=== PATIENT | female | born 1970 | race Caucasian/White ===

== ENCOUNTER 2017-10-04 08:31 | Day surgery (SDC) | payer OTHER ==
[~2017-10-04] VITALS: Ht 167.6 cm; Wt 94.3 kg
--- OUTSIDE RECORDS SUMMARY | ~2017-10-04 | XMS | Clinical Summary ---
Demographics + + + | Address | [address] | | | [place] [address] | + + + | Home Phone | | + + + | Preferred Language | Unknown | + + + | Marital Status | Unknown | + + + | Religion Affiliation | Unknown | + + + | Race | Unknown | + + + | Ethnic Group | Unknown | + + + Author + + + | Author | [facility] | + + + | Organization | [facility] | + + + | Address | Unknown | + + + | Phone | Unavailable | + + + Support +--------+ +---------+ + | Name | Relationship | Address | Phone | +--------+ +---------+ + | No,One | ECON | Unknown | | +--------+ +---------+ + Care Team Providers + +------+ + | Care Medical Claims Processor Name | Role | Phone | + [...] +------+-------+ + | MEDICAID | EASTER | xxxxxxxx | | | [address] | | | N | | | | [place] | | | [place] | | | | [address] | | | PRINT PRODUCTION ASSOCIATE | | | | | + +--------+ [...] | 1971 | [phone] | [place] [address] | | | [place] | | | [phone] | | + +--------+ +--------+ + +"
--- OUTSIDE RECORDS SUMMARY | ~2017-10-04 | XMS | Clinical Summary ---
Demographics + + + | Address | [address] | | | [place] [address] | + + + | Home Phone | | + + + | Preferred Language | Unknown | + + + | Marital Status | Unknown | + + + | Mu-Ism Affiliation | Unknown | + + + | Race | Unknown | + + + | Ethnic Group | Unknown | + + + Author + + + | Author | [facility] | + + + | Organization | [facility] | + + + | Address | Unknown | + + + | Phone | Unavailable | + + + Support +--------+ +---------+ + | Name | Relationship | Address | Phone | +--------+ +---------+ + | No,One | ECON | Unknown | | +--------+ +---------+ + Care Team Providers + +------+ + | Care Chain Maker Loom Control Name | Role | Phone | + [...] | | [place] | | | | [phone] | | | CREAM GATHERER | | | | | + +--------+ [...] | 1971 | [phone] | [place] [address] | | | [place] | | | [phone] | | + +--------+ +--------+ + +"
[~2017-10-04 08:31] MED LIST: LEVOFLOXACIN750 MG PO; ONDANSETRON HCL8 MG PO; PREDNISONE20 MG PO; PROMETHAZINE HC25 M1 PO; PROVENTIL HFA6.7 GM INH; VENTOLIN HFA18 GM INH; ZOFRAN ODT4 MG PO
[2017-10-04] MEDS ORDERED: LAMOTRIGINE200 MG PO (08:41)
[2017-10-04] MEDS ORDERED: CELEXA20 MG PO (08:41)
[2017-10-04] MEDS ORDERED: KLONOPIN1 MG PO (08:42)
--- NOTE | 2017-10-04 20:20 | NUR ---
10/04/172019 Siobhan Barboza 2012 PT ARRIVED TO PACU ON 6L VIA MASK. PT RESPONDS TO STIMULI THEN RIGHT BACK TO SLEEP. SNORING NOTED, PT MAINTAINING OWN AIRWAY. RESP EVEN AND UNLABORED.
--- NOTE | 2017-10-04 21:45 | NUR ---
PT ARRIVED FROM PACU VIA STRETCHER WITH EKTA BALTAZAR. PT WAS ABLE TO TRANSFER HERSELF FROM STRETCH TO BED. PT TOLERATED WELL. PT STATES NAUSEA IS BETTER. PT REPORTS PAIN. WILL GIVE PRN ORAL PAIN MEDICATION ONCE SHE IS ABLE TO TOLERATE CLEAR LIQUIDS. PT IS REQUESTING WATER NOW. WILL ADVANCE DIET AT THIS TIME AND SEE HOW PT TOLERATES CLEAR LIQUIDS.
--- NOTE | 2017-10-04 22:00 | NUR ---
PT UP TO CAMMODE. PT URINATE 400ML BLOOD TINGED URINE. PT TOELRATED WELL. PT BACK TO BED. JELLO AND WATER AT BEDSIDE. VITALS ARE STABLE. WILL CONTINUE TO MONTIOR.
--- NOTE | 2017-10-04 22:15 | NUR ---
GAVE PT CRACKERS WILL MONITOR TO SEE IF PT TOLERATES. WILL GIVE PRN PAIN MEDICATION IF SHE TOELRATES SOLIDS.
--- NOTE | 2017-10-04 22:30 | NUR ---
CALLED MD TO UPDATE THAT PHARMACIES IN [facility] ARE NOW CLOSED AND PT WILL HAVE NO ACCESS TO FILL PAIN MEDICATION PRESCRIPTION. PER MD ORDER A ONE TIME PRECRIPTION HOME PACK OF PERCOCET TO BE SENT WITH PT TO COVER PAIN DURING THE NIGHT UNTIL SHE CAN BRING PRESCRIPTION TO PHARMACY IN THE AM. UPDATED MD THAT SHE IS VOIDING RED TINGED URINE AND IS AWAKE AND WORKING ON CRACKERS AT THIS TIME. PER MD WHEN SHE MEETS CRITERIA SHE CAN DISCHARGE HOME.
--- NOTE | 2017-10-04 22:35 | NUR ---
PT FINISHED CRACKERS AND DANNYOW AND DENIES N/V. WILL PREPARE PT FOR DISCAHRGE.
--- NOTE | 2017-10-04 22:45 | NUR ---
IN TO GIVE PT PRN PAIN MEDICATION AND A TAKE HOME PACK OF PERCOCET. PT FRIEND IS AT THE BEDSIDE, THEY WILL FILL PRESCRIPTIONS IN THE AM.
--- NOTE | 2017-10-04 23:00 | NUR ---
EDUCATED REGUARDING DISCHARGE PAPERWORK. REVIEWD S/S TO CALL THE OFFICE OR RETURN TO THE HOSPITAL. EDUCATED REGUARDING EXPECTED S/S. PT DENIES FURTHER QUESTIONS AT THIS TIME. ALL INFORMATION PLACED IN FOLDER AND GIVEN TO PT FRIEND TOM.
--- NOTE | 2017-10-04 23:15 | NUR ---
REVIEWED DISCHARGE INFORMATION WITH PATIENT AND HER FRIEND TOM WHO WILL BE DRIVING HER HOME. PT AND FRIEND UNDAERSTAND INFORMATION. EDUCATED REGUARDING PRESCRIPTIONS AND TO FILL PRESCRIPTIONS IN THE MORNING. PT IS SENT TO A HOME PACK OF PERCOCET WITH INSTRUCTIONS TO ONLY TAKE 1 TAB EVERY 6 HOURS NEEDED AND TO NOT TAKE THE NEXT ONE UNTIL 0500 D/T TAKING ONE DOSE PRIOR TO DISCHARGING HERE. PT IS ALERT AND ORIENTED, FOLLOWS COMMANDS, VITAL SIGNS ARE STABLE, PT HAS VOIDED, TOLERATED CLEAR LIQUIDS AND CRACKERS WITH NO N/V, PT IS STEADY ON HER FEET. DC'D IV ACCESS. ALL BELONINGS SENT WITH PT. PT WHEELED DOWN IN WHEELCHAIR WITH THIS RN AND ASSIST TO PASSENGER SIDE VEHICLE. TOM HER FRIEND IS TRANSPORTING HER HOME. THEY DENY FURTHER QUESTIONS AT THIS TIME.
--- NOTE | 2017-10-05 08:20 | OR ---
[facility] [address] [place], [place] [address] Signed DATE OF OPERATION: 10/04/2017 SURGEON: Gabriel Mcdaniels MD PREOPERATIVE DIAGNOSIS: Right ureterolithiasis. POSTOPERATIVE DIAGNOSIS: Right ureterolithiasis. PROCEDURES: 1. Diagnostic cystoscopy with right retrograde pyelogram. 2. Right flexible nephroureteroscopy with laser lithotripsy and basket extraction of stones. 3. Insertion of an indwelling right ureteral stent. ANESTHESIA: General. ESTIMATED BLOOD LOSS: Minimal. COMPLICATIONS: None. SPECIMENS: Right ureteral and renal calculi sent to the lab for stone analysis. DRAINS: A 6 x 26 cm Contour double-J ureteral stent inserted into the right ureter. INDICATIONS FOR PROCEDURE: Ms. Drake is a very pleasant 47-year-old female with a previous history of nephrolithiasis, who presented to the Emergency Department early this morning with sudden onset of right-sided flank pain, nausea, and chills. Upon evaluation, she underwent a CT scan, which revealed an approximately 8 mm proximal right ureteral calculus with associated hydronephrosis. The Emergency Department was having a hard time getting her pain under control with both IV Toradol, and IV neck narcotics, therefore Urology was contacted. She was sent to the floor where she was given pain control and made n.p.o. She now presents later today to undergo definitive management Electronically Signed By: GABRIEL MCDANIELS MD 10/05/17 0820 PATIENT NAME: EDY GILLIAM HAZEL OPERATIVE REPORT DATE OF : 68 REPORT #: [id number] PHYSICIAN: GABRIEL MCDANIELS MD PCP: SUJEY BACA DO REPORT IS CONFIDENTIAL AND NOT TO BE RELEASED WITHOUT AUTHORIZATION [facility] [address] [place], [place] [address] Signed of her stone in the form of right ureteroscopy with laser lithotripsy basket extraction of stones and right ureteral stent insertion. FINDINGS: 1. On cystoscopy, there was no evidence of any suspicious masses, lesions, or stones. Bilateral ureteral orifices are in their normal anatomic location. There was no noted efflux coming from the right ureter. 2. Right retrograde pyelogram was performed, which did reveal a filling defect in the proximal right ureter, consistent with her obstructing proximal ureteral stone. 3. Flexible ureteroscopy was performed and the 8 mm stone was visualized, and was fragmented using a holmium laser without difficulty. The fragments were then extracted using a Zero tip basket and placed in a specimen cup. 4. After extracting the ureteral stone, I moved into the lower pole of the right kidney where I found two additional stones each measuring approximately 3 mm. I was able to extract both of those stones in toto, and also sent them with the ureteral calculi to be analyzed. 5. A 6 x 26 cm contour double-J ureteral stent was inserted into the right ureter under direct visualization without difficulty. DESCRIPTION OF PROCEDURE: After informed consent was obtained, the patient was taken back to the operating room. She was transferred from the [facility] to the operating room table, where general anesthesia was induced. She was placed in the dorsal lithotomy position and her genitalia prepped and draped in a standard sterile fashion. Using a 30-degree lens on a 22-Cymro introducer, rigid cystoscope was inserted through the urethra into her bladder under direct visualization. Panendoscopic views of the bladder were then obtained including the lateral rodriguez, floor, dome, and trigone areas. Please see above findings. Attention was turned to the right ureteral orifice. A cone-tipped catheter was advanced toward the right UO and a right-sided retrograde pyelogram was performed. Please see the findings. I then inserted a 0.035 Sensor wire into the right collecting system, and confirmed placement of the wire on fluoroscopy. Over the wire, I passed a 13/15 ureteral access sheath into the right ureter under fluoroscopic guidance. I repeated a retrograde pyelogram to confirm placement. I then advanced the flexible ureteroscope into the proximal right ureter where I found the stone, and fragmented the stone using the holmium laser. The stone fragmented relatively easily, and I was able to extract all 100% stone fragments using a Zero tip basket. Once I was satisfied that all the stone fragments in the ureter were removed, I advanced the flexible ureteroscope into the right kidney. I performed a full nephroscopy and did not appreciate any stones until I went into the lower pole of the right kidney. I was able to locate two 3 mm stones, and was able to extract both of those in toto without the need for further fragmentation. Once I was satisfied that I extracted as many stones as possible I Electronically Signed By: GABRIEL MCDANIELS MD 10/05/17 0820 PATIENT NAME: EDY GILLIAM OPERATIVE REPORT DATE OF : 68 REPORT #: [id number] PHYSICIAN: GABRIEL MCDANIELS MD PCP: SUJEY BACA DO REPORT IS CONFIDENTIAL AND NOT TO BE RELEASED WITHOUT AUTHORIZATION [address] [address] Signed removed the flexible ureteroscope and passed a Sensor wire through the ureteral access sheath into the right renal pelvis, and confirmed placement on fluoroscopy. The sheath was removed fully intact. Over the wire, I passed a 6 x 26 cm Contour double-J ureteral stent into the right ureter under direct visualization. The stent passed easily, and I was able to confirm placement of the stent on fluoroscopy. Once the stent was in adequate position the patient's bladder was then drained and the cystoscope was removed. The procedure was then terminated. The patient tolerated the procedure well without any complication. She will now be transferred to the postanesthesia care unit in stable condition. DISPOSITION: I discussed the results of today's procedure with her friend, Jerrod, and answered all of his questions. Hopefully, she will go home later this evening in stable condition in the company of her friend. I have asked her to contact the clinic tomorrow morning in order to schedule an appointment to see me in 5-7 days to undergo cystoscopy with right ureteral stent extraction in our clinic. I made it clear to the patient that the stent needs to come out, and that she cannot maintain the stent on an indefinite basis. She will be sent home with Percocet 5/325 dispense #30 as needed for pain along with Bactrim Double Strength one tab p.o. b.i.d. for a total of seven days. MD ULISES Low/TSERING /[id number] Copies: ~ Electronically Signed By: GABRIEL MCDANIELS MD 10/05/17 0820 PATIENT NAME: EDY GILLIAM OPERATIVE REPORT DATE OF : 68 REPORT #: [id number] PHYSICIAN: GABRIEL MCDANIELS MD PCP: SUJEY BACA DO REPORT IS CONFIDENTIAL AND NOT TO BE RELEASED WITHOUT AUTHORIZATION
== END 2017-10-04 23:15 | disposition home or self-care (01) ==
LOC: ED 08:31 → DSVR 14:00 → DS 14:00 → CCU 21:30 → DS 23:15
PROVIDERS: Urology
PROC: BT1DYZZ Fluoroscopy of Right Kidney, Ureter and Bladder using Other Contrast (ICD-10-PCS; 2017-10-04)
PROC: 0TC08ZZ Extirpation of Matter from Right Kidney, Via Natural or Artificial Opening Endoscopic (ICD-10-PCS; principal; 2017-10-04 18:30)
PROC: 0TC68ZZ Extirpation of Matter from Right Ureter, Via Natural or Artificial Opening Endoscopic (ICD-10-PCS; 2017-10-04 18:30)
PROC: 0T768DZ Dilation of Right Ureter with Intraluminal Device, Via Natural or Artificial Opening Endoscopic (ICD-10-PCS; 2017-10-04 18:30)
DX: N13.2 Hydronephrosis with renal and ureteral calculous obstruction (principal); E86.0 Dehydration; F32.9 Major depressive disorder, single episode, unspecified; F41.9 Anxiety disorder, unspecified; F43.10 Post-traumatic stress disorder, unspecified; F17.210 Nicotine dependence, cigarettes, uncomplicated
CPT/HCPCS: 00910; 74176; 74450; 80053; 81001; 82150; 82365; 83690; 84703; 85025; 96361; 96374; 96375; 96376; 99285; C2617; J0330; J0696; J1170; J2250; J2405; J2550; J2704; J2765; J3010; J7030; J7120; Q9967

== ENCOUNTER 2017-11-21 06:36 | Emergency (ER) | payer OTHER ==
[~2017-11-21] VITALS: Ht 167.6 cm; Wt 94.3 kg
[~2017-11-21 06:36] MED LIST changes: +CELEXA20 MG PO; +KLONOPIN1 MG PO; +LAMOTRIGINE200 MG PO
[2017-11-21] MEDS ORDERED: NORCO 10-325 T1 EACH PO (08:46)
[2017-11-21] MEDS ORDERED: ONDANSETRON ODT8 MG PO (08:46)
== END 2017-11-21 09:09 | disposition home or self-care (01) ==
LOC: ED 06:36
PROC: 0T9B70Z Drainage of Bladder with Drainage Device, Via Natural or Artificial Opening (ICD-10-PCS; principal; 2017-11-21)
DX: N20.0 Calculus of kidney (principal); I10 Essential (primary) hypertension; F17.200 Nicotine dependence, unspecified, uncomplicated; F41.9 Anxiety disorder, unspecified; Z79.899 Other long term (current) drug therapy
CPT/HCPCS: 51701; 74176; 80053; 81001; 84703; 85025; 96361; 96374; 96375; 99284; J1885; J2405; J7030

== ENCOUNTER 2017-11-24 13:54 | Day surgery (SDC) | payer OTHER ==
[~2017-11-24] VITALS: Ht 167.6 cm; Wt 94.3 kg
[~2017-11-24 13:54] MED LIST changes: +NORCO 10-325 T1 EACH PO; +ONDANSETRON ODT8 MG PO
[2017-11-24] MEDS ORDERED: OXYCODONE HCL E10 MG PO (14:16)
[2017-11-24] MEDS ORDERED: DESVENLAFAXINE25 MG PO (14:18)
[2017-11-24] MEDS ORDERED: AMOX TR-K CLV1 EAC1 PO (14:19)
--- NOTE | 2017-11-24 14:36 | NUR ---
PT REPORTS SHE DRANK 4OZ [place] JUICE AT 0800 THIS AM AND HAS DRANK 24OZ WATER ALL DAY FINISHING JUST BEFORE ARRIVAL. THIS REPORTED TO JHONATHAN.
--- NOTE | 2017-11-24 15:28 | NUR ---
pt rests quietly with eyes closed resp even sat 97% on 2l o2 per nc. iv patent.
--- NOTE | 2017-11-24 16:14 | NUR ---
up to br voids 300mls dark yellow urine strained no stone retrieved.
--- NOTE | 2017-11-24 18:45 | NUR ---
PATIENT ARRIVED TO THE FLOOR VIA A STRETCHER AND WAS ABLE TO MOVE HERSELF OVER TO THE BED FROM THE STRETCHER, PATIENT WAKES EASILY TO HER NAME BUT IS SLEEPY. SHE IS ON OXYGEN AT 2L PER NC. VITALS TAKEN AND PATIENT GIVEN WATER AT THIS TIME. RAILS UP AND PATIENT ORIENTED TO THE ROOM.
--- NOTE | 2017-11-24 18:56 | NUR ---
PATIENT UP TO THE COMMODE TO VOID, URINE WAS REDDISH IN COLOR AND PATIENT HAD 125MLS OUT.
--- NOTE | 2017-11-24 20:37 | NUR ---
RECEIVED BEDSIDE REPORT FROM DAY SHIFT NURSE. PT APPEARS TO BE ASLEEP IN BED. AWAKES TO VOICE. PT APPEARS VERY DROWSY AT THIS TIME. VSS. CALL LIGHT WITHIN REACH. SCDS IN PLACE. RESPIRATIONS EQUAL AND NONLABORED.
--- NOTE | 2017-11-24 21:00 | NUR ---
ASSESSMENT COMPLETED. LUNGS CLEAR. HEART SOUNDS NORMAL. RESPIRATIONS EQUAL AND NONLABORED. PT REPORTS PAIN 7/10. PAIN MEDICATION HELP DUE TO PT LOC. APPEARS VERY DROWSY AT THIS TIME. WAKING FOR ONLY BREIF MOMENTS THEN FALLING BACK ASLEEP. ABDOMEN IS TENDER. BOWEL TONES ACTIVE. URINE OUTPUT IS QS WITH A LIGHT RED COLOR. PT IS SL. DRINKING OKAY WHEN AWAKE. NO N/V. PT STILL A LITTLE UNSTEADY ON HER FEET. CALL LIGHT WITHIN REACH. REPORTS NO OTHER NEEDS AT THIS TIME
--- NOTE | 2017-11-24 22:04 | NUR ---
HELPED PT TO THE BATHROOM AND BACK TO BED. VITALS AND I&OS DONE AND CHARTED.BEDSIDE TABLE AND CALL LIGHT WITHIN REACH. PT COMPLAINS OF LEFT SIDE PAIN. I INFORMED HER RN ZION.
--- NOTE | 2017-11-24 22:10 | NUR ---
PT REPORTED PAIN 7/10. APPEARS MORE ALERT AT THI TIME. PAIN MEDICATION GIVEN. ENCOURAGED EATING. PT WAS ABLE TO EAT 2 APPLE SAUCES AND A JELLY. NO N/V. UP TO BATHROOM AND STEADY ON HER FEET. CALL LIGHT WITHIN REACH
--- NOTE | 2017-11-25 00:23 | NUR ---
DC PT. VSS. CRITERIA MEET. ATE, URINATED, AMBULATED AND PAIN UNDER CONTROL.
--- NOTE | 2017-11-28 08:14 | OR ---
[facility] [address] [place], [place] [address] Signed DATE OF OPERATION: 11/24/2017 SURGEON: Gabriel Mcdaniels MD PREOPERATIVE DIAGNOSIS: Large left ureteral calculus. POSTOPERATIVE DIAGNOSIS: 8 x 11 mm left ureteropelvic junction calculus with associated obstructive uropathy. NAMES OF PROCEDURES: 1. Diagnostic cystoscopy with left retrograde pyelogram. 2. Left flexible nephroureteroscopy with laser lithotripsy and basket extraction of stone fragments. 3. Insertion of left ureteral stent. ANESTHESIA: General. ESTIMATED BLOOD LOSS: Minimal. COMPLICATIONS: None. SPECIMENS: Fragments of left ureteral calculus sent to the lab for stone analysis. DRAINS: A 6 x 26 cm contour double-J ureteral stent inserted in the left ureter. INDICATIONS FOR PROCEDURE: Ms. Gilliam is a very pleasant 47-year-old female with a previous history of nephrolithiasis. She is well known to me as she has undergone recent right ureteroscopy with stone extraction for an obstructing right ureteral calculus. She recently presented to the emergency department with severe left-sided flank pain. She was found to have an approximately 8 x 11 left-sided ureteropelvic junction calculus with associated hydronephrosis. She was sent home with pain control of the time. She presented to my clinic yesterday in severe discomfort. She was also experiencing intermittent bouts of nausea and vomiting as well. At that time, she was placed on the Electronically Signed By: GABRIEL MCDANIELS MD 11/28/17 0814 PATIENT NAME: EDY GILLIAM OPERATIVE REPORT DATE OF : 68 REPORT #: [id number] PHYSICIAN: GABRIEL MCDANIELS MD PCP: SUJEY BACA DO REPORT IS CONFIDENTIAL AND NOT TO BE RELEASED WITHOUT AUTHORIZATION [facility] [address] [place], [place] [address] Signed schedule to undergo definitive stone extraction on the following day. She was given Percocet 10/325, dispense #30 as needed for pain along with Augmentin 875 p.o. b.i.d. for the next seven days prior to her procedure. She presents today to undergo definitive extraction of her obstructing left ureteral calculus. OPERATIVE FINDINGS: 1. On cystoscopy, there was no evidence of any suspicious masses, lesions, or stones. Bilateral ureteral orifices are normal in anatomic location. 2. Left retrograde pyelogram revealed no evidence of filling defect within the distal or mid portion of the left ureter. In the proximal portion, there was evidence of filling defect consistent with a large left ureteral calculus. 3. I attempted a semi-rigid ureteroscopy and I did locate the large stone in the proximal ureter. However with the irrigation fluid on pressure flow, the stone was pushed back into the left renal pelvis. 4. Flexible nephroureteroscopy was then performed and the stone was fragmented using a 270 micron fiber and holmium laser. The stone fragments were collected in their entirety and sent to the lab for stone analysis. 5. A 6 x 26 cm contour double-J ureteral stent was inserted into the left ureter under direct visualization. DESCRIPTION OF PROCEDURE: After informed consent was obtained, the patient was taken back to the operating room. She was transferred from the [facility] to the operating room table where general anesthesia was induced. She was placed in the dorsal lithotomy position and her genitalia were prepped and draped in standard sterile fashion. Her urethra was dilated from 14-Malagasy to 24-Malagasy without difficulty. A rigid cystoscope was then advanced through the urethra and into her bladder under direct visualization. Panendoscopic views of the bladder were then obtained. Please see the findings. Attention was turned to the left ureteral orifice. A cone-tipped catheter was advanced to the level of the left ureteral orifice and a left retrograde pyelogram was performed. Please see the findings. I then inserted a 0.035 Sensor wire into the left ureter and up into the left collecting system and confirmed placement on fluoroscopy. I inserted an MR-6 semi-rigid ureteroscope alongside the wire into the left ureter and performed a diagnostic left ureteroscopy. I did find the obstructing stone in the proximal portion of the left ureter. The stone got pushed into the left renal pelvis, so I decided to remove the semi-rigid scope and proceed with flexible ureteroscopy. Over the indwelling Sensor wire, passed a 13/15 ureteral access sheath into the collecting system under fluoroscopic guidance. Repeat pyelogram was performed to confirm placement of the sheath. I then passed a flexible ureteroscope into the kidney via the ureter and flexible nephroscopy was performed. The stone was located within the midpole of the left renal pelvis and fragmented using a holmium laser with a 270 micron fiber. The stone fragmented completely. The stone fragments were then extracted using a Zero tip basket without difficulty. 100% of the Electronically Signed By: GABRIEL MCDANIELS MD 11/28/17 0814 PATIENT NAME: EDY GILLIAM OPERATIVE REPORT DATE OF : 68 REPORT #: [id number] PHYSICIAN: GABRIEL MCDANIELS MD PCP: SUJEY BACA DO REPORT IS CONFIDENTIAL AND NOT TO BE RELEASED WITHOUT AUTHORIZATION [address] [address] Signed stone burden was successfully extracted. Once I was satisfied that all the stones had been extracted, I reinserted the Sensor wire through the ureteral access sheath and removed the ureteral access sheath intact. Over the wire, I passed a 6 x 26 cm contour double-J ureteral stent into the left ureter under direct visualization. Upon pulling the wire, an adequate coil was seen within the left renal pelvis along with an adequate distal coil within the bladder. The patient's bladder was then drained and the cystoscope was removed. The procedure was then terminated. The patient tolerated the procedure well without any complication. She will now be transferred to the postanesthesia care unit in stable condition. DISPOSITION: Ms. Gilliam will be discharged to home later today in stable condition. I notified her friend, Zahra Damian, who I left a voicemail and notifying her friend that the surgery went well and that the stone had been completely extracted. The patient already has pain control and antibiotics that she was given yesterday that she will continue for the next seven days. She has been scheduled to return to clinic in approximately 10 days to undergo cystoscopy with left ureteral stent extraction. MD ULISES Low/TSERING /[id number] Copies: ~ Electronically Signed By: GABRIEL MCDANIELS MD 11/28/17 0814 PATIENT NAME: EDY GILLIAM OPERATIVE REPORT DATE OF : 68 REPORT #: [id number] PHYSICIAN: GABRIEL MCDANIELS MD PCP: SUJEY BACA DO REPORT IS CONFIDENTIAL AND NOT TO BE RELEASED WITHOUT AUTHORIZATION
== END 2017-11-25 00:15 | disposition home or self-care (01) ==
LOC: DS 13:54 → MS 18:38 → DS 11-25 00:15
PROVIDERS: Urology
PROC: 0TC78ZZ Extirpation of Matter from Left Ureter, Via Natural or Artificial Opening Endoscopic (ICD-10-PCS; 2017-11-24)
PROC: 0T778DZ Dilation of Left Ureter with Intraluminal Device, Via Natural or Artificial Opening Endoscopic (ICD-10-PCS; principal; 2017-11-24 16:00)
PROC: BT1FYZZ Fluoroscopy of Left Kidney, Ureter and Bladder using Other Contrast (ICD-10-PCS; 2017-11-24 16:00)
DX: N13.2 Hydronephrosis with renal and ureteral calculous obstruction (principal); G43.909 Migraine, unspecified, not intractable, without status migrainosus; F17.210 Nicotine dependence, cigarettes, uncomplicated; J45.909 Unspecified asthma, uncomplicated; F41.9 Anxiety disorder, unspecified; I10 Essential (primary) hypertension; F43.10 Post-traumatic stress disorder, unspecified; E66.9 Obesity, unspecified; Z79.899 Other long term (current) drug therapy; Z87.442 Personal history of urinary calculi; Z79.2 Long term (current) use of antibiotics; Z68.33 Body mass index [BMI] 33.0-33.9, adult
CPT/HCPCS: 00918; 74450; 82365; C2617; J0330; J0696; J1100; J2405; J2550; J2704; J3010; J7120; Q9967

== ENCOUNTER 2018-11-21 12:59 | Emergency (ER) | payer OTHER ==
[~2018-11-21] VITALS: Ht 167.6 cm; Wt 94.0 kg
--- OUTSIDE RECORDS SUMMARY | ~2018-11-21 | XMS | Encounter Summary ---
Demographics + + + | Address | [address] | | | [place] [address] | + + + | Home Phone | | + + + | Preferred Language | Unknown | + + + | Marital Status | Unknown | + + + | Spiritism Affiliation | 1013 | + + + | Race | Unknown | + + + | Ethnic Group | Unknown | + + + Author + + + | Author | [facility] | | | and [place] | + + + | Organization | [facility] | | | and [place] | + + + | Address | Unknown | + + + | Phone | Unavailable | + + + Support + + +---------+ + | Name | Relationship | Address | Phone | + + +---------+ + | none,provided | ECON | Unknown | | + + +---------+ + Care Team Providers + +------+ + | Care Television Service Engineer Name | Role | Phone | + [...] + + + + | 11/11/ | Anesthesia | [facility] | Hood Horowitz | | | 2018 | Event | MED CTR OR INTRA OP | MD [place] [address] | | | | | [address] [place] | | | | | [place] | [phone] | | | | | [address] | [phone] | | | | | [phone] | | | +--------+ + + + + Anesthesia Record + + + + + | Procedure Name | Responsible | Anesthesia Start | Anesthesia Stop Time | | | Anesthesiologist | Time | | + + + + + | CYSTOSCOPY PLACEMENT | Hood Horowitz, | 11/11/182214 | 11/11/18 2310 | | RIGHT URETERAL | MD | | | | STENT (Right Ureter) | | | | + + + + + +----+---+ + + | Da | T | Event | Comment | | te | i | | | | | m | | | | | e | | | +----+---+ + + | 06 | 2 | An Checkout | Pre-use anesthesia machine/equipment checkout. | | /0 | 2 | | | | 1/ | 0 | | | | 20 | 0 | | | | 19 | | | | +----+---+ + + | | 2 | | | | | 2 | | | | | 1 | | | | | 5 | | | +----+---+ + + | | 2 | An Start | Room ready, anesthesia equipment checked, essential drugs & | | | 2 | | equipment available. Patient Identity checked, anesthesia plan | | | 1 | | explained and consent obtained. Patient transported to OR, | | | 5 | | Monitors applied. Reassessment prior to anesthesia | | | | | induction/procedure. | +----+---+ + + | | 2 | An Start | | | | 2 | Data | | | | 1 | | | | | 6 | | | +----+---+ + + | | 2 | an basilio now | | | | 2 | | | | | 1 | | | | | 8 | | | +----+---+ + + | | 2 | AN | Per surgeon request | | | 2 | Antibiotic | | | | 1 | declined | | | | 9 | | | +----+---+ + + | | 2 | Preoxygenat | Oxygen administered, patient sedated, ventilating spontaneously. | | | 2 | ed | | | | 2 | | | | | 3 | | | +----+---+ + + | | 2 | An | | | | 2 | Induction | | | | 2 | | | | | 5 | | | +----+---+ + + | | 2 | An | Smooth IV induction, easy mask airway. LMA placed and well | | | 2 | Intubation | seated. Breathing Circuit attached to LMA. BSEB/ETCO2 | | | 2 | | (auscultation and capnography) and placement confirmed. | | | 6 | | | +----+---+ + + | | 2 | AN Bite | | | | 2 | Block | | | | 2 | | | | | 7 | | | +----+---+ + + | | 2 | [place] | | | | 2 | 43-degrees | | | | 3 | | | | | 0 | | | +----+---+ + + | | 2 | Pre-Procedu | | | | 2 | ral Timeout | | | | 3 | Completed | | | | 4 | | | +----+---+ + + | | 2 | First | | | | 2 | Inc/Proc St | | | | 3 | | | | | 5 | | | +----+---+ + + | | 2 | an basilio now | | | | 3 | | | | | 0 | | | | | 5 | | | +----+---+ + + | | 2 | an stop | | | | 3 | data | | | | 0 | | | | | 5 | | | +----+---+ + + | | 2 | An Stop | Patient handed off to recovery nurse. | | | 1 | | | | | 0 | | | +----+---+ + + +------+ | Meds | +------+ + + + | Name | Total | + + + | fentaNYL | 100 mcg | + + + | propofol | 170 mg | + + + | dexamethasone | 4 mg | + + + | ondansetron | 4 mg | + + + | LR (Infusion) | 1,000 mL | + + + [...] Removal | +--------+ + + + | Airway | Placement Date: 11/11/18; | 11/11/182225 by | 11/11/182308 by Jose Armando | | | Placement Time: 2225 (created via | Hood Horowitz, | Eulogio Brady RN | | | procedure documentation); Mask | MD | | | | Ventilation: EZ; Attempts: 1; | | | | | Airway Type: laryngeal mask; | | | | | Size: 3; Trauma: none; Placement | | | | | Check: exhaled CO2 detection | | | | | device, bilateral chest rise, | | | | | breath sounds equal bilaterally; | | | | | Removal: per protocol, removed by | | | | | EKTA; Removal Date: 11/11/18; | | | | | Removal Time: 2308; Additional | | | | | Comments: Smooth IV induction. | | | | | LMA placed and well seated. | | | | | Secured in place. Breathing | | | | | Circuit attached to LMA. | | | | | BSEB/ETCO2 (auscultation and | | | | | capnography) and placement | | | | | confirmed. | | | +--------+ + + + [...] + +---------+ + | Alcohol Use | Drinks/We | oz/Week | Comments | | | ek | | | + + +---------+ + | Not [...] as of this encounter Plan of Treatment Not on filedocumented as of this encounter Results Airway (11/11/2018 22:31 PDT) + + + | Narrative | Performed At | + + + | Hood Horowitz MD 11/11/2018 22:31 Anesthesia Airway | | | Placement 11/11/2018 22:26 Preprocedure check: patient identified, | | | oxygen, airway assessed, patient reassessment prior to induction, | | | airway equipment checked and suction Rapid Sequence Induction: no | | | Mask ventilation: easy Attempts: 1 Airway type: laryngeal mask | | | Size: 3 Cuffed: cuffed Route, reference point: center of mouth Tube | | | secured with: adhesive tape Trauma: none Tube placement | | | verification: carbon dioxide detection, equal bilateral breath | | | sounds and bilateral chest rise Performing provider: Hood Juárez | | | MD Carlos Manuel Comments: Smooth IV induction. LMA placed and well | | | seated. Secured in place. Breathing Circuit attached to LMA. | | | BSEB/ETCO2 (auscultation and capnography) and placement confirmed. | | | Please see intraoperative grid for any additional medication | | | documentation. | | + + + + + | Procedure Note | + + | Hood Horowitz MD - 11/11/2018 2231 PDT Anesthesia Airway Placement11/11/2018 | | 22:26Preprocedure check: patient identified, oxygen, airway assessed, patient | | reassessment prior to induction, airway equipment checked and suctionRapid Sequence | | Induction: noMask ventilation: easyAttempts: 1Airway type: laryngeal maskSize: 3Cuffed: | | cuffedRoute, reference point: center of mouthTube secured with: adhesive tapeTrauma: | | noneTube placement verification: carbon dioxide detection, equal bilateral breath sounds | | and bilateral chest risePerforming provider: SUSANA Roperomments: Smooth IV | | induction.LMA placed and well seated. Secured in place.Breathing Circuit attached to | | LMA. BSEB/ETCO2 (auscultation and capnography) and placement confirmed.Please see | | intraoperative grid for any additional medication documentation. | |Route, reference point: center of mouth | |Tube secured with: adhesive tape | |Trauma: none | |Tube placement verification: carbon dioxide detection, equal bilateral breath sounds and bi lateral chest rise | |Performing provider: Hood Horowitz MD | | | |Comments: Smooth IV induction. | |LMA placed and well seated. Secured in place. | |Breathing Circuit attached to LMA. | |BSEB/ETCO2 (auscultation and capnography) and placement confirmed. | | | | | |Please see intraoperative grid for any additional medication documentation. | + + documented in this encounter Visit Diagnoses Not on filedocumented in this encounter Administered Medications + +--------+ +------+------+------+ | Medication Order | MAR | Action | Dose | Rate | Site | | | Action | Date | | | | + +--------+ +------+------+------+ | dexamethasone (PF) 10 mg/mL | Given | 11/12/19 | 4 mg | | | | injection Intravenous, PRN, | | 19 22:19 | | | | | Starting 11/11/18 at 2219, | | PDT | | | | | Anesthesia Intra-op | | | | | | + +--------+ +------+------+------+ +---+---+ | | | +---+---+ + +-------+ +--------+---+---+ | fentaNYL (PF) injection | Given | 11/12/19 | 50 mcg | | | | Intravenous, PRN, Starting Sat | | 19 22:25 | | | | | 11/11/18 at 2221, Anesthesia | | PDT | | | | | Intra-op | | | | | | + +-------+ +--------+---+---+ +-------+ +--------+---+---+ | Given | 11/12/19 | 50 mcg | | | | | 19 22:21 | | | | | | PDT | | | | +-------+ +--------+---+---+ +---+---+ | | | +---+---+ + +---------+ +---+---+---+ | lactated ringers (LR) infusion | New Bag | 11/12/19 | | | | | Intravenous, CONTINUOUS PRN, | | 19 22:19 | | | | | Starting 11/11/18 at 2219, | | PDT | | | | | Anesthesia Intra-op | | | | | | + +---------+ +---+---+---+ +---+---+ | | | +---+---+ + +-------+ +------+---+---+ | ondansetron (ZOFRAN) injection | Given | 11/12/19 | 4 mg | | | | PRN, Starting 11/11/18 at | | 19 22:19 | | | | | 2219, Anesthesia Intra-op | | PDT | | | | + +-------+ +------+---+---+ +---+---+ | | | +---+---+ + +-------+ +--------+---+---+ | propofol (DIPRIVAN) injection | Given | 11/12/19 | 170 mg | | | | Intravenous, PRN, Starting Sat | | 19 22:25 | | | | | 11/11/18 at 2225, Anesthesia | | PDT | | | | | Intra-op | | | | | | + +-------+ +--------+---+---+ +---+---+ | | | +---+---+ documented in this encounter"
--- OUTSIDE RECORDS SUMMARY | ~2018-11-21 | XMS | Encounter Summary ---
Demographics + + + | Address | [address] | | | [place] [address] | + + + | Home Phone | | + + + | Preferred Language | Unknown | + + + | Marital Status | Unknown | + + + | Muslim Affiliation | 1013 | + + + | Race | Unknown | + + + | Ethnic Group | Unknown | + + + Author + + + | Author | [facility] | | | and [place] | + + + | Organization | [facility] | | | and [place] [...] Team Providers + +------+ + | Care Retail Warehouse Associate Name | Role | Phone | + [...] + + | 11/11/ | Hospital | [facility] | Anastacio Mendoza MD | | | 2019 - | Encounter | MED CTR SURGICAL | [address] | | | | | [address] | [place] | | | 11/12/ | | [facility] [place] [address] | [address] | | | 2018 | | [phone] | [phone] | | | | | | | [...] Filed Vital Signs + + + + | Vital Sign | Reading | Time Taken | + + + + | Blood Pressure | 101/66 | 11/12/2018805 PDT | + + + + | Pulse | 53 | 11/12/2018805 PDT | + + + + | Temperature | 36 C (96.8 F) | 11/12/2018805 PDT | + + + + | Respiratory Rate | 18 | 11/12/2018805 PDT | + + + + | Oxygen Saturation | 95% | 11/12/2018805 PDT | + + + + | Inhaled Oxygen | - | - | | Concentration | | | + + + + | Weight | 94.3 kg (207 lb 14.3 | 11/12/20183 PDT | | | oz) | | + + + + | Height | 167.6 cm (5' 6") | 11/12/20183 PDT | + + + + | Body Mass Index | 33.55 | 11/12/20183 PDT | + + + + documented in this [...] Discharge Summaries Anastacio Mendoza MD - 11/12/2018 0838 PDT DISCHARGE SUMMARY Pt. Name/Age/: Mireya Ramos 48 y.o. 1970 [id number] Date of Admission: 11/11/2018 Date of Discharge: [...] Complications: Patient was received in transfer from [facility] emergency room about 9:30 PM. She underwent the above indicated procedure. She remained afebrile. Her abdominal pain at presentation resolved. The morning after surgery she rece ived another IV dose of ceftriaxone and began oral levofloxacin. She was prescribed 6 more days of levofloxacin empirically awaiting results of final urine culture from [facility]. She is instructed that she has [...] results on DC: Urine culture from [facility] on 11/11/18 Follow-Up Plans: Follow-up with: Dr. Mendoza or Dr. Chino Diet: Calcium oxalate prevention diet Activity: No restrictions, shower only Electronically signed by: Anastacio Mendoza, 11/12/2018 8:50 [facility] documented in this encoun ter Discharge Instructions Instructions Anastacio Mendoza MD - 11/12/2018Printed list of medications from this hospital is not correct. Resume your normal medications. You have a new prescription for levofloxac in antibiotic for the next 6 days. You will receive a dose of levofloxacin at the hospital today so will begin your prescription tomorrow, Tuesday. Contact [facility] emergency r oom Tuesday and possibly Tuesday [...] | | | | | UTI - Upper | Upper | | | | | [...] mg by mouth | | 0 | /16/ | | | (MINIPRESS) 2 MG | [...] Not on filedocumented as of this encounter Procedures + +--------+ + + + | Procedure Name | Priori | Date/Time | Associated Diagnosis | Comments | | | ty | | | | + +--------+ + + + | EXTRA LAVENDER TOP | Routin | 11/12/2018 | | Results for this | | TUBE | e | 6:41 PDT | | procedure are in the | | | | | | results section. | + +--------+ + + + | BASIC METABOLIC | Routin | 11/12/2018 | | Results for this | | PANEL | e | 6:02 PDT | | procedure are in the | | | | | | results section. | + +--------+ + + + | FL PYELOGRAM | Routin | 11/11/2018 | | Results for this | | RETROGRADE | e | 22:54 PDT | | procedure are in the | | | | | | results section. | + +--------+ + + + | CYSTOSCOPY PLACEMENT | | 11/11/2018 | right ureteral | | | URETERAL STENT | | 22:00 PDT | stone | | + +--------+ + + + | IMAGING REPORT - | | 11/11/2018 | | Results for this | | EXTERNAL SCAN | | 0:00 PDT | | procedure are in the | | | | | | results section. | + +--------+ + + + documented in this encounter Results Extra Lavender Top Tube (11/12/2018 6:41 PDT) + +-------+ + + + | [...] ST. | [address] | [place] | [phone] | | [facility] | | [address] | | | - LABORATORY | | | | + + + + + Basic Metabolic Panel (11/12/2018 6:02 PDT) + + + + + + [...] 27 | 20 - 31 mmol/L | [facility] | | | | | [...] (H) | 60 - 106 mg/dL | [facility] | | | | [...] not | 56 (L)Comment: | >=60 | [facility] | | | | GLOMERULAR FILTRATION | mL/min/1.73m2 | [facility] | | | TRISTANIAN | RATE,ESTIMATED mL/min | | MEDICAL | | | | /1.89j0Fpab than 60 | | CENTER - | | | | Chronic kidney | | LABORATORY | | | | disease,if found over a | | | | | | 3-month period.Less than | | | | | | 15 Kidney | | | | | | failureFor | | | | | | Americans,multiply the | | | | | | calculated GFR by 1.21. | | | | | | | | | | + + + + + + | Ca | 10.0 | 8.7 - 10.4 | [facility] | | | | | mg/dL | [facility] | | | | | | MEDICAL | | | | | | CENTER - | | | | | | LABORATORY | | + + + + + + | BUN/Creatin | 9.5 | | [facility] | | | ine Ratio | | | [facility] | | [...] + + | [facility] | [address] | [place] | [phone] | | [facility] | | [address] | | | - LABORATORY | | | | + + + + + FL Pyelogram Retrograde (11/11/2018 22:54 PDT) + + | Specimen | + [...] + IMAGING REPORT - EXTERNAL SCAN (11/11/2018 0:00 PDT) + + + | Narrative | [...] HOURS PRN, Pain, Fever, Starting | | PDT | | | | | 11/11/18 at 2352, Post-op/Phase | | | | | | | II | | | | | | + +--------+ +--------+------+------+ +---+---+ | | | +---+---+ + +-------+ +--------+---+---+ | fentaNYL (PF) injection 25-50 | Given | 11/12/19 | 25 mcg | | | | mcg 25-50 mcg, Intravenous, | | 19 23:28 | | | | | EVERY 5 MIN PRN, Pain, Initial | | PDT | | | | | postop [...] | | | | | | longer, jwvzsp-kox-zmhrv use of | | | | | [...] mcg | | | | | 19 23:23 | | | | | | PDT | | | | +-------+ +--------+---+---+ +---+---+ | | | +---+---+ + +-------+ +--------+---+---+ | HYDROmorphone (DILAUDID) | Given | 11/12/19 | 0.4 mg | | | | injection 0.2-0.6 mg 0.2-0.6 mg, | | 19 23:35 | | | | | Intravenous, EVERY 5 MIN PRN, | | PDT | | | | | Pain, [...] | | | | | | | ilrxui-gxi-pzqbi use of at least | | | [...] | | CONTINUOUS, Starting 11/12/18 | | PDT | | | | | at [...] | 100 | | | | 19 0:52 | | mL/hr | | | | PDT | | | | +---------+ +---+-------+---+ +---+---+ | | | +---+---+ + +-------+ +--------+---+---+ | lamoTRIgine (laMICtal) tablet | Given | 11/13/19 | 200 mg | | | | 200 mg 200 mg, Oral, DAILY, | | 19 9:05 | | | | | First dose on 11/12/18 at 0900, | | PDT | | | | | Post-op/Phase II | | | | | | + +-------+ +--------+---+---+ +---+---+ | | | +---+---+ + +-------+ +--------+---+---+ | levoFLOXacin (LEVAQUIN) tablet | Given | 11/13/19 | 500 mg | | | | 500 mg 500 mg, Oral, DAILY, | | 19 9:06 | | | | | First dose on 11/12/18 at 0900, | | PDT | | | | | Give 2 hours before or 2 hours | | | | | | | after antacids, iron, or zinc., | | | | | | | Indications: UTI - Upper | | | | | | + +-------+ +--------+---+---+ +---+---+ | | | +---+---+ + +-------+ +------+---+---+ | prazosin (MINIPRESS) capsule 2 | Given | 11/13/19 | 2 mg | | | | mg 2 mg, Oral, EVERY MORNING, | | 19 9:04 | | | | | First dose on 11/12/18 at 0900, | | PDT | | | | | Post-op/Phase II | | | | | | + +-------+ +------+---+---+ +---+---+ | | | +---+---+ + +-------+ +--------+---+---+ | senna (SENOKOT) tablet 8.6 mg | Given | 06/02/20 | 8.6 mg | | | | 8.6 mg, Oral, 2 TIMES DAILY, | | 19 9:06 | | | | | First dose on 11/12/18 at 0015, | | PDT | | | | | If docusate ineffective or not | | | | | | | ordered, Post-op/Phase II | | | | | | + +-------+ +--------+---+---+ +---+---+ | | | +---+---+ documented in this encounter
--- OUTSIDE RECORDS SUMMARY | ~2018-11-21 | XMS | Encounter Summary ---
Demographics + + + | Address | [address] | | | [place] [address] | + + + | Home Phone | | + + + | Preferred Language | Unknown | + + + | Marital Status | Unknown | + + + | Yazidi Affiliation | 1013 | + + + | Race | Unknown | + + + | Ethnic Group | Unknown | + + + Author + + + | Author | [facility] | | | and [place] | + + + | Organization | [facility] | | | and [...] Team Providers + +------+ + | Care Data Warehouse Architect Name | Role | Phone | + [...] + + | 11/11/ | Surgery | [facility] | Anastacio Mendoza MD | CYSTOSCOPY PLACEMENT | | 2019 | | MED CTR OR INTRA OP | [address] | RIGHT URETERAL | | | | [address] | [place], [place] | STENT | | | | [place], [place] | [address] | | | | | [address] | [phone] | | | | | [phone] | | | +--------+---------+ + + + [...] Pt. Name/Age/: Mireya Ramos 48 y.o. 1970 [id number] Date of Admission: 11/11/2018 Date of Discharge: [...] Complications: Patient was received in transfer from [facility] emergency room about 9:30 PM. She underwent the above indicated procedure. She remained afebrile. Her abdominal pain at presentation resolved. The morning after surgery she rece ived another IV dose of ceftriaxone and began oral levofloxacin. She was prescribed 6 more days of levofloxacin empirically awaiting results of final urine culture from [facility]. She is instructed that she [...] study results on DC: Urine culture from [facility] on 11/11/18 Follow-Up Plans: Follow-up with: Dr. Mendoza or Dr. Chino Diet: Calcium oxalate prevention diet Activity: No restrictions, shower only Electronically signed by: Anastacio Mendoza, 11/12/2018 8:50 [facility] documented in this encoun ter Discharge Instructions Instructions Anastacio Mendoza MD - 11/12/2018Printed list of medications from this hospital is not correct. Resume your normal medications. You have a new prescription for levofloxac in antibiotic for the next 6 days. You will receive a dose of levofloxacin at the hospital today so will begin your prescription tomorrow, Tuesday. Contact [facility] emergency r oom Tuesday and [...] mg by mouth | | 0 | // | | | (KLONOPIN) 1 mg | [...] mg by mouth | | 0 | 05/16/20 | | | (MINIPRESS) 2 MG | [...] [address] | [place] | [phone] | | [facility] | | [address] | | | - LABORATORY | | [...] not | 56 (L)Comment: | >=60 | [place] | | | | GLOMERULAR FILTRATION | mL/min/1.73m2 | [facility] | | | MALAYSIAN | RATE,ESTIMATED mL/min | | MEDICAL | | | | /1.83i1Pcyv than 60 | | CENTER - | [...] | + + + + + | [facility] | [address] | [place] | [phone] | | [facility] | | [address] | | | - LABORATORY | | [...]
--- OUTSIDE RECORDS SUMMARY | ~2018-11-21 | XMS | Clinical Summary ---
Demographics + + + | Address | [address] | | | [place] [address] | + + + | Home Phone | | + + + | Preferred Language | Unknown | + + + | Marital Status | Unknown | + + + | Yazidism Affiliation | Unknown | + + + | Race | Unknown | + + + | Ethnic Group | Unknown | + + + Author + + + | Author | [facility] [facility] | + + + | Organization | [facility] [employer] [facility] | + + + | Address | Unknown | + + + | Phone | Unavailable | + + + Support +--------+ +---------+ + | Name | Relationship | Address | Phone | +--------+ +---------+ + | No,One | ECON | Unknown | | +--------+ +---------+ + Care Team Providers + +------+ + | Care Log Inspector Name | Role | Phone | + +------+ + | Roxanne Gillis MD | PP | | + +------+ + [...] | + + + Plan of Treatment Not on file Results Not on filefrom Last 3 Months Insurance + +--------+ +------+-------+ + | Payer | Benefi | Subscriber | Type | Phone | Address | | | t Plan | ID | | | | | | / | | | | | | | Group | | | | | + +--------+ +------+-------+ + | MEDICAID | [employer] | [id number] | | | [address] | | | [place] | | | | [place] | | | [place] | | | | [phone] | | | DIVISION SERGEANT | | | | | + +--------+ [...] | Self | [birth year] | Home: | [address] | | | al/Fam | | 1971 | [phone] | [place] [address] | | | juarez | | [phone] | | + +--------+ +--------+ + +"
--- OUTSIDE RECORDS SUMMARY | ~2018-11-21 | XMS | Encounter Summary ---
Demographics + + + | Address | [address] | | | [place] [address] | + + + | Home Phone | | + + + | Preferred Language | Unknown | + + + | Marital Status | Unknown | + + + | Religion Affiliation | 1013 | + + + | Race | Unknown | + + + | Ethnic Group | Unknown | + + + Author + + + | Author | [facility] | | | and [place] | + + + | Organization | [facility] | | | and [place] [...] Team Providers + +------+ + | Care Land Measurer Name | Role | Phone | + [...] + | 11/11/ | Anesthesia | [facility] | Hood Horowitz | | | 2018 | Event | MED CTR OR INTRA OP | MD Fran[place] [address] | | | | | [address] | [address] [place] | | | | | [place] | [address] | | | | | [address] | [phone] | | | | | [phone] | | | +--------+ + + + [...] +----+---+ + + | | 2 | [place] | | | | 2 | 43-degrees [...]
--- OUTSIDE RECORDS SUMMARY | ~2018-11-21 | XMS | Encounter Summary ---
Demographics + + + | Address | [address] | | | [place] [address] | + + + | Home Phone | | + + + | Preferred Language | Unknown | + + + | Marital Status | Unknown | + + + | Pentecostalism Affiliation | 1013 | + + + | Race | Unknown | + + + | Ethnic Group | Unknown | + + + Author + + + | Author | [facility] | | | and [place] | + + + | Organization | [facility] | | | and [place] [...] Team Providers + +------+ + | Care Director Customer Name | Role | Phone | + +------+ + | Roderick Frias DO | PCP | | + +------+ + Encounter Details +--------+ + + + + | Date | Type | Department | Care Team | Description | +--------+ + + + + | 11/11/ | Imaging | [facility] | Provider, | Oscar | | 2019 | Exam | MED CTR EXTERNAL | [address] | | | | | IMAGING | [address] | | | | | [phone] | [place] [address] | | +--------+ + + + + [...] this | | CONTRAST | e | 0:00 PDT | | procedure are in the | | | | | | results section. | + +--------+ + + + documented in this encounter Results CT Abdomen Pelvis wo Contrast (11/11/2018 0:00 PDT) + + | Specimen | + [...]
--- OUTSIDE RECORDS SUMMARY | ~2018-11-21 | XMS | Clinical Summary ---
Demographics + + + | Address | [address] | | | [place] [address] | + + + | Home Phone | | + + + | Preferred Language | Unknown | + + + | Marital Status | Unknown | + + + | Religion Affiliation | 1013 | + + + | Race | Unknown | + + + | Ethnic Group | Unknown | + + + Author + + + | Author | [facility] | | | and [place] | + + + | Organization | [facility] | | | and [place] | [...] Team Providers + +------+ + | Care Channel Director Name | Role | Phone | + +------+ + | Umesh Mcmahon NP | PP | | + +------+ + Allergies + [...] tablet | daily (with | | | 20 | | e | | | breakfast). [...] 19 | | | | UTI - Upper | Upper | | | | | | + + + +---------+------+------+-------+ | RA LAXATIVE & | take 1 tablet by | | 0 | 06/1 | 06/0 | Disco | | STOOL SOFTENER | mouth every 12 hours | | | 3/20 | 2/20 | ntinu | | 8.6-50 MG per tablet | if needed for | | | 18 | 19 | ed | | | constipation | | | | | | + + + +---------+------+------+-------+ | promethazine | take 1 tablet by | | 0 | 10/1 | 06/0 | Disco | | (PHENERGAN) 25 mg | mouth three times a | | | 9/20 | 2/20 | ntinu | | tablet | day if needed for | | | 18 | 19 | ed | | | nausea and vomiting | | | | | | + + + +---------+------+------+-------+ | phenazopyridine | | | 0 | 10/2 | 06/0 | Disco | | (PYRIDIUM) 200 mg | | | | 2/20 | 2/20 | ntinu | | tablet | | | | 18 | 19 | ed | + + + +---------+------+------+-------+ | buPROPion | | | 0 | 08/0 | 06/0 | Disco | | (WELLBUTRIN XL) 150 | | | | 7/20 | 2/20 | ntinu | | mg 24 hr tablet | | | | 18 | 19 | ed | + + + +---------+------+------+-------+ Active Problems + + + | Problem | Noted Date | + + + | Ureteral calculus, right [...] | 01/09/2014 | + + + | H/O Kidney stones | | + + + + + | Overview: Calcium oxalate renal [...] + + | 11/11/ | Anesthesia | | Hood Horowitz | | | 2018 | Event | | MD Franck | | +--------+ + + + + | 11/11/ | Surgery | | Anastacio Mendoza MD | CYSTOSCOPY PLACEMENT | | 2018 | | | | RIGHT URETERAL | | | | | | STENT | +--------+ + + + + | 11/11/ | Hospital | | Anastacio Mendoza MD | | | 2018 - | Encounter | | | | | | | | | | | 11/12/ | | | | | | 2018 | | | | | +--------+ + + + + +---+ + | | Discharge | | | Summary - | | | Reji | | | Anastacio Hanks MD | | | - | | | 11/12/2018 | | | 8:38 PDT | | | Formatting | | | of this | | | note might | | | be | | | different | | | from the | | | original.DI | | | SCHARGE | | | SUMMARYPt. | | | Name/Age/DO | | | B: Mireya | | | Ramos | | | 48 y.o. | | | 1970 | | | Medical | | | Record | | | Number: | | | [id number] | | | Date of | | | Admission: | | | 11/11/2018 | | | Date | | | of | | | Discharge: | | | | | | 11/12/2018Adm | | | itting | | | Physician: | | | Anastacio G | | | Sislow, MD | | | | | | PCP: Umesh | | | R. | | | HunsakerDis | | | charging | | | Physician: | | | Anastacio G. | | | SislowConsu | | | ltants: | | | Primary | | | Discharge | | | Dx: | | | Obstructing | | | right | | | ureteropelv | | | ic junction | | | calculus | | | with | | | systemic | | | inflammator | | | y response | | | syndromeSus | | | pected | | | UTIBilatera | | | l | | | nephrolithi | | | asisPatient | | | Active | | | Problem | | | List | | | Diagnosis | | | | | | Ureteral | | | calculus, | | | right | | | H/O | | | Kidney | | | stones | | | PTSD | | | (post-traum | | | atic stress | | | disorder) | | | | | | Bipolar 1 | | | disorder | | | | | | Chronic | | | back pain | | | | | | UTI | | | (urinary | | | tract | | | infection) | | | with pyuria | | | | | | | | | Diverticulo | | | sis of | | | colon | | | Adnexal | | | mass | | | Smoker - | | | Daily | | | | | | Hydronephro | | | sis of | | | right | | | kidney | | | Anxiety | | | | | | | | | Hypertensio | | | n | | | Substance | | | abuse | | | SIRS | | | (systemic | | | inflammator | | | y response | | | syndrome) | | | | | | Secondary | | | Discharge | | | Dx: | | | Procedures: | | | | | | Cystoscopy | | | with | | | manipulatio | | | n of right | | | ureteropelv | | | ic junction | | | calculus. | | | Placement | | | of right | | | double-J | | | ureteral | | | stentHospit | | | al Course, | | | including | | | Complicatio | | | ns: Patient | | | was | | | received in | | | transfer | | | from [facility] | | | [place] | | | emergency | | | room about | | | 9:30 PM. | | | She | | | underwent | | | the above | | | indicated | | | procedure. | | | She | | | remained | | | afebrile. | | | Her | | | abdominal | | | pain at | | | presentatio | | | n resolved. | | | The | | | morning | | | after | | | surgery she | | | received | | | another IV | | | dose of | | | ceftriaxone | | | and began | | | oral | | | levofloxaci | | | n. She was | | | prescribed | | | 6 more | | | days of | | | levofloxaci | | | n | | | empirically | | | awaiting | | | results of | | | final urine | | | culture | | | from [facility] | | [facility].Sh | | | e is | | | instructed | | | that she | | | has a | | | temporary | | | right | | | ureteral | | | stent which | | | could | | | accumulate | | | stone | | | crystals | | | and that | | | her next | | | phase of | | | stone | | | treatment | | | should be | | | arranged in | | | the next 1 | | | to 3 weeks | | | either | | | with Dr. | | | Matti or | | | Dr. | | | Sislow.She | | | has fairly | | | good | | | awareness | | | of a | | | calcium | | | oxalate | | | prevention | | | diet. | | | Mineral | | | analysis | | | has not yet | | | been | | | confirmed. | | | More | | | intense | | | investigati | | | on of her | | | biochemistr | | | y is | | | indicated | | | and should | | | include | | | mineral | | | analysis of | | | stone, | | | measurement | | | of serum | | | vitamin D, | | | 24-hour | | | urine stone | | | collection | | | chemistry | | | to include | | | : Total | | | volume, pH, | | | sodium, | | | calcium, | | | oxalate, | | | uric acid, | | | phosphorus, | | | | | | citrate.Med | | | ications | | | Reconciled | | | upon | | | Discharge | | | are: | | | Discharge | | | Medications | | | New | | | Medications | | | Details | | | | | | levoFLOXaci | | | n 500 mg | | | tablet Take | | | 1 tablet | | | by mouth | | | Daily. | | | Indications | | | : UTI - | | | Upperaka: | | | LEVAQUIN | | | Unchanged | | | Medications | | | Details | | | clonazePAM | | | 1 mg | | | tablet Take | | | 1 mg by | | | mouth | | | nightly.aka | | | : klonoPIN | | | | | | desvenlafax | | | ine 25 mg | | | ER tablet | | | take 1 | | | tablet by | | | mouth twice | | | a dayaka: | | | PRISTIQ | | | docusate-se | | | nna 50-8.6 | | | mg per | | | tablet Take | | | 1 tablet | | | by mouth | | | Twice | | | daily as | | | needed for | | | Constipatio | | | n.aka: | | | SENOKOT-S | | | lamoTRIgine | | | 100 mg | | | tablet Take | | | 200 mg by | | | mouth | | | Daily.aka: | | | laMICtal | | | LATUDA 80 | | | mg | | | tabletGener | | | ic drug: | | | lurasidone | | | Take 80 mg | | | by mouth | | | daily (with | | | | | | breakfast). | | | | | | oxyCODONE-a | | | cetaminophe | | | n 5-325 mg | | | per tablet | | | Take 1 | | | tablet by | | | mouth every | | | 6 hours as | | | needed for | | | Pain.aka: | | | PERCOCET | | | prazosin 2 | | | MG capsule | | | Take 6 mg | | | by mouth | | | nightly.aka | | | : | | | MINIPRESS | | | prazosin 2 | | | MG capsule | | | Take 2 mg | | | by mouth | | | every | | | morning.aka | | | : | | | MINIPRESS | | | promethazin | | | e 25 mg | | | tablet Take | | | 25 mg by | | | mouth every | | | 6 hours as | | | needed for | | | Nausea or | | | Vomiting.ak | | | a: | | | PHENERGAN | | | There is no | | | | | | immunizatio | | | n history | | | on file for | | | this | | | patient. | | | Vital | | | Signs:Temp: | | | 36 C | | | (96.8 F) | | | BP: 101/66 | | | Pulse: 53 | | | Resp: 18 | | | SpO2: 95 % | | | Min/Max | | | Temp past | | | 24 | | | hours:Temp | | | Av.8 | | | C (98.3 | | | F) Min: | | | 36 C | | | (96.8 F) | | | Max: 37.3 | | | C (99.1 | | | F)Intake/ | | | Output | | | Summary | | | (Last 24 | | | hours) at | | | 11/12/2018 | | | 0850Last | | | data filed | | | at 11/12/2018 | | | 0830Gross | | | per 24 hour | | | Intake | | | 1782 ml | | | Output 1475 | | | ml Net 307 | | | ml Last | | | Wt. Before | | | discharge: | | | Weight: | | | 94.3 kg | | | (207 lb | | | 14.3 oz) | | | Pending | | | study | | | results on | | | DC: [facility] | | [facility] | | | on | | | 11/11/18Fol | | | low-Up | | | Plans: | | | Follow-up | | | with: | | | Reji or | | | Dr. Chino | | | Diet: | | | Calcium | | | oxalate | | | prevention | | | diet | | | Activity: | | | No | | | restriction | | | s, shower | | | onlyElectro | | | nically | | | signed by: | | | Anastacio Hook | | | Reji, | | | 11/12/2018 | | | 8:50 [facility] | | [facility] | | | [facility] | | | lly signed | | | by Anastacio Hanks | | | MD Reji | | | at | | | 11/12/2018 | | | 8:50 PDT | +---+ + +--------+ +---+ +---------+ | 11/11/ | Imaging | | Provider, | Arrived | | 2018 | Exam | | MD Kirti | | +--------+ +---+ +---------+ from Last 3 Months Social History + [...] 11/12/20183 PDT | + + + + Plan of Treatment + [...] | | | | Pneumococcal 19-64 | 9 | | | | (PPSV23 only) Medium | | | | | Risk (1 of 1 - | | | | | PPSV23) | | | | + + + + + | Cervical Cancer | | | | | Screening (Pap) | 0 | | | + + + + + | Vaccine: Influenza | | | | | (Season Ended) | 9 | | | + + [...] | Right: | PE[place]A | | | [id number] | | - [id number]: Qty: 1 | | | [employer] | | | / | | on 11/11/2018 by Reji, | | Ureter | - [place] | | | /[id number] | | Anastacio Hanks MD | | | | | | 73 | + +-------+--------+ +--------+--------+--------+ Procedures + +--------+ + + + | Procedure Name | Priori | Date/Time | Associated Diagnosis | Comments | | | ty | | | | + +--------+ + + + | EXTRA LAVAJAY TOP | Routin | 11/12/2018 | | [...] | ANE AIRWAY NOTE | Routin | 11/11/2018 | | Results for this | | | e | 22:31 PDT | | procedure are in the [...] + + from Last 3 Months Results Extra Lavender Top Tube (11/12/2018 6:41 PDT) + +-------+ + + + | Component | Value | Ref Range | Performed | Pathologist | | | | | At | Signature | + +-------+ + + + | Extra | Done | | [facility] | | | Lavender | | | [...] [address] | [place] | [phone] | | [facility] | | [address] | | | - LABORATORY | | [...] 10 | 9 - 23 mg/dL | [facility] | | | | | | [facility] | | | | | | MEDICAL | | | | | | CENTER - | | | | | | LABORATORY | | + + + + + + | Creatinine | 1.05 (H) | 0.55 - 1.02 | [facility] | | | | | mg/dL | [facility] | | | | | | MEDICAL | | | | | | CENTER - | | | | | | LABORATORY | | + + + + + + | eGFR if not | 56 (L)Comment: | >=60 | [facility] | | | | GLOMERULAR FILTRATION | mL/min/1.73m2 | [facility] | | | K[facility] | RATE,ESTIMATED mL/min | | MEDICAL | | | | /1.73v2Xjvv than 60 | | CENTER - | [...] + | [address] | [address] | [place], [place] | [phone] | | [facility] | | [address] | | | - LABORATORY | | [...] | | | + +---------+ + + Airway (11/11/2018 22:31 PDT) + + + [...] | | and bilateral chest risePerforming provider: Hood Horowitz MDComments: Smooth IV | | induction.LMA placed and [...] any additional medication documentation. | + + IMAGING REPORT - EXTERNAL SCAN (11/11/2018 0:00 PDT) + + + | Narrative | Performed At | + + + | Ordered by an | | | unspecified provider. | | + + + CT Abdomen Pelvis wo Contrast (11/11/2018 0:00 [...] | | | + +---------+ + + from Last 3 Months Insurance [...] +---------+--------+ | [facility] | JARVIS | [id number] | 07/22/19 | [phone] | | Medica | | MEDICAID HMO | ETTE | | 15-Pre | 4 | | id | | | VALLEY | | sent | | | | | | MDCD | | | | | | | | HMO OR | | | | | | + +--------+ +--------+ +---------+--------+ | [employer] | MODA | [id number] | | [phone] | | Medica | | MEDICAID HMO [...] Person | Self | [birth year] | [address] | | | al/Fam | | 1971 | [phone] | [place] [address] | | | [place] | | | 8 (Home) | | + +--------+ +--------+ + + Advance Directives Patient has advance care planning documents, and code status on file. For more information, please contact:[facility] [place] [phone] + + + + + | Code Status | Date | Date | Comments | | | Activated | Inactivated | | + + + + + | Full Code | 11/11/2018 | 11/12/2018 | | | | 23:52 | 12:54 | | + + + + +
--- OUTSIDE RECORDS SUMMARY | ~2018-11-21 | XMS | Clinical Summary ---
Demographics + + + | Address | [address] | | | [place] [address] | + + + | Home Phone | | + + + | Preferred Language | Unknown | + + + | Marital Status | Unknown | + + + | Advent Affiliation | Unknown | + + + | Race | Unknown | + + + | Ethnic Group | Unknown | + + + Author + + + | Author | [facility] | + + + | Organization | [facility] | + + + | Address | Unknown | + + + | Phone | Unavailable | + + + Support +--------+ +---------+ + | Name | Relationship | Address | Phone | +--------+ +---------+ + | No,One | ECON | Unknown | | +--------+ +---------+ + Care Team Providers + +------+ + | Care Trust Mail Clerk Name | Role | Phone | [...] +------+-------+ + | MEDICAID | [place] | [id number] | | | [address] | | | [place] | | | | [place] | | | [place] | | | | [phone] | | | [employer] | | | | | + +--------+ [...] | 1971 | [phone] | [place] [address] | | | [place] | | | [phone] | | + +--------+ +--------+ + +"
--- OUTSIDE RECORDS SUMMARY | ~2018-11-21 | XMS | Encounter Summary ---
Demographics + + + | Address | [address] | | | [place] [address] | + + + | Home Phone [...] Author | [facility] | | | and [place] | + + + | Organization | [facility] | | | and [...] Team Providers + +------+ + | Care Life Science Technician Name | Role | Phone | [...] + + | 11/11/ | Hospital | [facility] | Anastacio Mendoza MD | | | 2019 - | Encounter | MED CTR SURGICAL | [address] | | | | | [address] | [place] | | | 11/12/ | | [place] [address] | [address] | | | 2018 | | [phone] | [phone] | | | | | | | [...] Pt. Name/Age/: Mireya Ramos 48 y.o. 1970 22019 Date of Admission: 11/11/2018 Date of Discharge: [...] Complications: Patient was received in transfer from [facility] emergency room about 9:30 PM. She underwent the above indicated procedure. She remained afebrile. Her abdominal pain at presentation resolved. The morning after surgery she rece ived another IV dose of ceftriaxone and began oral levofloxacin. She was prescribed 6 more days of levofloxacin empirically awaiting results of final urine culture from [facility]. She is instructed that she [...] study results on DC: Urine culture from [facility] on 11/11/18 Follow-Up Plans: Follow-up with: Dr. Mendoza or Dr. Chino Diet: Calcium oxalate prevention diet Activity: No restrictions, shower only Electronically signed by: Anastacio Mendoza, 11/12/2018 8:50 [facility] documented in this encoun ter Discharge Instructions Instructions Anastacio Mendoza MD - 11/12/2018Printed list of medications from this hospital is not correct. Resume your normal medications. You have a new prescription for levofloxac in antibiotic for the next 6 days. You will receive a dose of levofloxacin at the hospital today so will begin your prescription tomorrow, Tuesday. Contact [facility] emergency r oom Tuesday and possibly [...] ST. | [address] | [place] | [phone] | | [facility] | | [address] | | | - LABORATORY | | [...] not | 56 (L)Comment: | >=60 | [facility] | | | | GLOMERULAR FILTRATION | mL/min/1.73m2 | [facility] | | | CHADIAN | RATE,ESTIMATED mL/min | | MEDICAL | | | | /1.50g4Vwlt than 60 | | CENTER - | [...] | | | | | mg/dL | [facility] | | | | | | MEDICAL [...] [address] | [place] | [phone] | | [facility] | | [address] | | | - LABORATORY | | [...] | | | | | | longer, cizpbm-gdc-wtcfa use of | | | | | [...] | | | | | | | rbbsuy-brx-hxzey use of at least | | | [...]
--- OUTSIDE RECORDS SUMMARY | ~2018-11-21 | XMS | Clinical Summary ---
Demographics + + + | Address | [address] | | | [place] [address] | + + + | Home Phone | | + + + | Preferred Language | Unknown | + + + | Marital Status | Unknown | + + + | Restoration Affiliation | 1013 | + + + | Race | Unknown | + + + | Ethnic Group | Unknown | + + + Author + + + | Author | [facility] | | | and [place] | + + + | Organization | [facility] | [...] Team Providers + +------+ + | Care Solutions Development Analyst Name | Role | Phone | [...] | | | Number: | | | [phone] | | | Date of | | [...] | | transfer | | | from [facility] | | | [place] | | | emergency | | | [...] | | culture | | | from [facility] | | [facility] | | [...] | [facility] | | on | | | [...] | | | [facility] | | | [place] | | | MEDICAL | | | [...] | Right: | PE[facility]A | | | [id number] | | - [id number]: Qty: 1 | | | [employer] [employer] | | | / | | on 11/11/2018 by Reji, | | Ureter | - [place] | | | /[id number] | | Anastacio Hanks MD | | [...] [address] | [place] | [phone] | | [facility] | | [address] | | | - LABORATORY | | [...] 1.05 (H) | 0.55 - 1.02 | [facility] | | | | | mg/dL | [facility] | | | | | | MEDICAL | | | | | | CENTER - | | | | | | LABORATORY | | + + + + + + | eGFR if not | 56 (L)Comment: | >=60 | [facility] | | | | GLOMERULAR FILTRATION | mL/min/1.73m2 | [facility] | | | [place] | RATE,ESTIMATED mL/min | | MEDICAL | | | | /1.11t1Fffe than 60 | | CENTER - | [...] + | [address] | [address] | [place], [place] | [phone] | | [facility] | | [address] | | | - LABORATORY | | [...] +---------+--------+ | [facility] | JARVIS | [id number] | 07/22/19 | [phone] | | Medica | | MEDICAID HMO | ETTE | | 15-Pre | 4 | | id | | | VALLEY | | sent | | | | | | MDCD | | | | | | | | HMO OR | | | | | | + +--------+ +--------+ +---------+--------+ | [employer] | MODA | [id number] | | [phone] | | Medica | | MEDICAID HMO [...] | 1971 | [phone] | [place] [address] | | | [place] | | | 8 (Home) | | + +--------+ +--------+ + + Advance Directives Patient has advance care planning documents, and code status on file. For more information, please contact:[facility] [place] [phone] + + + + + | Code Status | Date | Date | Comments | | | Activated | Inactivated | | + + + + + | Full Code | 11/11/2018 | 11/12/2018 | | | | 23:52 | 12:54 | | + + + + +
--- OUTSIDE RECORDS SUMMARY | ~2018-11-21 | XMS | Encounter Summary ---
Demographics + + + | Address | [address] | | | [place] [address] | + + + | Home Phone | | + + + | Preferred Language | Unknown | + + + | Marital Status | Unknown | + + + | Adventism Affiliation | 1013 | + + + | Race | Unknown | + + + | Ethnic Group | Unknown | + + + Author + + + | Author | [facility] | | | and [place] | + + + | Organization | [facility] | | | and [...] Team Providers + +------+ + | Care Forest Firefighter Name | Role | Phone | + [...] [address] | | | | | [phone] | [place] [address] | | +--------+ + + + + [...]
--- OUTSIDE RECORDS SUMMARY | ~2018-11-21 | XMS | Encounter Summary ---
Demographics + + + | Address | [address] | | | [place] [address] | + + + | Home Phone [...] | Author | [facility] | | | and [place] | + + + | Organization | [facility] [...] Team Providers + +------+ + | Care Stone Sandblaster Name | Role | Phone | + [...] + + | 11/11/ | Surgery | [facility] | Anastacio Mendoza MD | CYSTOSCOPY PLACEMENT | | 2019 | | MED CTR OR INTRA OP | [address] | RIGHT URETERAL | | | | [address] | [place], [place] | STENT | | | | [place], [place] | [address] | | | | | [address] | [phone] | | | | | [phone] | | | +--------+---------+ + + + [...] Pt. Name/Age/: Mireya Ramos 48 y.o. 1970 [id number] Date of Admission: 11/11/2018 Date of Discharge: [...] Complications: Patient was received in transfer from [facility] emergency room about 9:30 PM. She underwent the above indicated procedure. She remained afebrile. Her abdominal pain at presentation resolved. The morning after surgery she rece ived another IV dose of ceftriaxone and began oral levofloxacin. She was prescribed 6 more days of levofloxacin empirically awaiting results of final urine culture from [facility]. She is instructed that she has a [...] results on DC: Urine culture from [facility] on 11/11/18 Follow-Up Plans: Follow-up with: Dr. Mendoza or Dr. Chino Diet: Calcium oxalate prevention diet Activity: No restrictions, shower only Electronically signed by: Anastacio Mendoza, 11/12/2018 8:50 [facility] documented in this encoun ter Discharge Instructions Instructions Anastacio Mendoza MD - 11/12/2018Printed list of medications from this hospital is not correct. Resume your normal medications. You have a new prescription for levofloxac in antibiotic for the next 6 days. You will receive a dose of levofloxacin at the hospital today so will begin your prescription tomorrow, Tuesday. Contact [facility] emergency r oom Tuesday and possibly Tuesday [...] [address] | [place] | [phone] | | [facility] | | [address] | | | - LABORATORY | | [...] not | 56 (L)Comment: | >=60 | [place] | | | | GLOMERULAR FILTRATION | mL/min/1.73m2 | [facility] | | | [place] | RATE,ESTIMATED mL/min | | MEDICAL | | | | /1.62r7Updn than 60 | | CENTER - | [...] [address] | [place] | [phone] | | [facility] | | [address] | | | - LABORATORY | | [...]
[~2018-11-21 12:59] MED LIST changes: +AMOX TR-K CLV1 EAC1 PO; +AUGMENTIN 875-1 EACH PO; +CIPRO500 MG PO; +DESVENLAFAXINE25 MG PO; +OXYCODONE HCL E10 MG PO; +PERCOCET 5-3251 EACH PO; +PYRIDIUM200 MG PO
--- OUTSIDE RECORDS SUMMARY | 2018-11-21 13:02 | XMS ---
PreManage Notification: EDY GILLIAM Security Mounter Automatic Events No recent Security Events currently on file CRITERIA MET - [facility] - Has Care Guidelines - PDMP - [facility] - 2 Visits in 30 Days CARE PROVIDERS There are no care providers on record at this time. Guidelines Source: [facility] [place] Guidelines Date: 11/13/2018 Care Coordination: Receiving mental health services with [facility].\T\nbsp; Please contact [facility] for mental health concerns.\T\nbsp; [facility]: [phone]\T\ nbsp; Selena: [phone]. E.D. VISIT COUNT (12 MO.) 4 [facility]. TOTAL 4 NOTE: Visits indicate total known visits. ED/UCC VISIT TRACKING (12 MO.) 11/21/2018 13:00 [facility] [place] TYPE: Emergency COMPLAINT: - POST OP PROBLEM 11/11/2018 15:22 [facility] [place] TYPE: Emergency COMPLAINT: - RIGHT FLANK PAIN DIAGNOSES: - Personal history of urinary calculi - Essential (primary) hypertension - Bipolar disorder, unspecified - Nicotine dependence, unspecified, uncomplicated - Unspecified abdominal pain - Other nonmedicinal substance allergy status - Hydronephrosis with renal and ureteral calculous obstruction - Urinary tract infection, site not specified 03/30/2018 07:26 [facility] [place] TYPE: Emergency COMPLAINT: - FLANK PAIN DIAGNOSES: - Unspecified abdominal pain - 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 - Essential (primary) hypertension - Hydronephrosis with renal and ureteral calculous obstruction - Nicotine dependence, unspecified, uncomplicated 11/21/2017 06:36 [facility] [place] TYPE: Emergency COMPLAINT: - L FLANK PAIN DIAGNOSES: - Anxiety disorder, unspecified - Essential (primary) hypertension - Calculus of kidney - Nicotine dependence, unspecified, uncomplicated - Other senior living (current) drug therapy - Unspecified abdominal pain INPATIENT VISIT TRACKING (12 MO.) 11/11/2018 21:22 [facility] TYPE: Surgical Services DIAGNOSES: - right ureteral stone - right kidney stone [email or web address]
[2018-11-21] MEDS ORDERED: NORCO 5-325 TA1 EACH PO (16:07)
[2018-11-21] MEDS ORDERED: CIPRO500 MG PO (16:07)
[2018-11-21] MEDS ORDERED: IBUPROFEN600 MG PO (16:07)
[2018-11-21] MEDS ORDERED: ZOFRAN4 MG SL (16:07)
== END 2018-11-21 16:50 | disposition home or self-care (01) ==
LOC: ED 12:59
DX: R31.9 Hematuria, unspecified (principal); I10 Essential (primary) hypertension; F41.9 Anxiety disorder, unspecified; F17.200 Nicotine dependence, unspecified, uncomplicated; F31.9 Bipolar disorder, unspecified; Z87.442 Personal history of urinary calculi; Z91.048 Other nonmedicinal substance allergy status
CPT/HCPCS: 74176; 80053; 81001; 83690; 84703; 85025; 87088; 96361; 96365; 96375; 99284-25; J0696; J1885; J2270; J2405; J7030

== ENCOUNTER 2019-04-30 11:36 | Emergency (ER) | payer OTHER ==
[~2019-04-30] VITALS: Ht 167.6 cm; Wt 94.0 kg
--- OUTSIDE RECORDS SUMMARY | ~2019-04-30 | XMS | Encounter Summary ---
Demographics + + + | Address | [address] | | | [place] [address] | + + + | Home Phone | | + + + | Preferred Language | Unknown | + + + | Marital Status | Unknown | + + + | Cheondoism Affiliation | 1013 | + + + | Race | Unknown | + + + | Ethnic Group | Unknown | + + + Author + + + | Author | and [facility] [place] | | | and [place] | + + + | Organization | and [facility] | | | and [...] Team Providers + +------+ + | Care Inspector Shells Name | Role | Phone | + +------+ + | Umesh Mcmahon NP | PCP | | + +------+ + Encounter Details +--------+ + + + + | Date | Type | Department | Care Team | Description | +--------+ + + + + | 10/22/ | Orders Only | [facility] | Brad Singh MD | Chronic kidney | | 2019 | | NEPHROLOGY [place] | [address] [place] | disease, stage III | | | | [address] [place] | [address] [place], [place] | (moderate) (HCC) | | | | [address] [place], [place] | [address] | (Primary Dx) | | | | [address] | | | | | | [phone] | | | +--------+ + + + [...] on file | | + + + + + + + | Job Start Date | Occupation | Industry | + + + + | Not on file | Not on file | Not on file | + + + + + + + + | Travel History | Travel Start | Travel End | + + + + + + | No recent travel history available. | + + documented as of this encounter [...] Description | +--------+---------+ + + + | 06/18/ | Office | Nephrology | Brad Singh MD | | | 2020 | Visit | | [address] [facility] | | | | | | [address] [place], [place] | | | | | | [address] | | | | | | | | +--------+---------+ + + + + +------+--------+ + + | Name | Type | Priori | Associated Diagnoses | Order Schedule | | | | ty | | | + +------+--------+ + + | Basic Metabolic | Lab | Routin | Chronic kidney | Expected: | | Panel | | e | disease, stage III | 06/11/2019, Expires: | | | | | (moderate) (HCC) | 04/03/2020 | + +------+--------+ + + | Protein/Creatinine | Lab | Routin | Chronic kidney | Expected: | | Ratio, Urine | | e | disease, stage III | 06/11/2019, Expires: | | | | | (moderate) (HCC) | 04/03/2020 | + +------+--------+ + + | Uric Acid | Lab | Routin | Chronic kidney | Expected: | | | | e | disease, stage III | 06/11/2019, Expires: | | | | | (moderate) ([facility]) | 04/03/2020 | + +------+--------+ + + | Urinalysis With | Lab | Routin | Chronic kidney | Expected: | | Microscopic | | e | disease, stage III | 06/11/2019, Expires: | | | | | (moderate) ([facility]) | 04/03/2020 | + +------+--------+ + + | CBC with | Lab | Routin | Chronic kidney | Expected: | | Differential | | e | disease, stage III | 06/11/2019, Expires: | | | | | (moderate) ([facility]) | 04/03/2020 | + +------+--------+ + + documented as of this encounter Visit Diagnoses + + | Diagnosis | + + | Chronic kidney disease, stage III (moderate) (HCC) - Primary Chronic kidney disease, | | Stage III (moderate) | + + documented in this encounter"
--- OUTSIDE RECORDS SUMMARY | ~2019-04-30 | XMS | Encounter Summary ---
Demographics + + + | Address | [address] | | | [place] [address] | + + + | Home Phone | | + + + | Preferred Language | Unknown | + + + | Marital Status | Unknown | + + + | Mandaen Affiliation | 1013 | + + + | Race | Unknown | + + + | Ethnic Group | Unknown | + + + Author + + + | Author | [facility] and [facility] [place] | | | and [place] | + + + | Organization | [facility] [place] | | | and [place] | [...] Team Providers + +------+ + | Care Compliance Advisor Name | Role | Phone | + [...] + + | 11/11/ | Hospital | [facility] | Anastacio Mendoza MD | | | 2019 - | Encounter | MED CTR SURGICAL | [address] [facility] [address] | | | | | [address] | [place] | | | 11/12/ | | [place] [address] | [address] | | | 2019 | | [phone] | [phone] | | | | | | | [...] Complications: Patient was received in transfer from [facility] emergency room about 9:30 PM. She underwent the above indicated procedure. She remained afebrile. Her abdominal pain at presentation resolved. The morning after surgery she rece ived another IV dose of ceftriaxone and began oral levofloxacin. She was prescribed 6 more days of levofloxacin empirically awaiting results of final urine culture from [facility]. She is instructed that she has a [...] study results on DC: Urine culture from [facility] on 11/11/18 Follow-Up Plans: Follow-up with: Dr. Mendoza or Dr. Chino Diet: Calcium oxalate prevention diet Activity: No restrictions, shower only Electronically signed by: Anastacio Mendoza, 11/12/2018 8:50 [facility] documented in this enc ounter Discharge Instructions Instructions Anastacio Mendoza MD - 11/12/2018Printed list of medications from this hospital is not correct. Resume your normal medications. You have a new prescription for levofloxac in antibiotic for the next 6 days. You will receive a dose of levofloxacin at the hospital today so will begin your prescription tomorrow, Tuesday. Contact [facility] emergency r oom Tuesday and possibly Tuesday until results of your urine culture are final and verify you are on the correct antibiotic through an emergency room nurse. Follow kidney stone prevention diet. You have a temporary stent to your right kidney. Nex t phase of telescopic stone surgery should be performed in the next 1 to 3 weeks either by c ontacting Dr. Chino or Dr. Mendoza documented in this [...] lungs every 4 | | | | | | inhaler | hours as needed. | | | | | + + + +---------+ + + | citalopram | Take 10 mg by mouth | | 0 | 05/10/20 | | | (CELEXA) 10 mg | once daily. | | | 17 | | | tablet | | | | | | + + + +---------+ + + | citalopram | Take 20 mg by mouth | | 0 | 05/25/20 | | | (CELEXA) 20 mg | once daily. | | | 17 | | | tablet | | | [...] (two) times | | | 17 | | | tablet | a day as needed. | | | | | + + + +---------+ + + | desvenlafaxine | take 1 tablet by | | 0 | 03/22/20 | | | (PRISTIQ) 25 mg ER | mouth twice a day | | | 18 | | | tablet | | | | | | + + + +---------+ + + | docusate-senna | Take 1 tablet by | | 0 | | | | (SENOKOT-S) 50-8.6 | mouth Twice daily | | | | | | mg per tablet | as needed for | | | | | | | Constipation. | | | | | + + + +---------+ + + | | Take 1 tablet by | 15 | 0 | 03/01/20 | | | HYDROcodone-acetamin | mouth every 6 hours | tablet | | 15 | | | ophen (NORCO) 5-325 | as [...] times a | | | 17 | | | tablet | day. | | | | | + + + +---------+ + + | LATUDA 80 MG | Take 80 mg by mouth | | 0 | 04/05/20 | | | tablet | daily (with | | | 18 | | | | breakfast). | | | | | + + + +---------+ + + | levoFLOXacin | Take 1 tablet by | 6 | 0 | 11/13/19 | | | (LEVAQUIN) 500 mg | mouth Daily. | tablet | | 19 | | | tabletIndications: | Indications: UTI - | | | | | | UTI - UPPER | Upper | | | | | + + + +---------+ + + | oxybutynin | Place 1 patch onto | | 0 | | | | (OXYTROL) 3.9 mg/24 | the skin. EVERY 4 | | | | | | hr | DAYS | | | | | + + + +---------+ + + | | Take 1 tablet by | | 0 | | | | oxyCODONE-acetaminop | mouth every 6 hours | | | | | | hen (PERCOCET) 5-325 | as needed for Pain. | | | | | | mg per tablet | | | | | | + + + +---------+ + + | prazosin | Take 1 mg by mouth | | 0 | 05/25/20 | | | (MINIPRESS) 1 mg | nightly. | | | 17 | | | capsule | | | [...] every morning. | | | 19 | | | capsule | | | | | | + + + +---------+ + + | promethazine | Take 25 mg by mouth | | 0 | | | | (PHENERGAN) 25 mg | every 6 hours as | | | | | | tablet | needed for Nausea or | | | | | | | Vomiting. | | | | | + + + +---------+ + + | PROPRANOLOL HCL PO | Take by mouth | | 0 | | | | | Daily. | | | | | + + + +---------+ + + | SUMAtriptan | Take 1 tablet (50 mg | | 0 | 06/02/20 | | | (IMITREX) 50 mg | total) by mouth | | | 17 | | | tablet | once as needed [...] | daily (after | | | | | | | breakfast). | | | | | + + + +---------+ + + documented as of this encounter Plan of Treatment +--------+---------+ + + + | Date | Type | Specialty | Care Team | Description | +--------+---------+ + + + | 06/18/ | Office | Nephrology | Brad Singh MD | | | 2020 | Visit | | [address] [facility] [address] | | | | | | [address] [place] | | | | | | [address] | | | | | | | | +--------+---------+ + + + documented as of this encounter Procedures + +--------+ + + + | Procedure Name | Priori | Date/Time | Associated Diagnosis | Comments | | | ty | | | | + +--------+ + + + | EXTRA LAVENDER TOP | Routin | 11/12/2018 | | Results [...] | | | Lavender | | | [facility] | | | Top Tube | [...] ST. | [address] | [place] | [phone] | | [facility] | | [address] | | | - LABORATORY | | [...] [facility] | | | | | [facility] | | | | | | C[facility] - | | | | | | LABORATORY | | + + + + + + | Glucose | 137 (H) | 60 - 106 mg/dL | [facility] | | | | [facility] | | | | | | [facility] | | | | | | CENTER - | | | | | | LABORATORY | | + + + + + + | BUN | 10 | 9 - 23 mg/dL | [facility] | | | | | | [facility] | | | | | | [...] not | 56 (L)Comment: | >=60 | [facility] | | | | GLOMERULAR FILTRATION | mL/min/1.73m2 | [facility] | | | SOMALI | RATE,ESTIMATED | | MEDICAL | | | | mL/min/1.64b9Vjog than | | CENTER - | | [...] | 10.0 | 8.7 - 10.4 | [facility] | | | | | mg/dL | [facility] | | | | | | MEDICAL | | | | | | CENTER - | | | | | | LABORATORY | | + + + + + + | BUN/Creatin | 9.5 | | [facility] | | | ine Ratio | | | [facility] | | [...] | + + + + + | [address] | [address] | [place], [place] | [phone] | | [facility] | | [address] | | | - LABORATORY | | | | + + + + + FL Pyeljamar Retrograde (11/11/2018 10:54 PM PDT) + + [...] | | | | | | longer, rwkyou-dfa-lwfpb use of | | | | | [...] | | | | | | | spuzdn-xpk-xwope use of at least | | | [...]
--- OUTSIDE RECORDS SUMMARY | ~2019-04-30 | XMS | Clinical Summary ---
Demographics + + + | Address | [address] | | | [place] [address] | + + + | Home Phone | | + + + | Preferred Language | Unknown | + + + | Marital Status | Unknown | + + + | Shinto Affiliation | Unknown | + + + | Race | Unknown | + + + | Ethnic Group | Unknown | + + + Author + + + | Author | [employer] [facility] (Historical as of | | | 01-27-19) | + + + | Organization | [facility] (Historical as of | | | 01-27-19) | + + + | Address | Unknown | + + + | Phone | Unavailable | + + + Support +--------+ +---------+ + | Name | Relationship | Address | Phone | +--------+ +---------+ + | No,One | ECON | Unknown | | +--------+ +---------+ + Care Team Providers + +------+ + | Care Wildland Fire Fighter Name | Role | Phone | + +------+ + | Umesh McmahonP | PP | | + +------+ + Allergies Not on File Current Medications Not on file Active Problems Not on file Social History + +-------+ +--------+------+ | Tobacco Use | Types | Packs/Day | Years | Date | | | | | Used | | + +-------+ +--------+------+ | Never Assessed | | | | | + +-------+ +--------+------+ + + + | Sex Assigned at | Date Recorded | | | | + + + | Not on file | | + + + Plan of Treatment + + + + + | Health Maintenance | Due Date | Last Done | Comments | + + + + + | Vaccine: | | | | | Dtap/Tdap/Td (1 - | 9 | | | | Tdap) | | | | + + + + + | Cervical Cancer | | | | | Screening (Pap) | 0 | | | + + + + + | Vaccine: Influenza | | | | | (#1) | 9 | | | + + + + + Results Not on filefrom Last 3 Months Insurance + +--------+ +------+-------+ + | Payer | Benefi | Subscriber | Type | Phone | Address | | | t Plan | ID | | | | | | / | | | | | | | Group | | | | | + +--------+ +------+-------+ + | MEDICAID | [place] | [id number] | | | [address] | | | N | | | | [place] | | | [place] | | | | [address] | | | SKID WORKER | | | | | + +--------+ +------+-------+ + + +--------+ +--------+ + + | Guarantor Name | Accoun | Relation to | Date | Phone | Billing Address | | | t Type | Patient | of | | | | | | | | | | + +--------+ +--------+ + + | EDY GILLIAM | Person | Self [birth year] Home: | [address] | | | al/Kemal | | 1971 | [phone] [address] | | | [place] | | | [phone] | [place] [address] | + +--------+ +--------+ + +"
--- OUTSIDE RECORDS SUMMARY | ~2019-04-30 | XMS | Encounter Summary ---
Demographics + + + | Address | [address] | | | [place] [address] | + + + | Home Phone | | + + + | Preferred Language | Unknown | + + + | Marital Status | Unknown | + + + | Hindu Affiliation | 1013 | + + + | Race | Unknown | + + + | Ethnic Group | Unknown | + + + Author + + + | Author | [facility] [place] | | | and [place] | + + + | Organization | [facility] [place] | | | and [place] [...] Team Providers + +------+ + | Care Alterations Supervisor Name | Role | Phone | + +------+ + | Umesh Mcmahon NP | PCP | | + +------+ + Encounter Details +--------+ + + + + | Date | Type | Department | Care Team | Description | +--------+ + + + + | 11/21/ | Imaging | [facility] | Provider, | | | 2019 | Exam | MED CTR EXTERNAL | [address] | | | | | IMAGING | [place] | | | | | [phone] | [place] [address] | | +--------+ + + + + [...] 2020 | Visit | | [address] [facility] | | | | | | [address] [place] | | | | | | [address] | | | | | | | | +--------+---------+ + + + documented as of this encounter Procedures + +--------+ + + + | Procedure Name | Priori | Date/Time | Associated Diagnosis | Comments | | | ty | | | | + +--------+ + + + | CT ABDOMEN PELVIS WO | Routin | 11/11/2018 | | Results for this | | CONTRAST | e | 12:00 AM | | procedure are in the | | | | PDT | | results section. | + +--------+ + + + documented in this encounter Results CT Abdomen Pelvis wo Contrast (11/11/2018 12:00 AM PDT) + + | Specimen [...]
--- OUTSIDE RECORDS SUMMARY | ~2019-04-30 | XMS | Encounter Summary ---
Demographics + + + | Address | [address] | | | [place] [address] | + + + | Home Phone | | + + + | Preferred Language | Unknown | + + + | Marital Status | Unknown | + + + | Advent Affiliation | 1013 | + + + | Race | Unknown | + + + | Ethnic Group | Unknown | + + + Author + + + | Author | [facility] and [facility] [place] | | | and [place] | + + + | Organization | [facility] and [facility] [place] | | | and [...] Team Providers + +------+ + | Care Predictive Maintenance Technician Name | Role | Phone | + [...] + + | 11/11/ | Hospital | [facility] | Anastacio Mendoza MD | | | 2019 - | Encounter | MED CTR SURGICAL | [address] [facility] | | | | | [address] | [place] | | | 11/12/ | | [place] [address] | [address] | | | 2019 | | [phone] | [phone] | | | | | | | [...] Complications: Patient was received in transfer from [facility] emergency room about 9:30 PM. She underwent the above indicated procedure. She remained afebrile. Her abdominal pain at presentation resolved. The morning after surgery she rece ived another IV dose of ceftriaxone and began oral levofloxacin. She was prescribed 6 more days of levofloxacin empirically awaiting results of final urine culture from [facility]. She is instructed that she has a [...] study results on DC: Urine culture from [facility] on 11/11/18 Follow-Up Plans: Follow-up with: Dr. Mendoza or Dr. Chino Diet: Calcium oxalate prevention diet Activity: No restrictions, shower only Electronically signed by: Anastacio Mendoza, 11/12/2018 8:50 [facility] documented in this enc ounter Discharge Instructions Instructions Anastacio Mendoza MD - 11/12/2018Printed list of medications from this hospital is not correct. Resume your normal medications. You have a new prescription for levofloxac in antibiotic for the next 6 days. You will receive a dose of levofloxacin at the hospital today so will begin your prescription tomorrow, Tuesday. Contact [facility] emergency r oom Tuesday and possibly Tuesday [...] 2020 | Visit | | [address] [facility] [address] | | | | | | [address] [place] | | | | | | [address] | | | | | | | [...] [address] | [place] | [phone] | | [facility] | | [address] | | | - LABORATORY | | [...] | | GLOMERULAR FILTRATION | mL/min/1.73m2 | [facility] | | | IVORIAN | RATE,ESTIMATED | | MEDICAL | | | | mL/min/1.41y8Qplh than | | CENTER - | | [...] ST. | [address] | [place], [place] | [phone] | | [facility] | | [address] | | | - LABORATORY | | [...] | | | | | | longer, cbdkuu-gnr-ybdzg use of | | | | | [...] | | | | | | | zrqcar-mam-woizx use of at least | | | [...]
--- OUTSIDE RECORDS SUMMARY | ~2019-04-30 | XMS | Encounter Summary ---
Demographics + + + | Address | [address] | | | [place] [address] | + + + | Home Phone | | + + + | Preferred Language | Unknown | + + + | Marital Status | Unknown | + + + | Nondenominational Affiliation | 1013 | + + + | Race | Unknown | + + + | Ethnic Group | Unknown | + + + Author + + + | Author | [facility] [place] | | | and [place] | + + + | Organization | [facility] [place] | | | and [...] Team Providers + +------+ + | Care Photo Booth Operator Name | Role | Phone | + +------+ + | Roxanne Gillis MD | PCP | | + +------+ + Encounter Details +--------+ + + + + | Date | Type | Department | Care Team | Description | +--------+ + + + + | 11/29/ | Hospital | [facility] | Roxanne Gillis, | Other screening | | 2014 | Encounter | [facility] | MD [address] | mammogram | | | | [address] | [place] | | | | | [place] | [address] | | | | | [address] | | | | | | [phone] | | | +--------+ + + + [...] 2019 | Visit | | [address] [facility] | | | | | | [address] [place] | | | | | | [address] | | | | | | | | +--------+---------+ + + + documented as of this encounter Procedures + +--------+ + + + | Procedure Name | Priori | Date/Time | Associated Diagnosis | Comments | | | ty | | | | + +--------+ + + + | GURMEET TOMOSYN | Routin | 11/29/2013 | Other screening | Results for this | | SCREENING BILATERAL | e | 12:51 PM | mammogram | procedure are in the | | | | PDT | | results section. | + +--------+ + + + documented in this encounter Results GURMEET Tomosynthesis Screening Bilateral (11/29/2013 12:51 PM PDT) + + | Specimen | + + | | + + + + + | Narrative | Performed At | + + + | BILATERAL DIGITAL SCREENING MAMMOGRAM WITH COMPUTER-AIDED DETECTION | [facility] | | AND TOMOSYNTHESIS 11/29/2013 12:51 PM CLINICAL HISTORY: BASELINE | LAB | | SCREEN . Asymptomatic, premenopausal. No reported family history | | | of breast cancer. COMPARISON: None. Baseline exam. FINDINGS: | | | Breast composition is comprised of scattered fibroglandular | | | densities. There is a circumscribed somewhat reniform shaped small | | | mass in the medial, inferior, anterior left breast, approximately 6.5 | | | cm from the nipple. No associated architectural distortion or | | | microcalcification is evident. No suspicious mass, architectural | | | distortion or malignant type microcalcification is visible elsewhere | | | in either breast. A solitary round, benign-appearing calcification | | | is present in the anterior, superior, lateral right breast. | | | IMPRESSION - 1. BIRADS 0, FURTHER EVALUATION REQUIRED. 2. | | | RECOMMENDATION: FOLLOW-UP LEFT BREAST ULTRASOUND FOR FURTHER | | | CHARACTERIZATION OF A SMALL MASS IN THE MEDIAL, INFERIOR BREAST. | | | Dictated and Signed by: Jayden Burch MD Electronically signed: | | | 11/30/2013 6:33 AM | | + + + + + | Procedure Note | + + | [place], Rad Results In - 11/30/2013 6:36 AM PDT BILATERAL DIGITAL SCREENING MAMMOGRAM | | WITH COMPUTER-AIDED DETECTION ANDTOMOSYNTHESIS 11/29/2013 12:51 PMCLINICAL HISTORY: | | BASELINE SCREEN . Asymptomatic, premenopausal. No reportedfamily history of breast | | cancer.COMPARISON: None. Baseline exam.FINDINGS: Breast composition is comprised of | | scattered fibroglandulardensities. There is a circumscribed somewhat reniform shaped | | small mass in themedial, inferior, anterior left breast, approximately 6.5 cm from the | | nipple. No associated architectural distortion or microcalcification is evident. | | Nosuspicious mass, architectural distortion or malignant type microcalcificationis | | visible elsewhere in either breast. A solitary round, benign-appearingcalcification is | | present in the anterior, superior, lateral right breast.IMPRESSION -1. BIRADS 0, | | FURTHER EVALUATION REQUIRED.2. RECOMMENDATION: FOLLOW-UP LEFT BREAST ULTRASOUND FOR | | FURTHER CHARACTERIZATION OFA SMALL MASS IN THE MEDIAL, INFERIOR BREAST.Dictated and | | Signed by: Jayden Burch MD Electronically signed: 11/30/2013 6:33 AM | |is visible elsewhere in either breast. A solitary round, benign-appearing | |calcification is present in the anterior, superior, lateral right breast. | | | |IMPRESSION - | |1. BIRADS 0, FURTHER EVALUATION REQUIRED. | |2. | |RECOMMENDATION: FOLLOW-UP LEFT BREAST ULTRASOUND FOR FURTHER CHARACTERIZATION OF | |A SMALL MASS IN THE MEDIAL, INFERIOR BREAST. | | | |Dictated and Signed by: Jayden Burch MD | | Electronically signed: 11/30/2013 6:33 AM | + + + +---------+ + + | Performing | Address | City/State/Zipcode | Phone Number | | Organization | | | | + +---------+ + + | [facility] | | | [phone] | + +---------+ + + | [facility] | | | [phone] | + +---------+ + + documented in this encounter Visit Diagnoses + + | Diagnosis | + + | Other screening mammogram | + + documented in this encounter"
--- OUTSIDE RECORDS SUMMARY | ~2019-04-30 | XMS | Encounter Summary ---
Demographics + + + | Address | [address] | | | [place] [address] | + + + | Home Phone | | + + + | Preferred Language | Unknown | + + + | Marital Status | Unknown | + + + | Protestant Affiliation | 1013 | + + + | Race | Unknown | + + + | Ethnic Group | Unknown | + + + Author + + + | Author | [facility] [place] | | | and [place] | + + + | Organization | [facility] [place] | | | and [place] [...] Team Providers + +------+ + | Care Business Education Professor Name | Role | Phone | + [...] | | | | CENTER [address] | [place], [place] | | | | | [place], [place] | [address] | | | | | [address] | | | | | | [phone] | | | +--------+ + + + [...] through Care Everywhere.FLANK PAIN, [facility] ERTAIN CAUSE (ITALIAN)documented in this encounter Medications at Time of [...] 2020 | Visit | | [address] [facility] | | | | | | [address] [place] | | | | | | [address] | | | | | | | [...] report | | | was sent by [employer] on 03/01/2015 at 11:11 PM with no | | | significant discrepancy. Dictated and Signed by: Pierre Cintron MD | | | Electronically signed: 03/02/2015 11:34 AM | | + + + + + | Procedure Note | + + | [place], Rad Results In - 03/02/2015 11:37 AM [...] | | preliminary report was sent by [employer] on 03/01/2015 at 11:11 PM withno | | significant discrepancy.Dictated and Signed by: Peirre Cintron MD Electronically signed: | | 03/02/2015 [...] | |A preliminary report was sent by [employer] on 03/01/2015 at 11:11 PM with | [...] 1.010, 1.015, | | | | [place], | | 1.020, 1.025 | | | [...] + + + + + + | Color | Yellow | Light Yellow, | [facility] | | | | | Yellow | [facility] | [...] 1.030 | [facility] | | | [place] | | | [facility] | | [...] | | Urine | | | [facility] | | | | | | MEDICAL [...] + | [address] | [address] | [place] | [phone] | | [facility] | | [address] | | | - LABORATORY | | [...]
--- OUTSIDE RECORDS SUMMARY | ~2019-04-30 | XMS | Encounter Summary ---
Demographics + + + | Address | [address] | | | [place] [address] | + + + | Home Phone | | + + + | Preferred Language | Unknown | + + + | Marital Status | Unknown | + + + | Mormonism Affiliation | 1013 | + + + | Race | Unknown | + + + | Ethnic Group | Unknown | + + + Author + + + | Author | [facility] [place] | | | and [place] | + + + | Organization | [facility] [place] | | | and [place] [...] Team Providers + +------+ + | Care Animal Care Specialist Name | Role | Phone | + +------+ + | Roxanne Gillis MD | PCP | | + +------+ + Encounter Details +--------+ + + + + | Date | Type | Department | Care Team | Description | +--------+ + + + + | 06/07/ | Documentati | [facility] | [place], | | | 2013 | on | [address] | [address] [facility] | | | | | [place] | [place], [place] | | | | | [address] | [address] | | | | | [phone] | | | +--------+ + + + [...] + + documented as of this encounter Progress Cynthia Tate - 06/07/2014 10:31 AM PSTCANCELLED APPOINTMENT FOR 06/11/14 DUE TO PATIENT MOVED OUT OF THE AREA. SHE MOVED TO [place]. SHE WILL ESTABLISH CARE WITH A UROLOGIST THERE documented in this encoun ter Plan of Treatment +--------+---------+ + + + | Date | Type | Specialty | Care Team | Description | +--------+---------+ + + + | 06/18/ | Office | Nephrology | Brad Singh MD | | | 2020 | Visit | | [address] [facility] | | | | | | [address] [place] | | | | | | [address] | | | | | | | | +--------+---------+ + + + documented as of this encounter Visit Diagnoses Not on filedocumented in this encounter"
--- OUTSIDE RECORDS SUMMARY | ~2019-04-30 | XMS | Encounter Summary ---
Demographics + + + | Address | [address] | | | [place] [address] | + + + | Home Phone | | + + + | Preferred Language | Unknown | + + + | Marital Status | Unknown | + + + | Buddhist Affiliation | 1013 | + + + | Race | Unknown | + + + | Ethnic Group | Unknown | + + + Author + + + | Author | [facility] | | | and [place] | + + + | Organization | [facility] | | | and [...] Team Providers + +------+ + | Care Cattle Killer Name | Role | Phone | + +------+ + | Roxanne Gillis MD | PCP | | + +------+ + Reason for Visit + + + | Reason | Comments | + + + | Flank Pain | | + + + Encounter Details +--------+ + + + + | Date | Type | Department | Care Team | Description | +--------+ + + + + | 01/09/ | Emergency | [facility] | Efraín, | Kidney stone on | | 2013 | | [facility] | Wang Ontiveros MD [address] | right side (Primary | | | | CENTER [address] | [address] [place] | Dx) | | | | [place], [place] | [place] [address] | | | | | [address] | [phone] | | | | | [phone] | | | +--------+ + + + [...] + + + | Blood Pressure | 127/76 | 01/09/2014 6:59 PM | | | | | PDT | | + + + + + | Pulse | 59 | 01/09/2014 6:59 PM | | | | | PDT | | + + + + + | Temperature | 36.4 C (97.5 F) | 01/09/2014 2:42 PM | | | | | PDT | | + + + + + | Respiratory Rate | 18 | 01/09/2014 2:42 PM | | | | | PDT | | + + + + + | Oxygen Saturation | 95% | 01/09/2014 6:59 PM | | | | | PDT | | + + + + + | Inhaled Oxygen | - | - | | | Concentration | | | | + + + + + | Weight | 113.4 kg (250 lb) | 01/09/2014 2:42 PM | | | | | PDT | | + + + + + | Height | 167.6 cm (5' 6") | 01/09/2014 2:42 PM | | | | | PDT | | + + + + + | Body Mass Index | 40.35 | 01/09/2014 2:42 PM | | | | | PDT | | + + + + + documented in this encounter Discharge Instructions Instructions Wang Kenny MD - 01/09/2014Gerard plenty of fluids. [place] for pain, Zofran for nausea. AttachmentsThe following attachments cannot be sent through Care Everywhere.KIDNEY STONE W/ COLIC ([place])PREVENTING KIDNEY STONES ([place])documented in this encounter Medications at Time of Discharge + + + +---------+ + + | Medication | Sig | Dispensed | Refills | Start | End Date | | | | | | Date | | + + + +---------+ + + | | Take 1-2 tablets by | 15 | 0 | 01/10/20 | | | HYDROcodone-acetamin | mouth EVERY 4 TO 6 | tablet | | 14 | 5 | | ophen (NORCO) 5-325 | HOURS NEEDED for | | | | | | mg per tablet | Pain. | | | | | + + + +---------+ + + | ondansetron | Take 1 tablet by | 15 | 0 | 01/10/20 | | | (ZOFRAN ODT) 4 mg | mouth every 6 hours | tablet | | 14 | 4 | | disintegrating | as needed for Nausea | | | | | | tablet | for up to 7 days. | | | | | + + + +---------+ + + documented as of this encounter Plan of Treatment +--------+---------+ + + + | Date | Type | Specialty | Care Team | Description | +--------+---------+ + + + | 06/18/ | Office | Nephrology | Brad Singh MD | | | 2020 | Visit | | [address] [facility] | | | | | | [address] [place], [place] | | | | | | [address] | | | | | | | | +--------+---------+ + + + documented as of this encounter Procedures + +--------+ + + + | Procedure Name | Priori | Date/Time | Associated Diagnosis | Comments | | | ty | | | | + +--------+ + + + | CT RENAL STONE WO | STAT | 01/09/2014 | | Results for this | | CONTRAST | | 3:52 PM | | procedure are in the | | | | PDT | | results section. | + +--------+ + + + | URINALYSIS WITH | STAT | 01/09/2014 | | Results for this | | MICROSCOPIC WITH | | 3:24 PM | | procedure are in the | | CULTURE IF INDICATED | | PDT | | results section. | + +--------+ + + + | CULTURE, URINE | Routin | 01/09/2014 | | Results for this | | | e | 3:24 PM | | procedure are in the | | | | PDT | | results section. | + +--------+ + + + | CBC WITH | STAT | 01/09/2014 | | Results for this | | DIFFERENTIAL | | 3:11 PM | | procedure are in the | | | | PDT | | results section. | + +--------+ + + + | BASIC METABOLIC | STAT | 01/09/2014 | | Results for this | | PANEL | | 3:11 PM | | procedure are in the | | | | PDT | | results section. | + +--------+ + + + documented in this encounter Results CT Renal Stone Wo Contrast (01/09/2014 3:52 PM PDT) + + | Specimen | + + | | + + + + + | Narrative | Performed At | + + + | UNENHANCED CT ABDOMEN AND PELVIS 01/09/2014 3:52 PM CLINICAL | M[facility]ANI[facility] | | HISTORY: Right flank pain COMPARISON: None TECHNIQUE: Axial | LAB | | unenhanced images are performed through the abdomen and pelvis. | | | Coronal and sagittal reformations are also performed. FINDINGS: | | | Right kidney is slightly larger than left, and appears mildly | | | edematous. Mild hydronephrosis on the right with prominence of the | | | right ureter and periureteric edema. This can be followed to the | | | pelvis where a 5 mm stone is seen approximately 1 cm from the | | | ureterovesical junction. No other right-sided stones. Left kidney | | | shows normal contour and appearance. 2 mm nonobstructing stone in the | | | lower pole of the left kidney. Urinary bladder is near empty. No | | | abnormalities in the lung bases. No effusion. Portions of liver and | | | spleen included are within normal limits. Gallbladder pancreas and | | | adrenal glands are normal. Aorta and inferior vena cava are normal. | | | Small bowel is nondilated. Ileocecal junction is normal. Normal | | | appendix. Numerous diverticula on the distal descending colon and | | | sigmoid with no adjacent inflammatory changes. Uterus is midline | | | and normal in size. Right ovary is unremarkable. Left ovary is | | | enlarged at 4.7 x 3.2 cm. It is of low density suggesting cyst. | | | Numerous phlebolithic-type calcifications are seen in the pelvis, | | | external to the course of the ureters. No pelvic free fluid. | | | Degenerative changes at L5-S1 with no acute bony abnormality. | | | IMPRESSION - 1. 5 mm stone in the distal right ureter, 1 cm from the | | | ureterovesical junction. Mild obstructive changes of the right renal | | | collecting system. 2 mm nonobstructing stone in the lower pole of | | | the left kidney. 2. Enlargement of the left ovary, appearing to be | | | secondary to cyst. If clinically warranted this could be further | | | evaluated with pelvic ultrasound. 3. Distal colonic | | | diverticulosis. Dictated and Signed by: Alon Painting MD | | | Electronically signed: 01/09/2014 4:44 PM | | + + + + + | Procedure Note | + + | [place], Rad Results In - 01/09/2014 4:47 PM [address] ABDOMEN AND PELVIS | | 01/09/2014 3:52 PM CLINICAL HISTORY: Right flank pain COMPARISON: None TECHNIQUE: Axial | | unenhanced images are performed through the abdomen and pelvis. Coronal and sagittal | | reformations are also performed. FINDINGS: Right kidney is slightly larger than left, | | and appears mildlyedematous. Mild hydronephrosis on the right with prominence of the | | right ureterand periureteric edema. This can be followed to the pelvis where a 5 mm | | stone isseen approximately 1 cm from the ureterovesical junction. No other | | right-sidedstones. Left kidney shows normal contour and appearance. 2 mm | | nonobstructingstone in the lower pole of the left kidney. Urinary bladder is near | | empty.No abnormalities in the lung bases. No effusion. Portions of liver and | | spleenincluded are within normal limits. Gallbladder pancreas and adrenal glands | | arenormal. Aorta and inferior vena cava are normal. Small bowel is nondilated.Ileocecal | | junction is normal. Normal appendix. Numerous diverticula on thedistal descending colon | | and sigmoid with no adjacent inflammatory changes.Uterus is midline and normal in size. | | Right ovary is unremarkable. Left ovary isenlarged at 4.7 x 3.2 cm. It is of low density | | suggesting cyst. Numerousphlebolithic-type calcifications are seen in the pelvis, | | external to the courseof the ureters. No pelvic free fluid. Degenerative changes at | | L5-S1 with noacute bony abnormality. IMPRESSION - 1. 5 mm stone in the distal right | | ureter, 1 cm from the ureterovesical junction.Mild obstructive changes of the right | | renal collecting system. 2 mmnonobstructing stone in the lower pole of the left | | kidney.2. Enlargement of the left ovary, appearing to be secondary to cyst. Ifclinically | | warranted this could be further evaluated with pelvic ultrasound.3. Distal colonic | | diverticulosis. Dictated and Signed by: Alon Painting MD Electronically signed: | | 01/09/2014 4:44 PM | |phlebolithic-type calcifications are seen in the pelvis, external to the course | |of the ureters. No pelvic free fluid. Degenerative changes at L5-S1 with no | |acute bony abnormality. | | | |IMPRESSION - | |1. 5 mm stone in the distal right ureter, 1 cm from the ureterovesical junction. | |Mild obstructive changes of the right renal collecting system. 2 mm | |nonobstructing stone in the lower pole of the left kidney. | | | |2. Enlargement of the left ovary, appearing to be secondary to cyst. If | |clinically warranted this could be further evaluated with pelvic ultrasound. | | | |3. Distal colonic diverticulosis. | | | |Dictated and Signed by: Alon Painting MD | | Electronically signed: 01/09/2014 4:44 PM | + + + +---------+ + + | Performing | Address | City/State/Zipcode | Phone Number | | Organization | | | | + +---------+ + + | [facility] | | | [phone] | + +---------+ + + | [facility] | | | [phone] | + +---------+ + + Culture, Urine (01/09/2014 3:24 PM PDT) + + + + + + | Component | Value | Ref Range | Performed | Pathologist | | | | | At | Signature | + + + + + + | Culture | >100,000 CFU/ml Mixed | | [facility] | | | | franco (multiple | | [facility] | | | | morphologies | | MEDICAL | | | | present)Comment: Mixed | | CENTER - | | | | franco, consistant with | | LABORATORY | | | | contamination. | | | | + + + + + + + + | Specimen | + + | Urine | + + + + + + + | Performing | Address | City/State/Zipcode | Phone Number | | Organization | | | | + + + + + | [facility] | [address] | [place] | [phone] | | [facility] | | [address] | | | - LABORATORY | | | | + + + + + | [facility] | [address] | [place] | | | [facility] | | [address] | | | - LABORATORY | | | | + + + + + Urinalysis with Microscopic with Culture if Indicated (01/09/2014 3:24 PM PDT) + + + + + [...] + + + + | Clarity | Hazy (A) | Clear | [facility] | | | | | | [facility] | | | | | | MEDICAL | | | | | | CENTER - | | | | | | LABORATORY | | + + + + + + | pH, Urine | 6.0 | 5.0 - 8.0 | [facility] | | | | | | [facility] | | | | | | MEDICAL | | | | | | CENTER - | | | | | | LABORATORY | | + + + + + + | Specific | >=1.030 | 1.001 - 1.030 | [facility] | | | [place] | | | [facility] | | | | | | MEDICAL | | | | | | CENTER - | | | | | | LABORATORY | | + + + + + + | Protein, | Negative | Negative, | [facility] | | | Urine | | Trace, 30 mg/dL | [facility] | | | | | | MEDICAL | | | | | | CENTER - | | | | | | LABORATORY | | + + + + + + | Blood, | Large (A) | Negative | [facility] | | | Urine | | | [facility] | | | | | | MEDICAL | | | | | | CENTER - | | | | | | LABORATORY | | + + + + + + | Glucose, | Negative | Negative | [facility] | | | Urine | | | [facility] | | | | | | MEDICAL | | | | | | CENTER - | | | | | | LABORATORY | | + + + + + + | Ketones, | 15 mg/dL (A) | Negative | [facility] | | | Urine | | | [facility] | | | | | | [...] + + + + | Urobilinoge | 0.2 E.U./dL | 0.2 E.U./dL | [facility] | | | n, Urine | | | [facility] | | | | | | MEDICAL | | | | | | CENTER - | | | | | | LABORATORY | | + + + + + + | WBC UA | 2-5 (A) | 0 - 2 /HPF | [facility] | | | | | | [facility] | | | | | | MEDICAL | | | | | | CENTER - | | | | | | LABORATORY | | + + + + + + | RBC UA | 50-100 (A) | 0 - 2 /HPF | [facility] | | | | | | [facility] | | | | | | MEDICAL | | | | | | CENTER - | | | | | | LABORATORY | | + + + + + + | SQUAMOUS | 0-2 | 0 - 2 /LPF | [facility] | | | EPITHELIAL | | | [facility] | | | UA | | | MEDICAL | | | | | | CENTER - | | | | | | LABORATORY | | + + + + + + | BACTERIA UA | Trace (A) | Negative /HPF | [facility] | [...] + | [facility] | [address] | [place], [place] | [phone] | | [facility] | | [address] | | | - LABORATORY | | | | + + + + + | [facility] | [address] | [place], [place] | | | [facility] | | [address] | | | - LABORATORY | | | | + + + + + Basic Metabolic Panel (01/09/2014 3:11 PM PDT) + + + + + + | Component | Value | Ref Range | Performed | Pathologist | | | | | At | Signature | + + + + + + | Na | 137 | 136 - 149 | [facility] | | | | | mmol/L | [facility] | | | | | | MEDICAL | | | | | | CENTER - | | | | | | LABORATORY | | + + + + + + | K | 3.8 | 3.5 - 5.1 | [facility] | | | | | mmol/L | [facility] | | | | | | MEDICAL | | | | | | CENTER - | | | | | | LABORATORY | | + + + + + + | Cl | 111 (H) | 98 - 109 mmol/L | [facility] | | | | | | [facility] | | | | | | MEDICAL | | | | | | CENTER - | | | | | | LABORATORY | | + + + + + + | CO2 | 19 (L) | 24 - 31 mmol/L | [facility] | | | | | | [facility] | | | | | | MEDICAL | | | | | | CENTER - | | | | | | LABORATORY | | + + + + + + | Anion Gap | 7 | 3 - 16 mmol/L | [facility] | | | | | | [facility] | | | | | | MEDICAL | | | | | | CENTER - | | | | | | LABORATORY | | + + + + + + | Glucose | 88 | 70 - 109 mg/dL | [facility] | | | | | | [facility] | | | | | | MEDICAL | | | | | | CENTER - | | | | | | LABORATORY | | + + + + + + | BUN | 16 | 7 - 18 mg/dL | [facility] | | | | | [facility] | | | | | | [facility] | | | | | | CENTER - | | | | | | LABORATORY | | + + + + + + | Creatinine | 1.11 | 0.60 - 1.30 | [facility] | | | | | mg/dL | [facility] | | | | | | MEDICAL | | | | | | CENTER - | | | | | | LABORATORY | | + + + + + + | eGFR if not | 53 (L)Comment: | >=60 | [facility] | | | | GLOMERULAR FILTRATION | mL/min/1.73m2 | [facility] | | | [place] | RATE,ESTIMATED | | MEDICAL | | | | mL/min/1.45q6Sgmr than | | CENTER - | | [...] + + + + | Calcium | 10.9 (H) | 8.3 - 10.5 | [facility] | | | | | mg/dL | [facility] | | | | | | MEDICAL | | | | | | CENTER - | | | | | | LABORATORY | | + + + + + + | BUN/Creatin | 14.4 | | [facility] | | | ine [...] + | [facility] | [address] | [place], [place] | [phone] | | [facility] | | [address] | | | - LABORATORY | | | | + + + + + | [facility] | [address] | [place], [place] | | | [facility] | | [address] | | | - LABORATORY | | | | + + + + + CBC with Differential (01/09/2014 3:11 PM PDT) + + + + + + | Component | Value | Ref Range | Performed | Pathologist | | | | | At | Signature | + + + + + + | WBC | 13.4 (H) | 4.0 - 11.0 K/uL | [facility] | | | | | | [facility] | | | | | | MEDICAL | | | | | | CENTER - | | | | | | LABORATORY | | + + + + + + | RBC | 5.30 (H) | 3.70 - 5.20 | [facility] | | | | | M/uL | [facility] | | | | | | MEDICAL | | | | | | CENTER - | | | | | | LABORATORY | | + + + + + + | Hemoglobin | 16.7 (H) | 11.5 - 16.0 | [facility] | | | | | g/dL | [facility] | | | | | | MEDICAL | | | | | | CENTER - | | | | | | LABORATORY | | + + + + + + | Hematocrit | 48.3 (H) | 34.0 - 47.0 % | [facility] | | | | | | [facility] | | | | | | MEDICAL | | | | | | CENTER - | | | | | | LABORATORY | | + + + + + + | MCV | 91.2 | 83.0 - 101.0 fL | [facility] | | | | | | [facility] | | | | | | MEDICAL | | | | | | CENTER - | | | | | | LABORATORY | | + + + + + + | MCH | 31.5 | 28.0 - 35.0 pg | [facility] | | | | | | [facility] | | | | | | MEDICAL | | | | | | CENTER - | | | | | | LABORATORY | | + + + + + + | MCHC | 34.6 | 32.0 - 36.0 | [facility] | | | | | g/dL | [facility] | | | | | | MEDICAL | | | | | | CENTER - | | | | | | LABORATORY | | + + + + + + | RDW-CV | 13.4 | <15.0 % | [facility] | | | | | | [facility] | | | | | | MEDICAL | | | | | | CENTER - | | | | | | LABORATORY | | + + + + + + | Platelet | 311 | 140 - 440 K/uL | [facility] | | | Count | | | [facility] | | | | | | MEDICAL | | | | | | CENTER - | | | | | | LABORATORY | | + + + + + + | MPV | 7.3 | fL | [facility] | | | | | | [facility] | | | | | | MEDICAL | | | | | | CENTER - | | | | | | LABORATORY | | + + + + + + | % | 61.9 | 45.0 - 82.0 % | [facility] | | | Neutrophils | | | [facility] | | | | | | MEDICAL | | | | | | CENTER - | | | | | | LABORATORY | | + + + + + + | % | 26.1 | 20.0 - 45.0 % | [facility] | | | Lymphocytes | | | [facility] | | | | | | MEDICAL | | | | | | CENTER - | | | | | | LABORATORY | | + + + + + + | % Monocytes | 8.9 | 4.0 - 12.0 % | [facility] | | | | | | [facility] | | | | | | MEDICAL | | | | | | CENTER - | | | | | | LABORATORY | | + + + + + + | % | 2.2 | 0.0 - 5.0 % | [facility] | | | Eosinophils | | | [facility] | | | | | | MEDICAL | | | | | | CENTER - | | | | | | LABORATORY | | + + + + + + | % Basophils | 0.9 | 0.0 - 1.0 % | [facility] | | | | | | [facility] | | | | | | MEDICAL | | | | | | CENTER - | | | | | | LABORATORY | | + + + + + + | Absolute | 8.30 | 1.80 - 8.50 | [facility] | | | Neutrophils | | K/uL | [facility] | | | | | | MEDICAL | | | | | | CENTER - | | | | | | LABORATORY | | + + + + + + | Absolute | 3.50 (H) | 0.60 - 3.20 | [facility] | | | Lymphocytes | | K/uL | [facility] | | | | | | MEDICAL | | | | | | CENTER - | | | | | | LABORATORY | | + + + + + + | Absolute | 1.20 (H) | 0.00 - 1.00 | [facility] | | | Monocytes | | K/uL | [facility] | | | | | | MEDICAL | | | | | | CENTER - | | | | | | LABORATORY | | + + + + + + | Absolute | 0.30 | 0.00 - 0.40 | [facility] | | | Eosinophils | | K/uL | [facility] | | | | | | MEDICAL | | | | | | CENTER - | | | | | | LABORATORY | | + + + + + + | Absolute | 0.10 | 0.00 - 0.10 | [facility] | | | Basophils | | K/uL | [facility] | | | | [...] + | [facility] | [address] | [place], [place] | [phone] | | [facility] | | [address] | | | - LABORATORY | | | | + + + + + | [facility] | [address] | [place] | | | [facility] | | [address] | | | - LABORATORY | | | | + + + + + documented in this encounter Visit Diagnoses + + | Diagnosis | + + | Kidney stone on right side - Primary Calculus of kidney | + + documented in this encounter Administered Medications + +--------+ +------+------+------+ | Medication Order | MAR | Action | Dose | Rate | Site | | | Action | Date | | | | + +--------+ +------+------+------+ | HYDROmorphone (PF) (DILAUDID) 1 | Given | 07/30/20 | 1 mg | | | | mg/mL injection 1 mg 1 mg, | | 14 3:26 | | | | | Intravenous, ONCE, Tue01/09/14 at | | PM PDT | | | | | 1515, For 1 dose | | | | | | + +--------+ +------+------+------+ +---+---+ | | | +---+---+ + +-------+ +------+---+--------+ | HYDROmorphone (PF) (DILAUDID) 1 | Given | 01/10/20 | 1 mg | | Right | | mg/mL injection 1 mg 1 mg, | | 14 4:14 | | | Arm | | Intravenous, ONCE, Tue01/09/14 at | | PM PDT | | | | | 1630, For 1 dose | | | | | | + +-------+ +------+---+--------+ +---+---+ | | | +---+---+ + +-------+ +-------+---+---+ | ketorolac (TORADOL) injection | Given | 01/10/20 | 30 mg | | | | 30 mg 30 mg, Intravenous, ONCE, | | 14 3:26 | | | | | 01/09/14 at 1515, For 1 dose | | PM PDT | | | | + +-------+ +-------+---+---+ +---+---+ | | | +---+---+ + +-------+ +------+---+--------+ | LORazepam (ATIVAN) injection 1 | Given | 01/10/20 | 1 mg | | Right | | mg 1 mg, Intravenous, ONCE, Tue | | 14 4:12 | | | Arm | | 01/09/14 at 1630, For 1 dose | | PM PDT | | | | + +-------+ +------+---+--------+ +---+---+ | | | +---+---+ + +-------+ +------+---+---+ | ondansetron (ZOFRAN) injection | Given | 01/10/20 | 4 mg | | | | 4 mg 4 mg, Intravenous, ONCE, | | 14 3:26 | | | | | 01/09/14 at 1515, For 1 dose | | PM PDT | | | | + +-------+ +------+---+---+ +---+---+ | | | +---+---+ + +-------+ +------+---+---+ | ondansetron (ZOFRAN) injection | Given | 01/10/20 | 4 mg | | | | 4 mg 4 mg, Intravenous, ONCE, | | 14 6:09 | | | | | Tue01/09/14 at 1830, For 1 dose | | PM PDT | | | | + +-------+ +------+---+---+ +---+---+ | | | +---+---+ + +-------+ +---------+---+--------+ | promethazine (PHENERGAN) (IV | Given | 01/10/20 | 12.5 mg | | Right | | ONLY) injection 12.5 mg 12.5 mg, | | 14 7:19 | | | Arm | | Intravenous, ONCE, Tue01/09/14 | | PM PDT | | | | | at 1930, For 1 dose, Vesicant. | | | | | | | When ordered IV push: Dilute to | | | | | | | 10-20mL with NS. Give over 2-3 | | | | | | | minutes into large vein. Do not | | | | | | | give in hand/wrist or foot/ankle | | | | | | | vein. Max dose 12.5mg if giving | | | | | | | peripherally., | | | | | | + +-------+ +---------+---+--------+ +---+---+ | | | +---+---+ + +---------+ +--------+-------+--------+ | sodium chloride 0.9% (NS) 1,000 | New Bag | 01/10/20 | 1,000 | 1000 | Right | | mL bolus 1,000 mL, Intravenous, | | 14 3:30 | mLs | mL/hr | Arm | | Administer over 1 Hours, ONCE, | | PM PDT | | | | | 01/09/14 at 1515, For 1 dose | | | | | | + +---------+ +--------+-------+--------+ +---+---+ | | | +---+---+ + +---------+ +--------+-------+--------+ | sodium chloride 0.9% (NS) 1,000 | New Bag | 01/10/20 | 1,000 | 1000 | Right | | mL bolus 1,000 mL, Intravenous, | | 14 5:14 | mLs | mL/hr | Arm | | Administer over 1 Hours, ONCE, | | PM PDT | | | | | 01/09/14 at 1715, For 1 dose | | | | | | + +---------+ +--------+-------+--------+ +---+---+ | | | +---+---+ documented in this encounter
--- OUTSIDE RECORDS SUMMARY | ~2019-04-30 | XMS | Clinical Summary ---
Demographics + + + | Address | [address] | | | [place] [address] | + + + | Home Phone | | + + + | Preferred Language | Unknown | + + + | Marital Status | Unknown | + + + | Evangelical Affiliation | 1013 | + + + | Race | Unknown | + + + | Ethnic Group | Unknown | + + + Author + + + | Author | [facility] | | | and [place] | + + + | Organization | [facility] | | | and [place] [...] Team Providers + +------+ + | Care Senior Tax Specialist Name | Role | Phone | + +------+ + | Umesh Mcmahon NP | PCP | | + +------+ + Allergies + + + + + + | Active Allergy | Reactions | Severity | Noted | Comments | | | | | Date | | + + + + + + | Adhesive & Tape | Rash | Low | 11/12/19 | tegaderm | | | | | 19 | | + + + + + + Medications + + + +---------+------+------+-------+ | Medication | Sig | Dispensed | Refills | Star | End | Statu | | | | | | t | Date | s | | | | | | Date | | | + + + +---------+------+------+-------+ | oxybutynin | Place 1 patch onto | | 0 | | | Activ | | (OXYTROL) 3.9 mg/24 | the skin. EVERY 4 | | | | | e | | hr | DAYS | | | | | | + + + +---------+------+------+-------+ | albuterol (PROAIR | Inhale 2 puffs into | | 0 | | | Activ | | HFA) 90 mcg/puff | the lungs every 4 | | | | | e | | inhaler | hours as needed. | | | | | | + + + +---------+------+------+-------+ | tamsulosin | Take 0.4 mg by mouth | | 0 | | | Activ | | (FLOMAX) 0.4 mg CAPS | daily (after | | | | | e | | | breakfast). | | | | | | + + + +---------+------+------+-------+ | PROPRANOLOL HCL PO | Take by mouth | | 0 | | | Activ | | | Daily. | | | | | e | + + + +---------+------+------+-------+ | | Take 1 tablet by | 15 | 0 | 09/1 | | Activ | | HYDROcodone-acetamin | mouth every 6 hours | tablet | | 9/20 | | e | | ophen (NORCO) 5-325 | as needed for Pain. | | | 15 | | | | mg per tablet | | | | | | | + + + +---------+------+------+-------+ | clonazePAM | Take 1 mg by mouth | | 0 | 05/2 | | Activ | | (KLONOPIN) 1 mg | nightly. | | | 2/20 | | e | | tablet | | | | 19 | | | + + + +---------+------+------+-------+ | lamoTRIgine | Take 200 mg by mouth | | 0 | 10/2 | | Activ | | (LAMICTAL) 100 mg | Daily. | | | 2/20 | | e | | tablet | | | | 18 | | | + + + +---------+------+------+-------+ | prazosin | Take 2 mg by mouth | | 0 | 05/1 | | Activ | | (MINIPRESS) 2 MG | every morning. | | | 6/20 | | e | | capsule | | | | 19 | | | + + + +---------+------+------+-------+ | LATUDA 80 MG | Take 80 mg by mouth | | 0 | 10/2 | | Activ | | tablet | daily (with | | | 4/20 | | e | | | breakfast). | | | 18 | | | + + + +---------+------+------+-------+ | desvenlafaxine | take 1 tablet by | | 0 | 10/1 | | Activ | | (PRISTIQ) 25 mg ER | mouth twice a day | | | 0/20 | | e | | tablet | | | | 18 | | | + + + +---------+------+------+-------+ | prazosin | Take 6 mg by mouth | | 0 | | | Activ | | (MINIPRESS) 2 MG | nightly. | | | | | e | | capsule | | | | | | | + + + +---------+------+------+-------+ | promethazine | Take 25 mg by mouth | | 0 | | | Activ | | (PHENERGAN) 25 mg | every 6 hours as | | | | | e | | tablet | needed for Nausea or | | | | | | | | Vomiting. | | | | | | + + + +---------+------+------+-------+ | docusate-senna | Take 1 tablet by | | 0 | | | Activ | | (SENOKOT-S) 50-8.6 | mouth Twice daily | | | | | e | | mg per tablet | as needed for | | | | | | | | Constipation. | | | | | | + + + +---------+------+------+-------+ | | Take 1 tablet by | | 0 | | | Activ | | oxyCODONE-acetaminop | mouth every 6 hours | | | | | e | | hen (PERCOCET) 5-325 | as needed for Pain. | | | | | | | mg per tablet | | | | | | | + + + +---------+------+------+-------+ | levoFLOXacin | Take 1 tablet by | 6 | 0 | 06/0 | | Activ | | (LEVAQUIN) 500 mg | mouth Daily. | tablet | | 2/20 | | e | | tabletIndications: | Indications: UTI - | | | 19 | | | | UTI - UPPER | Upper | | | | | | + + + +---------+------+------+-------+ | citalopram | Take 10 mg by mouth | | 0 | 11/2 | | Activ | | (CELEXA) 10 mg | once daily. | | | 8/20 | | e | | tablet | | | | 17 | | | + + + +---------+------+------+-------+ | citalopram | Take 20 mg by mouth | | 0 | 12/1 | | Activ | | (CELEXA) 20 mg | once daily. | | | 3/20 | | e | | tablet | | | | 17 | | | + + + +---------+------+------+-------+ | cyclobenzaprine | Take 1 tablet by | | 0 | 12/0 | | Activ | | (FLEXERIL) 5 MG | mouth 2 (two) times | | | 4/20 | | e | | tablet | a day as needed. | | | 17 | | | + + + +---------+------+------+-------+ | ibuprofen | Take 800 mg by mouth | | 0 | | | Activ | | (ADVIL,MOTRIN) 800 | every 6 (six) hours | | | | | e | | MG tablet | as needed for mild | | | | | | | | pain. | | | | | | + + + +---------+------+------+-------+ | SUMAtriptan | Take 1 tablet (50 mg | | 0 | 12/2 | | Activ | | (IMITREX) 50 mg | total) by mouth | | | 120 | | e | | tablet | once as needed for | | | 17 | | | | | migraine. May repeat | | | | | | | | in 2 hours if | | | | | | | | unresolved. Do not | | | | | | | | exceed 200 mg in 24 | | | | | | | | hours. | | | | | | + + + +---------+------+------+-------+ | lamoTRIgine | Take 100 mg by mouth | | 0 | 12/1 | | Activ | | (LAMICTAL) 200 MG | 2 (two) times a | | | 820 | | e | | tablet | day. | | | 17 | | | + + + +---------+------+------+-------+ | prazosin | Take 1 mg by mouth | | 0 | 12/1 | | Activ | | (MINIPRESS) 1 mg | nightly. | | | 320 | | e | | capsule | | | | 17 | | | + + + +---------+------+------+-------+ Active Problems + + + | Problem | Noted Date | + + + | Chronic kidney disease, stage III (moderate) | 04/03/2019 | + + + | Calculus of kidney | 01/18/2019 | + + + + + | Overview: ER visit 01/2014 | + + + + + | Ureteral calculus, right | 11/11/2018 | + + + + + | Overview: Noncontrast abdomen and pelvis CT demonstrates a 15 | | mm right ureteropelvic junction stone, 8 mm left lateral | | calyceal stone, 2 punctate right and 1 left punctate stones. | + + + + + | PTSD (post-traumatic stress disorder) | 11/11/2018 | + + + | Bipolar 1 disorder | 11/11/2018 | + + + | Chronic back pain | 11/11/2018 | + + + | UTI (urinary tract infection) with pyuria | 11/11/2018 | + + + | Diverticulosis of colon | 11/11/2018 | + + + | Hydronephrosis of right kidney | 11/11/2018 | + + + + + | Overview: CT 11/11/2018: 15 mm right ureteropelvic junction | | stone, GFR 48 | + + + + + | SIRS (systemic inflammatory response syndrome) | 11/11/2018 | + + + | Preventative health care | 05/30/2014 | + + + + + | Overview: CT Renal Stone 01/09/14 [facility] | + + + + + | Kidney stone on right side | 01/09/2014 | + + + | Asthma | 06/14/2013 | + + + + + | Overview: Dx name justen by system update 07/20/2016 | + + + +---+ | H/O Kidney stones | | + +---+ + + | Overview: Calcium oxalate renal stones | + + + +---+ | Adnexal mass | | + +---+ + + | Overview: 11/11/2018 CT: 4 cm left adnexal cyst | + + + +---+ | Smoker - Daily | | + +---+ | Anxiety | | + +---+ | Hypertension | | + +---+ | Substance abuse | | + +---+ Encounters +--------+ + + + + | Date | Type | Specialty | Care Team | Description | +--------+ + + + + | 04/03/ | Orders Only | Nephrology | Brad Singh MD | Chronic kidney | | 2019 | | | | disease, stage III | | | | | | (moderate) (HCC) | | | | | | (Primary Dx) | +--------+ + + + + from Last 3 Months Social History + +-------+ +--------+------+ | Tobacco [...] recent travel history available. | + + Last Filed Vital Signs + + + [...] | | + + + + + Plan of Treatment +--------+---------+ + + + | Date | Type | Specialty | Care Team | Description | +--------+---------+ + + + | 06/18/ | Office | Nephrology | Brad Singh MD | | | 2020 | Visit | | [address] [facility] | | | | | | [address] [place] | | | | | | [address] | | | | | | | | +--------+---------+ + + + + + + + + | Health Maintenance | Due Date | Last Done | Comments | + + + + + | Vaccine: | | | | | Pneumococcal -63 | 6 | | | | (1 of 1 - PPSV23) | | | | + + + + + | Vaccine: | | | | | Dtap/Tdap/Td (1 - | 9 | | | | Tdap) | | | | + + + + + | Cervical Cancer | | | | | Screening (Pap) | 0 | | | + + + + + | Breast Cancer | | 11/29/2013 | | | Screening | 5 | | | + + + + + | Vaccine: Influenza | | | | | (#1) | 9 | | | + + + + + Implants + +-------+--------+ +--------+--------+--------+ | Implanted | Type | Area | Manufacture | Device | Shelf | Model | | | | | r | | Expira | / | | | | | | Identi | tion | Serial | | | | | | fier | Date | / Lot | + +-------+--------+ +--------+--------+--------+ | Stent Uro Unvrs Sft 6fr 26cm | Stent | Right: | PEÑA | | | [id number] | | - [id number]: Qty: 1 | | | [employer] | | | / | | on 11/11/2018 by Reji, | | Ureter | - [place] | | | [id number] | | Anastacio Hanks MD at [facility] | | | | | | 73 | | [facility] | | | | | | | + +-------+--------+ +--------+--------+--------+ Results Not on filefrom Last 3 Months Insurance + +--------+ +--------+ +---------+--------+ | Payer | Benefi | Subscriber | Effect | Phone | Address | Type | | | t Plan | ID | josie | | | | | | / | | Dates | | | | | | Group | | | | | | + +--------+ +--------+ +---------+--------+ | [employer] | JARVIS | [id number] | 07/22/19 | [phone] | | Medica | | MEDICAID HMO | ETTE | | 15-Pre | 4 | | id | | | [place] | | sent | | | | | | MDCD | | | | | | | | HMO [place] | | | | | | + +--------+ +--------+ +---------+--------+ | [employer] | MODA | [id number] | | [phone] | | Medica | | MEDICAID HMO | HEALTH | | 019-Pr | 1 | | id | | | MDCD | | esent | | | | | | HMO [place] | | | | | | + +--------+ +--------+ +---------+--------+ + +--------+ +--------+ + + | Guarantor Name | Accoun | Relation to | Date | Phone | Billing Address | | | t Type | Patient | of | | | | | | | | | | + +--------+ +--------+ + + | Mireya Ramos | Person | Self [birth year] | [address] | | | al/Fam | | 1971 | [phone] | [address] | | | [place] | | | [address] (Home) | [place] [address] | + +--------+ +--------+ + + | Mireya Ramos | Person | Self | [birth year] | [address] | | | colette/Kemal | | 1971 | [phone] | [address] | | | [place] | | | [address] (Home) | [place] [address] | + +--------+ +--------+ + + Advance Directives + + + + + | Type | Date Recorded | Patient | Explanation | | | | English And Reading Instructor | | + + + + + | Power of | | | | | Bee Producer | | | | + + + + + | Power of | | | | | Bee Producer | | | | + + + + + | Advance | 11/29/2013 12:27 | | | | Directive | PM | | | + + + + + | Advance | | | | | Directive | | | | + + + + + + + + + + | Code Status | Date | Date | Comments | | | Activated | Inactivated | | + + + + + | Full Code | 11/11/2018 | 11/12/2018 | | | | 11:52 PM | 12:54 PM | | + + + + +
--- OUTSIDE RECORDS SUMMARY | ~2019-04-30 | XMS | Encounter Summary ---
Demographics + + + | Address | [address] | | | [place] [address] | + + + | Home Phone | | + + + | Preferred Language | Unknown | + + + | Marital Status | Unknown | + + + | Yarsani Affiliation | 1013 | + + + | Race | Unknown | + + + | Ethnic Group | Unknown | + + + Author + + + | Author | [facility] | | | and [place] | + + + | Organization | [facility] | | | and [...] Team Providers + +------+ + | Care Hand Candy Molder Name | Role | Phone | + [...] | | | | CENTER [address] | [address] [place] | Dx) | | | | [place], [place] | [place] [address] | | | | | [address] | [phone] | | | | | [phone] | | | +--------+ + + + [...] Kenny MD - 01/09/2014Gerard plenty of fluids. Kooskia for pain, Zofran for nausea. AttachmentsThe following attachments cannot be sent through Care Everywhere.KIDNEY STONE W/ COLIC ([place])PREVENTING KIDNEY STONES ([place])documented in this encounter Medications at Time of [...] 2020 | Visit | | [address] [facility] | | | | | | [address] [place], [place] | | | | | | [address] | | | | | | | [...] + | MISCELLANEOUS LAB | | | [phone] | + +---------+ + + | MISCELANIOUS LAB | | | [phone] | + +---------+ + + Culture, Urine [...] + | [facility] | [address] | [place] | [phone] | | [facility] | | [address] | | | - LABORATORY | | | | + + + + + | [facility] | [address] | [place] | | | [facility] | | [address] | | | - LABORATORY | | [...] - 1.030 | [facility] | | | [place] | | | [facility] | | [...] + | [facility] | [address] | [place], [place] | [phone] | | [facility] | | [address] | | | - LABORATORY | | | | + + + + + | [facility] | [address] | [place], [place] | | | [facility] | | [address] | | | - LABORATORY | | [...] | 1.11 | 0.60 - 1.30 | [facility] | | | | | mg/dL | [...] mL/min/1.73m2 | [facility] | | | MAURITANIAN | RATE,ESTIMATED | | MEDICAL | | | | mL/min/1.32x1Zzpx than | | CENTER - | | [...] + | [facility] | [address] | [place], [place] | [phone] | | [facility] | | [address] | | | - LABORATORY | | | | + + + + + | [facility] | [address] | [place], [place] | | | [facility] | | [address] | | | - LABORATORY | | [...] + | [facility] | [address] | [place], [place] | [phone] | | [facility] | | [address] | | | - LABORATORY | | | | + + + + + | [facility] | [address] | [place] | | | [facility] | | [address] | | | - LABORATORY | | [...]
--- OUTSIDE RECORDS SUMMARY | ~2019-04-30 | XMS | Encounter Summary ---
Demographics + + + | Address | [address] | | | [place] [address] | + + + | Home Phone [...] Organization | [facility] | | | and [place] | [...] Team Providers + +------+ + | Care Nurse Healthcare Manager Name | Role | Phone | + +------+ + PCP | Unavailable | + +------+ + Encounter Details +--------+ + + + + | Date | Type | Department | Care Team | Description | +--------+ + + + + | 03/11/ | [facility] | [facility] | Dain Weinberg, | | | 2012 | Encounter | MED [facility] | [address] | | | | | CENTER [address] | [place] | | | | | [place] | [address] | | | | | [address] | | | | | | [phone] | | | +--------+ + + + [...] 2020 | Visit | | [address] [facility] | | | | | | [address] [place], [place] | | | | | | [address] | | | | | | | | +--------+---------+ + + + documented as of this encounter Visit Diagnoses Not on filedocumented in this encounter"
--- OUTSIDE RECORDS SUMMARY | ~2019-04-30 | XMS | Encounter Summary ---
Demographics + + + | Address | [address] | | | [place] [address] | + + + | Home Phone [...] | Organization | [facility] | | | and [...] Providers + +------+ + | Care Director International Name | Role | Phone | + +------+ + | Umesh Mcmahon NP | PCP | | + +------+ + Encounter Details +--------+ + + + + | Date | Type | Department | Care Team | Description | +--------+ + + + + | 01/18/ | Orders Only | [facility] | Provider, | | | 2019 | | SYSTEM GENERIC OP | MD [address] | | | | | [address] | [place]. | | | | | [address] [place], [place] | [place] [address] | | | | | [address] | | | | | | [phone] | | | +--------+ + + + [...] | +--------+---------+ + + + | 06/18/ Office | Nephrology | Brad Singh MD | | | 2019 | Visit | | [address] [facility] | | | | | | [address] [place] | | | | | | [address] | | | | | | | | +--------+---------+ + + + documented as of this encounter Visit Diagnoses Not on filedocumented in this encounter"
--- OUTSIDE RECORDS SUMMARY | ~2019-04-30 | XMS | Encounter Summary ---
Demographics + + + | Address | [address] | | | [place] [address] | + + + | Home Phone | | + + + | Preferred Language | Unknown | + + + | Marital Status | Unknown | + + + | Tenriism Affiliation | 1013 | + + + | Race | Unknown | + + + | Ethnic Group | Unknown | + + + Author + + + | Author | [facility] | | | and [place] | + + + | Organization | [facility] | | | and [place] [...] Team Providers + +------+ + | Care Radio Television Announcer Name | Role | Phone | + [...] [place] | | | | | [address] | [address] | | | | | [phone] | | | +--------+ + + + [...] 2019 | Visit | | [address] [facility] | | | | | | [address] [place] | | | | | | [address] | | | | | | | | +--------+---------+ + + + documented as of this encounter Visit Diagnoses + + | Diagnosis | + + | Preventative health care - Primary Routine general medical examination at a health | | care facility | + + documented in this encounter"
--- OUTSIDE RECORDS SUMMARY | ~2019-04-30 | XMS | Encounter Summary ---
Demographics + + + | Address | [address] | | | [place] [address] | + + + | Home Phone [...] + + + | Author | [facility] | | | and [place] | + + + | Organization | [facility] | | [...] Team Providers + +------+ + | Care Store Stocker Name | Role | Phone | + [...] [place] | | | | | [phone] | [place] [address] | | +--------+ + + + + [...] Visit | | [address] [facility] | | | | | | [address] [place] | | | | | | [address] | | | | | | | [...]
--- OUTSIDE RECORDS SUMMARY | ~2019-04-30 | XMS | Clinical Summary ---
Demographics + + + | Address | [address] | | | [place] [address] | + + + | Home Phone | | + + + | Preferred Language | Unknown | + + + | Marital Status | Unknown | + + + | Confucianist Affiliation | 1013 | + + + | Race | Unknown | + + + | Ethnic Group | Unknown | + + + Author + + + | Author | [facility] [place] | | | and [place] | + + + | Organization | [facility] | | | and [place] [...] Team Providers + +------+ + | Care Knobber Name | Role | Phone | + [...] 2020 | Visit | | [address] [facility] | | | | | | [address] [place] | | | | | | [address] | | | | | | | [...] | Right: | [place] | | | [id number] | | - [id number]: Qty: [id number] | | | [employer] | | | / | | on 11/11/2018 by Reji, | | Ureter | - [place] | | | /[id number] | | Anastacio Hanks MD at [facility] | | | | | | 73 | | [facility] | | | | | | | [...] +---------+--------+ | [employer] | JARVIS | [id number] | 07/22/19 | [phone] | | Medica | | MEDICAID HMO | ETTE | | 15-Pre | 4 | | id | | | [place] | | sent | | | | | | MDCD | | | | | | | | HMO [place] | | | | | | + +--------+ +--------+ +---------+--------+ | [employer] | MODA | [id number] | | [phone] | | Medica | | MEDICAID HMO [...] | | 4 (Home) | [place] [address] | + +--------+ +--------+ + + | Mireya Ramos | Person | Self [birth year] | [address] | | | colette/Kemal | | 1971 | [phone] | [address] | | | [place] | | | [address] (Home) | [place] [address] | + +--------+ +--------+ + + Advance Directives + + + + + | Type | Date Recorded | Patient | Explanation | | | | Black Studies Professor | | + + + + + | Power of | | | | | Photographic Laboratory Technician | | | | + + + + + | Power of | | | | | Photographic Laboratory Technician | | | | + + + [...]
--- OUTSIDE RECORDS SUMMARY | ~2019-04-30 | XMS | Clinical Summary ---
Demographics + + + | Address | [address] | | | [place] [address] | + + + | Home Phone | | + + + | Preferred Language | Unknown | + + + | Marital Status | Unknown | + + + | Tenriism Affiliation | Unknown | + + + | Race | Unknown | + + + | Ethnic Group | Unknown | + + + Author + + + | Author | [facility] (Historical as of | | | 01-27-19) | + + + | Organization | [facility] (Historical as of | | | 01-27-19) | + + + | Address | Unknown | + + + | Phone | Unavailable | + + + Support +--------+ +---------+ + | Name | Relationship | Address | Phone | +--------+ +---------+ + | No,One | ECON | Unknown | | +--------+ +---------+ + Care Team Providers + +------+ + | Care Coal Chemist Name | Role | Phone | + [...] +------+-------+ + | MEDICAID | [place] | [id number] | | | [address] | | | [place] | | | | [place] | | | [place] | | | | [address] | | | [employer] | | | | | + +--------+ [...] | | | [place] | | | [address] | [place] [address] | + +--------+ +--------+ + +"
--- OUTSIDE RECORDS SUMMARY | ~2019-04-30 | XMS | Encounter Summary ---
Demographics + + + | Address | [address] | | | [place] [address] | + + + | Home Phone [...] | Organization | [facility] | | | and [...] Team Providers + +------+ + | Care Crime Scene Analyst Name | Role | Phone | + +------+ + | Roxanne Gillis MD | PCP | | + +------+ + Encounter Details +--------+ + + + + | Date | Type | Department | Care Team | Description | +--------+ + + + + | 06/05/ | Orders Only | [facility] | Scout, Joe, | Calculus of right | | 2013 | | [address] | MD [address] | ureter (Primary Dx); | | | | [place], [place] | [place], [place] | Calculus of left | | | | [address] | [address] | kidney | | | | [phone] | | | +--------+ + + + [...] 2020 | Visit | | [address] [facility] | | | | | | [address] [place], [place] | | | | | | [address] | | | | | | | | +--------+---------+ + + + + +---------+--------+ + + | Name | Type | Priori | Associated Diagnoses | Order Schedule | | | | ty | | | + +---------+--------+ + + | XR Abdomen AP | Imaging | Routin | Calculus of right | Expected: | | | | e | ureter Calculus of | 06/05/2014, Expires: | | | | | left kidney | 06/05/2015 | + +---------+--------+ + + documented as of this encounter Visit Diagnoses + + | Diagnosis | + + | Calculus of right ureter - Primary Calculus of ureter | + + | Calculus of left kidney Calculus of kidney | + + documented in this encounter"
--- OUTSIDE RECORDS SUMMARY | ~2019-04-30 | XMS | Encounter Summary ---
Demographics + + + | Address | [address] | | | [place] [address] | + + + | Home Phone [...] Organization | [facility] | | | and [...] Team Providers + +------+ + | Care Piping Engineer Name | Role | Phone | [...] | | | | CENTER [address] | [place], [place] | | | | | [place], [place] | [address] | | | | | [address] | | | | | | [phone] | | | +--------+ + + + [...] through Care Everywhere.FLANK PAIN, [facility] ERTAIN CAUSE (NEPALI)documented in this encounter Medications at Time of [...] 2020 | Visit | | [address] [facility] | | | | | | [address] [place] | | | | | | [address] | | | | | | | [...] report | | | was sent by [employer] on 03/01/2015 at 11:11 PM with no [...] | | preliminary report was sent by [employer] on 03/01/2015 at 11:11 PM withno | [...] | |A preliminary report was sent by [employer] on 03/01/2015 at 11:11 PM with | [...] | 1.010, 1.015, | | | | [place], | | 1.020, 1.025 | | | [...] - 1.030 | [facility] | | | [place] | | | [facility] | | [...] + | [facility] | [address] | [place] | [phone] | | [facility] | | [address] | | | - LABORATORY | | [...]
--- OUTSIDE RECORDS SUMMARY | ~2019-04-30 | XMS | Encounter Summary ---
Demographics + + + | Address | [address] | | | [place] [address] | + + + | Home Phone | | + + + | Preferred Language | Unknown | + + + | Marital Status | Unknown | + + + | Orthodox Affiliation | 1013 | + + + | Race | Unknown | + + + | Ethnic Group | Unknown | + + + Author + + + | Author | [facility] [place] | | | and [place] | + + + | Organization | [facility] [place] | [...] Team Providers + +------+ + | Care Epic Cupid Specialists Name | Role | Phone | + +------+ + | Roxanne Gillis MD | PCP | | + +------+ + Encounter Details +--------+ + + + + | Date | Type | Department | Care Team | Description | +--------+ + + + + | 12/06/ | Hospital | [facility] | Roxanne Gillis, | Abnormal mammogram, | | 2014 | Encounter | MED CTR ULTRASOUND | MD [address] | unspecified | | | | [address] | [address] [place] | | | | | [place] | [address] | | | | | [address] | | | | | | [phone] | Chiquita Jolley | | | | [...] | | [address] [facility] | | | | | | [address] [place], [place] | | | | | | [address] | | | | | | | [...] was | | | performed by a manager agricultural. I also personally evaluated this area | [...] and Signed by: Goyo Leigh | Lu Hernnadez MD Electronically signed: 12/06/2013 2:57 PM | [...] breast | | was performed by a manager agricultural. I also personally evaluated this area using [...] + | MISCELLANEOUS LAB | | | [phone] | + +---------+ + + | MISCELANIOUS LAB | | | [phone] | + +---------+ + + documented in this encounter Visit Diagnoses + + | Diagnosis | + + | Abnormal mammogram, unspecified | + + documented in this encounter"
--- OUTSIDE RECORDS SUMMARY | ~2019-04-30 | XMS | Encounter Summary ---
Demographics + + + | Address | [address] | | | [place] [address] | + + + | Home Phone | | + + + | Preferred Language | Unknown | + + + | Marital Status | Unknown | + + + | Nondenominational Affiliation | 1013 | + + + | Race | Unknown | + + + | Ethnic Group | Unknown | + + + Author + + + | Author | [facility] [place] | | | and [place] | + + + | Organization | [facility] [place] | [...] Team Providers + +------+ + | Care Ibm Mainframe Systems Programmer Name | Role | Phone | + [...] + + | 11/11/ | Anesthesia | [facility] | Hood Horowitz | | | 2018 | Event | MED CTR OR INTRA OP | MD Franck [address] | | | | | [address] | [address] [place] | | | | | [place] | [address] | | | | | [address] | [phone] | | | | | [phone] | | | +--------+ + + + [...] +----+---+ + + | | 2 | [place] | | | | 2 | 43-degrees [...] 2020 | Visit | | [address] [facility] | | | | | | [address] [place], [place] | | | | | | [address] | | | | | | | [...] lateral chest rise | |Performing provider: Hood Horowtiz MD | | | |Comments: Smooth IV [...]
--- OUTSIDE RECORDS SUMMARY | ~2019-04-30 | XMS | Encounter Summary ---
Demographics + + + | Address | [address] | | | [place] [address] | + + + | Home Phone [...] + + + | Author | [facility] [place] | | | and [place] | + + + | Organization | [facility] [place] | | | and [place] [...] Team Providers + +------+ + | Care Microbiology Lab Technician Name | Role | Phone | + +------+ + | Umesh Mcmahon NP | PCP | | + +------+ + Encounter Details +--------+ + + + + | Date | Type | Department | Care Team | Description | +--------+ + + + + | 01/18/ | Orders Only | [facility] | Provider, | | | 2019 | | SYSTEM GENERIC OP | MD [address] | | | | | [address] | [place]. | | | | | [address] [place], [place] | [place] [address] | | | | | [address] | | | | | | [phone] | | | +--------+ + + + [...] 2019 | Visit | | [address] [facility] | | | | | | [address] [place] | | | | | | [address] | | | | | | | | +--------+---------+ + + + documented as of this encounter Visit Diagnoses Not on filedocumented in this encounter"
--- OUTSIDE RECORDS SUMMARY | ~2019-04-30 | XMS | Encounter Summary ---
Demographics + + + | Address | [address] | | | [place] [address] | + + + | Home Phone | | + + + | Preferred Language | Unknown | + + + | Marital Status | Unknown | + + + | Yazidi Affiliation | 1013 | + + + | Race | Unknown | + + + | Ethnic Group | Unknown | + + + Author + + + | Author | [facility] [place] | | | and [place] | + + + | Organization | [facility] [place] | | | [...] Team Providers + +------+ + | Care Sign Builder Supervisor Name | Role | Phone | [...] [place] | | | | | [address] | [address] | | | | | [phone] | | | +--------+ + + + [...] 2019 | Visit | | [address] [facility] | | | | | | [address] [place] | | | | | | [address] | | | | | | | | +--------+---------+ + + + documented as of this encounter Visit Diagnoses + + | Diagnosis | + + | Preventative health care - Primary Routine general medical examination at a health | | care facility | + + documented in this encounter"
--- OUTSIDE RECORDS SUMMARY | ~2019-04-30 | XMS | Encounter Summary ---
Demographics + + + | Address | [address] | | | [place] [address] | + + + | Home Phone | | + + + | Preferred Language | Unknown | + + + | Marital Status | Unknown | + + + | Baptist Affiliation | 1013 | + + + | Race | Unknown | + + + | Ethnic Group | Unknown | + + + Author + + + | Author | [facility] [place] | | | and [place] | + + + | Organization | [facility] [place] | | | and [place] [...] Team Providers + +------+ + | Care Certified Ophthalmic Medical Technician Name | Role | Phone | + +------+ + | Roxanne Gillis MD | PCP | | + +------+ + Encounter Details +--------+ + + + + | Date | Type | Department | Care Team | Description | +--------+ + + + + | 11/29/ | Hospital | [facility] | Roxanne Gillis, | Other screening | | 2014 | Encounter | MED CTR MAMMOGRAPHY | MD [address] | mammogram | | | | [address] | [address] [place] | | | | | [place] | [address] | | | | | [address] | | | | | | [phone] | | | +--------+ + + + [...] 2019 | Visit | | [address] [facility] | | | | | | [address] [place] | | | | | | [address] | | | | | | | [...] + | MISCELLANEOUS LAB | | | [phone] | + +---------+ + + | MISCELANIOUS LAB | | | [phone] | + +---------+ + + documented in this encounter Visit Diagnoses + + | Diagnosis | + + | Other screening mammogram | + + documented in this encounter"
--- OUTSIDE RECORDS SUMMARY | ~2019-04-30 | XMS | Encounter Summary ---
Demographics + + + | Address | [address] | | | [place] [address] | + + + | Home Phone [...] | Author | [facility] [place] | | | and [place] | + + + | Organization | [facility] [place] | | | and [...] Team Providers + +------+ + | Care Ham Doctor Name | Role | Phone | [...] + + | 11/11/ | Surgery | [facility] | Anastacio Mendoza MD | CYSTOSCOPY PLACEMENT | | 2019 | | MED CTR OR INTRA OP | [address] | RIGHT URETERAL | | | | [address] | [place], [place] | STENT | | | | [place], [place] | [address] | | | | | [address] | [phone] | | | | | [phone] | | | +--------+---------+ + + + [...] Complications: Patient was received in transfer from [facility] emergency room about 9:30 PM. She underwent the above indicated procedure. She remained afebrile. Her abdominal pain at presentation resolved. The morning after surgery she rece ived another IV dose of ceftriaxone and began oral levofloxacin. She was prescribed 6 more days of levofloxacin empirically awaiting results of final urine culture from [facility]. She is instructed that she has [...] study results on DC: Urine culture from [facility] on 11/11/18 Follow-Up Plans: Follow-up with: Dr. Mendoza or Dr. Chino Diet: Calcium oxalate prevention diet Activity: No restrictions, shower only Electronically signed by: Anastacio Mendoza, 11/12/2018 8:[address] [facility] documented in this enc ounter Discharge Instructions Instructions Anastacio Mendoza MD - 11/12/2018Printed list of medications from this hospital is not correct. Resume your normal medications. You have a new prescription for levofloxac in antibiotic for the next 6 days. You will receive a dose of levofloxacin at the hospital today so will begin your prescription tomorrow, Tuesday. Contact [facility] emergency r oom Tuesday and [...] 2020 | Visit | | [address] [facility] | | | | | | [address] [place] | | | | | | [address] | | | | | | | [...] + + + + + | VÍCTOR LOPEZ. | [address] | [place] | [phone] | | [facility] | | [address] | | | - LABORATORY | | [...] | GLOMERULAR FILTRATION | mL/min/1.73m2 | [facility] | | | MAURITIAN | RATE,ESTIMATED | | MEDICAL | | | | mL/min/1.56d6Mkri than | | CENTER - | | [...] | | | | | mg/dL | [facility] | | | | | | MEDICAL | | | | | | CENTER - | | | | | | LABORATORY | | + + + + + + | BUN/Creatin | 9.5 | | [facility] | | | ine Ratio | | | STNani TARUN | | [...] [address] | [place] | [phone] | | [facility] | | [address] | | | - LABORATORY | | [...]
--- OUTSIDE RECORDS SUMMARY | ~2019-04-30 | XMS | Encounter Summary ---
Demographics + + + | Address | [address] | | | [place] [address] | + + + | Home Phone [...] | Organization | [facility] [place] | | | and [...] Team Providers + +------+ + | Care Pyrotechnic Mixer Name | Role | Phone | + +------+ + | Umesh Mcmahon NP | PCP | | + +------+ + Encounter Details +--------+ + + + + | Date | Type | Department | Care Team | Description | +--------+ + + + + | 10/22/ | Orders Only | [facility] | Brad Singh MD | Chronic kidney | | 2019 | | NEPHROLOGY [place] | [address] [place] | disease, stage III | | | | [address] [place] | [address] [place], [place] | (moderate) (HCC) | | | | [address] [place], [place] | [address] | (Primary Dx) | | | | [address] | | | | | | [phone] | | | +--------+ + + + [...] | Visit | | [address] [facility] | | | | | | 160 [place], [place] | | | | | | [address] | | | | | | | [...] Expires: | | | | | (moderate) ([facility]) | 04/03/2020 | + +------+--------+ + + | Urinalysis With | Lab | Routin | Chronic kidney | Expected: | | Microscopic | | e | disease, stage III | 06/11/2019, Expires: | | | | | (moderate) ([facility]) | 04/03/2020 | + +------+--------+ + + | CBC with | Lab | Routin | Chronic kidney | Expected: | | Differential | | e | disease, stage III | 06/11/2019, Expires: | | | | | (moderate) ([facility]) | 04/03/2020 | + +------+--------+ + + documented as of this encounter Visit Diagnoses + + | Diagnosis | + + | Chronic kidney disease, stage III (moderate) (HCC) - Primary Chronic kidney disease, | | Stage III (moderate) | + + documented in this encounter"
--- OUTSIDE RECORDS SUMMARY | ~2019-04-30 | XMS | Encounter Summary ---
Demographics + + + | Address | [address] | | | [place] [address] | + + + | Home Phone | | + + + | Preferred Language | Unknown | + + + | Marital Status | Unknown | + + + | Sabianism Affiliation | 1013 | + + + | Race | Unknown | + + + | Ethnic Group | Unknown | + + + Author + + + | Author | [facility] [place] | | | and [place] | + + + | Organization | [facility] [place] | | | and [...] Providers + +------+ + | Care Coil Tier Name | Role | Phone | + [...] | | | | | [address] | [address] [place] | | | | | [place] | [address] | | | | | [address] | [phone] | | | | | [phone] | | | +--------+ + + + [...] +----+---+ + + | | 2 | [place] | | | | 2 | 43-degrees [...] Visit | | [address] [facility] | | | | | | [address] [place], [place] | | | | | | [address] | | | | | | | [...]
--- OUTSIDE RECORDS SUMMARY | ~2019-04-30 | XMS | Encounter Summary ---
Demographics + + + | Address | [address] | | | [place] [address] | + + + | Home Phone [...] + + | Organization | [facility] [place] | | | and [...] Team Providers + +------+ + | Care Tax Specialist Name | Role | Phone [...] + + | 11/11/ | Surgery | [facility] | Anastacio Mendoza MD | CYSTOSCOPY PLACEMENT | | 2019 | | MED CTR OR INTRA OP | [address] | RIGHT URETERAL | | | | [address] | [place], [place] | STENT | | | | [place], [place] | [address] | | | | | [address] | [phone] | | | | | [phone] | | | +--------+---------+ + + + [...] Complications: Patient was received in transfer from [facility] emergency room about 9:30 PM. She underwent the above indicated procedure. She remained afebrile. Her abdominal pain at presentation resolved. The morning after surgery she rece ived another IV dose of ceftriaxone and began oral levofloxacin. She was prescribed 6 more days of levofloxacin empirically awaiting results of final urine culture from [facility]. She is instructed that she has [...] study results on DC: Urine culture from [facility] on 11/11/18 Follow-Up Plans: Follow-up with: Dr. Mendoza or Dr. Chino Diet: Calcium oxalate prevention diet Activity: No restrictions, shower only Electronically signed by: Anastacio Mendoza, 11/12/2018 8:50 [facility] documented in this enc ounter Discharge Instructions Instructions Anastacio Mendoza MD - 11/12/2018Printed list of medications from this hospital is not correct. Resume your normal medications. You have a new prescription for levofloxac in antibiotic for the next 6 days. You will receive a dose of levofloxacin at the hospital today so will begin your prescription tomorrow, Tuesday. Contact [facility] emergency r oom Tuesday and [...] 2020 | Visit | | [address] [facility] | | | | | | [address] [place] | | | | | | [address] | | | | | | | [...] [address] | [place] | [phone] | | [facility] | | [address] | | | - LABORATORY | | [...] | | GLOMERULAR FILTRATION | mL/min/1.73m2 | [facility] | | | BHUTANESE | RATE,ESTIMATED | | MEDICAL | | | | mL/min/1.43u6Xzsy than | | CENTER - | | [...] | | | | | mg/dL | [facility] | | | | | [...] [address] | [place] | [phone] | | [facility] | | [address] | | | - LABORATORY | | [...]
--- OUTSIDE RECORDS SUMMARY | ~2019-04-30 | XMS | Encounter Summary ---
Demographics + + + | Address | [address] | | | [place] [address] | + + + | Home Phone [...] + + + | Author | [facility] [place] | | | and [place] | + + + | Organization | [facility] [place] | | | and [...] Team Providers + +------+ + | Care Field Captain Name | Role | Phone | + +------+ + PCP | Unavailable | + +------+ + Encounter Details +--------+ + + + + | Date | Type | Department | Care Team | Description | +--------+ + + + + | 03/11/ | [facility] | [facility] | Dain Weinberg, | | | 2012 | Encounter | MED CTR EMERGENCY | [address] | | | | | CENTER [address] | [place] | | | | | [place] | [address] | | | | | [address] | | | | | | [phone] | | | +--------+ + + + [...] 2020 | Visit | | [address] [facility] | | | | | | [address] [place], [place] | | | | | | [address] | | | | | | | | +--------+---------+ + + + documented as of this encounter Visit Diagnoses Not on filedocumented in this encounter"
--- OUTSIDE RECORDS SUMMARY | ~2019-04-30 | XMS | Encounter Summary ---
Demographics + + + | Address | [address] | | | [place] [address] | + + + | Home Phone | | + + + | Preferred Language | Unknown | + + + | Marital Status | Unknown | + + + | Quaker Affiliation | 1013 | + + + | Race | Unknown | + + + | Ethnic Group | Unknown | + + + Author + + + | Author | [facility] [place] | | | and [place] | + + + | Organization | [facility] [place] | | | and [place] | [...] Team Providers + +------+ + | Care City Council Member Name | Role | Phone | + [...] ureter (Primary Dx); | | | | [place], [place] | [place], [place] | Calculus of left | | | | [address] | [address] | kidney | | | | [phone] | | | +--------+ + + + [...] 2020 | Visit | | [address] [facility] | | | | | | [address] [place], [place] | | | | | | [address] | | | | | | | [...]
--- OUTSIDE RECORDS SUMMARY | ~2019-04-30 | XMS | Encounter Summary ---
Demographics + + + | Address | [address] | | | [place] [address] | + + + | Home Phone | | + + + | Preferred Language | Unknown | + + + | Marital Status | Unknown | + + + | Congregational Affiliation | 1013 | + + + | Race | Unknown | + + + | Ethnic Group | Unknown | + + + Author + + + | Author | [facility] [place] | | | and [place] | + + + | Organization | [facility] [place] | | [...] Team Providers + +------+ + | Care Mapper Name | Role | Phone | + [...] on | [address] | [address] [facility] | | | | | [place] | [place], [place] | | | | | [address] | [address] | | | | | [phone] | | | +--------+ + + + [...] OUT OF THE AREA. SHE MOVED TO [place]. SHE WILL ESTABLISH CARE WITH A UROLOGIST THERE documented in this encoun ter Plan of Treatment +--------+---------+ + + + | Date | Type | Specialty | Care Team | Description | +--------+---------+ + + + | 06/18/ | Office | Nephrology | Brad Singh MD | | | 2020 | Visit | | [address] [facility] | | | | | | [address] [place] | | | | | | [address] | | | | | | | | +--------+---------+ + + + documented as of this encounter Visit Diagnoses Not on filedocumented in this encounter"
--- OUTSIDE RECORDS SUMMARY | ~2019-04-30 | XMS | Encounter Summary ---
Demographics + + + | Address | [address] | | | [place] [address] | + + + | Home Phone [...] | Organization | [facility] [place] | | | and [place] [...] Team Providers + +------+ + | Care Surgeon Chief Name | Role | Phone | + +------+ + | Roxanne Gillis MD | PCP | | + +------+ + Encounter Details +--------+ + + + + | Date | Type | Department | Care Team | Description | +--------+ + + + + | 12/06/ | Hospital | [facility] | Roxanne Gillis, | Abnormal mammogram, | | 2014 | Encounter | MED CTR ULTRASOUND | MD [address] | unspecified | | | | [address] [place] | [address] [place] | | | | | [place] | [address] | | | | | [address] | | | | | | [phone] | [place]iquita [place]ol[place] | | | | [...] 2020 | Visit | | [address] [facility] | | | | | | [address] [place], [place] | | | | | | [address] | | | | | | | [...] was | | | performed by a shaker tender. I also personally evaluated this area | [...] HISTORY: ABNORMAL LT BREAST U/S PER DR. TONWSEND . Approximately 9 mm x 5 mm [...] breast | | was performed by a shaker tender. I also personally evaluated this area using [...] + | MISCELLANEOUS LAB | | | [phone] | + +---------+ + + | MISCELANIOUS LAB | | | [phone] | + +---------+ + + documented in this encounter Visit Diagnoses + + | Diagnosis | + + | Abnormal mammogram, unspecified | + + documented in this encounter"
[~2019-04-30 11:36] MED LIST changes: +IBUPROFEN600 MG PO; +NORCO 5-325 TA1 EACH PO; +ZOFRAN4 MG SL
--- OUTSIDE RECORDS SUMMARY | 2019-04-30 11:40 | XMS ---
PreManage Notification: EDY GILLIAM Security Horseradish Maker Events No recent Security Events currently on file CRITERIA MET - [facility] - Has Care Guidelines - PDMP CARE PROVIDERS SANDY BREWSTER Nurse Practitioner: Family 11/22/2018-Current PHONE: Unknown Guidelines Source: [facility] Guidelines Date: 11/13/2018 Care Coordination: Receiving mental health services with [facility].\T\nbsp; Please contact [facility] for mental health concerns.\T\nbsp; [place]: [phone]\T\ nbsp; [place]: [phone]. Care History Medical/Surgical 11/22/2018 [facility] - Patient is currently established with [facility]. If patient is seen in the ED during business hours. Please contact CHWs at [facility]. Care Recommendation: This patient has had 5 or more Emergency Department visits in the last 12 months.\T\nbsp; Patient requires education on the scope and purpose of the ED as an acute care provider not a Primary Care Provider and should not be utilized for chronic conditions.\T\nbsp; These are guidelines and the provider should exercise clinical judgment when providing care. E.D. VISIT COUNT (12 MO.) 3 WINNIE Yarbrough TOTAL 3 NOTE: Visits indicate total known visits. ED/UCC VISIT TRACKING (12 MO.) 04/30/2019 11:38 WINNIE C[place] TYPE: Emergency COMPLAINT: - PAIN IN MID BACK, VOMITING 11/21/2018 13:00 WINNIE [place] TYPE: Emergency COMPLAINT: - POST OP PROBLEM DIAGNOSES: - Essential (primary) hypertension - Anxiety disorder, unspecified - Other nonmedicinal substance allergy status - Hematuria, unspecified - Personal history of urinary calculi - Bipolar disorder, unspecified - Nicotine dependence, unspecified, uncomplicated 11/11/2018 15:22 WINNIE Barnes TYPE: Emergency COMPLAINT: - RIGHT FLANK PAIN DIAGNOSES: - Personal history of urinary calculi - Essential (primary) hypertension - Bipolar disorder, unspecified - Nicotine dependence, unspecified, uncomplicated - Unspecified abdominal pain - Other nonmedicinal substance allergy status - Hydronephrosis with renal and ureteral calculous obstruction - Urinary tract infection, site not specified INPATIENT VISIT TRACKING (12 MO.) 11/11/2018 21:22 [facility] B[facility] [place] TYPE: Surgical Services DIAGNOSES: - right ureteral stone - right kidney stone [email or web address]
[2019-04-30] MEDS ORDERED: VRAYLAR1.5 MG PO (11:57)
[2019-04-30] MEDS ORDERED: RISPERIDONE0.5 MG PO (11:58)
[2019-04-30] MEDS ORDERED: NORCO 5-325 TA1 EACH PO (15:32)
[2019-04-30] MEDS ORDERED: CEFUROXIME250 MG PO (15:32)
[2019-04-30] MEDS ORDERED: NORCO 7.5-3251 EACH PO (15:33)
== END 2019-04-30 15:54 | disposition home or self-care (01) ==
LOC: ED 11:36
DX: N13.2 Hydronephrosis with renal and ureteral calculous obstruction (principal); I10 Essential (primary) hypertension; Z87.891 Personal history of nicotine dependence; F32.9 Major depressive disorder, single episode, unspecified; Z88.1 Allergy status to other antibiotic agents; Z91.048 Other nonmedicinal substance allergy status; Z79.899 Other long term (current) drug therapy
CPT/HCPCS: 74176; 80053; 81001; 83690; 84703; 85025; 87088; 96361; 96374; 96375; 99284-25; J1885; J2405; J7030

== ENCOUNTER 2019-06-22 10:29 | Emergency (ER) | payer OTHER ==
[~2019-06-22] VITALS: Ht 167.6 cm; Wt 95.3 kg
--- OUTSIDE RECORDS SUMMARY | ~2019-06-22 | XMS | Encounter Summary ---
Demographics + + + | Address | [address] | | | [place] [address] | + + + | Home Phone | | + + + | Preferred Language | Unknown | + + + | Marital Status | Unknown | + + + | Mandaen Affiliation | 1013 | + + + | Race | Unknown | + + + | Ethnic Group | Unknown | + + + Author + + + | Author | [facility] [place] | | | and [place] | + + + | Organization | [facility] | | | and [...] Team Providers + +------+ + | Care Journeyman Power Plant Operator Name | Role | Phone | + +------+ + | Roderick Frias DO | PCP | | + +------+ + [...] +--------+--------+ + + + + Encounter Details +--------+---------+ + + + | Date | Type | Department | Care Team | Description | +--------+---------+ + + + | 11/11/ | Surgery | [facility] | Anastacio Mendoza MD | CYSTOSCOPY PLACEMENT | | 2019 | | MED CTR OR INTRA OP | [address] | RIGHT URETERAL | | | | [address] | [place], [place] | STENT | | | | [place], [place] | [address] | | | | | [address] | [phone] | | | | | [phone] | | | +--------+---------+ + + + Social History + +-------+ [...] Complications: Patient was received in transfer from [facility] emergency room about 9:30 PM. She underwent the above indicated procedure. She remained afebrile. Her abdominal pain at presentation resolved. The morning after surgery she rece ived another IV dose of ceftriaxone and began oral levofloxacin. She was prescribed 6 more days of levofloxacin empirically awaiting results of final urine culture from [facility]. She is instructed that she has [...] study results on DC: Urine culture from [facility] on 11/11/18 Follow-Up Plans: Follow-up with: Dr. Mendoza or Dr. Chino Diet: Calcium oxalate prevention diet Activity: No restrictions, shower only Electronically signed by: Anastacio Mendoza, 11/12/2018 8:50 [facility] documented in this enc ounter Discharge Instructions Instructions Anastacio Mendoza MD - 11/12/2018Printed list of medications from this hospital is not correct. Resume your normal medications. You have a new prescription for levofloxac in antibiotic for the next 6 days. You will receive a dose of levofloxacin at the hospital today so will begin your prescription tomorrow, Tuesday. Contact [facility] emergency r oom Tuesday and possibly Tuesday [...] Description | +--------+---------+ + + + | 08/26/ | Office | Nephrology | Brad Singh MD | | | 2020 | Visit | | [address] [facility] | | | | | | [facility] | | | | | | [address] | | | | | | | [...] | | Lavender | | | [facility] | | | Top Tube | | [...] + | [facility] | [address] | [place] | [phone] | | [facility] | | [address] | | | - LABORATORY | | [...] | | | | | | [facility] | | | | [...] | | | | | | [facility] | | | | | | MEDICAL | | | | | | CENTER - | | | | | | LABORATORY | | + + + + + + | BUN | 10 | 9 - 23 mg/dL | [facility] | | | | | | [facility] | | | | | | MEDICAL | | | | | | CENTER - | | | | | | LABORATORY | | + + + + + + | Creatinine | 1.05 (H) | 0.55 - 1.02 | [facility] | | | | | mg/dL | [facility] | | | | | | MEDICAL | | | | | | CENTER - | | | | | | LABORATORY | | + + + + + + | eGFR if not | 56 (L)Comment: | >=60 | [facility] | | | | GLOMERULAR FILTRATION | mL/min/1.73m2 | [facility] | | | [facility] | RATE,ESTIMATED | | MEDICAL | | | | mL/min/1.52g2Ippk than | | CENTER - | | [...] | | | | mg/dL | [facility] | | | | [...] + | [facility] | [address] | [place] | [phone] | | [facility] | | [address] | | | - LABORATORY | | [...] Visit Diagnoses Not on filedocumented in this encounter Administered Medications + +--------+ [...]
--- OUTSIDE RECORDS SUMMARY | ~2019-06-22 | XMS | Encounter Summary ---
Demographics + + + | Address | [address] | | | [place] [address] | + + + | Home Phone | | + + + | Preferred Language | Unknown | + + + | Marital Status | Unknown | + + + | Jew Affiliation | 1013 | + + + | Race | Unknown | + + + | Ethnic Group | Unknown | + + + Author + + + | Author | [facility] [place] | | | and [place] | + + + | Organization | [facility] [place] | | | and [place] [...] Team Providers + +------+ + | Care Cut Order Hand Name | Role | Phone | + +------+ + | Roderick Frias DO | PCP | | + +------+ + Reason for Visit + + + | Reason | Comments | + + + | Abdominal Pain | | + + + Encounter Details +--------+ + + + + | Date | Type | Department | Care Team | Description | +--------+ + + + + | 03/01/ | Emergency | [facility] | Roderick Landaverde, | Right flank pain | | 2015 | | MED CTR EMERGENCY | MD [address] | (Primary Dx) | | | | CENTER [address] | [place], [place] | | | | | [place], [place] | [address] | | | | | [address] | | | | | | [phone] | | | +--------+ + + + + Social History + +-------+ +--------+------+ | Tobacco Use | Types | Packs/Day | Years | Date | | | | | Used | | + +-------+ +--------+------+ | Current Some Day | | 0.33 | | | | Smoker | | | | | + +-------+ +--------+------+ + +---+---+---+ | Smokeless Tobacco: | | | | | Never Used | | | | + +---+---+---+ + + +---------+ + | Alcohol Use | Drinks/Week | oz/Week | Comments | + + +---------+ + | No | | | | + + +---------+ [...] + + + | Blood Pressure | 119/79 | 03/01/2015 11:35 PM | | | | | PDT | | + + + + + | Pulse | 71 | 03/01/2015 11:35 PM | | | | | PDT | | + + + + + | Temperature | 36.9 C (98.4 F) | 03/01/2015 11:39 PM | | | | | PDT | | + + + + + | Respiratory Rate | 18 | 03/01/2015 10:03 PM | | | | | PDT | | + + + + + | Oxygen Saturation | 95% | 03/01/2015 11:35 PM | | | | | PDT | | + + + + + | Inhaled Oxygen | - | - | | | Concentration | | | | + + + + + | Weight | 105.7 kg (233 lb) | 03/01/2015 10:03 PM | | | | | PDT | | + + + + + | Height | 165.1 cm (5' 5") | 03/01/2015 10:03 PM | | | | | PDT | | + + + + + | Body Mass Index | 38.77 | 03/01/2015 10:03 PM | | | | | PDT | | + + + + + documented in this encounter Discharge Instructions Instructions Christine Stringer RN - 03/01/2015Return if worsening or new concerning sy mptoms. AttachmentsThe following attachments cannot be sent through Care Everywhere.FLANK PAIN, [facility] ERTAIN CAUSE (SYRIAC)documented in this encounter Medications at Time of [...] 2020 | Visit | | [address] [facility] | | | | | | [address] [place], [place] | | | | | | [address] | | | | | | | | +--------+---------+ + + + documented as of this encounter Procedures + +--------+ + + + | Procedure Name | Priori | Date/Time | Associated Diagnosis | Comments | | | ty | | | | + +--------+ + + + | CT RENAL STONE WO | STAT | 03/01/2015 | | Results for this | | CONTRAST | | 10:51 PM | | procedure are in the | | | | PDT | | results section. | + +--------+ + + + | POCT TEST, | STAT | 03/01/2015 | | Results for this | | URINE, QUAL | | 10:23 PM | | procedure are in the | | | | PDT | | results section. | + +--------+ + + + | URINALYSIS WITH | STAT | 03/01/2015 | | Results for this | | MICROSCOPIC WITH | | 10:17 PM | | procedure are in the | | CULTURE IF INDICATED | | PDT | | results section. | + +--------+ + + + documented in this encounter Results CT Renal Stone Wo Contrast (03/01/2015 10:51 PM PDT) + + | Specimen | + + | | + + + + + | Narrative | Performed At | + + + | CT RENAL STONE WO CONTRAST 03/01/2015 10:37 PM HISTORY: ABDOMINAL | [facility] | | PAIN. COMPARISON: 01/09/2014. PROTOCOL: Axial images of the | | | abdomen and pelvis were obtained. Coronal and sagittal reformations | | | were acquired. FINDINGS: Chest base is normal. Imaged liver | | | demonstrates normal parenchyma. The gallbladder is normal. Biliary | | | ducts are unremarkable. Imaged spleen is unremarkable. The | | | pancreas demonstrates normal parenchyma and a normal pancreatic duct. | | | Adrenal glands are normal. There are 2 small nonobstructing | | | stones in the inferior pole of the right kidney with the larger | | | measuring 3 mm. Visualized right ureter is normal. A tiny 2 mm | | | stone is in the inferior left kidney. Visualized left ureter is | | | normal. Stomach, small bowel, and terminal ileum are normal. The | | | appendix has a normal appearance. There is diverticulosis of the | | | descending and sigmoid colon. Aorta is nonaneurysmal. The iliac | | | arteries are normal. There is no significant abnormality in the | | | portal veins, mesenteric veins, or systemic veins. No enlarged | | | lymph nodes are visualized within the omentum or retroperitoneum. | | | There is no evidence for ascites or free air. Bladder is normal. | | | The uterus is normal. The left ovary remains prominent and measures | | | up to 3.8 cm, which is smaller compared to the prior study of | | | 01/09/2014. The right ovary is normal. Soft tissue structures are | | | unremarkable. There is slight right curvature of the lumbar spine. | | | Mild spondylosis is observed. Mild retrolisthesis is present of L3 | | | over L4. Severe disc narrowing is at L5-S1 with vacuum phenomenon. | | | IMPRESSION - No evidence for obstructive uropathy, tiny | | | nonobstructing stones of bilateral kidneys. Colonic | | | diverticulosis. Normal appendix. Prominence of left ovary that | | | has decreased in size compared to 01/09/2014. A preliminary report | | | was sent by [facility] on 03/01/2015 at 11:11 PM with no | | | significant discrepancy. Dictated and Signed by: Pierre Cintron MD | | | Electronically signed: 03/02/2015 11:34 AM | | + + + + + | Procedure Note | + + | [facility] Results In - 03/02/2015 11:[address] RENAL STONE WO CONTRAST 03/01/2015 | | 10:37 PMHISTORY: ABDOMINAL PAIN.COMPARISON: 01/09/2014.PROTOCOL: Axial images of the | | abdomen and pelvis were obtained. Coronal andsagittal reformations were | | acquired.FINDINGS:Chest base is normal.Imaged liver demonstrates normal parenchyma. The | | gallbladder is normal. Biliaryducts are unremarkable.Imaged spleen is unremarkable. The | | pancreas demonstrates normal parenchyma and anormal pancreatic duct. Adrenal glands are | | normal.There are 2 small nonobstructing stones in the inferior pole of the right | | kidneywith the larger measuring 3 mm. Visualized right ureter is normal.A tiny 2 mm | | stone is in the inferior left kidney. Visualized left ureter isnormal.Stomach, small | | bowel, and terminal ileum are normal. The appendix has a normalappearance. There is | | diverticulosis of the descending and sigmoid colon.Aorta is nonaneurysmal. The iliac | | arteries are normal. There is no significantabnormality in the portal veins, mesenteric | | veins, or systemic veins. No enlarged lymph nodes are visualized within the omentum or | | retroperitoneum.There is no evidence for ascites or free air.Bladder is normal.The | | uterus is normal. The left ovary remains prominent and measures up to 3.8cm, which is | | smaller compared to the prior study of 01/09/2014. The right ovaryis normal.Soft tissue | | structures are unremarkable. There is slight right curvature of thelumbar spine. Mild | | spondylosis is observed. Mild retrolisthesis is present of L3over L4. Severe disc | | narrowing is at L5-S1 with vacuum phenomenon.IMPRESSION -No evidence for obstructive | | uropathy, tiny nonobstructing stones of bilateralkidneys.Colonic diverticulosis.Normal | | appendix.Prominence of left ovary that has decreased in size compared to 01/09/2014.A | | preliminary report was sent by [facility] on 03/01/2015 at 11:11 PM withno | | significant discrepancy.Dictated and Signed by: Pierre Cintron MD Electronically signed: | | 03/02/2015 11:34 AM | |Stomach, small bowel, and terminal ileum are normal. The appendix has a normal | |appearance. There is diverticulosis of the descending and sigmoid colon. | | | |Aorta is nonaneurysmal. The iliac arteries are normal. There is no significant | |abnormality in the portal veins, mesenteric veins, or systemic veins. | | | |No enlarged lymph nodes are visualized within the omentum or retroperitoneum. | | | |There is no evidence for ascites or free air. | | | |Bladder is normal. | | | |The uterus is normal. The left ovary remains prominent and measures up to 3.8 | |cm, which is smaller compared to the prior study of 01/09/2014. The right ovary | |is normal. | | | |Soft tissue structures are unremarkable. There is slight right curvature of the | |lumbar spine. Mild spondylosis is observed. Mild retrolisthesis is present of L3 | |over L4. Severe disc narrowing is at L5-S1 with vacuum phenomenon. | | | |IMPRESSION - | |No evidence for obstructive uropathy, tiny nonobstructing stones of bilateral | |kidneys. | | | |Colonic diverticulosis. | | | |Normal appendix. | | | |Prominence of left ovary that has decreased in size compared to 01/09/2014. | | | |A preliminary report was sent by [facility] on 03/01/2015 at 11:11 PM with | |no significant discrepancy. | | | |Dictated and Signed by: Pierre Cintron MD | | Electronically signed: 03/02/2015 11:34 AM | + + + +---------+ + + | Performing | Address | City/State[facility] | Phone Number | | Organization | | | | + +---------+ + + | [facility] | | | | + +---------+ + + POCT Urine Screen (03/01/2015 10:23 PM PDT) + + + + + + | Component | Value | Ref Range | Performed | Pathologist | | | | | At | Signature | + + + + + + | | Negative | Negative | | | | Test, | | | | | | Urine, POC | | | | | + + + + + + | Internal QC | Acceptable | | | | + + + + + + | Specific | | 1.010, 1.015, | | | | [place], | | 1.020, 1.025 | | | | POC | | | | | + + + + + + | Lot Number | | | | | + + + + + + | Expiration | | | | | | Date | | | | | + + + + + + + + | Specimen | + + | Urine specimen | | (specimen) | + + Urinalysis with Microscopic with Culture if Indicated (03/01/2015 10:17 PM PDT) + + + + + + | Component | Value | Ref Range | Performed | Pathologist | | | | | At | Signature | + + + + + + | Color, | Yellow | Light Yellow, | [facility] | | | Urine | | Yellow | [facility] | | | | | | MEDICAL | | | | | | CENTER - | | | | | | LABORATORY | | + + + + + + | Clarity | Cloudy (A) | Clear | [facility] | | | | | | [facility] | | | | | | MEDICAL | | | | | | CENTER - | | | | | | LABORATORY | | + + + + + + | pH, Urine | 7.0 | 5.0 - 8.0 | [facility] | | | | | | [facility] | | | | | | MEDICAL | | | | | | CENTER - | | | | | | LABORATORY | | + + + + + + | Specific | 1.020 | 1.001 - 1.030 | [facility] | | | [place] | | | [facility] | | | | | | MEDICAL | | | | | | CENTER - | | | | | | LABORATORY | | + + + + + + | Protein, | Negative | Negative | [facility] | | | Urine | | | [facility] | | | | | | MEDICAL | | | | | | CENTER - | | | | | | LABORATORY | | + + + + + + | Blood, | Negative | Negative | [facility] | | | Urine | | | [facility] | | | | | | MEDICAL | | | | | | CENTER - | | | | | | LABORATORY | | + + + + + + | Glucose, | Negative | Negative | [facility] | | | Urine | | | [facility] | | | | | | MEDICAL | | | | | | CENTER - | | | | | | LABORATORY | | + + + + + + | Ketones, | Negative | Negative | [facility] | | | Urine | | | [facility] | | | | | | MEDICAL | | | | | | CENTER - | | | | | | LABORATORY | | + + + + + + | Bilirubin, | Negative | Negative | [facility] | | | Urine | | | [facility] | | | | | | MEDICAL | | | | | | CENTER - | | | | | | LABORATORY | | + + + + + + | Nitrite, | Negative | Negative | [facility] | | | Urine | | | [facility] | | | | | | MEDICAL | | | | | | CENTER - | | | | | | LABORATORY | | + + + + + + | Leukocyte | Negative | Negative | [facility] | | | Esterase, | | | [facility] | | | Urine | | | MEDICAL | | | | | | CENTER - | | | | | | LABORATORY | | + + + + + + | Urobilinoge | 1.0 E.U./dL | 0.2 E.U./dL, | [facility] | | | n, Urine | | 1.0 E.U./dL | [facility] | | | | | | MEDICAL | | | | | | CENTER - | | | | | | LABORATORY | | + + + + + + | WBC UA | 0-2 | 0 - 2 /HPF | [facility] | | | | | | [facility] | | | | | | MEDICAL | | | | | | CENTER - | | | | | | LABORATORY | | + + + + + + | RBC UA | 0-2 | 0 - 2 /HPF | [facility] | | | | | | [facility] | | | | | | MEDICAL | | | | | | CENTER - | | | | | | LABORATORY | | + + + + + + | SQUAMOUS | 2-5 (A) | 0 - 2 /LPF | [facility] | | | EPITHELIAL | | | [facility] | | | UA | | | MEDICAL | | | | | | CENTER - | | | | | | LABORATORY | | + + + + + + | BACTERIA UA | 1+ (A) | Negative /HPF | [facility] | | | | | | [facility] | | | | | | MEDICAL | | | | | | CENTER - | | | | | | LABORATORY | | + + + + + + | AMORPHOUS | Moderate (A) | None Seen /HPF | [facility] | | | CRYSTALS | | | [facility] | | | | | | MEDICAL | | | | | | CENTER - | | | | | | LABORATORY | | + + + + + + + + | Specimen | + + | Urine | + + + + + + + | Performing | Address | City/State/Zipcode | Phone Number | | Organization | | | | + + + + + | [facility] | [address] | [place] | [phone] | | [facility] | | [address] | | | - LABORATORY | | | | + + + + + documented in this encounter Visit Diagnoses + + | Diagnosis | + + | Right flank pain - Primary Abdominal pain, unspecified site | + + documented in this encounter Administered Medications + + + + +------+------+ | Medication Order | MAR | Action | Dose | Rate | Site | | | Action | Date | | | | + + + + +------+------+ | HYDROcodone-acetaminophen | Dispense | 03/01/20 | 1 tablet | | | | (NORCO) 5-325 mg per tablet (ER | to Home | 15 11:35 | | | | | Prepack) 1-2 tablet 1-2 tablet, | | PM PDT | | | | | Oral, ONCE, 03/01/15 at 2325, | | | | | | | For 1 dose, 1-2 tablet(s) every 6 | | | | | | | hours prn pain Dispense for | | | | | | | home use., | | | | | | + + + + +------+------+ +---+---+ | | | +---+---+ documented in this encounter
--- OUTSIDE RECORDS SUMMARY | ~2019-06-22 | XMS | Encounter Summary ---
Demographics + + + | Address | [address] | | | [place] [address] | + + + | Home Phone | | + + + | Preferred Language | Unknown | + + + | Marital Status | Unknown | + + + | Latter Day Affiliation | 1013 | + + + | Race | Unknown | + + + | Ethnic Group | Unknown | + + + Author + + + | Author | [facility] | | | and [place] | + + + | Organization | [facility] | | [...] Providers + +------+ + | Care Electrical Laboratory Technician Name | Role | Phone | + +------+ + | Roxanne Gillis MD | PCP | | + +------+ + Encounter Details +--------+ + + + + | Date | Type | Department | Care Team | Description | +--------+ + + + + | 11/29/ | Hospital | [facility] | Roxanne Gillis, | Other screening | | 2014 | Encounter | MED CTR MAMMOGRAPHY | MD [address] | mammogram | | | | [address] | [place] | | | | | [place] | [address] | | | | | [address] | | | | | | [phone] | | | +--------+ + + + [...] 2019 | Visit | | [address] [facility] | | | | | | [address] [place] | | | | | | [address] | | | | | | | [...] + | MISCELLANEOUS LAB | | | [phone] | + +---------+ + + | MISCELANIOUS LAB | | | [phone] | + +---------+ + + documented in this encounter Visit Diagnoses + + | Diagnosis | + + | Other screening mammogram | + + documented in this encounter"
--- OUTSIDE RECORDS SUMMARY | ~2019-06-22 | XMS | Encounter Summary ---
Demographics + + + | Address | [address] | | | [place] [address] | + + + | Home Phone | | + + + | Preferred Language | Unknown | + + + | Marital Status | Unknown | + + + | Sikh Affiliation | 1013 | + + + | Race | Unknown | + + + | Ethnic Group | Unknown | + + + Author + + + | Author | [facility] [place] | | | and [place] | + + + | Organization | [facility] | | | and [place] [...] Team Providers + +------+ + | Care Or First Assist Registered Nurse Name | Role | Phone | + +------+ + | Roxanne Gillis MD | PCP | | + +------+ + Encounter Details +--------+ + + + + | Date | Type | Department | Care Team | Description | +--------+ + + + + | 11/29/ | Hospital | [facility] | Roxanne Gillis, | Other screening | | 2014 | Encounter | MED CTR MAMMOGRAPHY | MD [address] | mammogram | | | | [address] | [address] [place] | | | | | [place] | [address] | | | | | [address] | | | | | | [phone] | | | +--------+ + + + [...] 2019 | Visit | | [address] [facility] | | | | | | [address] [place] | | | | | | [address] | | | | | | | [...] + | MISCELLANEOUS LAB | | | [phone] | + +---------+ + + | MISCELANIOUS LAB | | | [phone] | + +---------+ + + documented in this encounter Visit Diagnoses + + | Diagnosis | + + | Other screening mammogram | + + documented in this encounter"
--- OUTSIDE RECORDS SUMMARY | ~2019-06-22 | XMS | Clinical Summary ---
Demographics + + + | Address | [address] | | | [place] [address] | + + + | Home Phone | | + + + | Preferred Language | Unknown | + + + | Marital Status | Unknown | + + + | Yazidism Affiliation | Unknown | + + + | Race | Unknown | + + + | Ethnic Group | Unknown | + + + Author + + + | Author | [facility] (Historical as of | | | 01-27-19) | + + + | Organization | [facility] (Historical as of | | | 01-27-19) | + + + | Address | Unknown | + + + | Phone | Unavailable | + + + Support +--------+ +---------+ + | Name | Relationship | Address | Phone | +--------+ +---------+ + | No,One | ECON | Unknown | | +--------+ +---------+ + Care Team Providers + +------+ + | Care New Product Trainer Name | Role | Phone | + [...] +------+-------+ + | MEDICAID | [place] | [id number] | | | [address] | | | [place] | | | | [place] | | | [place] | | | | [address] | | | [place] | | | | | + +--------+ [...] | | | [address] | | | [address] | [place] [address] | + +--------+ +--------+ + +"
--- OUTSIDE RECORDS SUMMARY | ~2019-06-22 | XMS | Encounter Summary ---
Demographics + + + | Address | [address] | | | [place] [address] | + + + | Home Phone | | + + + | Preferred Language | Unknown | + + + | Marital Status | Unknown | + + + | Jain Affiliation | 1013 | + + + | Race | Unknown | + + + | Ethnic Group | Unknown | + + + Author + + + | Author | [facility] | | | and [place] | + + + | Organization | [facility] | | | and [...] Team Providers + +------+ + | Care Lead Generation Marketing Manager Name | Role | Phone | + +------+ + | Umesh Mcmahon NP | PCP | | + +------+ + Reason for Visit Evaluate & Treat (Routine) +--------+--------+ + + + + | Status | Reason | Specialty | Diagnoses / | Referred By | Referred To | | | | | Procedures | Contact | Contact | +--------+--------+ + + + + | Closed | | | Diagnoses | Lu Mcmahon Fadi | | | | | Chronic | Umesh Piña | MD [address] | | | | | kidney | [address] | [address] [place] | | | | | disease, | [facility] | [address] | | | | | stage [address] | [address], | [place], [place] | | | | | (moderate) | [address] | [address] | | | | | (HCC) | [place], | Phone: | | | | | | [place] [address] | [phone] | | | | | | Phone: | Fax: | | | | | | [phone] | [phone] | | | | | | Fax: | | | | | | | [phone] | | +--------+--------+ + + + + Encounter Details +--------+---------+ + + + | Date | Type | Department | Care Team | Description | +--------+---------+ + + + | 05/28/ | Office | [facility] | Brad Singh MD | Chronic kidney | | 2019 | Visit | NEPHROLOGY [place] | [address] [place] | disease, stage III | | | | [address] | [address] [place], [place] | (moderate) (HCC) | | | | [address] | [address] | (Primary Dx); | | | | [place], [place] | | Calculus of kidney; | | | | [address] | | Hydronephrosis of | | | | [phone] | | right kidney; | | | | | | Essential | | | | | | hypertension; | | | | | | Hypercalcemia; [...] | | | | | 34.9 in adult | +--------+---------+ + + + Social History [...] + + + | Blood Pressure | 90/60 | 05/28/2019 1:42 PM | | | | | PST | | + + + + + | Pulse | 99 | 05/28/2019 1:42 PM | | | | | PST | | + + + + + | Temperature | - | - | | + + + + + | Respiratory Rate | - | - | | + + + + + | Oxygen Saturation | - | - | | + + + + + | Inhaled Oxygen | - | - | | | Concentration | | | | + + + + + | Weight | 96.5 kg (212 lb 12.8 | 05/28/2019 1:42 PM | | | | oz) | PST | | + + + + + | Height | 167.6 cm (5' 6") | 05/28/2019 1:42 PM | | | | | PST | | + + + + + | Body Mass Index | 34.35 | 05/28/2019 1:42 PM | | | | | PST | | + + + + + [...] Instructions Patient Instructions Brad Singh MD - 05/28/2019 1:10 PM PSTDiscussions/Recommendations : I discussed today with Ms. Ramos [...] her to stay off of the Naproxen. We will retrieve the report of her abd/pelvis CT scan from 11/2018. I sent her for a Urostone Max24. She will drink ample water. She will follow the prescribed low sodium [...] will have a RFP, CBC, intact PTH, 53-iclrhec-izsvttr D, SPIE, SFLC, reflex urinalysi s, Urine total ngateim-ni-txqroneivk ratio before she comes back in 3 months. documented in this encounter Progress Notes Brad Singh MD - 05/28/2019 1:10 PM PST Patient Active Problem List Diagnosis Date Noted POA UTI (urinary tract infection) with pyuria 11/11/2018 Unknown Priority: High Hydronephrosis of right kidney 11/11/2018 Unknown Priority: High Smoker - Daily Unknown Priority: Medium Anxiety Unknown Priority: Medium Hypertension Unknown Priority: Medium Substance abuse Unknown Priority: Low Chronic kidney disease, stage III (moderate) 04/03/2019 [...] 01/09/2014 Unknown Asthma 06/14/2013 Unknown Dear Umesh: Thank you for the opportunity to see Ms. Ramos in consult today. As you are familiar wit h her case, I will not state her past history in detail. Briefly, she is a 48 y.o. female p atient with past history as delineated above. She is here to be evaluated for her CKD & its associated complications. The patient has history of hypertension since [...] hist ory, family history and problem list. I also reviewed with her the records received from you r office; these were very informative. As in History of Present Illness & in Assessment. All the twelve systems were reviewed and were otherwise negative. Active comorbid conditions include: - hypertension; essential; with renal disease; with CKD stage 1-4 - renal disease; CKD; Stage 3 - electrolyte problem - hypercalcemia - diverticular disease Past Medical History: Diagnosis Date Anxiety Asthma Bipolar 1 disorder (HCC) Chronic kidney disease, stage III (moderate) (HCC) 04/03/2019 Hypertension Kidney stones PTSD (post-traumatic stress disorder) Past Surgical History: Procedure Laterality Date CYSTOSCOPY INSERTION/REMOVAL STENT/STONE Right 11/11/2018 Procedure: CYSTOSCOPY PLACEMENT RIGHT URETERAL STENT; Surgeon: Anastacio Mendoza MD; Locati on: [facility] OR KIDNEY STONE SURGERY Multiple Lithotripsy, Ureteroscopy lithotipsy SALPINGECTOMY Bilateral TUBAL LIGATION TUBAL LIGATION Salpingectomy No family history on file. Social History Socioeconomic History Marital status: Unknown Spouse name: Not on file Number of children: Not on file Years of education: Not on file Highest education level: Not on file Occupational History Not on file Social Needs Financial resource strain: Not on file Food insecurity: Worry: Not on file Inability: Not on file Transportation needs: Medical: Not on file Non-medical: Not on file Tobacco Use Smoking status: Current Every Day Smoker Smokeless tobacco: Never Used Substance and Sexual Activity Alcohol use: Not Currently Drug use: Yes Types: Marijuana, Amphetamines Sexual activity: Not on file Lifestyle Physical activity: Days per week: Not on file Minutes per session: Not on file Stress: Not on file Relationships Social connections: Talks on phone: Not on file Gets together: Not on file Attends baptism service: Not on file Active member of club or organization: Not on file Attends meetings of clubs or organizations: Not on file Relationship status: Not on file Intimate partner violence: Fear of current or ex partner: Not on file Emotionally abused: Not on file Physically abused: Not on file Forced sexual activity: Not on file Other Topics Concern Not on file Social History Narrative Merged History Encounter Allergies Allergen Reactions Adhesive & Tape Rash tegaderm Intolerance No active intolerances/contraindications Current Outpatient Medications: clonazePAM (KLONOPIN) 1 mg tablet, Take 1 mg by mouth nightly., Disp: , Rfl: HYDROcodone-acetaminophen (NORCO) 7.5-325 mg per tablet, take 1 tablet by mouth every 4 to 6 hours if needed for pain, Disp: , Rfl: 0 lamoTRIgine (LAMICTAL) 100 mg tablet, Take 200 mg by mouth Daily., Disp: , Rfl: 0 naproxen (NAPROSYN) 250 mg tablet, Take 250 mg by mouth 2 times daily (with breakfast & dinner)., Disp: , Rfl: prazosin (MINIPRESS) 2 MG capsule, Take 6 mg by mouth nightly., Disp: , Rfl: VRAYLAR 1.5 MG capsule, , Disp: , Rfl: 0 Physical Exam: BP 90/60 | Pulse 99 | Ht 1.676 m (5' 6") | Wt 96.5 kg (212 lb 12.8 oz) | BMI 34.35 kg/m General appearance: Pleasant, not in acute distress. Neck: Supple without tracheal deviation or jugular venous distension. Head and ENT: Head is atraumatic. The oropharynx is without erythema or thrush. Eyes: Anicteric. The extraocular muscle movements are normal. Lungs: Clear to auscultation bilaterally. There are no wheezes. Heart: Regular rate and rhythm without any rub, gallop. No systolic murmur. Abdominal exam: Soft and nontender with normal bowel sounds. [...] normal. Lab Results Component Value Date HGB 14 05/25/2019 HGB 16.7 (H) 01/09/2014 HCT 48.3 (H) 01/09/2014 NA 140 05/25/2019 K 4.2 05/25/2019 CL 106 05/25/2019 CO2 28 05/25/2019 BUN 18 05/25/2019 CREA 1.35 05/25/2019 CALCIUM 10.6 (A) 05/25/2019 CALCIUM 10.0 11/12/2018 ALBUMIN 3.9 01/03/2019 EGFR 42.0 (A) 05/25/2019 LABPROT 124.7 05/25/2019 No results for input(s): BUN, CREA, EGFR, NA, K, CL, CO2, CALCIUM, PHOS, MG, ALBUMIN, HGB, HCT, IRON in the last 72 hours. No components found for: MALBRX No components found for: MICROALBUR Assessment: Ms. Ramos is a 48 y.o. female patient with stage III CKD on a background of longstanding hypertension. RENAL FUNCTION: Stable GFR vs 12/2018 BLOOD PRESSURE: Reports it controlled at home BLOOD SUGAR: Reports it normal ELECTROLYTES: Normal; Ca is at the upper limit of normal ANEMIA: none VITAMIN D: To be checked thru your office PARATHYROID HORMONE: To be checked URIC ACID: ok PROTEINURIA: minimal URINALYSIS: No [...] her to stay off of the Naproxen. We will retrieve the report of her abd/pelvis CT scan from 11/2018. I sent her for a Urostone Max24. She will drink ample water. She is [...] will have a RFP, CBC, intact PTH, 17-jcsgwxw-dzovhvc D, SPIE, SFLC, reflex urinalysi s, Urine total sehjqsm-ej-hmabmfdlml ratio before she comes back in 3 months. More than 30 minutes of this 60-minute visit was spent in education and counseling. Thank you Umesh for the opportunity to see this patient in consult today. Please do not hesi cespedes to call me at any time with questions or concerns. Truly yours, Brad Singh MD [facility] documented in this enco unter Plan of Treatment +--------+---------+ + + + | Date | Type | Specialty | Care Team | Description | +--------+---------+ + + + | 08/26/ | Office | Nephrology | Brad Singh MD | | | 2020 | Visit | | [address] [facility] | | | | | | [address] [place], [place] | | | | | | [address] | | | | | | | | +--------+---------+ + + + documented as of this encounter Visit Diagnoses + + | Diagnosis | + + | Chronic kidney disease, stage III (moderate) (HCC) - Primary Chronic kidney disease, | | Stage III (moderate) | + + | Calculus of kidney | + + | Hydronephrosis of right kidney Hydronephrosis | + + | Essential hypertension Unspecified essential hypertension | + + | Hypercalcemia | + + | Electrolyte imbalance risk Other specified conditions influencing health status | + + | Class 1 obesity due to excess calories without serious comorbidity with body mass | | index (BMI) of 34.0 to 34.9 in adult | + + documented in this encounter
--- OUTSIDE RECORDS SUMMARY | ~2019-06-22 | XMS | Encounter Summary ---
Demographics + + + | Address | [address] | | | [place] [address] | + + + | Home Phone [...] + + | Organization | [facility] | | | and [place] | [...] Team Providers + +------+ + | Care Station Repairer Name | Role | Phone | + [...] | | | | CENTER [address] | [address] [place] | Dx) | | | | [place], [place] | [place] [address] | | | | | [address] | [phone] | | | | | [phone] | | | +--------+ + + + [...] Kenny MD - 01/09/2014Gerard plenty of fluids. [place] for pain, Zofran for nausea. AttachmentsThe following attachments cannot be sent through Care Everywhere.KIDNEY STONE W/ COLIC ([place]OOK ISLAND[place])PREVENTING KIDNEY STONES ([place]LAND[place])documented in this encounter Medications at Time of [...] 2020 | Visit | | [address] [facility] | | | | | | [address] [place], [place] | | | | | | [address] | | | | | | | [...] + | MISCELLANEOUS LAB | | | [phone] | + +---------+ + + | MISCELANIOUS LAB | | | [phone] | + +---------+ + + Culture, Urine [...] + | [facility] | [address] | [place] | [phone] | | [facility] | | [address] | | | - LABORATORY | | | | + + + + + | [facility] | [address] | [place] | | | [facility] | | [address] | | | - LABORATORY | | [...] - 1.030 | [facility] | | | [place] | | | [facility] | | | | | | MEDICAL | | | | | | CENTER - | | | | | | LABORATORY | | + + + + + + | Protein, | Negative | Negative, | [facility] | | | Urine | | Trace, 30 mg/dL | [facility] | | | | [...] + | [facility] | [address] | [place], [place] | [phone] | | [facility] | | [address] | | | - LABORATORY | | | | + + + + + | [facility] | [address] | [place], [place] | | | [facility] | | [address] | | | - LABORATORY | | [...] [facility] | | | | | | [facility] | | | | | | MEDICAL | | | | | | CENTER - | | | | | | LABORATORY | | + + + + + + | Creatinine | 1.11 | 0.60 - 1.30 | [facility] | | | | | mg/dL | [...] mL/min/1.73m2 | [facility] | | | [place] | RATE,ESTIMATED | | MEDICAL | | | | mL/min/1.23q1Bekz than | | CENTER - | | [...] + | [facility] | [address] | [place], [place] | [phone] | | [facility] | | [address] | | | - LABORATORY | | | | + + + + + | [facility] | [address] | [place], [place] | | | [facility] | | [address] | | | - LABORATORY | | [...] + | [facility] | [address] | [place], [place] | [phone] | | [facility] | | [address] | | | - LABORATORY | | | | + + + + + | [facility] | [address] | [place] | | | [facility] | | [address] | | | - LABORATORY | | [...]
--- OUTSIDE RECORDS SUMMARY | ~2019-06-22 | XMS | Encounter Summary ---
Demographics + + + | Address | [address] | | | [place] [address] | + + + | Home Phone [...] Author + + + | Author | [facility] | | | and [place] | + + + | Organization | [facility] | | | and [...] Team Providers + +------+ + | Care Drugless Doctor Name | Role | Phone | + +------+ + | Roxanne Gillis MD | PCP | | + +------+ + Encounter Details +--------+ + + + + | Date | Type | Department | Care Team | Description | +--------+ + + + + | 12/06/ | Hospital | [facility] | Roxanne Gillis, | Abnormal mammogram, | | 2014 | Encounter | [facility] | MD [address] | unspecified | | | | [address] [place] | [address] [place] [address] | | | | | [place] | [address] | | | | | [address] | | | | | | [phone] | Chiquita Jolley | | | | | | Eulogio Technologist | | +--------+ + + + + [...] 2019 | Visit | | [address] [facility] | | | | | | 160 [place], [place] | | | | | | [address] | | | | | | | | +--------+---------+ + + + documented as of this encounter Procedures + +--------+ + + + | Procedure Name | Priori | Date/Time | Associated Diagnosis | Comments | | | ty | | | | + +--------+ + + + | US BREAST LEFT | Routin | 12/06/2013 | Abnormal | Results for this | | | e | 2:02 PM | mammogram, | procedure are in the | | | | PDT | unspecified | results section. | + +--------+ + + + documented in this encounter Results US Breast Left (12/06/2013 2:02 PM PDT) + + | Specimen | + + | | + + + + + | Narrative | Performed At | + + + | US BREAST LEFT 12/06/2013 1:38 PM HISTORY: ABNORMAL LT BREAST | MISCELANIOUS | | U/S PER DR. TOWNSEND . Approximately 9 mm x 5 mm x 4 mm | LAB | | well-circumscribed focal asymmetry in the 7-8:00 region of the left | | | breast, approximately 6.5 cm from the nipple COMPARISON: | | | Mammogram from 11/29/2013 TECHNIQUE: Ultrasound Technique: | | | Ultrasound of the lower inner quadrant of the left breast was | | | performed by a maintenance controller. I also personally evaluated this area | | | using ultrasound. FINDINGS: Ultrasound Findings: In the 7-8:00 | | | region of the left breast, approximately 5-6 cm from the nipple, | | | there is a 9 mm x 6 mm x 3 mm cystic space demonstrating a thin, | | | approximately 0.7 mm internal septation with some associated | | | vascularity, with an imaging appearance suggestive of a conglomerated | | | microcyst with some features of an inflammatory cyst/developing | | | cyst, that corresponds well in size and location to the mammographic | | | finding from 11/29/2013. No other suspicious features are | | | demonstrated in this region. Note that the image is annotated with | | | this cystic area in the 8:30 o'clock region, approximately 6 cm from | | | the nipple, however, when the patient puts her left arm up and has a | | | wedge place underneath her left shoulder to place the nipple more | | | centrally within the breast, the area of concern locates to the | | | 7-8:00 region, approximately 5-6 cm from the nipple. IMPRESSION - | | | BIRADS Category 3: Probably benign. Recommend six-month follow-up, to | | | include left breast diagnostic ultrasound of the left lower inner | | | breast, specifically to evaluate the cystic structure in the 7-8:00 | | | region. Today's findings were discussed with the patient. We | | | discussed the importance of self breast examination. The patient is | | | advised to return to clinic for any new, hard, enlarging, or | | | otherwise suspicious lumps. Dictated and Signed by: Goyo Leigh | Lu Hernandez MD Electronically signed: 12/06/2013 2:57 PM | | + + + + + | Procedure Note | + + | [place], Rad Results In - 12/06/2013 3:00 PM PDT US BREAST LEFT 12/06/2013 1:38 PM | | | | HISTORY: ABNORMAL LT BREAST U/S PER DR. TOWNSEND . Approximately 9 mm x 5 mm x 4 | | mm well-circumscribed focal asymmetry in the 7-8:00 region of the left breast, | | approximately 6.5 cm from the nipple | | | | COMPARISON: Mammogram from 11/29/2013 | | | | TECHNIQUE: | | Ultrasound Technique: Ultrasound of the lower inner quadrant of the left breast | | was performed by a maintenance controller. I also personally evaluated this area using | | ultrasound. | | | | FINDINGS: | | Ultrasound Findings: | | In the 7-8:00 region of the left breast, approximately 5-6 cm from the nipple, | | there is a 9 mm x 6 mm x 3 mm cystic space demonstrating a thin, approximately | | 0.7 mm internal septation with some associated vascularity, with an imaging | | appearance suggestive of a conglomerated microcyst with some features of an | | inflammatory cyst/developing cyst, that corresponds well in size and location to | | the mammographic finding from 11/29/2013. No other suspicious features are | | demonstrated in this region. Note that the image is annotated with this cystic | | area in the 8:30 o'clock region, approximately 6 cm from the nipple, however, | | when the patient puts her left arm up and has a wedge place underneath her left | | shoulder to place the nipple more centrally within the breast, the area of | | concern locates to the 7-8:00 region, approximately 5-6 cm from the nipple. | | | | IMPRESSION - | | BIRADS Category 3: Probably benign. Recommend six-month follow-up, to include | | left breast diagnostic ultrasound of the left lower inner breast, specifically | | to evaluate the cystic structure in the 7-8:00 region. | | | | Today's findings were discussed with the patient. We discussed the importance of | | self breast examination. The patient is advised to return to clinic for any new, | | hard, enlarging, or otherwise suspicious lumps. | | | | Dictated and Signed by: Goyo Hernandez MD | | Electronically signed: 12/06/2013 2:57 PM | + + + +---------+ + + | Performing | Address | City/State/Zipcode | Phone Number | | Organization | | | | + +---------+ + + | MISCELLANEOUS LAB | | | [phone] | + +---------+ + + | MISCELANIOUS LAB | | | [phone] | + +---------+ + + documented in this encounter Visit Diagnoses + + | Diagnosis | + + | Abnormal mammogram, unspecified | + + documented in this encounter"
--- OUTSIDE RECORDS SUMMARY | ~2019-06-22 | XMS | Encounter Summary ---
Demographics + + + | Address | [address] | | | [place] [address] | + + + | Home Phone | | + + + | Preferred Language | Unknown | + + + | Marital Status | Unknown | + + + | Confucianism Affiliation | 1013 | + + + | Race | Unknown | + + + | Ethnic Group | Unknown | + + + Author + + + | Author | [facility] | | | and [place] | + + + | Organization | [facility] | | | and [place] [...] Team Providers + +------+ + | Care Assurance Auditor Name | Role | Phone | + +------+ + | Roxanne Gillis MD | PCP | | + +------+ + Encounter Details +--------+ + + + + | Date | Type | Department | Care Team | Description | +--------+ + + + + | 05/30/ | Abstract | [facility] | [place], | Preventative health | | 2013 | | [address] | MD [address] | care (Primary Dx) | | | | [place] | [place] | | | | | [address] | [address] | | | | | [phone] | | | +--------+ + + + [...] 2019 | Visit | | [address] [facility] | | | | | | [address] [place] | | | | | | [address] | | | | | | | | +--------+---------+ + + + documented as of this encounter Visit Diagnoses + + | Diagnosis | + + | Preventative health care - Primary Routine general medical examination at a health | | care facility | + + documented in this encounter"
--- OUTSIDE RECORDS SUMMARY | ~2019-06-22 | XMS | Encounter Summary ---
Demographics + + + | Address | [address] | | | [place] [address] | + + + | Home Phone | | + + + | Preferred Language | Unknown | + + + | Marital Status | Unknown | + + + | Taoism Affiliation | 1013 | + + + | Race | Unknown | + + + | Ethnic Group | Unknown | + + + Author + + + | Author | [facility] | | | and [place] | + + + | Organization | [facility] | | | and [...] Team Providers + +------+ + | Care Race Car Mechanic Name | Role | Phone | + [...] | | | | CENTER [address] | [address] [place] | Dx) | | | | [place], [place] | [place] [address] | | | | | [address] | [phone] | | | | | [phone] | | | +--------+ + + + [...] Kenny MD - 01/09/2014Gerard plenty of fluids. [place] for pain, Zofran for nausea. AttachmentsThe following attachments cannot be sent through Care Everywhere.KIDNEY STONE W/ COLIC (AUSTR[place]IAN)PREVENTING KIDNEY STONES ([place]STRALIAN)documented in this encounter Medications at Time of [...] 2020 | Visit | | [address] [facility] | | | | | | [address] [place], [place] | | | | | | [address] | | | | | | | [...] + | MISCELLANEOUS LAB | | | [phone] | + +---------+ + + | MISCELANIOUS LAB | | | [phone] | + +---------+ + + Culture, Urine [...] + | [facility] | [address] | [place] | [phone] | | [facility] | | [address] | | | - LABORATORY | | | | + + + + + | [facility] | [address] | [place] | | | [facility] | | [address] | | | - LABORATORY | | [...] - 1.030 | [facility] | | | [place] | | | [facility] | | [...] + | [facility] | [address] | [place], [place] | [phone] | | [facility] | | [address] | | | - LABORATORY | | | | + + + + + | [facility] | [address] | [place], [place] | | | [facility] | | [address] | | | - LABORATORY | | [...] mL/min/1.73m2 | [facility] | | | [facility] | RATE,ESTIMATED | | MEDICAL | | | | mL/min/1.84i1Nbnv than | | CENTER - | | [...] + | [facility] | [address] | [place], [place] | [phone] | | [facility] | | [address] | | | - LABORATORY | | | | + + + + + | [facility] | [address] | [place], [place] | | | [facility] | | [address] | | | - LABORATORY | | [...] + | [facility] | [address] | [place], [place] | [phone] | | [facility] | | [address] | | | - LABORATORY | | | | + + + + + | [facility] | [address] | [place] | | | [facility] | | [address] | | | - LABORATORY | | [...]
--- OUTSIDE RECORDS SUMMARY | ~2019-06-22 | XMS | Encounter Summary ---
Demographics + + + | Address | [address] | | | [place] [address] | + + + | Home Phone | | + + + | Preferred Language | Unknown | + + + | Marital Status | Unknown | + + + | Church Affiliation | 1013 | + + + | Race | Unknown | + + + | Ethnic Group | Unknown | + + + Author + + + | Author | [facility] | | | and [place] | + + + | Organization | [facility] | | | and [...] Team Providers + +------+ + | Care Residential Construction Instructor Name | Role | Phone | + [...] + + | 11/11/ | Anesthesia | [facility] | Hood Horowitz | | | 2018 | Event | [facility] | MD Franck [address] | | | | | [address] | [address] [place] | | | | | [place] | [address] | | | | | [address] | [phone] | | | | | [phone] | | | +--------+ + + + + Anesthesia Record + + + + + | Procedure Name | Responsible | Anesthesia Start | Anesthesia Stop Time | | | Anesthesiologist | Time | | + + + + + | CYSTOSCOPY PLACEMENT | Hood Horowitz, | [birth year] | 11/11/18 2310 | | RIGHT URETERAL [...] +----+---+ + + | | 2 | Semora | | | | 2 | 43-degrees [...] 2020 | [facility] | | [address] [facility] | | | | | [address] [place], [place] | | | | | | [address] | | | | | | | [...] for this | | | e | 10:31 PM | | procedure are in the | | | | PDT | | results section. | + +--------+ + + + documented in this encounter Results Airway (11/11/2018 10:31 PM PDT) + + + | Narrative [...] + | Hood Horowitz MD - 11/11/2018 10:31 PM PDT Anesthesia Airway Placement11/11/2018 | | 22:26Preprocedure [...] | and bilateral chest risePerforming provider: Hood Horoiwtz MDComments: Smooth IV | | induction.LMA placed [...] | injection Intravenous, PRN, | | 19 10:19 | | | | | Starting 11/11/18 at 2219, | | PM PDT | | | | | Anesthesia Intra-op | | | | | | + +--------+ +------+------+------+ +---+---+ | | | +---+---+ + +-------+ +--------+---+---+ | fentaNYL (PF) injection | Given | 11/12/19 | 50 mcg | | | | Intravenous, PRN, Starting Sat | | 19 10:25 | | | | | 11/11/18 at 2221, Anesthesia | | PM PDT | | | | | Intra-op | | | | | | + +-------+ +--------+---+---+ +-------+ +--------+---+---+ | Given | 11/12/19 | 50 mcg | | | | | 19 10:21 | | | | | | PM PDT | | | | +-------+ +--------+---+---+ +---+---+ | | | +---+---+ + +---------+ +---+---+---+ | lactated ringers (LR) infusion | New Bag | 11/12/19 | | | | | Intravenous, CONTINUOUS PRN, | | 19 10:19 | | | | | Starting 11/11/18 at 2219, | | PM PDT | | | | | Anesthesia Intra-op | | | | | | + +---------+ +---+---+---+ +---+---+ | | | +---+---+ + +-------+ +------+---+---+ | ondansetron (ZOFRAN) injection | Given | 11/12/19 | 4 mg | | | | PRN, Starting 11/11/18 at | | 19 10:19 | | | | | 2219, Anesthesia Intra-op | | PM PDT | | | | + +-------+ +------+---+---+ +---+---+ | | | +---+---+ + +-------+ +--------+---+---+ | propofol (DIPRIVAN) injection | Given | 11/12/19 | 170 mg | | | | Intravenous, PRN, Starting Sat | | 19 10:25 | | | | | 11/11/18 at 2225, Anesthesia | | PM PDT | | | | | Intra-op | | | | | | + +-------+ +--------+---+---+ +---+---+ | | | +---+---+ documented in this encounter"
--- OUTSIDE RECORDS SUMMARY | ~2019-06-22 | XMS | Clinical Summary ---
Demographics + + + | Address | [address] | | | [place] [address] | + + + | Home Phone | | + + + | Preferred Language | Unknown | + + + | Marital Status | Unknown | + + + | Scientologist Affiliation | Unknown | + + + | Race | Unknown | + + + | Ethnic Group | Unknown | + + + Author + + + | Author | [facility] (Historical as of | | | 01-27-19) | + + + | Organization | [facility] (Historical as of | | | 01-27-19) | + + + | Address | Unknown | + + + | Phone | Unavailable | + + + Support +--------+ +---------+ + | Name | Relationship | Address | Phone | +--------+ +---------+ + | No,One | ECON | Unknown | | +--------+ +---------+ + Care Team Providers + +------+ + | Care Banana Ripening Room Supervisor Name | Role | Phone | [...] +------+-------+ + | MEDICAID | EASTER | [id number] | | | [address] | | | [place] | | | | [place] | | | [place] | | | | [address] | | | [employer] | | | | | + +--------+ [...] | | | [place] | | | [address] | [place] [address] | + +--------+ +--------+ + +"
--- OUTSIDE RECORDS SUMMARY | ~2019-06-22 | XMS | Clinical Summary ---
Demographics + + + | Address | [address] | | | [place] [address] | + + + | Home Phone | | + + + | Preferred Language | Unknown | + + + | Marital Status | Unknown | + + + | Roman Catholic Affiliation | 1013 | + + + | Race | Unknown | + + + | Ethnic Group | Unknown | + + + Author + + + | Author | [facility] | | | and [place] | + + + | Organization | [facility] | | | and [place] [...] Team Providers + +------+ + | Care Pelt Grader Name | Role | Phone | + [...] | + + + +---------+------+------+-------+ | | take 1 tablet by | | 0 | 11/1 | | Activ | | HYDROcodone-acetamin | mouth every 4 to 6 | | | 8/20 | | e | | ophen (NORCO) | hours if needed for | | | 19 | | | | 7.5-325 mg per | pain | | | | | | | tablet | | | | | | | + + + +---------+------+------+-------+ | VRAYLAR 1.5 MG | | | 0 | 11/0 | | Activ | | capsule | | | | 4/20 | | e | | | | | | 19 | | | + + + +---------+------+------+-------+ | naproxen | Take 250 mg by mouth | | 0 | | | Activ | | (NAPROSYN) 250 mg | 2 times daily (with | | | | | e | | tablet | breakfast & | | | | | | | | dinner). | | | | | | + + + +---------+------+------+-------+ | oxybutynin | Place 1 patch onto | | 0 | | 12/ | Disco | | (OXYTROL) 3.9 mg/24 | the skin. EVERY 4 | | | | 6/20 | ntinu | | hr | DAYS | | | | 19 | ed | | | | | | | | (Lydia | | | | | | | | ent | | | | | | | | Not | | | | | | | | Takin | | | | | | | | g) | + + + +---------+------+------+-------+ | albuterol (PROAIR | Inhale 2 puffs into | | 0 | | 12/1 | Disco | | HFA) 90 mcg/puff | the lungs every 4 | | | | 6/20 | ntinu | | inhaler | hours as needed. | | | | 19 | ed | | | | | | | | (Lydia | | | | | | | | ent | | | | | | | | Not | | | | | | | | Takin | | | | | | | | g) | + + + +---------+------+------+-------+ | tamsulosin | Take 0.4 mg by mouth | | 0 | | 12/1 | Disco | | (FLOMAX) 0.4 mg CAPS | daily (after | | | | 11/30 | ntinu | | | breakfast). | | | | 19 | ed | | | | | | | | (Lydia | | | | | | | | ent | | | | | | | | Not | | | | | | | | Takin | | | | | | | | g) | + + + +---------+------+------+-------+ | PROPRANOLOL HCL PO | Take by mouth | | 0 | | 12/ | Disco | | | Daily. | | | | 11/30 | ntinu | | | | | | | 19 | ed | | | | | | | | (Lydia | | | | | | | | ent | | | | | | | | Not | | | | | | | | Takin | | | | | | | | g) | + + + +---------+------+------+-------+ | | Take 1 tablet by | 15 | 0 | 09/ | 12/ | Disco | | HYDROcodone-acetamin | mouth every 6 hours | tablet | | 03/02 | 20 | ntinu | | ophen (NORCO) 5-325 | as needed for Pain. | | | 15 | 19 | ed | | mg per tablet | | | | | | (Ther | | | | | | | | apy | | | | | | | | compl | | | | | | | | eted) | + + + +---------+------+------+-------+ | prazosin | Take 2 mg by mouth | | 0 | 10/11 | 05/13 | Disco | | (MINIPRESS) 2 MG | every morning. | | | 11/30 | 11/30 | ntinu | | capsule | | | | 19 | 19 | ed | | | | | | | | (Lydia | | | | | | | | ent | | | | | | | | Not | | | | | | | | Takin | | | | | | | | g) | + + + +---------+------+------+-------+ | LATUDA 80 MG | Take 80 mg by mouth | | 0 | 03/14 | 05/13 | Disco | | tablet | daily (with | | | 09/30 | 11/30 | ntinu | | | breakfast). | | | 18 | 19 | ed | | | | | | | | (Lydia | | | | | | | | ent | | | | | | | | Not | | | | | | | | Takin | | | | | | | | g) | + + + +---------+------+------+-------+ | desvenlafaxine | take 1 tablet by | | 0 | 10/1 | 12/1 | Disco | | (PRISTIQ) 25 mg ER | mouth twice a day | | | 0/20 | 6/20 | ntinu | | tablet | | | | 18 | 19 | ed | | | | | | | | (Lydia | | | | | | | | ent | | | | | | | | Not | | | | | | | | Takin | | | | | | | | g) | + + + +---------+------+------+-------+ | promethazine | Take 25 mg by mouth | | 0 | | 12/1 | Disco | | (PHENERGAN) 25 mg | every 6 hours as | | | | 6/20 | ntinu | | tablet | needed for Nausea or | | | | 19 | ed | | | Vomiting. | | | | | (Lydia | | | | | | | | ent | | | | | | | | Not | | | | | | | | Takin | | | | | | | | g) | + + + +---------+------+------+-------+ | docusate-senna | Take 1 tablet by | | 0 | | 12/1 | Disco | | (SENOKOT-S) 50-8.6 | mouth Twice daily | | | | 6/20 | ntinu | | mg per tablet | as needed for | | | | 19 | ed | | | Constipation. | | | | | (Lydia | | | | | | | | ent | | | | | | | | Not | | | | | | | | Takin | | | | | | | | g) | + + + +---------+------+------+-------+ | | Take 1 tablet by | | 0 | | 05/13 | Disco | | oxyCODONE-acetaminop | mouth every 6 hours | | | | 11/30 | ntinu | | hen (PERCOCET) 5-325 | as needed for Pain. | | | | 19 | ed | | mg per tablet | | | | | | (Lydia | | | | | | | | ent | | | | | | | | Not | | | | | | | | Takin | | | | | | | | g) | + + + +---------+------+------+-------+ | levoFLOXacin | Take 1 tablet by | 6 | 0 | 06/0 | 05/13 | Disco | | (LEVAQUIN) 500 mg | mouth Daily. | tablet | | /20 | /20 | ntinu | | tabletIndications: | Indications: UTI - | | | 19 | 19 | ed | | UTI - UPPER | Upper | | | | | (Lydia | | | | | | | | ent | | | | | | | | Not | | | | | | | | Takin | | | | | | | | g) | + + + +---------+------+------+-------+ | citalopram | Take 10 mg by mouth | | 0 | 04/14 | 05/13 | Disco | | (CELEXA) 10 mg | once daily. | | | 01/30 | 11/30 | ntinu | | tablet | | | | 17 | 19 | ed | | | | | | | | (Lydia | | | | | | | | ent | | | | | | | | Not | | | | | | | | Takin | | | | | | | | g) | + + + +---------+------+------+-------+ | citalopram | Take 20 mg by mouth | | 0 | 05/13 | 05/13 | Disco | | (CELEXA) 20 mg | once daily. | | | 08/30 | 11/30 | ntinu | | tablet | | | | 17 | 19 | ed | | | | | | | | (Lydia | | | | | | | | ent | | | | | | | | Not | | | | | | | | Takin | | | | | | | | g) | + + + +---------+------+------+-------+ | cyclobenzaprine | Take 1 tablet by | | 0 | 12/0 | 12/ | Disco | | (FLEXERIL) 5 MG | mouth 2 (two) times | | | 09/30 | 6/20 | ntinu | | tablet | a day as needed. | | | 17 | 19 | ed | | | | | | | | (Lydia | | | | | | | | ent | | | | | | | | Not | | | | | | | | Takin | | | | | | | | g) | + + + +---------+------+------+-------+ | ibuprofen | Take 800 mg by mouth | | 0 | | 05/13 | Disco | | (ADVIL,MOTRIN) 800 | every 6 (six) hours | | | | 11/30 | ntinu | | MG tablet | as needed for mild | | | | 19 | ed | | | pain. | | | | | (Lydia | | | | | | | | ent | | | | | | | | Not | | | | | | | | Takin | | | | | | | | g) | + + + +---------+------+------+-------+ | SUMAtriptan | Take 1 tablet (50 mg | | 0 | 12/2 | 05/13 | Disco | | (IMITREX) 50 mg | total) by mouth | | | 20 | 6/20 | ntinu | | tablet | once as needed for | | | 17 | 19 | ed | | | migraine. May repeat | | | | | (Lydia | | | in 2 hours if | | | | | ent | | | unresolved. Do not | | | | | Not | | | exceed 200 mg in 24 | | | | | Takin | | | hours. | | | | | g) | + + + +---------+------+------+-------+ | lamoTRIgine | Take 100 mg by mouth | | 0 | 05/13 | 05/13 | Disco | | (LAMICTAL) 200 MG | 2 (two) times a | | | 01/30 | 11/30 | ntinu | | tablet | day. | | | 17 | 19 | ed | | | | | | | | (Lydia | | | | | | | | ent | | | | | | | | Not | | | | | | | | Takin | | | | | | | | g) | + + + +---------+------+------+-------+ | prazosin | Take 1 mg by mouth | | 0 | 1 | 05/13 | Disco | | (MINIPRESS) 1 mg | nightly. | | | 08/30 | 11/30 | ntinu | | capsule | | | | 17 | 19 | ed | | | | | | | | (Lydia | | | | | | | | ent | | | | | | | | Not | | | | | | | | Takin | | | | | | | | g) | + + + +---------+------+------+-------+ Active Problems + + + | Problem | Noted Date | + + + | Hypercalcemia | 05/28/2019 | + + + | Electrolyte imbalance risk | 05/28/2019 | + + + | Class 1 obesity due to excess calories without serious | 05/28/2019 | | comorbidity with body mass index (BMI) of 34.0 to 34.9 in adult | | + + + [...] + | 05/29/ | Orders Only | Nephrology | Brad Singh MD | Essential | | 2019 | | | | hypertension | | | | | | (Primary Dx); Kidney | | | | | | stone on right | | | | | | side; Chronic kidney | | | | | | disease, stage III | | | | | | (moderate) (HCC) | +--------+ + + + + | 05/28/ | Office | Nephrology | Brad Singh MD | Chronic kidney | | 2019 | Visit | | | disease, stage III | [...] | | | 34.9 in adult | +--------+ + + + + | 05/28/ | Documentati | Nephrology | uL Ordaz (05/25/19) | | 2019 | on | | Rolando Alegre | | | | | | Painter Chassis | | +--------+ + + + + [...] 2020 | Visit | | [address] [facility] | | | | | | [address] [place] | | | | | | [address] | | | | | | | [...] | | | Dtap/Tdap/Td (1 - | 1 | | | | Tdap) | | | | + + + + + | Urine Drug Screening | | | | | | 6 | | | + + + + [...] 6fr 26cm | Stent | Right: | COOK | | | [id number] | | - [id number]: Qty: 1 | | | [employer] | | | / | | on 11/11/2018 by Reji, | | Cordell | - [place] | | | /[id number] | | Anastacio Hanks MD at [facility] | | | | | | 73 | | [facility] | | | | | | | + +-------+--------+ +--------+--------+--------+ Procedures + +--------+ + + + | Procedure Name | Priori | Date/Time | Associated Diagnosis | Comments | | | ty | | | | + +--------+ + + + | URINALYSIS | Routin | 05/25/2019 | | Results for this | | | e | | | procedure are in the | | | | | | results section. | + +--------+ + + + | CBC NO DIFFERENTIAL | Routin | 05/25/2019 | | Results for this | | | e | | | procedure are in the | | | | | | results section. | + +--------+ + + + | RENAL FUNCTION PANEL | Routin | 05/25/2019 | | Results for this | | | e | | | procedure are in the | | | | | | results section. | + +--------+ + + + | PROTEIN/CREATININE | Routin | 05/25/2019 | | Results for this | | RATIO, URINE | e | | | procedure are in the | | | | | | results section. | + +--------+ + + + | URIC ACID | Routin | 05/25/2019 | | Results for this | | | e | | | procedure are in the | | | | | | results section. | + +--------+ + + + from Last 3 Months Results CBC with Manual Differential (05/25/2019) + +-------+ + + + | Component | Value | Ref Range | Performed | Pathologist | | | | | At | Signature | + +-------+ + + + | WBC | 7.5 | 4.5 - 11.0 | | | + +-------+ + + + | RBC | 4.55 | 3.80 - 5.10 | | | | | | M/uL | | | + +-------+ + + + | Hemoglobin | 14 | 12 - 16 | | | + +-------+ + + + | Hematocrit, | 41.6 | 35.0 - 45.0 % | | | | POC | | | | | + +-------+ + + + | MCV | 91.3 | 81.0 - 99.0 fL | | | + +-------+ + + + | MCH | 31.0 | 27.0 - 33.0 pg | | | + +-------+ + + + | MCHC | 34.0 | 30.0 - 36.0 | | | | | | g/dL | | | + +-------+ + + + | Platelet | 280 | 140 - 440 | | | | Count | | | | | | Plasma | | | | | + +-------+ + + + | RDW | 14.5 | 10.5 - 15.0 | | | + +-------+ + + + | Neutrophils | 44.8 | 39 - 80 | | | | , Absolute | | | | | + +-------+ + + + | Absolute | 40.7 | 24 - 44 | | | | Lymphocytes | | | | | + +-------+ + + + | Absolute | 9.6 | 0 - 12 | | | | Monocytes | | | | | + +-------+ + + + | Eosinophils | 3.8 | 0 - 6 | | | | , Absolute | | | | | + +-------+ + + + | Basophils, | 1.1 | 0 - 2 | | | | Absolute | | | | | + +-------+ + + + + + | Specimen | + + | Blood | + + Protein/Creatinine Ratio, Urine (05/25/2019) + +-------+ + + + | Component | Value | Ref Range | Performed | Pathologist | | | | | At | Signature | + +-------+ + + + | Protein/Cre | 124.7 | 0 - 150 | | | | at Ratio | | | | | + +-------+ + + + + + | Specimen | + + | Urine | + + Urinalysis (05/25/2019) + + + + + + | Component | Value | Ref Range | Performed | Pathologist | | | | | At | Signature | + + + + + + | Color | yellow | | | | + + + + + + | Clarity | Clear | | | | + + + + + + | Specific | 1.015 | 1.001 - 1.030 | | | | [place] | | | | | + + + + + + | pH, Urine | 5.0 | 5.0 - 8.0 | | | + + + + + + | Protein, | Negative | Negative | | | | Urine | | | | | + + + + + + | Glucose, | Negative | Negative | | | | Urine | | | | | + + + + + + | Ketones, | Negative | Negative | | | | Urine | | | | | + + + + + + | Bilirubin, | Negative | Negative | | | | Urine | | | | | + + + + + + | Blood, | Small (A) | Negative | | | | Urine | | | | | + + + + + + | Nitrite, | Negative | Negative | | | | Urine | | | | | + + + + + + | Urobilinoge | Normal | < 0.2 mg/dL, | | | | n, Urine | | 1.0 mg/dL, 4.0 | | | | | | mg/dL, Normal, | | | | | | 1.0 E.U./dL, | | | | | | 0.2 E.U./dL, | | | | | | 0.2 mg/dL, | | | | | | Negative, 1 | | | | | | mg/dL, <2.0 | | | | | | mg/dL | | | + + + + + + | Leukocyte | Negative | Negative | | | | Esterase, | | | | | | Urine | | | | | + + + + + + | CASTS | Negative | | | | + + + + + + | WBC UA | 5 | /HPF | | | + + + + + + | RBC UA | 5 | /HPF | | | + + + + + + | Epithelial | 1+ | | | | | Cells | | | | | + + + + + + | CRYSTAL UA | Negative | | | | + + + + + + | Bacteria, | 0 | | | | | UA | | | | | + + + + + + + + | Specimen | + + | Urine | + + Uric Acid (05/25/2019) + +-------+ + + + | Component | Value | Ref Range | Performed | Pathologist | | | | | At | Signature | + +-------+ + + + | Uric Acid | 4.9 | 2.3 - 6.6 | | | + +-------+ + + + + + | Specimen | + + | Blood | + + Renal Function Panel (05/25/2019) + + + + + + | Component | Value | Ref Range | Performed | Pathologist | | | | | At | Signature | + + + + + + | Na | 140 | 132 - 143 | | | | | | mmol/L | | | + + + + + + | K | 4.2 | 3.6 - 5.1 | | | | | | mmol/L | | | + + + + + + | Cl | 106 | 95 - 112 mmol/L | | | + + + + + + | CO2 | 28 | 19 - 31 mmol/L | | | + + + + + + | Anion Gap | 10 | 7 - 21 mmol/L | | | + + + + + + | Glucose | 92 | 70 - 100 mg/dL | | | + + + + + + | Calcium | 10.6 (A) | 8.5 - 10.3 | | | + + + + + + | BUN | 18 | 6 - 23 mg/dL | | | + + + + + + | Creatinine | 1.35 | 0.60 - 1.35 | | | | | | mg/dL | | | + + + + + + | Estimated | 42.0 (A) | 60.0 - 140.0 | | | | GFR | | mL/min/1.73m2 | | | + + + + + + | BUN/Creatin | 13.3 | 6.0 - 28.6 | | | | ine Ratio | | | | | + + + + + + + + | Specimen | + + | Blood | + + from Last 3 Months Insurance [...] | [employer] | MODA | [id number] | | [phone] | | Medica | | MEDICAID HMO | HEALTH | | 019-Pr | 1 | | id | | | MDCD | | esent | | | | | | [place] | | | | | | + +--------+ +--------+ +---------+--------+ | [employer] | MOD[employer] | [id number] | 05/28/ | [phone] | | Medica | | MEDICAID HMO [...] al/Fam | | 1971 | [phone] | [address] | | | [place] | | | [address] (Home) | [place] [address] | + +--------+ +--------+ + + | Mireya Ramos | Person | Self | [birth year] | [address] | | | al/Fam | | 1971 | [phone] | [address] | | | [place] | | | [address] (Home) | [place] [address] | + +--------+ +--------+ + + | Mireya Ramos | Person | Self | [birth year] | [address] | | | al/Fam | | 1971 | [phone] | [address] | | | [place] | | | [address] (Home) | [place] [address] | + +--------+ +--------+ + + Advance Directives + + + + + | Type | Date Recorded | Patient | Explanation | | | | Tin Stacker | | + + + + + | Power of | | | | | National Account Representative | | | | + + + + + | Power of | | | | | National Account Representative | | | | + + + [...]
--- OUTSIDE RECORDS SUMMARY | ~2019-06-22 | XMS | Encounter Summary ---
Demographics + + + | Address | [address] | | | [place] [address] | + + + | Home Phone | | + + + | Preferred Language | Unknown | + + + | Marital Status | Unknown | + + + | Hoahaoism Affiliation | 1013 | + + + | Race | Unknown | + + + | Ethnic Group | Unknown | + + + Author + + + | Author | [facility] | | | and [place] | + + + | Organization | [facility] | | | and [place] [...] Team Providers + +------+ + | Care Coil Binder Name | Role | Phone | + [...] + + | 11/11/ | Surgery | [facility] | Anastacio Mendoza MD | CYSTOSCOPY PLACEMENT | | 2019 | | MED CTR OR INTRA OP | [address] | RIGHT URETERAL | | | | [address] | [place], [place] | STENT | | | | [place], [place] | [address] | | | | | [address] | [phone] | | | | | [phone] | | | +--------+---------+ + + + [...] Complications: Patient was received in transfer from [facility] emergency room about 9:30 PM. She underwent the above indicated procedure. She remained afebrile. Her abdominal pain at presentation resolved. The morning after surgery she rece ived another IV dose of ceftriaxone and began oral levofloxacin. She was prescribed 6 more days of levofloxacin empirically awaiting results of final urine culture from [facility]. She is instructed that she has [...] study results on DC: Urine culture from [facility] on 11/11/18 Follow-Up Plans: Follow-up with: Dr. Mendoza or Dr. Chino Diet: Calcium oxalate prevention diet Activity: No restrictions, shower only Electronically signed by: Anastacio Mendoza, 11/12/2018 8:50 [facility] documented in this enc ounter Discharge Instructions Instructions Anastacio Mendoza MD - 11/12/2018Printed list of medications from this hospital is not correct. Resume your normal medications. You have a new prescription for levofloxac in antibiotic for the next 6 days. You will receive a dose of levofloxacin at the hospital today so will begin your prescription tomorrow, Tuesday. Contact [facility] emergency r oom Tuesday and possibly Tuesday [...] 2020 | Visit | | [address] [facility] | | | | | | [address] [facility] | | | | | | [address] | | | | | | | [...] [address] | [place] | [phone] | | [facility] | | [address] | | | - LABORATORY | | [...] 10 | 9 - 23 mg/dL | [facility] | | | | | | [facility] | | | | | | MEDICAL | | | | | | CENTER - | | | | | | LABORATORY | | + + + + + + | Creatinine | 1.05 (H) | 0.55 - 1.02 | [facility] | | | | | mg/dL | [facility] | | | | | | MEDICAL | | | | | | CENTER - | | | | | | LABORATORY | | + + + + + + | eGFR if not | 56 (L)Comment: | >=60 | [facility] | | | | GLOMERULAR FILTRATION | mL/min/1.73m2 | [facility] | | | [place]UTCH | RATE,ESTIMATED | | MEDICAL | | | | mL/min/1.58q4Gpug than | | CENTER - | | [...] + | [address] | [address] | [place] | [phone] | | [facility] | | [id number] | | | - LABORATORY | | [...]
--- OUTSIDE RECORDS SUMMARY | ~2019-06-22 | XMS | Encounter Summary ---
Demographics + + + | Address | [address] | | | [place] [address] | + + + | Home Phone | | + + + | Preferred Language | Unknown | + + + | Marital Status | Unknown | + + + | Yazidism Affiliation | 1013 | + + + | Race | Unknown | + + + | Ethnic Group | Unknown | + + + Author + + + | Author | [facility] | | | and [place] | + + + | Organization | [facility] | | | and [place] [...] Team Providers + +------+ + | Care Sales Representative Supervisor Name | Role | Phone | [...] on | [address] | [address] [facility] | | | | | [place] | [place], [place] | | | | | [phone] | [address] | | | | | [phone] | | | +--------+ + + + [...] OUT OF THE AREA. SHE MOVED TO [place]. SHE WILL ESTABLISH CARE WITH A UROLOGIST THERE documented in this encoun ter Plan of Treatment +--------+---------+ + + + | Date | Type | Specialty | Care Team | Description | +--------+---------+ + + + | 08/26/ | Office | Nephrology | Brad Singh MD | | | 2020 | Visit | | [address] [facility] | | | | | | [address] [place] | | | | | | [address] | | | | | | | | +--------+---------+ + + + documented as of this encounter Visit Diagnoses Not on filedocumented in this encounter"
--- OUTSIDE RECORDS SUMMARY | ~2019-06-22 | XMS | Encounter Summary ---
Demographics + + + | Address | [address] | | | [place] [address] | + + + | Home Phone | | + + + | Preferred Language | Unknown | + + + | Marital Status | Unknown | + + + | Sikhism Affiliation | 1013 | + + + | Race | Unknown | + + + | Ethnic Group | Unknown | + + + Author + + + | Author | [facility] [place] | | | and [place] | + + + | Organization | [facility] [place] | | | and [place] [...] Team Providers + +------+ + | Care Checking Clerk Name | Role | Phone | + +------+ + | Umesh Mcmahon NP | PCP | | + +------+ + Encounter Details +--------+ + + + + | Date | Type | Department | Care Team | Description | +--------+ + + + + | 10/22/ | Orders Only | [facility] | Brad Singh MD | Chronic kidney | | 2019 | | NEPHROLOGY [place] | [address] [place] | disease, stage III | | | | [address] [place] | [address] [place], [place] | (moderate) (HCC) | | | | [address] [place], [place] | [address] | (Primary Dx) | | | | [address] | | | | | | [phone] | | | +--------+ + + + [...] 2020 | Visit | | [address] [facility] | | | | | | [address] [place], [place] | | | | | | [address] | | | | | | | [...] Expires: | | | | | (moderate) ([facility]) | 04/03/2020 | + +------+--------+ + + | Urinalysis With | Lab | Routin | Chronic kidney | Expected: | | Microscopic | | e | disease, stage III | 06/11/2019, Expires: | | | | | (moderate) ([facility]) | 04/03/2020 | + +------+--------+ + + | CBC with | Lab | Routin | Chronic kidney | Expected: | | Differential | | e | disease, stage III | 06/11/2019, Expires: | | | | | (moderate) ([facility]) | 04/03/2020 | + +------+--------+ + + documented as of this encounter Visit Diagnoses + + | Diagnosis | + + | Chronic kidney disease, stage III (moderate) (HCC) - Primary Chronic kidney disease, | | Stage III (moderate) | + + documented in this encounter"
--- OUTSIDE RECORDS SUMMARY | ~2019-06-22 | XMS | Encounter Summary ---
Demographics + + + | Address | [address] | | | [place] [address] | + + + | Home Phone | | + + + | Preferred Language | Unknown | + + + | Marital Status | Unknown | + + + | Anabaptist Affiliation | 1013 | + + + | Race | Unknown | + + + | Ethnic Group | Unknown | + + + Author + + + | Author | [facility] [place] | | | and [place] | + + + | Organization | [facility] [place] | | | and [place] | [...] Team Providers + +------+ + | Care Auto Service Dispatcher Name | Role | Phone | + [...] + | 03/01/ | Emergency | [facility] | Roderick Landaverde, | Right flank pain | | 2015 | | MED CTR EMERGENCY | MD [address] | (Primary Dx) | | | | CENTER [address] | [place], [place] | | | | | [place], [place] | [address] | | | | | [address] | | | | | | [phone] | | | +--------+ + + + [...] 2020 | Visit | | [address] [facility] | | | | | | 160 [place], [place] | | | | | | [address] | | | | | | | [...] report | | | was sent by [employer] on 03/01/2015 at 11:11 PM with no [...] | | preliminary report was sent by [employer] on 03/01/2015 at 11:11 PM withno | [...] | |A preliminary report was sent by [employer] on 03/01/2015 at 11:11 PM with | |no significant discrepancy. | | | |Dictated and Signed by: Pierre Cintrno MD | | Electronically signed: 03/02/2015 11:34 AM | + + + +---------+ + + | Performing | Address | City/State/[facility] | Phone Number | | Organization | [...] | 1.010, 1.015, | | | | [place], | | 1.020, 1.025 | | | [...] - 1.030 | [facility] | | | [place] | | | [facility] | | [...] ST. | [address] | [place] | [phone] | | [facility] | | [address] | | | - LABORATORY | | [...]
--- OUTSIDE RECORDS SUMMARY | ~2019-06-22 | XMS | Encounter Summary ---
Demographics + + + | Address | [address] | | | [place] [address] | + + + | Home Phone [...] + + + | Author | [facility] [place] | | | and [place] | + + + | Organization | [facility] [place] | | | and [...] Team Providers + +------+ + | Care Inspection Clerk Name | Role | Phone | [...] [place] | | | | | [address] | [address] | | | | | [phone] | | | +--------+ + + + [...] 2019 | Visit | | [address] [facility] | | | | | | [address] [place] | | | | | | [address] | | | | | | | | +--------+---------+ + + + documented as of this encounter Visit Diagnoses + + | Diagnosis | + + | Preventative health care - Primary Routine general medical examination at a health | | care facility | + + documented in this encounter"
--- OUTSIDE RECORDS SUMMARY | ~2019-06-22 | XMS | Encounter Summary ---
Demographics + + + | Address | [address] | | | [place] [address] | + + + | Home Phone | | + + + | Preferred Language | Unknown | + + + | Marital Status | Unknown | + + + | Rastafarian Affiliation | 1013 | + + + | Race | Unknown | + + + | Ethnic Group | Unknown | + + + Author + + + | Author | [facility] [place] | | | and [place] | + + + | Organization | [facility] [place] | | | and [place] [...] Team Providers + +------+ + | Care X Ray Control Equipment Repairer Name | Role | Phone | [...] [place] | | | | | [phone] | [place] [address] | | +--------+ + + + + [...] 2020 | Visit | | [address] [facility] | | | | | | [address] [place] | | | | | | [address] | | | | | | | [...]
--- OUTSIDE RECORDS SUMMARY | ~2019-06-22 | XMS | Encounter Summary ---
Demographics + + + | Address | [address] | | | [place] [address] | + + + | Home Phone | | + + + | Preferred Language | Unknown | + + + | Marital Status | Unknown | + + + | Mandaeism Affiliation | 1013 | + + + | Race | Unknown | + + + | Ethnic Group | Unknown | + + + Author + + + | Author | [facility] and [facility] [place] | | | and [place] | + + + | Organization | [facility] [place] | | | and [...] Team Providers + +------+ + | Care Extension Edger Name | Role | Phone | + [...] Chi [place] | | | | | [phone] | [place] [address] | | +--------+ + + + + [...] Visit | | [address] [facility] | | | | | | [address] [place] | | | | | | [address] | | | | | | | [...]
--- OUTSIDE RECORDS SUMMARY | ~2019-06-22 | XMS | Encounter Summary ---
Demographics + + + | Address | [address] | | | [place] [address] | + + + | Home Phone | | + + + | Preferred Language | Unknown | + + + | Marital Status | Unknown | + + + | Christian Affiliation | 1013 | + + + | Race | Unknown | + + + | Ethnic Group | Unknown | + + + Author + + + | Author | [facility] and [facility] [place] | | | and [place] | + + + | Organization | [facility] [place] | | | and [place] [...] Team Providers + +------+ + | Care Captain Of Guards Name | Role | Phone | + [...] + + | 11/11/ | Hospital | [facility] | Anastacio Mendoza MD | | | 2019 - | Encounter | MED CTR SURGICAL | [address] [facility] | | | | | [address] | [place] | | | 11/12/ | | [place] [address] | [address] | | | 2019 | | [phone] | [phone] | | | | | | | [...] Complications: Patient was received in transfer from [facility] emergency room about 9:30 PM. She underwent the above indicated procedure. She remained afebrile. Her abdominal pain at presentation resolved. The morning after surgery she rece ived another IV dose of ceftriaxone and began oral levofloxacin. She was prescribed 6 more days of levofloxacin empirically awaiting results of final urine culture from [facility]. She is instructed that she has a [...] on DC: Urine culture from [facility] on 11/11/18 Follow-Up Plans: Follow-up with: Dr. Mendoza or Dr. Chino Diet: Calcium oxalate prevention diet Activity: No restrictions, shower only Electronically signed by: Anastacio Mendoza, 11/12/2018 8:50 [facility] documented in this enc ounter Discharge Instructions Instructions Anastacio Mendoza MD - 11/12/2018Printed list of medications from this hospital is not correct. Resume your normal medications. You have a new prescription for levofloxac in antibiotic for the next 6 days. You will receive a dose of levofloxacin at the hospital today so will begin your prescription tomorrow, Tuesday. Contact [facility] emergency r oom Tuesday and possibly [...] 2020 | Visit | | [address] [facility] | | | | | | [address] [place] | | | | | | [address] | | | | | | | [...] | | Lavender | | | [facility] | | | Top Tube | [...] [address] | [place] | [phone] | | [facility] | | [address] | | | - LABORATORY | | [...] 10 | 9 - 23 mg/dL | [facility] | | | | | | [facility] | | | | | | MEDICAL | | | | | | CENTER - | | | | | | LABORATORY | | + + + + + + | Creatinine | 1.05 (H) | 0.55 - 1.02 | [facility] | | | | | mg/dL | [facility] | | | | | | MEDICAL | | | | | | CENTER - | | | | | | LABORATORY | | + + + + + + | eGFR if not | 56 (L)Comment: | >=60 | [facility] | | | | GLOMERULAR FILTRATION | mL/min/1.73m2 | [facility] | | | MONEGASQUE | RATE,ESTIMATED | | MEDICAL | | | | mL/min/1.14w7Xvhb than | | CENTER - | | [...] + | [facility] | [address] | [place] | [phone] | | [facility] | | [address] | | | - LABORATORY | | [...] Anxiety state, unspecified | + + | Essential hypertension Unspecified [...] | | | | | | longer, mmgwzk-kco-tlnpg use of | | | | | [...] | | | | | | | pafzph-tdl-dxaxn use of at least | | | [...]
--- OUTSIDE RECORDS SUMMARY | ~2019-06-22 | XMS | Encounter Summary ---
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 | Brad Singh MD | Chronic kidney | | 2019 | Visit | NEPHROLOGY [place] | [address] [place] | disease, stage III | | | | [address] | [address] [place], [place] | (moderate) (HCC) | | | | [address] [place] [address] | [address] | (Primary Dx); | | | | [place], [place] | | Calculus of kidney; | | | | [address] | | Hydronephrosis of | | | | [phone] | | right kidney; | | | [...] will have a RFP, CBC, intact PTH, 19-yozoydw-hvdosix D, SPIE, SFLC, reflex urinalysi s, Urine total hwgaeux-rd-qyoqxobvxk ratio before she comes back in 3 [...] file Gets together: Not on file Attends worship service: Not on file Active member of [...] will have a RFP, CBC, intact PTH, 83-amlfktv-rxakeyn D, SPIE, SFLC, reflex urinalysi s, Urine total scwklzz-ce-wjfodiixpg ratio before she comes back in 3 months. More than 30 minutes of this 60-minute visit was spent in education and counseling. Thank you Umesh for the opportunity to see this patient in consult today. Please do not hesi cespedes to call me at any time with questions or concerns. Truly yours, Brad Singh MD [facility] documented in this enco unter Plan of Treatment +--------+---------+ + + + | Date | Type | Specialty | Care Team | Description | +--------+---------+ + + + | 08/26/ | Office | Nephrology | Brad Singh MD | | | 2020 | Visit | | [address] [facility] | | | | | | 160 [place], [place] | | | | | | [address] | | | | | | | [...]
--- OUTSIDE RECORDS SUMMARY | ~2019-06-22 | XMS | Clinical Summary ---
Demographics + + + | Address | [address] | | | [place] [address] | + + + | Home Phone | | + + + | Preferred Language | Unknown | + + + | Marital Status | Unknown | + + + | Cheondoism Affiliation | 1013 | + + + | Race | Unknown | + + + | Ethnic Group | Unknown | + + + Author + + + | Author | [facility] [place] | | | and [place] | + + + | Organization | [facility] [place] | | | and [...] Team Providers + +------+ + | Care Engine Dispatcher Name | Role | Phone | [...] | 05/28/ | Documentati | Nephrology | Lu Ordaz (05/25/19) | | 2019 | on | | Rolando Alegre | | | | | | Case Finisher | | +--------+ + + + + [...] 2020 | Visit | | [address] [facility] | | | | | | 160 [place] | | | | | | [address] | | | | | | | [...] | Right: | COOK | | | [id number] | | - [id number]: Qty: 1 | | | [employer] | | | / | | on 11/11/2018 by Reji, | | Cordell | - [place] | | | /[id number] | | Anastacio Hanks MD at [facility] | | | | | | 73 | | [facility] | | | | | | | [...] 1.001 - 1.030 | | | | [place] | | | | | + + [...] | [employer] | MODA | [id number] | | [phone] | | Medica | | MEDICAID HMO | HEALTH | | 019-Pr | 1 | | id | | | MDCD | | esent | | | | | | [place] | | | | | | + +--------+ +--------+ +---------+--------+ | [employer] | MOD[employer] | [id number] | 05/28/ | [phone] | | Medica | | MEDICAID HMO [...] | | 4 (Home) | [place] [address] | + +--------+ +--------+ + + | Mireya Ramos | Person | Self | [birth year] | [address] | | | al/Fam | | 1971 | [phone] | [address] | | | [place] | | | 4 (Home) | [place] [address] | + +--------+ +--------+ + + | Mireya Ramos | Person | Self | [birth year] | [address] | | | al/Fam | | 1971 | [phone] | [address] | | | [place] | | | 4 (Home) | [place] [address] | + +--------+ +--------+ + + Advance Directives + + + + + | Type | Date Recorded | Patient | Explanation | | | | Inseam Trimmer | | + + + + + | Power of | | | | | Automobile Engine Assembler | | | | + + + + + | Power of | | | | | Automobile Engine Assembler | | | | + + + [...]
--- OUTSIDE RECORDS SUMMARY | ~2019-06-22 | XMS | Encounter Summary ---
Demographics + + + | Address | [address] | | | [place] [address] | + + + | Home Phone | | + + + | Preferred Language | Unknown | + + + | Marital Status | Unknown | + + + | Taoist Affiliation | 1013 | + + + | Race | Unknown | + + + | Ethnic Group | Unknown | + + + Author + + + | Author | [facility] [place] | | | and [place] | + + + | Organization | [facility] [place] | | [...] Team Providers + +------+ + | Care Checkroom Attendant Name | Role | Phone | + +------+ + PCP | Unavailable | + +------+ + Encounter Details +--------+ + + + + | Date | Type | Department | Care Team | Description | +--------+ + + + + | 03/11/ [facility] | Dain Weinberg, | | | 2012 | Encounter | MED CTR EMERGENCY | [address] | | | | | CENTER [address] | [place] | | | | | [place] | [address] | | | | | [address] | | | | | | [phone] | | | +--------+ + + + [...] 2020 | Visit | | [address] [facility] | | | | | | [address] [place], [place] | | | | | | [address] | | | | | | | | +--------+---------+ + + + documented as of this encounter Visit Diagnoses Not on filedocumented in this encounter"
--- OUTSIDE RECORDS SUMMARY | ~2019-06-22 | XMS | Encounter Summary ---
Demographics + + + | Address | [address] | | | [place] [address] | + + + | Home Phone | | + + + | Preferred Language | Unknown | + + + | Marital Status | Unknown | + + + | Zoroastrianism Affiliation | 1013 | + + + | Race | Unknown | + + + | Ethnic Group | Unknown | + + + Author + + + | Author | [facility] [place] | | | and [place] | + + + | Organization | [facility] [place] | | | and [place] [...] Team Providers + +------+ + | Care Nurses Supervisor Name | Role | Phone | [...] + + | 11/11/ | Hospital | [facility] | Anastacio Mendoza MD | | | 2019 - | Encounter | MED CTR SURGICAL | [address] [facility] | | | | | [address] | [place] | | | 11/12/ | | [place] [address] | [address] | | | 2019 | | [phone] | [phone] | | | | | | | [...] Complications: Patient was received in transfer from [facility] emergency room about 9:30 PM. She underwent the above indicated procedure. She remained afebrile. Her abdominal pain at presentation resolved. The morning after surgery she rece ived another IV dose of ceftriaxone and began oral levofloxacin. She was prescribed 6 more days of levofloxacin empirically awaiting results of final urine culture from [facility] She is instructed that she has a [...] study results on DC: Urine culture from [facility] on 11/11/18 Follow-Up Plans: Follow-up with: Dr. Mendoza or Dr. Chino Diet: Calcium oxalate prevention diet Activity: No restrictions, shower only Electronically signed by: Anastacio Mendoza, 11/12/2018 8:[address] [facility] documented in this enc ounter Discharge Instructions Instructions Anastacio Mendoza MD - 11/12/2018Printed list of medications from this hospital is not correct. Resume your normal medications. You have a new prescription for levofloxac in antibiotic for the next 6 days. You will receive a dose of levofloxacin at the hospital today so will begin your prescription tomorrow, Tuesday. Contact [facility] emergency r oom Tuesday and possibly Tuesday [...] 2020 | Visit | | [address] [facility] | | | | | | [address] [place] | | | | | | [address] | | | | | | | [...] | | Lavender | | | ST[facility]ani [facility]URN | | | Top Tube | | [...] | + + + + + | [facility] | [address] | [place] | [phone] | | [facility] | | [address] | | | - LABORATORY | | [...] 10 | 9 - 23 mg/dL | [facility] | | | | | | [facility] | | | | | | MEDICAL | | | | | | CENTER - | | | | | | LABORATORY | | + + + + + + | Creatinine | 1.05 (H) | 0.55 - 1.02 | [place] | | | | | mg/dL | [facility] | | | | | | MEDICAL | | | | | | CENTER - | | | | | | LABORATORY | | + + + + + + | eGFR if not | 56 (L)Comment: | >=60 | [place] | | | | GLOMERULAR FILTRATION | mL/min/1.73m2 | [facility] | | | TURKS AND [place]ICOS ISLANDER | RATE,ESTIMATED | | MEDICAL | | | | mL/min/1.47g5Xsvu than | | CENTER - | | [...] + | [facility] [facility] | [address] | [place] | [phone] | | [facility] | | [address] | | | - LABORATORY | | [...] | | | | | | longer, gjuwia-olr-vpeti use of | | | | | [...] | | | | | | | dxqvxk-bfv-tnweu use of at least | | | [...]
--- OUTSIDE RECORDS SUMMARY | ~2019-06-22 | XMS | Encounter Summary ---
Demographics + + + | Address | [address] | | | [place] [address] | + + + | Home Phone [...] | Organization | [facility] [place] | | | and [place] [...] Team Providers + +------+ + | Care Engineering Operations Leader Name | Role | Phone | + [...] ureter (Primary Dx); | | | | [place], [place] | [place], [place] | Calculus of left | | | | [address] | [address] | kidney | | | | [phone] | | | +--------+ + + + [...] 2020 | Visit | | [address] [facility] [place] | | | | | | [address] [place], [place] | | | | | | [address] | | | | | | | [...]
--- OUTSIDE RECORDS SUMMARY | ~2019-06-22 | XMS | Encounter Summary ---
Demographics + + + | Address | [address] | | | [place] [address] | + + + | Home Phone [...] + + + | Author | [facility] [place] | | | and [place] | + + + | Organization | [facility] [place] | [...] Team Providers + +------+ + | Care Educational Speech Language Clinician Name | Role | Phone | + [...] on | [address] | [address] [facility] | | | | | [place] | [place], [place] | | | | | [address] | [address] | | | | | [phone] | | | +--------+ + + + [...] OUT OF THE AREA. SHE MOVED TO [place]. SHE WILL ESTABLISH CARE WITH A UROLOGIST THERE documented in this encoun ter Plan of Treatment +--------+---------+ + + + | Date | Type | Specialty | Care Team | Description | +--------+---------+ + + + | 08/26/ | Office | Nephrology | Brad Singh MD | | | 2020 | Visit | | [address] [facility] | | | | | | [address] [place] | | | | | | [address] | | | | | | | | +--------+---------+ + + + documented as of this encounter Visit Diagnoses Not on filedocumented in this encounter"
--- OUTSIDE RECORDS SUMMARY | ~2019-06-22 | XMS | Encounter Summary ---
Demographics + + + | Address | [address] | | | [place] [address] | + + + | Home Phone [...] | Author | [facility] [place] | | | and [place] | + + + | Organization | [facility] [place] | [...] Team Providers + +------+ + | Care Hose Cementer Name | Role | Phone | + +------+ + | Roxanne Gillis MD | PCP | | + +------+ + Encounter Details +--------+ + + + + | Date | Type | Department | Care Team | Description | +--------+ + + + + | 12/06/ | Hospital | [facility] | Roxanne Gillis, | Abnormal mammogram, | | 2014 | Encounter | MED CTR ULTRASOUND | MD [address] | unspecified | | | | [address] | [address] [place] | | | | | [place] | [address] | | | | | [address] | | | | | | [phone] | Chiquita Jolley | | | | [...] 2019 | Visit | | [address] [facility] | | | | | | [address] [place], [place] | | | | | | [address] | | | | | | | [...] was | | | performed by a director shopper marketing. I also personally evaluated this area | [...] breast | | was performed by a director shopper marketing. I also personally evaluated this area using [...] + | MISCELLANEOUS LAB | | | [phone] | + +---------+ + + | MISCELANIOUS LAB | | | [phone] | + +---------+ + + documented in this encounter Visit Diagnoses + + | Diagnosis | + + | Abnormal mammogram, unspecified | + + documented in this encounter"
--- OUTSIDE RECORDS SUMMARY | ~2019-06-22 | XMS | Encounter Summary ---
Demographics + + + | Address | [address] | | | [place] [address] | + + + | Home Phone [...] | [facility] [place] | | | and [...] Team Providers + +------+ + | Care Stretcher Operator Name | Role | Phone | + +------+ + | Umesh Mcmahon NP | PCP | | + +------+ + Encounter Details +--------+ + + + + | Date | Type | Department | Care Team | Description | +--------+ + + + + | 01/18/ | Orders Only | [facility] | Provider, | | | 2019 | | SYSTEM GENERIC OP | [address] | | | | | [address]VERSION [address] | [place]. | | | | | [address] [place], [place] | [place] [address] | | | | | [address] | | | | | | [phone] | | | +--------+ + + + [...] 2019 | Visit | | [address] [facility] | | | | | | [address] [place] | | | | | | [address] | | | | | | | | +--------+---------+ + + + documented as of this encounter Visit Diagnoses Not on filedocumented in this encounter"
--- OUTSIDE RECORDS SUMMARY | ~2019-06-22 | XMS | Encounter Summary ---
Demographics + + + | Address | [address] | | | [place] [address] | + + + | Home Phone [...] + + + | Author | [facility] [place] | | | and [place] | + + + | Organization | [facility] [place] | | | and [place] [...] Providers + +------+ + | Care Medical And Health Services Manager Name | Role | Phone | + +------+ + PCP | Unavailable | + +------+ + Encounter Details +--------+ + + + + | Date | Type | Department | Care Team | Description | +--------+ + + + + | 03/11/ | [facility] | [facility] | Dain Weinberg, | | | 2012 | Encounter | MED CTR EMERGENCY | [address] | | | | | CENTER [address] | [place] | | | | | [place] | [address] | | | | | [address] | | | | | | [phone] | | | +--------+ + + + [...] [place] | | | | | | [address] | | | | | | | | +--------+---------+ + + + documented as of this encounter Visit Diagnoses Not on filedocumented in this encounter"
--- OUTSIDE RECORDS SUMMARY | ~2019-06-22 | XMS | Encounter Summary ---
Demographics + + + | Address | [address] | | | [place] [address] | + + + | Home Phone [...] | Author | [facility] [place] | | | and [place] | + + + | Organization | [facility] [place] | | | and [place] | [...] Team Providers + +------+ + | Care Metalworking Specialist Name | Role | Phone | + +------+ + | Umesh Mcmahon NP | PCP | | + +------+ + Encounter Details +--------+ + + + + | Date | Type | Department | Care Team | Description | +--------+ + + + + | 05/29/ | Orders Only | [facility] | Brad Singh MD | Essential | | 2019 | | NEPHROLOGY [place] | [address] [place] | hypertension | | | | [address] [place] | [address] [place], [place] | (Primary Dx); Kidney | | | | [address] [place], [place] | [address] | stone on right | | | | [address] | | side; Chronic kidney | | | | [phone] | | disease, stage III | | [...] 2020 | Visit | | [address] [facility] | | | | | | [address] [place] | | | | | | [address] | | | | | | | [...] | | | | | | (moderate) ([facility]) | | + +------+--------+ + + | [...] | | | | | | (moderate) ([facility]) | | + +------+--------+ + + | [...] | | | | | | (moderate) ([facility]) | | + +------+--------+ + + | Immunofixation, | Lab | Routin | Essential | Expected: | | Serum | | e | hypertension Kidney | 08/28/2019, Expires: | | | | | stone on right side | 05/29/2020 | | | | | Chronic kidney | | | | | | disease, stage III | | | | | | (moderate) ([facility]) | | + +------+--------+ + + | Urinalysis With | Lab | Routin | Essential | Expected: | | Microscopic | | e | hypertension Kidney | 08/28/2019, Expires: | | | | | stone on right side | 05/29/2020 | | | | | Chronic kidney | | | | | | disease, stage III | | | | | | (moderate) ([facility]) | | + +------+--------+ + + | Protein/Creatinine | Lab | Routin | Essential | Expected: | | Ratio, Urine | | e | hypertension Kidney | 08/28/2019, Expires: | | | | | stone on right side | 05/29/2020 | | | | | Chronic kidney | | | | | | disease, stage III | | | | | | (moderate) ([facility]) | | + +------+--------+ + + documented [...]
--- OUTSIDE RECORDS SUMMARY | ~2019-06-22 | XMS | Encounter Summary ---
Demographics + + + | Address | [address] | | | [place] [address] | + + + | Home Phone [...] | Organization | [facility] [place] | | | and [...] Team Providers + +------+ + | Care Drain Tiler Name | Role | Phone | + +------+ + | Umesh Mcmahon NP | PCP | | + +------+ + Encounter Details +--------+ + + + + | Date | Type | Department | Care Team | Description | +--------+ + + + + | 01/18/ | Orders Only | [facility] | Provider, | | | 2019 | | SYSTEM GENERIC OP | [address] | | | | | [address] | [place]. | | | | | [address] [place], [place] | [place] [address] | | | | | [address] | | | | | | [phone] | | | +--------+ + + + [...] | Visit | | [address] [facility] | | | | | | [address] [place] | | | | | | [address] | | | | | | | | +--------+---------+ + + + documented as of this encounter Visit Diagnoses Not on filedocumented in this encounter"
--- OUTSIDE RECORDS SUMMARY | ~2019-06-22 | XMS | Encounter Summary ---
Demographics + + + | Address | [address] | | | [place] [address] | + + + | Home Phone [...] + + | Organization | [facility] [place] | | [...] Team Providers + +------+ + | Care Button Tufting Machine Operator Name | Role | Phone [...] + + | 05/28/ | Documentati | [facility] | Ordaz, | Results (05/25/19) | | 2019 | on | NEPHROLOGY [place] | [facility] | | | | | [address] [place] | [employer] Teacher | | | | | [address] [place], [place] | | | | | | [address] | | | | | | [phone] | | | +--------+ + + + [...] 2020 | Visit | | [address] [facility] [place] | | | | | | [address] [place] | | | | | | [address] | | | | | | | [...] 1.001 - 1.030 | | | | [place] | | | | | + + [...]
--- OUTSIDE RECORDS SUMMARY | ~2019-06-22 | XMS | Encounter Summary ---
Demographics + + + | Address | [address] | | | [place] [address] | + + + | Home Phone [...] | Author | [facility] [place] | | | and [place] | + + + | Organization | [facility] [place] | | | and [...] Team Providers + +------+ + | Care User Interface Engineer Name | Role | Phone | [...] + + | 05/28/ | Documentati | [facility] | Ordaz, | Results (05/25/19) | | 2019 | on | NEPHROLOGY [place] | [facility] | | | | | [address] [place] | Medical Assistant Dermatology | | | | | [address] [place], [place] | | | | | | [address] | | | | | | [phone] | | | +--------+ + + + [...] 2020 | Visit | | [address] [facility] [place] | | | | | | [address] [place] | | | | | | [address] | | | | | | | [...] 1.001 - 1.030 | | | | [place] | | | | | + + [...]
--- OUTSIDE RECORDS SUMMARY | ~2019-06-22 | XMS | Encounter Summary ---
Demographics + + + | Address | [address] | | | [place] [address] | + + + | Home Phone | | + + + | Preferred Language | Unknown | + + + | Marital Status | Unknown | + + + | Evangelical Affiliation | 1013 | + + + | Race | Unknown | + + + | Ethnic Group | Unknown | + + + Author + + + | Author | [facility] [place] | | | and [place] | + + + | Organization | [facility] [place] | | | and [place] [...] Team Providers + +------+ + | Care Concrete Mixing Plant Superintendent Name | Role | Phone | + +------+ + | Umesh Mcmahon NP | PCP | | + +------+ + Encounter Details +--------+ + + + + | Date | Type | Department | Care Team | Description | +--------+ + + + + | 10/22/ | Orders Only | [facility] | Brad Singh MD | Chronic kidney | | 2019 | | NEPHROLOGY [place] | [address] [place] | disease, stage III | | | | [address] [place] | [address] [place], [place] | (moderate) (HCC) | | | | [address] [place], [place] | [address] | (Primary Dx) | | | | [address] | | | | | | [phone] | | | +--------+ + + + [...] | | | | | | [address] [place], [place] | | | | | | [address] | | | | | | | [...] Expires: | | | | | (moderate) ([facility]) | 04/03/2020 | + +------+--------+ + + | Urinalysis With | Lab | Routin | Chronic kidney | Expected: | | Microscopic | | e | disease, stage III | 06/11/2019, Expires: | | | | | (moderate) ([facility]) | 04/03/2020 | + +------+--------+ + + | CBC with | Lab | Routin | Chronic kidney | Expected: | | Differential | | e | disease, stage III | 06/11/2019, Expires: | | | | | (moderate) ([facility]) | 04/03/2020 | + +------+--------+ + + documented as of this encounter Visit Diagnoses + + | Diagnosis | + + | Chronic kidney disease, stage III (moderate) (HCC) - Primary Chronic kidney disease, | | Stage III (moderate) | + + documented in this encounter"
--- OUTSIDE RECORDS SUMMARY | ~2019-06-22 | XMS | Encounter Summary ---
Demographics + + + | Address | [address] | | | [place] [address] | + + + | Home Phone | | + + + | Preferred Language | Unknown | + + + | Marital Status | Unknown | + + + | Jewish Affiliation | 1013 | + + + | Race | Unknown | + + + | Ethnic Group | Unknown | + + + Author + + + | Author | [facility] [place] | | | and [place] | + + + | Organization | [facility] [place] | [...] Team Providers + +------+ + | Care Unishear Operator Name | Role | Phone | + +------+ + | Umesh Mcmahon NP | PCP | | + +------+ + Encounter Details +--------+ + + + + | Date | Type | Department | Care Team | Description | +--------+ + + + + | 05/29/ | Orders Only | [facility] | Brad Singh MD | Essential | | 2019 | | NEPHROLOGY [place] | [address] [place] | hypertension | | | | [address] [place] | [address] [place], [place] | (Primary Dx); Kidney | | | | [address] [place], [place] | [address] | stone on right | | | | [address] | | side; Chronic kidney | | | | [phone] | | disease, stage III | | [...] [place] | | | | | | [address] | | | | | | | [...] | | | | | | (moderate) ([facility]) | | + +------+--------+ + + [...] | | | | | | (moderate) ([facility]) | | + +------+--------+ + + [...] | | | | | | (moderate) ([facility]) | | + +------+--------+ + + | Immunofixation, | Lab | Routin | Essential | Expected: | | Serum | | e | hypertension Kidney | 08/28/2019, Expires: | | | | | stone on right side | 05/29/2020 | | | | | Chronic kidney | | | | | | disease, stage III | | | | | | (moderate) ([facility]) | | + +------+--------+ + + [...] | | | | | | (moderate) ([facility]) | | + +------+--------+ + + [...] | | | | | | (moderate) ([facility]) | | + +------+--------+ + + [...]
--- OUTSIDE RECORDS SUMMARY | ~2019-06-22 | XMS | Encounter Summary ---
Demographics + + + | Address | [address] | | | [place] [address] | + + + | Home Phone | | + + + | Preferred Language | Unknown | + + + | Marital Status | Unknown | + + + | Latter-Day Affiliation | 1013 | + + + | Race | Unknown | + + + | Ethnic Group | Unknown | + + + Author + + + | Author | [facility] [place] | | | and [place] | + + + | Organization | [facility] [place] | | | and [...] Team Providers + +------+ + | Care Electronic Device Monitor Name | Role | Phone | + [...] | | | | | [address] | [address] [place] | | | | | [place] | [address] | | | | | [address] | [phone] | | | | | [phone] | | | +--------+ + + + [...] +----+---+ + + | | 2 | [place] | | | | 2 | 43-degrees [...] 2020 | Visit | | [facility] [facility] | | | | | | [address] [place], [place] | | | | | | [address] | | | | | | | [...]
--- OUTSIDE RECORDS SUMMARY | ~2019-06-22 | XMS | Encounter Summary ---
Demographics + + + | Address | [address] | | | [place] [address] | + + + | Home Phone | | + + + | Preferred Language | Unknown | + + + | Marital Status | Unknown | + + + | Christianity Affiliation | 1013 | + + + | Race | Unknown | + + + | Ethnic Group | Unknown | + + + Author + + + | Author | [facility] [place] | | | and [place] | + + + | Organization | [facility] [place] | | | and [...] Team Providers + +------+ + | Care Outcomes Specialist Name | Role | Phone | [...] ureter (Primary Dx); | | | | [place], [place] | [place], [place] | Calculus of left | | | | [address] | [address] | kidney | | | | [phone] | | | +--------+ + + + [...] | | | | | | [address] [place], [place] | | | | | | [address] | | | | | | | [...]
[~2019-06-22 10:29] MED LIST changes: +CEFUROXIME250 MG PO; +NORCO 7.5-3251 EACH PO; +RISPERIDONE0.5 MG PO; +VRAYLAR1.5 MG PO
--- OUTSIDE RECORDS SUMMARY | 2019-06-22 10:32 | XMS ---
PreManage Notification: EDY GILLIAM Security Party Chief Events No recent Security Events currently on file CRITERIA MET - [facility] - Has Care Guidelines - PDMP CARE PROVIDERS SANDY BREWSTER Nurse Practitioner: Family 11/22/2018-Current PHONE: Unknown Guidelines Source: [facility] Guidelines Date: 11/13/2018 Care Coordination: Receiving mental health services with [facility].\T\nbsp; Please contact [facility] for mental health concerns.\T\nbsp; [place]: [phone]\T\ nbsp; [place]: [phone]. Care History Medical/Surgical 11/22/2018 [facility] - Patient is currently established with [facility]. If patient is seen in the ED during business hours. Please contact CHWs at [facility]. Care Recommendation: If this patient has had 5 or more Emergency Department visits in the last 12 months.\T\nbsp; Patient will require education on the scope and purpose of the ED as an acute care provider not a Primary Care Provider and should not be utilized for chronic conditions.\T\nbsp; These are guidelines and the provider should exercise clinical judgment when providing care. E.D. VISIT COUNT (12 MO.) 4 WINNIE Yarbrough TOTAL 4 NOTE: Visits indicate total known visits. ED/UCC VISIT TRACKING (12 MO.) 06/22/2019 10:30 [facility] [place] TYPE: Emergency COMPLAINT: - CHEST PAIN 04/30/2019 11:38 [place] [place] TYPE: Emergency COMPLAINT: - PAIN IN MID BACK, VOMITING DIAGNOSES: - Allergy status to other antibiotic agents status - Other chcf (current) drug therapy - Other nonmedicinal substance allergy status - Essential (primary) hypertension - Major depressive disorder, single episode, unspecified - Hydronephrosis with renal and ureteral calculous obstruction - Personal history of nicotine dependence - Unspecified abdominal pain 11/21/2018 13:00 [facility] [place] TYPE: Emergency COMPLAINT: - POST OP PROBLEM DIAGNOSES: - Essential (primary) hypertension - Anxiety disorder, unspecified - Other nonmedicinal substance allergy status - Hematuria, unspecified - Personal history of urinary calculi - Bipolar disorder, unspecified - Nicotine dependence, unspecified, uncomplicated 11/11/2018 15:22 [facility] [place] TYPE: Emergency [...] INPATIENT VISIT TRACKING (12 MO.) 11/11/2018 21:[address] [facility] Jimmie STEINBERG TYPE: Surgical Services DIAGNOSES: - right ureteral stone - right kidney stone [email or web address]
[2019-06-22] MEDS ORDERED: MINIPRESS2 MG PO (10:38)
[2019-06-22] MEDS ORDERED: LAMOTRIGINE150 MG PO (10:38)
--- NOTE | 2019-06-22 18:15 | EKG ---
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
== END 2019-06-22 11:54 | disposition home or self-care (01) ==
LOC: ED 10:29
DX: F41.9 Anxiety disorder, unspecified (principal); I10 Essential (primary) hypertension; F31.9 Bipolar disorder, unspecified; F43.10 Post-traumatic stress disorder, unspecified; F17.200 Nicotine dependence, unspecified, uncomplicated; Z88.1 Allergy status to other antibiotic agents; Z91.048 Other nonmedicinal substance allergy status; Z79.899 Other long term (current) drug therapy
CPT/HCPCS: 71045; 93005; 93010; 99285-25

== ENCOUNTER 2019-12-26 17:59 | Emergency (ER) | payer OTHER ==
[~2019-12-26] VITALS: Ht 167.6 cm; Wt 95.3 kg
--- OUTSIDE RECORDS SUMMARY | ~2019-12-26 | XMS | Encounter Summary ---
Demographics + + + | Address | [address] | | | [place] [address] | + + + | Home Phone | | + + + | Preferred Language | Unknown | + + + | Marital Status | Unknown | + + + | Congregation Affiliation | 1013 | + + + | Race | Unknown | + + + | Ethnic Group | Unknown | + + + Author + + + | Author | [facility] [place] | | | and [place] | + + + | Organization | [facility] [place] | | | and [place] | + + + | Address | Unknown | + + + | Phone | Unavailable | + + + Support + + +---------+ + | Name | Relationship | Address | Phone | + + +---------+ + | Provided None | ECON | Unknown | | + + +---------+ + Care Team Providers + +------+ + | Care Impersonator Character Name | Role | Phone | + +------+ + | Umesh Mcmahon NP | PCP | | + +------+ + Encounter Details +--------+ + + + + | Date | Type | Department | Care Team | Description | +--------+ + + + + | 12/16/ | Imaging | [facility] | Provider, | | | 2019 | Exam | [facility] EXTER[facility] | [address] | | | | | IMAGING [address] | [place] | | | | | [address] | [place] [address] | | | | | [place] [address] | | | | | | [phone] | | | +--------+ + + + + Social History + +-------+ +--------+------+ | Tobacco Use | Types | Packs/Day | Years | Date | | | | | Used | | + +-------+ +--------+------+ | Current Every Day | | | | | | Smoker | | | | | + +-------+ +--------+------+ + +---+---+---+ | Smokeless Tobacco: | | | | | Never Used | | | | + +---+---+---+ + + +---------+ + | Alcohol Use | Drinks/Week | oz/Week | Comments | + + +---------+ + | Not Currently | | | | + + +---------+ + + + + | Sex Assigned at | Date Recorded | | | | + + + | Not on file | | + + + documented as of this encounter Functional Status + + + + | Functional Status | Response | Date of Assessment | + + + + | Are you deaf or do you have serious | No | 11/12/2018 | | difficulty hearing? | | | + + + + | Are you blind or do you have serious | No | 11/12/2018 | | difficulty seeing, even when wearing | | | | glasses? | | | + + + + | Do you have serious difficulty walking or | No | 11/12/2018 | | climbing stairs? (5 years old or older) | | | + + + + | Do you have difficulty dressing or bathing? | No | 11/12/2018 | | (5 years old or older) | | | + + + + | Because of a physical, mental, or emotional | No | 11/12/2018 | | condition, do you have difficulty doing | | | | errands alone such as visiting a doctor's | | | | office or shopping? [15 years old or | | | | older)] | | | + + + + + + + + | Cognitive Status | Response | Date of Assessment | + + + + | Because of a physical, mental, or emotional | No | 11/12/2018 | | condition, do you have serious difficulty | | | | concentrating, remembering, or making | | | | decisions? (5 years old or older) | | | + + + + documented as of this encounter Plan of Treatment +--------+---------+ + + + | Date | Type | Specialty | Care Team | Description | +--------+---------+ + + + | 06/02/ | Office | Nephrology | Brad Singh MD | | | 2019 | Visit | | [address] [facility] | | | | | | [facility] | | | | | | [address] | | | | | | | | +--------+---------+ + + + documented as of this encounter Procedures + +--------+ + + + | Procedure Name | Priori | Date/Time | Associated Diagnosis | Comments | | | ty | | | | + +--------+ + + + | XR ABDOMEN AP | Routin | 11/26/2019 | | Results for this | | | e | 12:00 AM | | procedure are in the | | | | PDT | | results section. | + +--------+ + + + documented in this encounter Results XR Abdomen AP (11/26/2019 12:00 AM PDT) + + | Specimen | + + | | + + + + + | Narrative | Performed At | + + + | External films for comparison only | [facility] | | | | | No results will be in the chart. | | + + + + +---------+ + + | Performing | Address | City/State/Zipcode | Phone Number | | Organization | | | | + +---------+ + + | [facility] | | | | + +---------+ + + documented in this encounter Visit Diagnoses Not on filedocumented in this encounter"
--- OUTSIDE RECORDS SUMMARY | ~2019-12-26 | XMS | Encounter Summary ---
Demographics + + + | Address | [address] | | | [place] [address] | + + + | Home Phone | | + + + | Preferred Language | Unknown | + + + | Marital Status | Unknown | + + + | Yazidi Affiliation | [id number] | + + + | Race | Unknown | + + + | Ethnic Group | Unknown | + + + Author + + + | Author | [facility] | | | and [place] | + + + | Organization | [facility] | | | and [place] | [...] Team Providers + +------+ + | Care Career And Technology Education Teacher Name | Role | Phone | + +------+ + | Umesh Mcmahon NP | PCP | | + +------+ + Reason for Visit Auth/Cert +--------+--------+ + + + + | Status | Reason | Specialty | Diagnoses / | Referred By | Referred To | | | | | Procedures | Contact | Contact | +--------+--------+ + + + + | | | | Diagnoses | | | | | | | right | | | | | | | kidney stone | | | | | | | right | | | | | | | ureteral | | | | | | | stone | | | | | | | Procedures | | | | | | | CYSTOSCOPY | | | | | | | PLACEMENT | | | | | | | URETERAL | | | | | | | STENT | | | +--------+--------+ + + + + Encounter Details +--------+ + + + + | Date | Type | Department | Care Team | Description | +--------+ + + + + | 11/11/ | Hospital | [facility] | Anastacio Mendoza MD | | | 2019 - | Encounter | MED CTR SURGICAL | [address] [facility] | | | | | [address] | [place] | | | 11/12/ | | [facility] [place] [address] | [address] | | | 2019 | | [phone] | [phone] | | | | | | | | +--------+ + + + [...] + + documented as of this encounter Last Filed Vital Signs + + + + + | Vital Sign | Reading | Time Taken | Comments | + + + + + | Blood Pressure | 101/66 | 11/12/2018 8:06 AM | | | | | PDT | | + + + + + | Pulse | 53 | 11/12/2018 8:06 AM | | | | | PDT | | + + + + + | Temperature | 36 C (96.8 F) | 11/12/2018 8:06 AM | | | | | PDT | | + + + + + | Respiratory Rate | 18 | 11/12/2018 8:06 AM | | | | | PDT | | + + + + + | Oxygen Saturation | 95% | 11/12/2018 8:06 AM | | | | | PDT | | + + + + + | Inhaled Oxygen | - | - | | | Concentration | | | | + + + + + | Weight | 94.3 kg (207 lb 14.3 | 11/12/2018 12:04 AM | | | | oz) | PDT | | + + + + + | Height | 167.6 cm (5' 6") | 11/12/2018 12:04 AM | | | | | PDT | | + + + + + | Body Mass Index | 33.55 | 11/12/2018 12:04 AM | | | | | PDT | | + + + + + documented in this encounter Functional Status + + + [...] + + documented as of this encounter Discharge Summaries Anastacio Mendoza MD - 11/12/2018 8:38 AM PDT DISCHARGE SUMMARY Pt. Name/Age/: Mireya Ramos 48 y.o. 1970 Date of Admission: 11/11/2018 Date of Discharge: 11/12/2018 Admitting Physician: Anastacio Mendoza MD PCP: Umesh Mcmahon Discharging Physician: Anastacio Mendoza Consultants: Primary Discharge Dx: Obstructing right ureteropelvic junction calculus with systemic inflammatory response syndr ome Suspected UTI Bilateral nephrolithiasis Patient Active Problem List Diagnosis Ureteral calculus, right H/O Kidney stones PTSD (post-traumatic stress disorder) Bipolar 1 disorder Chronic back pain UTI (urinary tract infection) with pyuria Diverticulosis of colon Adnexal mass Smoker - Daily Hydronephrosis of right kidney Anxiety Hypertension Substance abuse SIRS (systemic inflammatory response syndrome) Secondary Discharge Dx: Procedures: Cystoscopy with manipulation of right ureteropelvic junction calculus. Placement of right double-J ureteral stent Hospital Course, including Complications: Patient was received in transfer from [facility] emergency room about 9:30 PM. She underwent the above indicated procedure. She remained afebrile. Her abdominal pain at presentation resolved. The morning after surgery she rece ived another IV dose of ceftriaxone and began oral levofloxacin. She was prescribed 6 more days of levofloxacin empirically awaiting results of final urine culture from [facility]. She is instructed that she has a temporary right ureteral stent which could accumulate ston e crystals and that her next phase of stone treatment should be arranged in the next 1 to [address] Chino or Dr. Mendoza. She has fairly good awareness of a calcium oxalate prevention diet. Mineral analysis has n ot yet been confirmed. More intense investigation of her biochemistry is indicated and shou ld include mineral analysis of stone, measurement of serum vitamin D, 24-hour urine stone co llection chemistry to include : Total volume, pH, sodium, calcium, oxalate, uric acid, phosp horus, citrate. Medications Reconciled upon Discharge are: Discharge Medications New Medications Details levoFLOXacin 500 mg tablet Take 1 tablet by mouth Daily. Indications: UTI - Upper aka: LEVAQUIN Unchanged Medications Details clonazePAM 1 mg tablet Take 1 mg by mouth nightly. aka: klonoPIN desvenlafaxine 25 mg ER tablet take 1 tablet by mouth twice a day aka: PRISTIQ docusate-senna 50-8.6 mg per tablet Take 1 tablet by mouth Twice daily as needed for Constipation. aka: SENOKOT-S lamoTRIgine 100 mg tablet Take 200 mg by mouth Daily. aka: laMICtal LATUDA 80 mg tablet Generic drug: lurasidone Take 80 mg by mouth daily (with breakfast). oxyCODONE-acetaminophen 5-325 mg per tablet Take 1 tablet by mouth every 6 hours as needed for Pain. aka: PERCOCET prazosin 2 MG capsule Take 6 mg by mouth nightly. aka: MINIPRESS prazosin 2 MG capsule Take 2 mg by mouth every morning. aka: MINIPRESS promethazine 25 mg tablet Take 25 mg by mouth every 6 hours as needed for Nausea or Vomiting. aka: PHENERGAN There is no immunization history on file for this patient. Vital Signs: Temp: 36 C (96.8 F) BP: 101/66 Pulse: 53 Resp: 18 SpO2: 95 % Min/Max Temp past 24 hours:Temp Av.8 C (98.3 F) Min: 36 C (96.8 F) Max: 37. 3 C (99.1 F) Intake/Output Summary (Last 24 hours) at 11/12/2018 0850 Last data filed at 11/12/2018 0830 Gross per 24 hour Intake 1782 ml Output 1475 ml Net 307 ml Last Wt. Before discharge: Weight: 94.3 kg (207 lb 14.3 oz) Pending study results on DC: Urine culture from [facility] on 11/11/18 Follow-Up Plans: Follow-up with: Dr. Mendoza or Dr. Chino Diet: Calcium oxalate prevention diet Activity: No restrictions, shower only Electronically signed by: Anastacio Mendoza, 11/12/2018 8:50 [facility] documented in this enc ounter Discharge Instructions Instructions Anastacio Mendoza MD - 11/12/2018Printed list of medications from this [facility] is not correct. Resume your normal medications. You have a new prescription for levofloxac in antibiotic for the next 6 days. You will receive a dose of levofloxacin at the hospital today so will begin your prescription tomorrow, Tuesday. Contact [facility] emergency r oom Tuesday and possibly Tuesday until results of your urine culture are final and verify you are on the correct antibiotic through an emergency room nurse. Follow kidney stone prevention diet. You have a temporary stent to your right kidney. Nex t phase of telescopic stone surgery should be performed in the next 1 to 3 weeks either by c ontsandy Chino or Dr. Mendoza documented in this encounter Medications at Time of Discharge + + + +---------+ + + | Medication | Sig | Dispensed | Refills | Start | End Date | | | | | | Date | | + + + +---------+ + + | clonazePAM | Take 1 mg by mouth | | 0 | 11/02/19 | | | (KLONOPIN) 1 mg | nightly. | | | 19 | | | tablet | | | | | | + + + +---------+ + + | lamoTRIgine | Take 200 mg by mouth | | 0 | 04/03/20 | | | (LAMICTAL) 100 mg | Daily. | | | 18 | | | tablet | | | | | | + + + +---------+ + + | prazosin | Take 6 mg by mouth | | 0 | | | | (MINIPRESS) 2 MG | nightly. | | | | | | capsule | | | | | | + + + +---------+ + + | albuterol (PROAIR | Inhale 2 puffs into | | 0 | | | | HFA) 90 mcg/puff | the lungs every 4 | | | | 9 | | inhaler | hours as needed. | | | | | + + + +---------+ + + | citalopram | Take 10 mg by mouth | | 0 | 05/10/20 | | | (CELEXA) 10 mg | once daily. | | | 17 | 9 | | tablet | | | | | | + + + +---------+ + + | citalopram | Take 20 mg by mouth | | 0 | 05/25/20 | | | (CELEXA) 20 mg | once daily. | | | 17 | 9 | | tablet | | | | | | + + + +---------+ + + | cyclobenzaprine | Take 1 tablet by | | 0 | 05/16/20 | | | (FLEXERIL) 5 MG | mouth 2 (two) times | | | 17 | 9 | | tablet | a day as needed. | | | | | + + + +---------+ + + | desvenlafaxine | take 1 tablet by | | 0 | 03/22/20 | | | (PRISTIQ) 25 mg ER | mouth twice a day | | | 18 | 9 | | tablet | | | | | | + + + +---------+ + + | docusate-senna | Take 1 tablet by | | 0 | | | | (SENOKOT-S) 50-8.6 | mouth Twice daily | | | | 9 | | mg per tablet | as needed for | | | | | | | Constipation. | | | | | + + + +---------+ + + | | Take 1 tablet by | 15 | 0 | 03/01/20 | | | HYDROcodone-acetamin | mouth every 6 hours | tablet | | 15 | 9 | | ophen (NORCO) 5-325 | as needed for Pain. | | | | | | mg per tablet | | | | | | + + + +---------+ + + | lamoTRIgine | Take 100 mg by mouth | | 0 | 05/30/20 | | | (LAMICTAL) 200 MG | 2 (two) times a | | | 17 | 9 | | tablet | day. | | | | | + + + +---------+ + + | LATUDA 80 MG | Take 80 mg by mouth | | 0 | 04/05/20 | | | tablet | daily (with | | | 18 | 9 | | | breakfast). | | | | | + + + +---------+ + + | levoFLOXacin | Take 1 tablet by | 6 | 0 | 11/13/19 | | | (LEVAQUIN) 500 mg | mouth Daily. | tablet | | 19 | 9 | | tabletIndications: | Indications: UTI - | | | | | | UTI - UPPER | Upper | | | | | + + + +---------+ + + | oxybutynin | Place 1 patch onto | | 0 | | | | (OXYTROL) 3.9 mg/24 | the skin. EVERY 4 | | | | 9 | | hr | DAYS | | | | | + + + +---------+ + + | | Take 1 tablet by | | 0 | | | | oxyCODONE-acetaminop | mouth every 6 hours | | | | 9 | | hen (PERCOCET) 5-325 | as needed for Pain. | | | | | | mg per tablet | | | | | | + + + +---------+ + + | prazosin | Take 1 mg by mouth | | 0 | 05/25/20 | | | (MINIPRESS) 1 mg | nightly. | | | 17 | 9 | | capsule | | | | | | + + + +---------+ + + | prazosin | Take 2 mg by mouth | | 0 | 10/27/19 | | | (MINIPRESS) 2 MG | every morning. | | | 19 | 9 | | capsule | | | | | | + + + +---------+ + + | promethazine | Take 25 mg by mouth | | 0 | | | | (PHENERGAN) 25 mg | every 6 hours as | | | | 9 | | tablet | needed for Nausea or | | | | | | | Vomiting. | | | | | + + + +---------+ + + | PROPRANOLOL HCL PO | Take by mouth | | 0 | | | | | Daily. | | | | 9 | + + + +---------+ + + | SUMAtriptan | Take 1 tablet (50 mg | | 0 | 06/02/20 | | | (IMITREX) 50 mg | total) by mouth | | | 17 | 9 | | tablet | once as needed for | | | | | | | migraine. May repeat | | | | | | | in 2 hours if | | | | | | | unresolved. Do not | | | | | | | exceed 200 mg in 24 | | | | | | | hours. | | | | | + + + +---------+ + + | tamsulosin | Take 0.4 mg by mouth | | 0 | | | | (FLOMAX) 0.4 mg CAPS | daily (after | | | | 9 | | | breakfast). | | | | | + + + +---------+ + + documented as of this encounter H&P Notes Anastacio Mendoza MD - 11/11/2018 9:52 PM PDT [facility] ADMIT HISTORY AND PHYSICAL Primary Care Physician: No primary care provider on file. PATIENT NAME: Mireya Ramos : 1970 TODAY'S DATE: 11/11/2018 IMPRESSION: 1. Febrile UTI with obstructing right ureteropelvic junction calculus 2. 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 She received 2 g ceftriaxone at [facility]. Urgent cystoscopy with placement of ri ght double-J stent is proposed. After her UTI is controlled, elective right ureteroscopic l ithotripsy would be scheduled. 2. Patient will receive appropriate VTE prophylaxis. CHIEF COMPLAINT: Diffuse but predominantly right-sided abdominal discomfort History OF PRESENT ILLNESS: Mireya Ramos is a 48 y.o. female, with a history of passing her first kidney stone around 1989. She has undergone 3 prior ureteroscopic procedures including right and left kidney, m ost recently June [address] Chino in [place]. She is aware of calcium oxalate kid sophie stone and is practicing an extra hydration, fairly low sodium and low oxalate diet. She now presents with a 4-day history of abdominal discomfort and today began experiencing emes is. She denies awareness of fever at home, dysuria or gross hematuria. Her voided urine villa s pyuria and this appears to be her first UTI as she presents with fever T[place] in the e mergency room. Noncontrast abdomen and pelvis CT demonstrates a 15 mm right ureteropelvic j unction stone, 8 mm left lateral calyceal stone, 2 punctate right and 1 left punctate stones . She normally voids 8 times while awake and twice at night with good caliber continuous stre am. She wears one liner per day last year because of post void dribbling. PAST MEDICAL HISTORY Posttraumatic stress disorder, bipolar disorder, chronic back pain PAST SURGICAL HISTORY Past Surgical History: Procedure Laterality Date lithotipsy SALPINGECTOMY Bilateral MEDICATIONS Prior to Admission medications Medication Sig Start Date End Date Taking? Authorizing Provider buPROPion (WELLBUTRIN XL) 150 mg 24 hr tablet 01/17/18 Historical Provider, clonazePAM (KLONOPIN) 1 mg tablet 11/01/18 Historical Provider, desvenlafaxine (PRISTIQ) 25 mg ER tablet take 1 tablet by mouth twice a day 03/22/18 Hist orical Provider, lamoTRIgine (LAMICTAL) 100 mg tablet 04/03/18 Historical Provider, LATUDA 80 MG tablet 04/05/18 Historical Provider, phenazopyridine (PYRIDIUM) 200 mg tablet 04/03/18 Historical Provider, prazosin (MINIPRESS) 2 MG capsule 10/26/18 Historical Provider, promethazine (PHENERGAN) 25 mg tablet take 1 tablet by mouth three times a day if needed fo r nausea and vomiting 03/31/18 Historical Provider, RA LAXATIVE & STOOL SOFTENER 8.6-50 MG per tablet take 1 tablet by mouth every 12 hours if needed for constipation 11/23/17 Historical Provider, ALLERGIES Allergies not on file FAMILY HISTORY SOCIAL HISTORY She smokes 1/2 pack of cigarettes daily. She has not consumed alcohol since her 20s. She drinks 1 cup of coffee daily. REVIEW OF SYSTEMS Normally once daily bowel movement. Chronic low back discomfort with normal lower extremit y sensation. No stroke, shortness of breath, angina, acid reflux, hepatitis, skin cancer, u nusual infection PHYSICAL EXAM Temp: 37.3 C (99.1 F) BP: 121/65 Pulse: 51 Resp: 18 SpO2: 94 % on Wt. Admission: Weight: 94.3 kg (207 lb 14.3 oz) Constitutional : Somewhat heavyset female in bed in mild distress from abdominal pain Eyes: Conjugate gaze HENT: Normocephalic Respiratory : Clear to auscultation without wheeze Cardiovascular : Regular rate GI: Abdomen protuberant and soft but moderate diffuse tenderness without rebound. Normal bowel tones. : Musculoskeletal : Symmetric extremity Integument : Vitiligo and chest erythema Lymphatic : No edema Neurologic : Clear speech Psychiatric : Alert and interactive Diagnostic Studies: Laboratory studies and imaging were personally reviewed by me. Chemistry: Sodium 138, potassium 3.8, chloride 108, bicarbonate 23, BUN 13, creatinine 119 , glucose 99 Hematology: Hematocrit 41, platelet count 269,000, WBC 14.3 Urine 15 RBC and greater than 50 WBC with culture pending at [place] Electronically Signed by: Anastacio Mendoza MD, 11/11/2018 21:59 [facility] documented in this enc ounter Miscellaneous Notes Plan of Care - Anastacio Amin RN - 11/12/2018 9:42 AM PDTDaneptali called a friend and arrange d for transport back home this morning. Plan reviewed for Mireya to resume her home medicatio ns and take her antibiotic. Mireya was instructed to follow up with Ad[facility]' to review h er urine culture results this week per Dr. Mendoza's instruction in [facility]. Electronically katie d by Anastacio Amin RN at 11/12/2018 9:43 AM PDTPlan of Care - Sonja Lara RN - 019 5:43 AM PDTDarcy HRR, bradycardic 40-50s post-op, asymptomatic, BP stable. C/O mild VILLA pain relieved with PRN Tylenol. Voiding adequately, dysuria and frequency noted. BTs hypoact josie, denies N/V. 1P CGA for transfers to toilet, fall prec and hourly rounding maintained. E lectronically signed by Sonja Lara RN at 11/12/2018 5:45 AM PDTPlan of Care - Jennifer Lara RN - 11/12/2018 5:38 AM PDTDarcy received to RM 321 from PACU at 2351 by bed. A/O x4, speech clear, responsive, CMS intact. Electronically signed by Sonja Lara RN at 07/2018 5:43 AM PDTOp Note - Anastacio Mendoza MD - 11/11/2018 10:54 PM PDT[facility] Pt. Name/Age/: Mireya Ramos 48 y.o. 1970 Med. Record Number: [id number] Date of Operation/Procedure: 11/11/2018 Preoperative Diagnosis: Obstructing right ureteropelvic junction calculus with UTI and syst emic inflammatory response syndrome [N20.1, N39.0, R65.10] Postoperative Diagnosis: Same Surgeon: Anastacio Mendoza MD Automotive Generator Repairer(s): None Anesthesia Provider(s): Anesthesiologist: Hood Horowitz MD Anesthesia Type: General Procedure(s): CYSTOSCOPY WITH MANIPULATION OF RIGHT PROXIMAL URETERAL CALCULUS PLACEMENT RIGHT URETERAL STENT Operative Indications: Mireya Ramos is a 48 y.o. year old female with a history of recurr ent nephrolithiasis since the . She has undergone 3 ureteroscopic stone procedures in recent years. She now presents with abdominal pain and emesis and elevated white blood cell count, urine with pyuria and CT today demonstrates a 15 mm right ureteropelvic junction erick culus with hydronephrosis. Additionally CT demonstrates an approximate 8 mm left mid calyce al stone, another punctate left stone, and 2 other punctate right-sided stones. She receive d 2 g ceftriaxone approximately 1600 hrs. today. She had a voided urine sample with epithel ial cells, then about 20 minutes after IV antibiotic a urine was catheterized for lab. Calc ium oxalate analysis has been previously confirmed. Operative Findings: Operation: The patient was identified as Mireya Ramos and the procedure was confirmed as stated above. The patient was placed in the supine position. SCD devices were applied. Foll owing the induction of adequate general anesthesia, legs were placed in lithotomy and the ge nitalia prepped and draped in the usual sterile fashion. A 23 Swiss cystoscope was introduced with the obturator. Bladder has minimal erythema. T rigone was symmetric in both ureteral orifices are generous. Bladder is without other mucos al lesion. 0.035 inch diameter guidewire is threaded into the right ureter and advanced wit h fluoroscopic guidance. The wire bypasses the proximal ureteral stone. A 5 Swiss open-en ded ureteral catheter is advanced over the guidewire accomplishing retrograde manipulation o f the calculus. Fairly clear urine was drained from the right renal pelvis. Contrast is in jected through the ureteral catheter highlighting renal pelvis anatomy. Guidewire is placed back to the superior pole of the right kidney. Ureteral catheter is removed. A 6 Swiss b y 26 cm double-J stent was divided over the safety wire. Cephalad tip coils around the ston e in the small renal pelvis. Inferior tip coils within the bladder after removal of stent s tring and wire. Estimated Blood Loss: none Transfused: no Drains: 6 Fr x 26 cm right ureteral stent Specimen (s): * No specimens in log * Complications: none Electronically Signed by: Anastacio Mendoza MD, 11/11/2018 22:54 [facility] documented in this enc ounter Plan of Treatment +--------+---------+ + + + | Date | Type | Specialty | Care Team | Description | +--------+---------+ + + + | 06/02/ | Office | Nephrology | Brda Singh MD | | | 2019 | Visit | | [address] [facility] | | | | | | [address] [place], [place] | | | | | | [address] | | | | | | | | +--------+---------+ + + + documented as of this encounter Procedures + +--------+ + + + | Procedure Name | Priori | Date/Time | Associated Diagnosis | Comments | | | ty | | | | + +--------+ + + + | DELMAR JOSÉ | Routin | 11/12/2018 | | Results for this | | TUBE | e | 6:41 AM | | procedure are in the | | | | PDT | | results section. | + +--------+ + + + | BASIC METABOLIC | Routin | 11/12/2018 | | Results for this | | PANEL | e | 6:02 AM | | procedure are in the | | | | PDT | | results section. | + +--------+ + + + | FL PYELOGRAM | Routin | 11/11/2018 | | Results for this | | RETROGRADE | e | 10:54 PM | | procedure are in the | | | | PDT | | results section. | + +--------+ + + + | CYSTOSCOPY PLACEMENT | | 11/11/2018 | right ureteral | | | URETERAL STENT | | 10:18 PM | stone | | | | | PDT | | | + +--------+ + + + | IMAGING REPORT - | | 11/11/2018 | | Results for this | | EXTERNAL SCAN | | 12:00 AM | | procedure are in the | | | | PDT | | results section. | + +--------+ + + + documented in this encounter Results Extra Lavender Top Tube (11/12/2018 6:41 AM PDT) + +-------+ + + + | Component | Value | Ref Range | Performed | Pathologist | | | | | At | Signature | + +-------+ + + + | Extra | Done | | [facility] | | | Lavender | | | [facility] | | | Top Tube | | | [facility]ICAL | | | | | | CENTER - | | | | | | LABORATORY | | + +-------+ + + + + + | Specimen | + + | Blood | + + + + + + + | Performing | Address | City/State/Zipcode | Phone Number | | Organization | | | | + + + + + | [facility] | [address] | [place] | [phone] | | [facility] | | [address] | | | - LABORATORY | | | | + + + + + Basic Metabolic Panel (11/12/2018 6:02 AM PDT) + + + + + + | Component | Value | Ref Range | Performed | Pathologist | | | | | At | Signature | + + + + + + | Na | 139 | 136 - 145 | [facility] | | | | | mmol/L | [facility] | | | | | | MEDICAL | | | | | | CENTER - | | | | | | LABORATORY | | + + + + + + | K | 4.0 | 3.4 - 5.1 | [facility] | | | | | mmol/L | [facility] | | | | | | MEDICAL | | | | | | CENTER - | | | | | | LABORATORY | | + + + + + + | Cl | 108 (H) | 98 - 107 mmol/L | [facility] | | | | | | [facility] | | | | | | MEDICAL | | | | | | CENTER - | | | | | | LABORATORY | | + + + + + + | CO2 | 27 | 20 - 31 mmol/L | [facility] | | | | | | [facility] | | | | | | MEDICAL | | | | | | CENTER - | | | | | | LABORATORY | | + + + + + + | Anion Gap | 4 | 3 - 16 mmol/L | [facility] | | | | | | [facility] | | | | | | MEDICAL | | | | | | CENTER - | | | | | | LABORATORY | | + + + + + + | Glucose | 137 (H) | 60 - 106 mg/dL | [facility] | | | | | | [facility] | | | | | | MEDICAL | | | | | | CENTER - | | | | | | LABORATORY | | + + + + + + | BUN | 10 | 9 - 23 mg/dL | [facility] | | | | | | [facility] | | | | | | MEDICAL | | | | | | CENTER - | | | | | | LABORATORY | | + + + + + + | Creatinine | 1.05 (H) | 0.55 - 1.02 | [facility] | | | | | mg/dL | [facility] | | | | | | MEDICAL | | | | | | CENTER - | | | | | | LABORATORY | | + + + + + + | eGFR if not | 56 (L)Comment: | >=60 | [facility] | | | | GLOMERULAR FILTRATION | mL/min/1.73m2 | [facility] | | | [place] CITIZ[place] | RATE,ESTIMATED | | MEDICAL | | | | mL/min/1.03f8Lcih than | | CENTER - | | | | 60 Chronic kidney | | LABORATORY | | | | disease,if found over a | | | | | | 3-month period.Less than | | | | | | 15 Kidney failureFor | | | | | | | | | | | | Americans,multiply the | | | | | | calculated GFR by 1.21. | | | | | | | | | | + + + + + + | Calcium | 10.0 | 8.7 - 10.4 | [facility] | | | | | mg/dL | [facility] | | | | | | MEDICAL | | | | | | CENTER - | | | | | | LABORATORY | | + + + + + + | BUN/Creatin | 9.5 | | [facility] | | | ine Ratio | | | [facility] | | | | | | MEDICAL | | | | | | CENTER - | | | | | | LABORATORY | | + + + + + + + + | Specimen | + + | Blood | + + + + + + + | Performing | Address | City/State/Zipcode | Phone Number | | Organization | | | | + + + + + | [facility] | [address] | [place] | [phone] | | [facility] | | [address] | | | - LABORATORY | | | | + + + + + FL Pyelogram Retrograde (11/11/2018 10:54 PM PDT) + + | Specimen | + + | | + + + + + | Narrative | Performed At | + + + | This exam has been auto-finalized and the interpretation may exist | [facility] | | elsewhere in the chart. | | + + + + +---------+ + + | Performing | Address | City/State/Zipcode | Phone Number | | Organization | | | | + +---------+ + + | [facility] | | | | + +---------+ + + IMAGING REPORT - EXTERNAL SCAN (11/11/2018 12:00 AM PDT) + + + | Narrative | Performed At | + + + | Ordered by an | | | unspecified provider. | | + + + documented in this encounter Visit Diagnoses + + | Diagnosis | + + | Ureteral calculus, right - Primary Calculus of ureter | + + | PTSD (post-traumatic stress disorder) Posttraumatic stress disorder | + + | Bipolar 1 disorder (HCC) Bipolar I disorder, most recent episode (or current) | | unspecified | + + | Chronic back pain Backache, unspecified | + + | UTI (urinary tract infection) with pyuria Urinary tract infection, site not specified | + + | Diverticulosis of colon Diverticulosis of colon (without mention of hemorrhage) | + + | Smoker - Daily Tobacco use disorder | + + | Hydronephrosis of right kidney Hydronephrosis | + + | Anxiety Anxiety state, unspecified | + + | Hypertension Unspecified essential hypertension | + + | SIRS (systemic inflammatory response syndrome) (HCC) Systemic inflammatory response | | syndrome, unspecified | + + documented in this encounter Administered Medications + +--------+ +--------+------+------+ | Medication Order | MAR | Action | Dose | Rate | Site | | | Action | Date | | | | + +--------+ +--------+------+------+ | acetaminophen (TYLENOL) tablet | Given | 11/13/19 | 650 mg | | | | 650 mg 650 mg, Oral, EVERY 4 | | 19 2:40 | | | | | HOURS PRN, Pain, Fever, Starting | | AM PDT | | | | | 11/11/18 at 2352, Post-op/Phase | | | | | | | II | | | | | | + +--------+ +--------+------+------+ +---+---+ | | | +---+---+ + +-------+ +--------+---+---+ | fentaNYL (PF) injection 25-50 | Given | 11/12/19 | 25 mcg | | | | mcg 25-50 mcg, Intravenous, | | 19 11:28 | | | | | EVERY 5 MIN PRN, Pain, Initial | | PM PDT | | | | | postop urgent pain or escalating | | | | | | | pain, Starting 11/11/18 at | | | | | | | 2320, For 4 doses, (2 doses | | | | | | | maximum for opioid naive, 4 doses | | | | | | | maximum for opioid tolerant) | | | | | | | First dose must be lowest dose. | | | | | | | Use Pasero Sedation Scale. | | | | | | | [Opioid tolerant = One week or | | | | | | | longer, magxvh-xrl-mnisw use of | | | | | | | at least the following DAILY | | | | | | | dose: 60mg oral morphine, 60mg | | | | | | | oral hydrocodone, 30mg oral | | | | | | | oxycodone, 8mg oral | | | | | | | hydromorphone, fentanyl patch | | | | | | | 25mcg/hr, or equivalent dose of | | | | | | | another opioid], Recovery/Phase I | | | | | | + +-------+ +--------+---+---+ +-------+ +--------+---+---+ | Given | 11/12/19 | 25 mcg | | | | | 19 11:23 | | | | | | PM PDT | | | | +-------+ +--------+---+---+ +---+---+ | | | +---+---+ + +-------+ +--------+---+---+ | HYDROmorphone (DILAUDID) | Given | 11/12/19 | 0.4 mg | | | | injection 0.2-0.6 mg 0.2-0.6 mg, | | 19 11:35 | | | | | Intravenous, EVERY 5 MIN PRN, | | PM PDT | | | | | Pain, Starting 11/11/18 at | | | | | | | 2320, First dose must be lowest | | | | | | | dose, can increase subsequent | | | | | | | doses by 0.2mg within dosing | | | | | | | range. If patient meets opioid | | | | | | | tolerant definition, can start | | | | | | | with 0.4mg dose. [Maximum total | | | | | | | PACU dose 4mg] Use Pasero | | | | | | | Sedation Scale. [Opioid tolerant | | | | | | | = One week or longer, | | | | | | | zxorjk-qfw-chjyk use of at least | | | | | | | the following DAILY dose: 60mg | | | | | | | oral morphine, 60mg oral | | | | | | | hydrocodone, 30mg oral oxycodone, | | | | | | | 8mg oral hydromorphone, fentanyl | | | | | | | patch 25mcg/hr, or equivalent | | | | | | | dose of another opioid], | | | | | | | Recovery/Phase I | | | | | | + +-------+ +--------+---+---+ +---+---+ | | | +---+---+ + +---------+ +---+-------+---+ | lactated ringers (LR) infusion | New Bag | 11/13/19 | | 100 | | | at 100 mL/hr, Intravenous, | | 19 6:50 | | mL/hr | | | CONTINUOUS, Starting 11/12/18 | | AM PDT | | | | | at 0015, NOT compatible with | | | | | | | Ceftriaxone. , Hold LR while | | | | | | | administratering Ceftriaxone, | | | | | | | Post-op/Phase II | | | | | | + +---------+ +---+-------+---+ +---------+ +---+-------+---+ | New Bag | 11/13/19 | | 100 | | | | 19 12:52 | | mL/hr | | | | AM PDT | | | | +---------+ +---+-------+---+ +---+---+ | | | +---+---+ + +-------+ +--------+---+---+ | lamoTRIgine (laMICtal) tablet | Given | 11/13/19 | 200 mg | | | | 200 mg 200 mg, Oral, DAILY, | | 19 9:05 | | | | | First dose on 11/12/18 at 0900, | | AM PDT | | | | | Post-op/Phase II | | | | | | + +-------+ +--------+---+---+ +---+---+ | | | +---+---+ + +-------+ +--------+---+---+ | levoFLOXacin (LEVAQUIN) tablet | Given | 11/13/19 | 500 mg | | | | 500 mg 500 mg, Oral, DAILY, | | 19 9:06 | | | | | First dose on 11/12/18 at 0900, | | AM PDT | | | | | Give 2 hours before or 2 hours | | | | | | | after antacids, iron, or zinc., | | | | | | | Indications: UTI - UPPER | | | | | | + +-------+ +--------+---+---+ +---+---+ | | | +---+---+ + +-------+ +------+---+---+ | prazosin (MINIPRESS) capsule 2 | Given | 11/13/19 | 2 mg | | | | mg 2 mg, Oral, EVERY MORNING, | | 19 9:04 | | | | | First dose on 11/12/18 at 0900, | | AM PDT | | | | | Post-op/Phase II | | | | | | + +-------+ +------+---+---+ +---+---+ | | | +---+---+ + +-------+ +--------+---+---+ | senna (SENOKOT) tablet 8.6 mg | Given | 11/13/19 | 8.6 mg | | | | 8.6 mg, Oral, 2 TIMES DAILY, | | 19 9:06 | | | | | First dose on 11/12/18 at 0015, | | AM PDT | | | | | If docusate ineffective or not | | | | | | | ordered, Post-op/Phase II | | | | | | + +-------+ +--------+---+---+ +---+---+ | | | +---+---+ documented in this encounter
--- OUTSIDE RECORDS SUMMARY | ~2019-12-26 | XMS | Encounter Summary ---
Demographics + + + | Address | [address] | | | [place] [address] | + + + | Home Phone | | + + + | Preferred Language | Unknown | + + + | Marital Status | Unknown | + + + | Restorationist Affiliation | 1013 | + + + | Race | Unknown | + + + | Ethnic Group | Unknown | + + + Author + + + | Author | [facility] | | | and [place] | + + + | Organization | [facility] | | | and [place] | [...] Team Providers + +------+ + | Care Wire Weaver Name | Role | Phone | + [...] | | | | Diagnoses | | [place], | | | | | Calculus of | | Anastacio Hanks MD | | | | | ureter | | [address] | | | | | Procedures | | [facility] | | | | | [place] | | [place] | | | | | CYSTO/URETER | | [address] | | | | | O | | Phone: | | | | | W/LITHOTRIPS | | [phone] | | | | | Y &LINDSEY | | Fax: | | | | | STENT INSRT | | [phone] | | | | | RIGHT | | | | | | | CYSTOSCOPY | | | | | | | URETEROSCOPY | | | | | | | W/ LASER | | | +--------+--------+ + + + + Encounter Details +--------+ + + + + | Date | Type | Department | Care Team | Description | +--------+ + + + + | 12/17/ | Anesthesia | [facility] | [facility] | | | 2020 | Event | [facility] | MD [address] | | | | | [address] | [address] | | | | | [place] | [place] [id number] | | | | | [phone] | | | | | | | | | +--------+ + + + + Anesthesia Record + + + + + | Procedure Name | Responsible | Anesthesia Start | Anesthesia Stop Time | | | Anesthesiologist | Time | | + + + + + | CYSTOSCOPY, RIGHT | Walker Barnett | [birth year] | 12/18/192127 | | URETEROSCOPY W/ | MD Mert | | | | LASER AND STENT | | | | | PLACEMENT (Right | | | | | Pelvis) | | | | + + + + + +----+---+ + + | Da | T | Event | Comment | | te | i | | | | | m | | | | | e | | | +----+---+ + + | 07 | 1 | | | | /0 | 9 | | | | 7/ | 3 | | | | 20 | 5 | | | | 20 | | | | +----+---+ + + | | 1 | An Checkout | Pre-use anesthesia machine/equipment checkout. | | | 9 | | | | | 3 | | | | | 5 | | | +----+---+ + + | | 1 | An Start | | | | 9 | Data | | | | 4 | | | | | 4 | | | +----+---+ + + | | 1 | An Start | Reassessment prior to anesthesia induction/procedure. | | | 9 | | | | | 4 | | | | | 4 | | | +----+---+ + + | | 1 | Preoxygenat | | | | 9 | ed | | | | 4 | | | | | 8 | | | +----+---+ + + | | 1 | An | | | | 9 | Induction | | | | 4 | | | | | 9 | | | +----+---+ + + | | 1 | An | | | | 9 | Intubation | | | | 5 | | | | | 0 | | | +----+---+ + + | | 1 | Antibiotic | | | | 9 | Given | | | | 5 | | | | | 1 | | | +----+---+ + + | | 1 | Breathing | | | | 9 | Spontaneous | | | | 5 | ly | | | | 1 | | | +----+---+ + + | | 2 | Pre-Procedu | | | | 0 | ral Timeout | | | | 0 | Completed | | | | 0 | | | +----+---+ + + | | 2 | First | | | | 0 | Inc/Proc St | | | | 0 | | | | | 1 | | | +----+---+ + + | | 2 | Moving | | | | 1 | Purposefull | | | | 2 | y | | | | 0 | | | +----+---+ + + | | 2 | Oropharynx | | | | 1 | Suctioned | | | | 2 | | | | | 1 | | | +----+---+ + + | | 2 | Extubation/ | | | | 1 | Airway LDA | | | | 2 | Removal | | | | 2 | | | +----+---+ + + | | 2 | an stop | | | | 1 | data | | | | 2 | | | | | 4 | | | +----+---+ + + | | 2 | An Stop | Patient handed off to recovery nurse. | | | 2 | | | | | 8 | | | +----+---+ + + +------+ | Meds | +------+ + + + | Name | Total | + + + | fentaNYL | 200 mcg | + + + | lidocaine 2% | 100 mg | + + + | propofol | 200 mg | + + + | ketamine | 30 mg | + + + | ondansetron | 4 mg | + + + | dexamethasone (PF) injection 10 | 6 mg | | mg/mL | | + + + | phenylephrine (BIORPHEN) | 100 mcg | | injection 0.1 mg/mL (5 mL ampule) | | + + + | magnesium sulfate | 1 g | + + + | ceFAZolin (ANCEF, KEFZOL) 100 | 2 g | | mg/mL IV Push syringe 2 g | | + + + | lactated ringers (LR) infusion | 1,000 mL | + + + + + | Name | + + | N2O Flow Rate (L/Min) | + + | O2 Flow Rate (L/Min) | + + | Insp O2 | + + | Exp SEV | + + | Air Flow Rate (L/Min) | + + + + | No blood administrations on file. | + + +--------+ + + + | Type | Details | Placement | Removal | +--------+ + + + | Periph | 12/18/19; 1923; Left; Hand; | 12/18/191923 by Jose Armando | 12/19/19643 by | | joselyn | [id number] catheter system; | Eulogio Brady RN | Celia Villatoro RN | | IV | 18 gauge; short term use; | | | | | 12/19/19; 643 | | | +--------+ + + + | Airway | Placement Date: 12/18/19; | 12/18/191949 by | 12/18/192124 by | | | Placement Time: 1949 (created via | Walker [facility]ett | Walker Barnett | | | procedure documentation); Mask | MD Mert | MD Mert | | | Ventilation: N/A; Airway Type: | | | | | laryngeal mask; Size: 4; Trauma: | | | | | none; Placement Check: exhaled | | | | | CO2 detection device, bilateral | | | | | chest rise, breath sounds equal | | | | | bilaterally; Removal Date: | | | | | 12/18/19; Removal Time: 2124 | | | +--------+ + + + documented in this encounter Social History + +-------+ +--------+------+ | Tobacco [...] + + documented as of this encounter OR Notes Anesthesia Postprocedure Evaluation - [facility] MD - 12/19/2019 11:26 PM PDTFo rmatting of this note might be different from the original. ANESTHESIA POSTANESTHESIA EVALUATION Mireya Ramos 49 y.o. female 1970 [id number] Patient delivered to PACU and vital signs immediately checked and assessed. Signout give n to FRONT OFFICE AGENT at bedside. Patient breathing spontaneously, is hemodynamically stable and aure ears comfortable. Procedure(s) CYSTOSCOPY, RIGHT URETEROSCOPY W/ LASER AND STENT PLACEMENT (Right Pelvis) Cooperates? Yes Mental Status Performs simple tasks. Respiratory Satisfactory - Airway patent (self maintained). Cardiovascular Satisfactory - Blood pressure and heart rate acceptable Temperature Satisfactory Pain Satisfactory N/V Control Satisfactory Hydration Satisfactory - No signs of dehydration Adverse Events ADVERSE EVENTS: No adverse events Vitals Value Taken Time Temp 36.6 C (97.9 F) 12/19/19 031 Pulse 56 12/19/19 0310 Resp 18 12/19/19 0310 BP 113/61 12/19/19 0310 Arterial Line BP Arterial Line BP 2 SpO2 94 % 12/19/19309 Electronically signed by Walker Painting MD 12/19/2019 11:26 PM PDT [facility] MD a t 12/19/2019 11:27 PM PDTAnesthesia Procedure Notes - Walker [facility] MD - 12/18/2019 8:04 PM PDTAssociated Order(s): AirwayAnesthesia Airway Placement 12/18/2019 7:50 PM Preprocedure check: patient identified, airway equipment checked, airway assessed, suction, oxygen and patient reassessment prior to induction Rapid Sequence Induction: no Mask ventilation: N/A Airway type: laryngeal mask Size: 4 Cuffed: cuffed Route, reference point: center of mouth Tube secured with: adhesive tape Trauma: none Tube placement verification: bilateral chest rise, equal bilateral breath sounds and carbon dioxide detection Performing provider: [facility] MD Authorizing provider: [facility] MD Please see intraoperative grid for any additional medication documentation. nesthesia Prep rocedure Evaluation - [facility] MD - 12/18/2019 7:31 PM PDT ANESTHESIA PREANESTHESIA EVALUATION Mireya Ramos 49 y.o. female 1970 [id number] Procedure(s): RIGHT CYSTOSCOPY URETEROSCOPY W/ LASER (Right Pelvis) Medical,anesthesia, drug, allergy histories reviewed, NPO status verified. Labs reviewed. (+) perioperative beta-lisa/statin given/taken. Review of Systems / Med History Anesthesia History No anesthesia complications except where noted below. (+) previous surgery or anesthesia. Cardiovascular Exercise tolerance >4 METS. Pulmonary (-) sleep apnea.(+) asthma.(+) tobacco use.(+) ex-smoker. Gastrointestinal/Hepatic Negative except where noted below. Endocrine (+) obesity: BMI (30-39) Hematology/Other .. Cancer Negative except where noted below. Neuromuscular Negative except where noted below. (+) back pain, chronic pain. Psychology (+) substance abuse, methamphetamines. Physical Exam Airway MP II, TM >3 FB, Mouth opening >2 FB. Neck: full ROM, extends >30 degrees. Jaw protrus ion normal. Facial hair present: No Dental grossly normal except where noted below. CV Rhythm regular. Rate normal. (-) murmur. Pulm Clear to auscultation bilaterally. Neuro grossly normal. Anesthesia Plan ASA: 3 (drug use, smoker, chronic kidney disease) Type: General. Induction: Intravenous. Potential problems: None anticipated. Monitors: Standard ASA monitors. Consent statement: Anesthetic plan, alternatives, risks and benefits discussed with patient. backache, , discussed risks to teeth, disability, drug reaction, heart problems, ICU placement, infectio n, muscle aches, nausea, pain, perioperative CV events, post-op intubation, respiratory even ts, sore throat, stroke, voice injury, delirium Blood transfusion concerns: Consenting person understands and agrees to proceed. PARQ. Anesthesia consent held with patient regarding risks as checked above. All of the patient' s questions were answered. Patient understands, agrees and consents to proceed. Past Medical History: No date: Anxiety No date: Asthma No date: Bipolar 1 disorder (HCC) 04/03/2019: Chronic kidney disease, stage III (moderate) (HCC) No date: Hypertension No date: Kidney stones No date: PTSD (post-traumatic stress disorder) . Electronically Signed by: Walker Painting MD ESig date/time: 12/18/2019 7:31 PM PDT documented in t his encounter Miscellaneous Notes Anesthesia Post-op Handoff - [facility] MD - 12/18/2019 9:28 PM PDT ANESTHESIA HANDOFF NOTE Mireya Ramos 49 y.o. female 1970 [id number] CYSTOSCOPY, RIGHT URETEROSCOPY W/ LASER AND STENT PLACEMENT (Right Pelvis) HANDOFF NOTE Handoff Protocol Used: post-procedure handoff checklist completed The following were completed during the transfer of care: 1. Identification of patient 2. Identification of responsible practitioner (primary service) 3. Discussion of pertinent medical history 4. Discussion of the surgical/procedure course (procedure, reason for surgery, procedure pe rformed) 5. Intraoperative anesthetic management and issues/concerns 6. Expectations/plans for the early post-procedure period 7. Opportunity for questions and acknowledgement of understanding of report from receiving team Patient Location: Phase I Condition: alert and awake Airway/O2: no supplemental O2 Multimodal analgesia: multimodal analgesia used between 6 hours prior to anesthesia start t o PACU discharge The significant anesthesia concerns and VS in Epic were reviewed with the receiving team. Walker Painting MD 12/18/2019 9:28 PM PDT [facility]ron[facility] signed by MD mohan Malki t 12/18/2019 9:28 PM PDTdocumented in this encounter Plan of Treatment +--------+---------+ + + + | Date | Type | Specialty | Care Team | Description | +--------+---------+ + + + | 06/02/ | Office | Nephrology | Brad Singh MD | | 2019 | Visit | | [address] [facility] | | | | | | [address] [facility] [place] | | | | | | [address] | | | | | | | | +--------+---------+ + + + documented as of this encounter Procedures + +--------+ + + + | Procedure Name | Priori | Date/Time | Associated Diagnosis | Comments | | | ty | | | | + +--------+ + + + | ANE AIRWAY NOTE | Routin | 12/18/2019 | | Results for this | | | e | 8:04 PM | | procedure are in the | | | | PDT | | results section. | + +--------+ + + + documented in this encounter Results Airway (12/18/2019 8:04 PM PDT) + + + | Narrative | Performed At | + + + | Walker Painting MD 12/18/2019 8:04 PM Anesthesia Airway | | | Placement 12/18/2019 7:50 PM Preprocedure check: patient | | | identified, airway equipment checked, airway assessed, suction, | | | oxygen and patient reassessment prior to induction Rapid Sequence | | | Induction: no Mask ventilation: N/A Airway type: laryngeal mask | | | Size: 4 Cuffed: cuffed Route, reference point: center of mouth Tube | | | secured with: adhesive tape Trauma: none Tube placement | | | verification: bilateral chest rise, equal bilateral breath sounds | | | and carbon dioxide detection Performing provider: Walker Barnett | | | MD Mert Authorizing provider: Walker Painting MD | | | Please see intraoperative grid for any additional medication | | | documentation. | | + + + documented in this encounter Visit Diagnoses Not on filedocumented in this encounter Administered Medications + +--------+ +------+------+------+ | Medication Order | MAR | Action | Dose | Rate | Site | | | Action | Date | | | | + +--------+ +------+------+------+ | ceFAZolin (ANCEF, KEFZOL) 100 | Given | 12/18/19 | 2 g | | | | mg/mL IV Push syringe 2 g 2 g, | | 20 7:51 | | | | | Intravenous, ONCE, Tue12/18/19 at | | PM PDT | | | | | 1915, For 1 dose, Surgical | | | | | | | antibiotic prophylaxis dose | | | | | | | adjusted per [facility] | | | | | | | protocol Give IV Push over 3-5 | | | | | | | minutes., Pre-op, Indications: | | | | | | | Surgical Prophylaxis | | | | | | + +--------+ +------+------+------+ +---+---+ | | | +---+---+ + +-------+ +------+---+---+ | dexamethasone (PF) 10 mg/mL | Given | 12/18/19 | 6 mg | | | | injection Intravenous, PRN, | | 20 7:55 | | | | | Starting Tue12/18/19 at 1955, | | PM PDT | | | | | Anesthesia Intra-op | | | | | | + +-------+ +------+---+---+ +---+---+ | | | +---+---+ + +-------+ +--------+---+---+ | fentaNYL (PF) injection | Given | 12/18/19 | 50 mcg | | | | Intravenous, PRN, Starting Tue | | 20 9:06 | | | | | 12/18/19 at 1945, Anesthesia | | PM PDT | | | | | Intra-op | | | | | | + +-------+ +--------+---+---+ +-------+ +--------+---+---+ | Given | 12/18/19 | 50 mcg | | | | | 20 8:30 | | | | | | PM PDT | | | | +-------+ +--------+---+---+ | Given | 12/18/19 | 50 mcg | | | | | 20 7:53 | | | | | | PM PDT | | | | +-------+ +--------+---+---+ +---+---+ | | | +---+---+ + +-------+ +-------+---+---+ | ketamine 50 mg/mL injection | Given | 12/18/19 | 30 mg | | | | PRN, Starting 12/18/19 at 5, | | 20 8:45 | | | | | Anesthesia Intra-op | | PM PDT | | | | + +-------+ +-------+---+---+ +---+---+ | | | +---+---+ + +---------+ +---+---+---+ | lactated ringers (LR) infusion | New Bag | 12/18/19 | | | | | at 10-100 mL/hr, Intravenous, | | 20 9:00 | | | | | CONTINUOUS, Starting Tue12/18/19 | | PM PDT | | | | | at 1930, TKO., Pre-op | | | | | | + +---------+ +---+---+---+ + + +--------+-------+---+ | Continued by Anesthesia | 12/18/19 | | | | | | 20 7:44 | | | | | | PM PDT | | | | + + +--------+-------+---+ | New Bag | 12/18/19 | 1,000 | 100 | | | | 20 7:21 | mLs | mL/hr | | | | PM PDT | | | | + + +--------+-------+---+ +---+---+ | | | +---+---+ + +-------+ +--------+---+---+ | lidocaine (PF) 2% injection | Given | 12/18/19 | 100 mg | | | | Intravenous, PRN, Starting Tue | | 20 7:49 | | | | | 12/18/19 at 1948, Anesthesia | | PM PDT | | | | | Intra-op | | | | | | + +-------+ +--------+---+---+ +---+---+ | | | +---+---+ + +-------+ +-----+---+---+ | magnesium sulfate 500 mg/mL | Given | 12/18/19 | 1 g | | | | injection Intravenous, PRN, | | 20 7:56 | | | | | Starting 12/18/19 at 6, | | PM PDT | | | | | Anesthesia Intra-op | | | | | | + +-------+ +-----+---+---+ +---+---+ | | | +---+---+ + +-------+ +------+---+---+ | ondansetron (ZOFRAN) injection | Given | 12/18/19 | 4 mg | | | | Intravenous, PRN, Starting Tue | | 20 8:05 | | | | | 12/18/19 at 2004, Anesthesia | | PM PDT | | | | | Intra-op | | | | | | + +-------+ +------+---+---+ +---+---+ | | | +---+---+ + +-------+ +---------+---+---+ | phenylephrine (BIORPHEN) 0.1 | Given | 12/18/19 | 100 mcg | | | | mg/mL injection Intravenous, | | 20 8:02 | | | | | PRN, Starting Tue12/18/19 at 2001, | | PM PDT | | | | | Anesthesia Intra-op | | | | | | + +-------+ +---------+---+---+ +---+---+ | | | +---+---+ + +-------+ +--------+---+---+ | propofol (DIPRIVAN) injection | Given | 12/18/19 | 200 mg | | | | Intravenous, Zoila SANCHEZ | | 20 7:49 | | | | | 12/18/19 at 1949, Anesthesia | | PM PDT | | | | | Intra-op | | | | | | + +-------+ +--------+---+---+ +---+---+ | | | +---+---+ documented in this encounter"
--- OUTSIDE RECORDS SUMMARY | ~2019-12-26 | XMS | Encounter Summary ---
Demographics + + + | Address | [address] | | | [place] [address] | + + + | Home Phone | | + + + | Preferred Language | Unknown | + + + | Marital Status | Unknown | + + + | Sabianism Affiliation | 1013 | + + + | Race | Unknown | + + + | Ethnic Group | Unknown | + + + Author + + + | Author | [facility] [place] | | | and [place] | + + + | Organization | [facility] [place] | | | and [place] [...] Team Providers + +------+ + | Care Electrical Logger Name | Role | Phone | + +------+ + | Umesh Mcmahon NP | PCP | | + +------+ + Encounter Details +--------+ + + + + | Date | Type | Department | Care Team | Description | +--------+ + + + + | 01/18/ | Orders Only | [facility] | Provider, | | | 2018 | | [facility] GENERIC OP | MD [address] | | | | | [address] | [place] | | | | | [address] [place], [place] | [place] [address] | | | | | [address] | | | | | | [phone] | | | +--------+ + + + [...] 2019 | [facility] | | [address] [facility] | | | | | | [address] [place] | | | | | | [address] | | | | | | | | +--------+---------+ + + + documented as of this encounter Visit Diagnoses Not on filedocumented in this encounter"
--- OUTSIDE RECORDS SUMMARY | ~2019-12-26 | XMS | Encounter Summary ---
Demographics + + + | Address | [address] | | | [place] [address] | + + + | Home Phone | | + + + | Preferred Language | Unknown | + + + | Marital Status | Unknown | + + + | Confucianism Affiliation | 1013 | + + + | Race | Unknown | + + + | Ethnic Group | Unknown | + + + Author + + + | Author | [facility] | | | and [place] | + + + | Organization | [facility] | | | and [place] [...] Team Providers + +------+ + | Care Evp Sales Name | Role | Phone | + +------+ + | Umesh Mcmahon NP | PCP | | + +------+ + Encounter Details +--------+ + + + + | Date | Type | Department | Care Team | Description | +--------+ + + + + | 11/26/ | Orders Only | [facility] | Amita Phillip | Essential | | 2020 | | NEPRHOLOGY [facility] | A, Medical | hypertension; | | | | [address] | [address] | Hydronephrosis of | | | | [address] | | right kidney; Kidney | | | | [phone] | | stone on right | | | | [phone] | | side; Chronic kidney | | | | | | disease, stage III | | | | | | (moderate) (HCC) | +--------+ + + + + Social [...] 2020 | Visit | | [address] [facility] | | | | | | [address] [place], [place] | | | | | | [address] | | | | | | | | +--------+---------+ + + + documented as of this encounter Procedures + +--------+ + + + | Procedure Name | Priori | Date/Time | Associated Diagnosis | Comments | | | ty | | | | + +--------+ + + + | PROTEIN/CREATININE | Routin | 11/26/2019 | Essential | Results for this | | RATIO, URINE | e | | hypertension | procedure are in the | | | | | Hydronephrosis of | results section. | | | | | right kidney Kidney | | | | | | stone on right side | | | | | | Chronic kidney | | | | | | disease, stage III | | | | | | (moderate) (HCC) | | + +--------+ + + + | URINALYSIS WITH | Routin | 11/26/2019 | Essential | Results for this | | MICROSCOPIC | e | | hypertension | procedure are in the | | | | | Hydronephrosis of | results section. | | | | | right kidney Kidney | | | | | | stone on right side | | | | | | Chronic kidney | | | | | | disease, stage III | | | | | | (moderate) (HCC) | | + +--------+ + + + | CBC WITH | Routin | 11/26/2019 | Essential | Results for this | | DIFFERENTIAL | e | | hypertension | procedure are in the | | | | | Hydronephrosis of | results section. | | | | | right kidney Kidney | | | | | | stone on right side | | | | | | Chronic kidney | | | | | | disease, stage III | | | | | | (moderate) (HCC) | | + +--------+ + + + | PARATHYROID HORMONE, | Routin | 11/26/2019 | Essential | Results for this | | INTACT | e | | hypertension | procedure are in the | | | | | Hydronephrosis of | results section. | | | | | right kidney Kidney | | | | | | stone on right side | | | | | | Chronic kidney | | | | | | disease, stage III | | | | | | (moderate) (HCC) | | + +--------+ + + + | RENAL FUNCTION PANEL | Routin | 11/26/2019 | Essential | Results for this | | | e | | hypertension | procedure are in the | | | | | Hydronephrosis of | results section. | | | | | right kidney Kidney | | | | | | stone on right side | | | | | | Chronic kidney | | | | | | disease, stage III | | | | | | (moderate) (HCC) | | + +--------+ + + + documented in this encounter Results Renal Function Panel (11/26/2019) + + + + + + | Component | Value | Ref Range | Performed | Pathologist | | | | | At | Signature | + + + + + + | Na | 138 | 132 - 143 | REFERENCE | | | | | mmol/L | LAB | | | | | | [facility] | | | | | | [facility] | | + + + + + + | K | 4.1 | 3.6 - 5.1 | REFERENCE | | | | | mmol/L | LAB | | | | | | [facility] | | | | | | LABORAT[facility] | | + + + + + + | Cl | 105 | 95 - 112 mmol/L | REFERENCE | | | | | | LAB | | | | | | [facility] | | | | | | [facility] | | + + + + + + | CO2 | 23 | 19 - 31 mmol/L | REFERENCE | | | | | | LAB | | | | | | [facility] | | | | | | [facility] | | + + + + + + | Anion Gap | 14 | 7 - 21 mmol/L | REFERENCE | | | | | | LAB | | | | | | [facility] | | | | | | [facility] | | + + + + + + | Glucose | 102 (A) | 70 - 100 mg/dL | REFERENCE | | | | | | LAB | | | | | | [facility] | | | | | | [facility] | | + + + + + + | BUN | 23 | 6 - 23 mg/dL | REFERENCE | | | | | | LAB | | | | | | [facility] | | | | | | [facility] | | + + + + + + | Creatinine | 1.05 | 0.70 - 1.33 | REFERENCE | | | | | mg/dL | LAB | | | | | | [facility] | | | | | | [facility] | | + + + + + + | Calcium | 10.5 (A) | 8.5 - 10.3 | REFERENCE | | | | | mg/dL | LAB | | | | | | [facility] | | | | | | [facility] | | + + + + + + | Albumin | 3.8 | 3.5 - 5.0 g/dL | REFERENCE | | | | | | LAB | | | | | | [facility] | | | | | | [facility] | | + + + + + + | Phosphorus | 2.5 | 2.5 - 5.0 mg/dL | REFERENCE | | | | | | LAB | | | | | | [facility] | | | | | | [facility] | | + + + + + + | Estimated | 55.0 (A) | 60.0 - 100.0 | REFERENCE | | | GFR | | mL/min/1.73m2 | LAB | | | | | | [facility] | | | | | | [facility] | | + + + + + + + + | Specimen | + + | Blood | + + + + + + + | Performing | Address | City/State/Zipcode | Phone Number | | Organization | | | | + + + + + | REFERENCE LAB | [address] [place] [address] | [place] | [phone] | | [facility] | [address] | [address] | | | LABORATORY | | | | + + + + + | REFERENCE LAB | [address] [place] [address] | [place] | | | [facility] | [address] | [address] | | | LABORATORY | | | | + + + + + CBC with Differential (11/26/2019) + + + + + + | Component | Value | Ref Range | Performed | Pathologist | | | | | At | Signature | + + + + + + | WBC | 8.4 | 4.5 - 11.0 | REFERENCE | | | | | 10*3/uL | LAB | | | | | | [facility] | | | | | | [facility]OR[facility] | | + + + + + + | Red Blood | 4.89 | 3.80 - 5.10 | REFERENCE | | | Cells | | M/uL | LAB | | | | | | [facility] | | | | | | LABOR[facility] | | + + + + + + | Hemoglobin | 15.5 | 12.0 - 16.0 | REFERENCE | | | | | g/dL | LAB | | | | | | [facility] | | | | | | LABOR[facility] | | + + + + + + | Hematocrit | 45.4 (A) | 35.0 - 45.0 % | REFERENCE | | | | | | LAB | | | | | | [facility] | | | | | | LAB[facility] | | + + + + + + | MCV | 92.8 | 81.0 - 99.0 fL | REFERENCE | | | | | | LAB | | | | | | [facility] | | | | | | LAB[facility] | | + + + + + + | MCH | 32.0 | 27.0 - 33.0 pg | REFERENCE | | | | | | LAB | | | | | | [facility] | | | | | | [facility] | | + + + + + + | MCHC | 34.0 | 30.0 - 36.0 | REFERENCE | | | | | g/dL | LAB | | | | | | [facility] | | | | | | [facility] | | + + + + + + | RDW-SD | 13.2 | 10.5 - 15.0 | REFERENCE | | | | | | LAB | | | | | | [facility] | | | | | | LAB[facility] | | + + + + + + | Platelet | 274 | 140 - 440 K/uL | REFERENCE | | | Count | | | LAB | | | | | | [facility] | | | | | | [facility] | | + + + + + + | % | 58.9 | 39.0 - 80.0 % | REFERENCE | | | Neutrophils | | | LAB | | | | | | [facility] | | | | | | LABOR[facility] | | + + + + + + | % | 30.3 | 24.0 - 44.0 % | REFERENCE | | | Lymphocytes | | | LAB | | | | | | [facility] | | | | | | LABORAT[facility] | | + + + + + + | Monocyte % | 7.3 | 0 - 12 % | REFERENCE | | | | | | LAB | | | | | | [facility] | | | | | | LABOR[facility] | | + + + + + + | Eosinophils | 2.5 | 0 - 6 % | REFERENCE | | | % | | | LAB | | | | | | [facility] | | | | | | LABORAT[facility] | | + + + + + + | Basophils % | 1.0 | 0 - 2 % | REFERENCE | | | | | | LAB | | | | | | [facility] | | | | | | LABORAT[facility] | | + + + + + + + + | Specimen | + + | Blood | + + + + + + + | Performing | Address | City/State/Zipcode | Phone Number | | Organization | | | | + + + + + | REFERENCE LAB | [address] [place] [address] | [place], [place] | [phone] | | [facility] | [address] | [address] | | | LABORATORY | | | | + + + + + | REFERENCE LAB | [address] [facility] | [place] | | | [facility] | [address] | [address] | | | LABORATORY | | | | + + + + + Parathyroid Hormone, Intact (11/26/2019) + + + + + + | Component | Value | Ref Range | Performed | Pathologist | | | | | At | Signature | + + + + + + | PTH Intact | 165 (A) | 15 - 65 pg/mL | REFERENCE | | | | | | LAB | | | | | | [facility] | | | | | | [facility] | | + + + + + + | Calcium | 10.5 (A) | 8.5 - 10.3 | REFERENCE | | | | | mg/dL | LAB | | | | | | [facility] | | | | | | LABORAT[facility] | | + + + + + + + + | Specimen | + + | Blood | + + + + + + + | Performing | Address | City/State/Zipcode | Phone Number | | Organization | | | | + + + + + | REFERENCE LAB | [address] [place] [address] | [place] | [phone] | | [facility] | [address] | [address] | | | LABORATORY | | | | + + + + + | REFERENCE LAB | [address] [place] [address] | [place] | | | [facility] | [address] | [address] | | | LABORATORY | | | | + + + + + Urinalysis With Microscopic (11/26/2019) + + + + + + | Component | Value | Ref Range | Performed | Pathologist | | | | | At | Signature | + + + + + + | Color, UA | Yellow | | REFERENCE | | | | | | LAB | | | | | | [facility] | | | | | | LAB[facility]AT[facility] | | + + + + + + | Clarity, | Clear | | REFERENCE | | | Urine | | | LAB | | | | | | [facility] | | | | | | LABORAT[facility] | | + + + + + + | Specific | 1.018 | 1.005 - 1.030 | REFERENCE | | | [place], | | | LAB | | | Urine | | | [facility] | | | | | | LABORATORY | | + + + + + + | Leukocyte | Trace | Negative | REFERENCE | | | esterase, | | | LAB | | | UA | | | [facility] | | | | | | LABORATORY | | + + + + + + | Nitrite, UA | Negative | Negative | REFERENCE | | | | | | LAB | | | | | | [facility] | | | | | | LABORATORY | | + + + + + + | Urobilinoge | Normal | Normal | REFERENCE | | | n, Ur | | | LAB | | | | | | [facility] | | | | | | LABORATORY | | + + + + + + | Protein, | Comment: Negative | | REFERENCE | | | Urine | | | LAB | | | (mg/dL) | | | [facility] | | | | | | LABORATORY | | + + + + + + | pH, Urine | 5 | 5 - 9 | REFERENCE | | | | | | LAB | | | | | | [facility] | | | | | | LABORATORY | | + + + + + + | Blood, UA | Small | Negative | REFERENCE | | | | | | LAB | | | | | | [facility] | | | | | | LABORATORY | | + + + + + + | Ketones, UA | Negative | Negative | REFERENCE | | | | | | LAB | | | | | | [facility] | | | | | | LABORATORY | | + + + + + + | Bilirubin, | Negative | Negative | REFERENCE | | | UA | | | LAB | | | | | | [facility] | | | | | | LABORATORY | | + + + + + + | Glucose, Ur | Normal | Normal | REFERENCE | | | | | | LAB | | | | | | [facility] | | | | | | LABORATORY | | + + + + + + | WBC UA | 15.0 (A) | 0.0 - 4.0 /hpf | REFERENCE | | | | | | LAB | | | | | | [facility] | | | | | | LABORAT[facility] | | + + + + + + | Red Blood | 5-10 (A) | 0 - 2 /HPF | REFERENCE | | | Cells, | | | LAB | | | Urine | | | [facility] | | | | | | LABORATORY | | + + + + + + | Squamous | Comment: SQUAMOUS 1+ | | REFERENCE | | | Epithelial | | | LAB | | | Cells, | | | [facility] | | | Urine | | | LABORATORY | | + + + + + + | Bacteria, | Negative | Negative /HPF | REFERENCE | | | Urine | | | LAB | | | | | | [facility] | | | | | | LABORATORY | | + + + + + + + + | Specimen | + + | Urine | + + + + + + + | Performing | Address | City/State/Zipcode | Phone Number | | Organization | | | | + + + + + | REFERENCE LAB | [address] | [place] | [phone] | | [facility] | [address] | [address] | | | LABORATORY | | | | + + + + + | REFERENCE LAB | [address] | [place] | | | [facility] | [address] | [address] | | | LABORATORY | | | | + + + + + Protein/Creatinine Ratio, Urine (11/26/2019) + +--------+ + + + | Component | Value | Ref Range | Performed | Pathologist | | | | | At | Signature | + +--------+ + + + | Protein, | 12 | 0 - 50 mg/dL | REFERENCE | | | Urine | | | LAB | | | (mg/dL) | | | [facility] | | | | | | LABORATORY | | + +--------+ + + + | Creatinine, | 120.03 | mg/dL | REFERENCE | | | Urine | | | LAB | | | | | | [facility] | | | | | | LABORATORY | | + +--------+ + + + | PROT/CRE | 100.0 | 0 - 150 mg/g | REFERENCE | | | mg/g | | | LAB | | | | | | [facility] | | | | | | LABORATORY | | + +--------+ + + + + + | Specimen | + + | Urine | + + + + + + + | Performing | Address | City/State/Zipcode | Phone Number | | Organization | | | | + + + + + | REFERENCE LAB | [facility] [address] | [place] | [phone] | | [facility] | [address] | [address] | | | LABORATORY | | | | + + + + + | REFERENCE LAB | [address] [facility] [address] [facility] | [place] | | | [facility] | [address] | [address] | | | LABORATORY | | | | + + + + + documented in this encounter Visit Diagnoses + + | Diagnosis | + + | Essential hypertension Unspecified essential hypertension | + + | Hydronephrosis of right kidney Hydronephrosis | + + | Kidney stone on right side Calculus of kidney | + + | Chronic kidney disease, stage III (moderate) (HCC) Chronic kidney disease, Stage III | | (moderate) | + + documented in this encounter"
--- OUTSIDE RECORDS SUMMARY | ~2019-12-26 | XMS | Encounter Summary ---
Demographics + + + | Address | [address] | | | [place] [address] | + + + | Home Phone | | + + + | Preferred Language | Unknown | + + + | Marital Status | Unknown | + + + | Lutheran Affiliation | [id number] | + + + | Race | Unknown | + + + | Ethnic Group | Unknown | + + + Author + + + | Author | [facility] | | | and [place] | + + + | Organization | [facility] | | | and [place] | [...] Team Providers + +------+ + | Care Railway Equipment Operator Name | Role | Phone | + +------+ + | Umesh Mcmahon NP | PCP | | + +------+ + Encounter Details +--------+---------+ + + + | Date | Type | Department | Care Team | Description | +--------+---------+ + + + | 08/26/ | Office | [facility] | Brad Singh MD | Chronic kidney | | 2020 | Visit | NEPHROLOGY [place] | [address] [facility] | disease, stage III | | | | [address] | [address] [place], [place] | (moderate) (HCC) | | | | [address] | [id number] | (Primary Dx); | | | | [place], [place] | | Ureteral calculus, | | | | [phone] | | right; | | | | [phone] | | Hydronephrosis of | | | | | | right kidney; | | | | | | Hypercalcemia; | | | | | | Electrolyte | | | | | | imbalance risk; | | | | | | Class 1 obesity due | | | | | | to excess calories | | | | | | without serious | | | | | | comorbidity with | | | | | | body mass index | | | | | | (BMI) of 34.0 to | | | | | | 34.9 in adult; | | | | | | Essential | | | | | | hypertension | +--------+---------+ + + + Social History [...] + + + | Blood Pressure | 104/78 | 08/27/2019 11:21 AM | | | | | PDT | | + + + + + | Pulse | 109 | 08/27/2019 11:21 AM | | | | | PDT | | + + + + + | Temperature | - | - | | + + + + + | Respiratory Rate | - | - | | + + + + + | Oxygen Saturation | 93% | 08/27/2019 11:21 AM | | | | | PDT | | + + + + + | Inhaled Oxygen | - | - | | | Concentration | | | | + + + + + | Weight | 100.5 kg (221 lb 8 | 08/27/2019 11:21 AM | | | | oz) | PDT | | + + + + + | Height | 167.6 cm (5' 6") | 08/27/2019 11:21 AM | | | | | PDT | | + + + + + | Body Mass Index | 35.75 | 08/27/2019 11:21 AM | | | | | PDT [...] + + documented as of this encounter Patient Instructions Patient Instructions Brad Singh MD - 08/27/2019 10:40 AM PDTDiscussions/Recommendations : I discussed today with Ms. Ramos the meaning of her CKD and the interaction of that wi th her hypertension. I stressed the importance of keeping her BP controlled and avoiding getting dehydrated i f we are to have a chance at helping preserve her renal function. She showed good understan ding. I gave her instructions on how to chart her blood pressure in the appropriate manner at home. She is to call us if they fall outside of the optimal provided range. She will bring her sphygmomanometer for validation once a year. She will strictly abide by a low salt diet. She will avoid all kinds of NSAIDs for analgesia. Also: I asked her to stay off of the Naproxen. I sent her for a renal & bladder U/S in 3 months (no urgency to do it now). I again sent her for a Urostone Max24. I sent a request again for a 81-[id number]-[id number] D, SPIE, SFLC. She will drink ample water. She is not to skip meals. She will follow the prescribed low sodium restrictions. She will follow the prescribed low oxalate restrictions. She will report back to me her home BP readings if they fall outside of the optimal prov ided range. At that time, I will decide whether any change to his vasoactive regimen is betty anted. I advised her to exercise regularly but safely & to try to lose weight methodically; She voiced good understanding. She will F/U with your office regularly. She will have a RFP, CBC, intact PTH, reflex urinalysis, Urine total xrkygll-rx-hijqujkz ne ratio before she comes back in 3.5 months.Electronically signed by Brad Singh MD at 12:31 PM PDT documented in this encounter Progress Notes Brad Singh MD - 08/27/2019 10:40 AM PDT Patient Active Problem List Diagnosis Date Noted POA UTI (urinary tract infection) with pyuria 11/11/2018 Unknown Priority: High Hydronephrosis of right kidney 11/11/2018 Unknown Priority: High Smoker - Daily Unknown Priority: Medium Anxiety Unknown Priority: Medium Essential hypertension Unknown Priority: Medium Substance abuse Unknown Priority: Low Hypercalcemia 05/28/2019 Unknown Electrolyte imbalance risk 05/28/2019 Unknown Class 1 obesity due to excess calories without serious comorbidity with body mass index (BMI) of 34.0 to 34.9 in adult 05/28/2019 Unknown Chronic kidney disease, stage III (moderate) 04/03/2019 Unknown Calculus of kidney 01/18/2019 Unknown Ureteral calculus, right 11/11/2018 Unknown PTSD (post-traumatic stress disorder) 11/11/2018 Unknown Bipolar 1 disorder 11/11/2018 Unknown Chronic back pain 11/11/2018 Unknown Diverticulosis of colon 11/11/2018 Unknown SIRS (systemic inflammatory response syndrome) 11/11/2018 Unknown H/O Kidney stones Unknown Adnexal mass Unknown Preventative health care 05/30/2014 Unknown Kidney stone on right side 01/09/2014 Unknown Asthma 06/14/2013 Unknown Dear Umesh: I saw your patient Ms. Ramos in the office today. As you are familiar with her case, I w ill not state her past history in detail. Briefly, she is a 48 y.o. female patient with pas t history as delineated above. She is here to F/U on her CKD & its associated complications . The patient has history of hypertension since her early 30's. Her BP control has been repor tedly ok. She denies any history of prolonged exposure to NSAIDs or recent exposure to known nephrotoxins; but she took Naproxen at 1 tablet twice a week x1 month in late 2018. She den ies any recurrent pyelonephritis; she tells me that She's had no history of urinary retentio n, gross hematuria or dysuria. She has chronic incontinence symptoms. No current symptoms of UTI. She has 2 or 3 nightly nocturia. No history of passing kidney stones. She has no foa my urine either. Her baseline Creatinine is 1.35 from 05/2019. There is no family history of renal genetic diseases such as PKD. She tells me she's had nephrolithiasis since ~1999. Sh e's had multiple renal colics. She needed multiple lithotripsies & cystoscopies/ureteroscopi es, she tells me. The latest lithotripsy was in early 2018. She says that she feels 'fair ' today. She denies any blurred vision tinnitus, headache, f ever, chills, or cough. She has occasional dizziness, daily nausea for which she F/U's with your office. No vomiting, abdominal pain, diarrhea, melena, or hematochezia. No chest pain , palpitation, loss of consciousness, orthopnea, paroxysmal nocturnal dyspnea, or leg edema. No LOC or falling. The following portions of the patient's history were reviewed and updated as appropriate: a llergies, current medications, past medical history, past social history, past surgical hist ory, family history and problem list. As in History of Present Illness & in Assessment. All the pertinent systems were reviewed a nd were otherwise negative. Active comorbid conditions include: - hypertension; essential; with renal disease; with CKD stage 1-4 - renal disease; CKD; Stage 3 - electrolyte problem - hypercalcemia - diverticular disease Current Outpatient Medications: clonazePAM (KLONOPIN) 1 mg tablet, Take 1 mg by mouth nightly., Disp: , Rfl: lamoTRIgine (LAMICTAL) 100 mg tablet, Take 200 mg by mouth Daily., Disp: , Rfl: 0 metoprolol succinate (TOPROL-XL) 25 mg 24 hr tablet, , Disp: , Rfl: prazosin (MINIPRESS) 2 MG capsule, Take 6 mg by mouth nightly., Disp: , Rfl: Physical Exam: BP 104/78 | Pulse 109 | Ht 1.676 m (5' 6") | Wt 100.5 kg (221 lb 8 oz) | SpO2 93% | BM I 35.75 kg/m General appearance: Pleasant, not in acute distress. Neck: Supple without tracheal deviation or jugular venous distension. Head and ENT: Head is atraumatic. The oropharynx is without erythema or thrush. Eyes: Anicteric. The extraocular muscle movements are normal. Lungs: Clear to auscultation bilaterally. There are no wheezes. Heart: Regular rate and rhythm without any rub, gallop. No systolic murmur. Abdominal exam: Obese. Soft and nontender with normal bowel sounds. Musculoskeletal: No costovertebral angle tenderness bilaterally. Extremities: Warm to touch with no leg edema. There is no cyanosis. Skin: There are no rashes, petechiae, or ecchymosis. Neurological: Awake, alert, and oriented to time, place, and person. Normal gross motor po wer. There is no asterixis. Psychiatric: The patient s behavior is normal. Judgment and thought content are normal. Lab Results Component Value Date HGB 14.3 08/23/2019 HGB 16.7 (H) 01/09/2014 HCT 48.3 (H) 01/09/2014 NA 140 08/24/2019 K 4.0 08/24/2019 CL 104 08/24/2019 CO2 29 08/24/2019 BUN 18 08/24/2019 CREA 1.22 08/24/2019 CALCIUM 10.6 (A) 08/24/2019 CALCIUM 10.0 11/12/2018 ALBUMIN 4.1 08/24/2019 EGFR 47.0 (A) 08/24/2019 LABPROT 124.7 05/25/2019 No results for input(s): BUN, CREA, EGFR, NA, K, CL, CO2, CALCIUM, PHOS, MG, ALBUMIN, HGB, HCT, IRON in the last 72 hours. No components found for: MALBRX No components found for: MICROALBUR * abd/pelvis CT scan from 11/2018: "Obstructive 15 mm calculus is present at the right uret eropelvic junction with mild to moderate right hydronephrosis". Assessment: Ms. Ramos is a 48 y.o. female patient with stage III CKD on a background of longstanding hypertension. RENAL FUNCTION: Stable GFR vs 12/2018 BLOOD PRESSURE: Reports it controlled at home BLOOD SUGAR: Reports it normal ELECTROLYTES: Normal, except: Ca is at the upper limit of normal or just above the normal limit ANEMIA: none VITAMIN D: To be checked PARATHYROID HORMONE: Mildly-moderately up for her URIC ACID: ok PROTEINURIA: minimal URINALYSIS: No significant hematuria; No UTI. VOLUME STATUS: Euvolumic. Discussions/Recommendations: I discussed today with Ms. Ramos the meaning of her CKD and the interaction of that wi th her hypertension. I stressed the importance of keeping her BP controlled and avoiding getting dehydrated i f we are to have a chance at helping preserve her renal function. She showed good understan ding. I gave her instructions on how to chart her blood pressure in the appropriate manner at home. She is to call us if they fall outside of the optimal provided range. She will bring her sphygmomanometer for validation once a year. She will strictly abide by a low salt diet. She will avoid all kinds of NSAIDs for analgesia. Also: I asked her to stay off of the Naproxen. I asked for the report of her NM Parathyroid scan (the patient reports a parathyroid nodul e on the right). I sent her for a renal & bladder U/S in 3 months (no urgency to do it now). I again sent her for a Urostone Max24. I sent a request again for a 31-vxszrkr-dqnqvxm D, SPIE, SFLC. She will drink ample water. She is not to skip meals. She will follow the prescribed low sodium restrictions. She will follow the prescribed low oxalate restrictions. She will report back to me her home BP readings if they fall outside of the optimal prov ided range. At that time, I will decide whether any change to his vasoactive regimen is betty anted. I advised her to exercise regularly but safely & to try to lose weight methodically; She voiced good understanding. She will F/U with your office regularly. She will have a RFP, CBC, intact PTH, reflex urinalysis, Urine total zopzxlk-wj-sontvdtj ne ratio before she comes back in 3.5 months. More than 20 minutes of this 40-minute visit was spent in education and counseling. Thank you Umesh for the opportunity to see this patient in F/U today. Please do not hesitate to call me at any time with questions or concerns. Truly yours, Brad Singh MD [facility] documented in this enco unter Plan of Treatment +--------+---------+ + + + | Date | Type | Specialty | Care Team | Description | +--------+---------+ + + + | 06/02/ | Office | Nephrology | Brad Singh MD | | | 2019 | Visit | | [address] [facility] | | | | | | [address] [place] | | | | | | [id number] | | | | | | | | +--------+---------+ + + + documented as of this encounter Procedures + +--------+ + + + | Procedure Name | Priori | Date/Time | Associated Diagnosis | Comments | | | ty | | | | + +--------+ + + + | RENAL FUNCTION PANEL | Routin | 08/24/2019 | | Results for this | | | e | | | procedure are in the | | | | | | results section. | + +--------+ + + + | EXTERNAL LAB: [facility], | Routin | 08/23/2019 | | Results for this | | INTACT | e | | | procedure are in the | | | | | | results section. | + +--------+ + + + | CBC NO DIFFERENTIAL | Routin | 08/23/2019 | | Results for this | | | e | | | procedure are in the | | | | | | results section. | + +--------+ + + + documented in this encounter Results Renal Function Panel (08/24/2019) + + + + + + | Component | Value | Ref Range | Performed | Pathologist | | | | | At | Signature | + + + + + + | Na | 140 | 132 - 143 | | | | | | mmol/L | | | + + + + + + | K | 4.0 | 3.6 - 5.1 | | | | | | mmol/L | | | + + + + + + | Cl | 104 | 95 - 112 mmol/L | | | + + + + + + | CO2 | 29 | 19 - 31 mmol/L | | | + + + + + + | Anion Gap | 11 | 7 - 21 mmol/L | | | + + + + + + | Glucose | 81 | 70 - 100 mg/dL | | | + + + + + + | BUN | 18 | 6 - 23 mg/dL | | | + + + + + + | Creatinine | 1.22 | 0.60 - 1.35 | | | | | | mg/dL | | | + + + + + + | Estimated | 47.0 (A) | 60.0 - 140.0 | | | | GFR | | mL/min/1.73m2 | | | + + + + + + | BUN/Creatin | 14.8 | 6.0 - 28.6 | | | | ine Ratio | | | | | + + + + + + | Albumin | 4.1 | 3.5 - 5.0 g/dL | | | + + + + + + | Calcium | 10.6 (A) | 8.5 - 10.3 | | | + + + + + + | PHOSPHORUS | 2.0 (A) | 2.5 - 5.0 | | | + + + + + + + + | Specimen | + + | Blood | + + External Lab: PTH, Intact (08/23/2019) + + + + + + | Component | Value | Ref Range | Performed | Pathologist | | | | | At | Signature | + + + + + + | PTH Intact, | 121.6 (A) | 15 - 65 | | | | External | | | | | + + + + + + + + | Specimen | + + | | + + CBC with Manual Differential (08/23/2019) + +-------+ + + + | Component | Value | Ref Range | Performed | Pathologist | | | | | At | Signature | + +-------+ + + + | WBC | 7.0 | 4.5 - 11.0 | | | + +-------+ + + + | Red Blood | 4.56 | 3.80 - 5.10 | | | | Cells | | M/uL | | | + +-------+ + + + | Hemoglobin | 14.3 | 12 - 16 | | | + +-------+ + + + | Hematocrit, | 42.3 | 35.0 - 45.0 % | | | | POC | | | | | + +-------+ + + + | MCV | 92.8 | 81.0 - 99.0 fL | | | + +-------+ + + + | MCHC | 31.0 | 27.0 - 33.0 | | | | | | g/dL | | | + +-------+ + + + | MCHC | 34.0 | 30.0 - 36.0 | | | | | | g/dL | | | + +-------+ + + + | Platelet | 282 | 140 - 440 | | | | Count | | | | | | Plasma | | | | | + +-------+ + + + | RDW | 14 | 10.5 - 15.0 | | | + +-------+ + + + | BAL | 49 | 39 - 80 % | | | | Neutrophils | | | | | | % | | | | | + +-------+ + + + | % | 36.7 | 24 - 44 | | | | Lymphocytes | | | | | + +-------+ + + + | Monocyte % | 9.8 | 0 - 12 | | | + +-------+ + + + | BAL | 3 | 0 - 6 % | | | | Eosinophils | | | | | | % | | | | | + +-------+ + + + | % | 1 | 0 - 2 % | | | | Basophils, | | | | | | Body Fluid | | | | | + +-------+ + + + + + | Specimen | + + | Blood | + + documented in this encounter Visit Diagnoses + + | Diagnosis | + + | Chronic kidney disease, stage III (moderate) (HCC) - Primary Chronic kidney disease, | | Stage III (moderate) | + + | Ureteral calculus, right Calculus of ureter | + + | Hydronephrosis of right kidney Hydronephrosis | + + | Hypercalcemia | + + | Electrolyte imbalance risk Other specified conditions influencing health status | + + | Class 1 obesity due to excess calories without serious comorbidity with body mass | | index (BMI) of 34.0 to 34.9 in adult | + + | Essential hypertension Unspecified essential hypertension | + + documented in this encounter
--- OUTSIDE RECORDS SUMMARY | ~2019-12-26 | XMS | Encounter Summary ---
Demographics + + + | Address | [address] | | | [place] [address] | + + + | Home Phone [...] + + + | Author | and [facility] [place] | | | and [place] | + + + | Organization | and [facility] [place] | | | and [place] | [...] Team Providers + +------+ + | Care Cutting Machine Fixer Name | Role | Phone | + +------+ + | Umesh Mcmahon NP | PCP | | + +------+ + Encounter Details +--------+ + + + + | Date | Type | Department | Care Team | Description | +--------+ + + + + | 05/29/ | Orders Only | [facility] | Brad Singh MD | Essential | | 2019 | | [facility] | [address] [place] | hypertension | | | | [address] [place] | [address] [place], [place] | (Primary Dx); Kidney | | | | [address] [place], [place] | [address] | stone on right | | | | [id number] | | side; Chronic kidney | | | | [phone] | | disease, stage III | | [...] | +--------+---------+ + + + | 06/02/ Office | Nephrology | Brad Singh MD | | | 2019 | Visit | | [address] [facility] [place] | | | | | | [address] [place], [place] | | | | | | [address] | | | | | | | | +--------+---------+ + + + + +------+--------+ + + | Name | Type | Priori | Associated Diagnoses | Order Schedule | | | | ty | | | + +------+--------+ + + | Renal Function Panel | Lab | Routin | Essential | Expected: | | | | e | hypertension Kidney | 08/28/2019, Expires: | | | | | stone on right side | 05/29/2020 | | | | | Chronic kidney | | | | | | disease, stage III | | | | | | (moderate) (HCC) | | + +------+--------+ + + | CBC with | Lab | Routin | Essential | Expected: | | Differential | | e | hypertension Kidney | 08/28/2019, Expires: | | | | | stone on right side | 05/29/2020 | | | | | Chronic kidney | | | | | | disease, stage III | | | | | | (moderate) (HCC) | | + +------+--------+ + + | Parathyroid Hormone, | Lab | Routin | Essential | Expected: | | Intact | | e | hypertension Kidney | 08/28/2019, Expires: | | | | | stone on right side | 05/29/2020 | | | | | Chronic kidney | | | | | | disease, stage III | | | | | | (moderate) (HCC) | | + +------+--------+ + + | Vitamin D, | Lab | Routin | Essential | Expected: | | Deficiency Screen | | e | hypertension Kidney | 08/28/2019, Expires: | | (25-Hydroxy) | | | stone on right side | 05/29/2020 | | | | | Chronic kidney | | | | | | disease, stage III | | | | | | (moderate) (HCC) | | + +------+--------+ + + | Immunoglobulin, Free | Lab | Routin | Essential | Expected: | | Light Chain | | e | hypertension Kidney | 08/28/2019, Expires: | | | | | stone on right side | 05/29/2020 | | | | | Chronic kidney | | | | | | disease, stage III | | | | | | (moderate) ([facility]) | | + +------+--------+ + + | Immunofixation, | Lab | Routin | Essential | Expected: | | Serum | | e | hypertension Kidney | 08/28/2019, Expires: | | | | | stone on right side | 05/29/2020 | | | | | Chronic kidney | | | | | | disease, stage III | | | | | | (moderate) ([facility]) | | + +------+--------+ + + | Urinalysis With | Lab | Routin | Essential | Expected: | | Microscopic | | e | hypertension Kidney | 08/28/2019, Expires: | | | | | stone on right side | 05/29/2020 | | | | | Chronic kidney | | | | | | disease, stage III | | | | | | (moderate) ([facility]) | | + +------+--------+ + + | Protein/Creatinine | Lab | Routin | Essential | Expected: | | Ratio, Urine | | e | hypertension Kidney | 08/28/2019, Expires: | | | | | stone on right side | 05/29/2020 | | | | | Chronic kidney | | | | | | disease, stage III | | | | | | (moderate) (HCC) | | + +------+--------+ + + documented as of this encounter Visit Diagnoses + + | Diagnosis | + + | Essential hypertension - Primary Unspecified essential hypertension | + + | Kidney stone on right side Calculus of kidney | + + | Chronic kidney disease, stage III (moderate) (HCC) Chronic kidney disease, Stage III | | (moderate) | + + documented in this encounter"
--- OUTSIDE RECORDS SUMMARY | ~2019-12-26 | XMS | Clinical Summary ---
Demographics + + + | Address | [address] | | | [place] [address] | + + + | Home Phone | | + + + | Preferred Language | Unknown | + + + | Marital Status | Unknown | + + + | Yazidism Affiliation | 1013 | + + + | Race | Unknown | + + + | Ethnic Group | Unknown | + + + Author + + + | Author | [facility] | | | and [place] | + + + | Organization | [facility] | | [...] Team Providers + +------+ + | Care All Terrain Vehicle Technician Name | Role | Phone | [...] + + + + + + | Ciprofloxacin | Hives | | 12/18/19 | | | | | | 20 | | + + + + + [...] | | + + + +---------+------+------+-------+ | metoprolol | | | 0 | 02/1 | | Activ | | succinate | | | | 6/20 | | e | | (TOPROL-XL) 25 mg 24 | | | | 20 | | | | hr tablet | | | | | | | + + + +---------+------+------+-------+ Active Problems + + + | Problem | Noted Date | + + + | Hyperparathyroidism | 11/26/2019 | + + + | Hypercalcemia | 05/28/2019 | + + + | Electrolyte imbalance risk | 05/28/2019 | + + + | Class 2 obesity due to excess calories without serious | 05/28/2019 | | comorbidity with body mass index (BMI) of 35.0 to 35.9 in adult | | + + + | Chronic kidney [...] + + + | Overview: Dx name chaged by system update 07/20/2016 | + + [...] | Anxiety | | + +---+ | Essential hypertension | | + +---+ | Substance abuse | | + +---+ Encounters +--------+ + + + + | Date | Type | Specialty | Care Team | Description | +--------+ + + + + | 12/17/ | Anesthesia | | Walker Painting | | | 2020 | Event | | MD Anibal | | +--------+ + + + + | 12/17/ | Hospital | | Anastacio Mendoza MD | | | 2019 - | Encounter | | | | | | | | | | | 12/18/ | | | | | | 2019 | | | | | +--------+ + + + + | 12/17/ | Surgery | | Anastacio Mendoza MD | CYSTOSCOPY, RIGHT | | 2019 | | | | URETEROSCOPY W/ | | | | | | LASER AND STENT | | | | | | PLACEMENT | +--------+ + + + + | 12/17/ | Hospital | Radiology | Anastacio Mendoza MD | | | 2019 | Encounter | | | | +--------+ + + + + | 12/16/ | Imaging | Radiology | Provider, | | | 2019 | Exam | | MD Kirti | | +--------+ + + + + | 12/16/ | Clinical | Immediate Care | Orville Vaughn | Nephrolithiasis | | 2019 | Support | | LIONEL Brady | | +--------+ + + + + | 12/14/ | Orders Only | General Surgery | Anastacio Mendoza MD | Nephrolithiasis | | 2019 | | | | (Primary Dx) | +--------+ + + + + | 11/26/ | Orders Only | Nephrology | Brad Singh MD | Chronic kidney | | 2019 | | | | disease, stage III | | | | | | (moderate) (HCC) | | | | | | (Primary Dx) | +--------+ + + + + | 11/26/ | Orders Only | Nephrology | Amita Phillip | Essential | | 2019 | | | A, Medical | hypertension; | | | | | [address] | Hydronephrosis of | | | | | | right kidney; Kidney | | | | | | stone on right | | | | | | side; Chronic kidney | | | | | | disease, stage III | | | | | | (moderate) (HCC) | +--------+ + + + + | 11/25/ | Virtual | Nephrology | Brad Singh MD | Chronic kidney | | 2020 | Office | | | disease, stage III | | | Visit | | | (moderate) (HCC) | | | | | | (Primary Dx); | | | | | | Calculus of kidney; | | | | | | Hydronephrosis of | | | | | | right kidney; | | | | | | Essential | | | | | | hypertension; Class | | | | | | 2 obesity due to | | | | | | excess calories | | | | | | without serious | | | | | | comorbidity with | | | | | | body mass index | | | | | | (BMI) of 35.0 to | | | | | | 35.9 in adult; | | | | | | Hypercalcemia; | | | | | | Electrolyte | | | | | | imbalance risk; | | | | | | Hyperparathyroidism | | | | | | (HCC) | +--------+ + + + + from [...] on file | | + + + Last Filed Vital Signs + + + + + | Vital Sign | Reading | Time Taken | Comments | + + + + + | Blood Pressure | 113/61 | 12/19/2019 3:10 AM | | | | | PDT | | + + + + + | Pulse | 56 | 12/19/2019 3:10 AM | | | | | PDT | | + + + + + | Temperature | 36.6 C (97.9 F) | 12/19/2019 3:10 AM | | | | | PDT | | + + + + + | Respiratory Rate | 18 | 12/19/2019 3:10 AM | | | | | PDT | | + + + + + | Oxygen Saturation | 94% | 12/19/2019 3:10 AM | | | | | PDT | | + + + + + | Inhaled Oxygen | - | - | | | Concentration | | | | + + + + + | Weight | 103.1 kg (227 lb 4.7 | 12/18/2019 10:48 PM | | | | oz) | PDT | | + + + + + | Height | 167.6 cm (5' 6") | 12/18/2019 10:48 PM | | | | | PDT | | + + + + + | Body Mass Index | 36.69 | 12/18/2019 10:48 PM | | | | | PDT | | + + + + + Plan of Treatment +--------+---------+ + + + | Date | Type | Specialty | Care Team | Description | +--------+---------+ + + + | 06/02/ | Office | Nephrology | Brad Singh MD | | | 2019 | Visit | | [address] [facility] | | | | | | [address] [place] | | | | | | [address] | | | | | | | | +--------+---------+ + + + + + + + + | Health Maintenance | Due Date | Last | Comments | | | | Done | | + + + + + | Vaccine: | | | | | Pneumococcal 19-64 | 6 | | | | (1 [...] + + | Breast Cancer | | 11/30/19 | | | Screening | 5 | 14 | | + + + + + | Colorectal Cancer | | | | | Screening | 0 | | | | (Colonoscopy) | | | | + + + + + | Vaccine: Zoster (1 | | | | | of 2) | 0 | | | + + + + + | Vaccine: Influenza | | 07/18/19 | | | (#1) | 0 | 20 | | + + + + + [...] | Right: | PE[facility]A | | | [id number] | | - [id number]: Qty: 1 | | | [employer] | | | / | | on 11/11/2018 by Reji, | | Ureter | - [place] | | | /[id number] | | Anastacio Hanks MD at [facility] | | | | | | 73 | | [facility] | | | | | | | + +-------+--------+ +--------+--------+--------+ | Stent Uro Unvrs Sft 6fr 26cm | Stent | Right: | PEÑA | | | [id number] | | - [id number]: Qty: 1 | | | [employer] | | | / | | on 12/18/2019 by Reji, | | Ureter | - [place] | | | /[id number] | | Anastacio Hanks MD at [facility] | | | | | | 785 | | [facility] | | | | | | | + +-------+--------+ +--------+--------+--------+ Procedures + +--------+ + + + | Procedure Name | Priori | Date/Time | Associated Diagnosis | Comments | | | ty | | | | + +--------+ + + + | FL PYELOGRAM | Routin | 12/18/2019 | | Results for this | | RETROGRADE | e | 9:22 PM | | procedure are in the | | | | PDT | | results section. | + +--------+ + + + | URINALYSIS, REFLEX | Routin | 12/18/2019 | | Results for this | | MICROSCOPIC AND/OR | e | 8:17 PM | | procedure are in the | | CULTURE | | PDT | | results section. | + +--------+ + + + | HCG, URINE, QUAL | STAT | 12/18/2019 | | Results for this | | | | 8:17 PM | | procedure are in the [...] + +--------+ + + + | CYSTOSCOPY | | 12/18/2019 | Calculus of ureter | | | URETEROSCOPY W/ | | 7:45 PM | | | | LASER | | PDT | | | + +--------+ + + + | POCT TEST, | STAT | 12/18/2019 | | Results for this | | URINE, QUAL | | 7:26 PM | | procedure are in the | | | | PDT | | results section. | + +--------+ + + + | CORONAVIRUS | STAT | 12/18/2019 | | Results for this | | (COVID-19) NAAT | | 7:08 PM | | procedure are in the | | | | PDT | | results section. | + +--------+ + + + | CORONAVIRUS | Routin | 12/17/2019 | Nephrolithiasis | Results for this | | (COVID-19) NAAT | e | 8:02 AM | | procedure are in the | | | | PDT | | results section. | + +--------+ + + + | LABS - EXTERNAL SCAN | | 11/26/2019 | | Results for this | | | | 12:00 AM | | procedure [...] section. | + +--------+ + + + from Last 3 Months Results FL Pyelogram Retrograde (12/18/2019 9:22 PM PDT) + + | Specimen | [...] | | | + +---------+ + + Urinalysis, Reflex Microscopic and/or Culture (12/18/2019 8:17 PM PDT) + + + + + + | Component | Value | Ref Range | Performed | Pathologist | | | | | At | Signature | + + + + + + | Color, | Yellow | Light Yellow, | [facility] | | | Urine | | Yellow, Straw | [facility] | | | | | | MEDICAL | | | | | | CENTER - | | | | | | LABORATORY | | + + + + + + | Clarity, | Clear | Clear | [facility] | | | Urine | [...] + + + + | Specific | 1.012 | 1.001 - 1.030 | [facility] | | | [place], | | | [facility] | | [...] + + + + | Urobilinoge | Negative | 0.2 mg/dL, 1.0 | [facility] | | | n, Urine | | mg/dL, Negative | [facility] | | | | | | MEDICAL | | | | | | CENTER - | | | | | | LABORATORY | | + + + + + + | White Blood | 0-2 | 0 - 2 /HPF | [facility] | | | Cells, | | | [facility] | | | Urine | | | MEDICAL | | | | | | CENTER - | | | | | | LABORATORY | | + + + + + + | Red Blood | 2-5 (A) | 0 - 2 /HPF | [facility] | | | Cells, | | | [facility] | | | Urine | | | MEDICAL | | | | | | CENTER - | | | | | | LABORATORY | | + + + + + + | Squamous | 5-10 (A) | 0 - 2 /LPF | [facility] | | | Epithelial | | | [facility] | | | Cells, | | | MEDICAL | | | Urine | | | CENTER - | | | | | | LABORATORY | | + + + + + + | Bacteria, | Negative | Negative /HPF | [facility] | | | Urine | | | [facility] | | | | | | MEDICAL | | | | | | CENTER - | | | | | | LABORATORY | | + + + + + + | Urine | Urine Culture Not | | [facility] | | | Comment | Indicated | | [facility] | | | | | | MEDICAL | | | | | | CENTER - | | | | | | LABORATORY | | + + + + + + + + | Specimen | + + | Urine - Urine | | specimen obtained by | | clean catch | | procedure (specimen) | + + + + + + + | Performing | Address | City/State/Zipcode | Phone Number | | Organization | | | | + + + + + | [facility] | [address] | [place] | [phone] | | [facility] | | [address] | | | - LABORATORY | | | | + + + + + , Urine, Qual (12/18/2019 8:17 PM PDT) + + + + + + | Component | Value | Ref Range | Performed | Pathologist | | | | | At | Signature | + + + + + + | HCG | Negative | Negative | [facility] | | | Qualitative | | | [facility] | | | , Urine | | | MEDICAL | | [...] [address] | [place] | [phone] | | [facility] | | [address] | | | - LABORATORY | | | | + + + + + Airway (12/18/2019 8:04 PM PDT) + + [...] | documentation. | | + + + POCT Test, Urine, QUAL (12/18/2019 7:26 PM PDT) + + + + + + | Component | Value | Ref Range | Performed | Pathologist | | | | | At | Signature | + + + + + + | | Negative | Negative | [facility] | | | Test, | | | [facility] | | | Urine, POC | | | HEART | | | | | | MEDICAL | | | | | | CENTER | | | | | | LABORATORY | | | | | | [facility] | | + + + + + + | Internal QC | Acceptable | Acceptable | [facility] | | | | | | [facility] | | | | | | HE[facility] | | | | | | MEDICAL | | | | | | CENTER | | | | | | LABORATORY | | | | | | [facility] | | + + + + + + | Specific | | | [facility] | | | [place], | | | [facility] | | | POC | | | HEART | | | | | | MEDICAL | | | | | | CENTER | | | | | | LABORATORY | | | | | | [facility] | | + + + + + + | Lot Number | [id number] | | [facility] | | | | | | [facility] | | | | | | HE[facility] | | | | | | MEDICAL | | | | | | CENTER | | | | | | LABORATORY | | | | | | [facility] | | + + + + + + | Expiration | 11/15/20 | | [facility] | | | Date | | | [facility] | | | | | | HEART | | | | | | MEDICAL | | | | | | CENTER | | | | | | LABORATORY | | | | | | [facility] | | + + + + + + + + | Specimen | + + | Urine | + + + + + + + | Performing | Address | City/State/Zipcode | Phone Number | | Organization | | | | + + + + + | [facility] | [address] | [place] [address] | | | [facility] | | | | | LABORATORY [facility] | | | | + + + + + Coronavirus (COVID-19) NAAT (12/18/2019 7:08 PM PDT)Only the most recent of 2 results with in the time period is included. + + + + + + | Component | Value | Ref Range | Performed | Pathologist | | | | | At | Signature | + + + + + + | SARS-CoV-2, | NegativeComment: | Negative | [facility] | | | NAAT | SARS-CoV-2, RNA | | [facility] | | | (COVID-19) | (COVID-19) EUA Negative | | MEDICAL | | | | results, using the | | CENTER - | | | | [employer] Platform, | | LABORATORY | | | | should be treated as | | | | | | presumptive and, if | | | | | | inconsistent with | | | | | | clinical signs and | | | | | | symptoms or necessary | | | | | | for patient management, | | | | | | should be tested with an | | | | | | alternative molecular | | | | | | assay. Please contact | | | | | | the laboratory for | | | | | | assistance as needed. | | | | | | Negative results do not | | | | | | preclude COVID-19 | | | | | | infection and should not | | | | | | be used as the sole | | | | | | basis for patient | | | | | | management decisions. | | | | | | Negative results should | | | | | | be considered in the | | | | | | context of a patient's | | | | | | recent exposures, | | | | | | history, presence of | | | | | | clinical signs and | | | | | | symptoms consistent with | | | | | | COVID-19. This assay | | | | | | has been cleared for use | | | | | | under an FDA Emergency | | | | | | Use Authorization. This | | | | | | test is used for | | | | | | clinical purposes. It | | | | | | should not be regarded | | | | | | as investigational or | | | | | | for research. This | | | | | | laboratory is certified | | | | | | under the Clinical | | | | | | Laboratory Improvement | | | | | | Amendments (CLIA) as | | | | | | qualified to perform | | | | | | high complexity testing. | | | | | | This test has been | | | | | | validated in accordance | | | | | | with the FDA's Guidance | | | | | | Document "Policy for | | | | | | Diagnostics Testing in | | | | | | Laboratories Certified | | | | | | to Perform High | | | | | | Complexity Testing under | | | | | | CLIA prior to Emergency | | | | | | Use Authorization for | | | | | | Coronavirus Disease-2019 | | | | | | during the Public | | | | | | Health Emergency" issued | | | | | | on August 11, 2019. | | | | | | FDA independent review | | | | | | of this validation is | | | | | | pending. This test is | | | | | | only authorized for the | | | | | | duration of time the | | | | | | declaration that | | | | | | circumstances exist | | | | | | justifying the | | | | | | authorization of the | | | | | | emergency use of in | | | | | | vitro diagnostic tests | | | | | | for detection of | | | | | | SARS-CoV-2 virus and/or | | | | | | diagnosis of COVID-19 | | | | | | infection under section | | | | | | 564(b)(1) of the Act, 21 | | | | | | U.S.C. 360bbb-3(b)(1), | | | | | | unless the authorization | | | | | | is terminated or | | | | | | revoked sooner. | | | | + + + + + + + + | Specimen | + + | Tissue - Entire | | nasopharynx (body | | structure) | + + + + + + + | Performing | Address | City/State/Zipcode | Phone Number | | Organization | | | | + + + + + | [facility] | [address] | [place] | [phone] | | [facility] | | [address] | | | - LABORATORY | | | | + + + + + LABS - EXTERNAL SCAN (11/26/2019 12:00 AM PDT) + + + | Narrative | Performed At | + + + | Ordered by an | | | unspecified provider. | | + + + Protein/Creatinine Ratio, Urine (11/26/2019) [...] + + + | [facility] | [address] [place] [address] | [place], [place] | [phone] | | [facility] | Blvd. | [address] | | | LABORATORY | | | | + + + + + | [facility] | [address] [place] [address] | [place], [place] | | | [facility] | Blvd. | [address] | | | LABORATORY | | | | + + + + + XR Abdomen AP (11/26/2019 12:00 AM PDT) [...] | | | + +---------+ + + Urinalysis With Microscopic (11/26/2019) + [...] - 1.030 | [facility] | | | [place], | | | LAB | | | [...] + + + | [facility] | [address] [place] [address] | [place], [place] | [phone] | | [facility] | Blvd. | [address] | | | LABORATORY | | | | + + + + + | [facility] | [address] [place] [address] | [place], [place] | | | [facility] | Blvd. | [address] | | | LABORATORY | | | [...] REFERENCE LAB | [address] | [place] | [phone] | | [facility] | Blvd. | [address] | | | LABORATORY | | | | + + + + + | [facility] | [address] | [place] | | | [facility] | Blvd. | [address] | | | LABORATORY | | | [...] + + | [facility] | [address] | [place] | [phone] | | [facility] | Blvd. | [address] | | | LABORATORY | | | | + + + + + | [facility] | [address] | [place] | | | [facility] | Blvd. | [address] | | | LABORATORY | | | | + + + + + Renal Function Panel (11/26/2019) + + + [...] [address] | [place] | [phone] | | [facility] | Blvd. | [address] | | | LABORATORY | | | | + + + + + | REFER[facility] | [address] [facility] | [place] | | | [facility] | Bl[address] | [address] | | | LABORATORY | | | | + + + + + from Last 3 Months Insurance + +--------+ +--------+ [...] | [employer] | [employer] | [id number] | | [phone] | | Medica | | MEDICAID HMO | HEALTH | | 019-Pr | 1 | | id | | | MDCD | | esent | | | | | | [place]MO [place] | | | | | | + +--------+ +--------+ +---------+--------+ | [employer] | [employer] | [id number] | 05/28/ | [phone] | | Medica | | MEDICAID HMO | HEALTH | | 2019-P | 1 | | id | | | MDCD | | resent | | | | | | [place]MO [place] | | | | | | + +--------+ +--------+ +---------+--------+ | [employer] | [employer] | [id number] | 2 | [id number] | | Medica | | MEDICAID HMO | HEALTH | | 020-Pr | 1 | | id | | [...] Person | Self | [birth year] | [address] | | | al/Fam | | 1971 | [phone] | [address] [place], | | | [place] | | | [address] (Home) | [place] [address] | + +--------+ +--------+ + + | Mireya Ramos | Person | Self | [birth year] | [address] | | | al/Fam | | 1971 | [phone] | [address] [place], | | | [place] | | | [address] (Home) | [place] [address] | + +--------+ +--------+ + + | Mireya Ramos | Person | Self | [birth year] | [address] | | | al/Fam | | 1971 | [phone] | [address] [place], | | | [place] | | | [address] (Home) | [place] [address] | + +--------+ +--------+ + + | RamosMireya grajeda | Person | Self | [birth year] | [address] | | | al/Kemal | | 1971 | [phone] | [address] [place], | | | [place] | | | [address] (Home) | [place] [address] | + +--------+ +--------+ + + Advance Directives + + + + + | Type | Date Recorded | Patient | Explanation | | | | Glove Turner And Former | | + + + + + | Power of | | | | | Loan Review Officer | | | | + + + + + | Power of | | | | | Loan Review Officer | | | | + + + [...] + + + | Full Code | 12/18/2019 | 12/19/2019 | | | | 10:46 PM | 9:40 AM | | + + + + + + + + +---+ | | | | | + + + +---+ | Full Code | 11/11/2018 | 11/12/2018 | | | | 11:52 PM | 12:54 PM | | + + + +---+
--- OUTSIDE RECORDS SUMMARY | ~2019-12-26 | XMS | Encounter Summary ---
Demographics + + + | Address | [address] | | | [place] [address] | + + + | Home Phone | | + + + | Preferred Language | Unknown | + + + | Marital Status | Unknown | + + + | Scientologist Affiliation | 1013 | + + + | Race | Unknown | + + + | Ethnic Group | Unknown | + + + Author + + + | Author | [facility] | | | and [place] | + + + | Organization | [facility] | | | and [place] [...] Team Providers + +------+ + | Care Toll Gate Keeper Name | Role | Phone | + +------+ + PCP | Unavailable | + +------+ + Encounter Details +--------+ + + + + | Date | Type | Department | Care Team | Description | +--------+ + + + + | 03/11/ | Hospital | [facility] | Dain Weinberg, | | | 2012 | Encounter | [facility] | [address] | | | | | CENTER [address] | [place] | | | | | [place] | [address] | | | | | [address] | | | | | | [phone] | | | +--------+ + + + [...] + + documented as of this encounter ED Notes Dain Weinberg MD - 03/11/2013 10:18 AM PDT [place], [place] [id number] Patient Name: EDY WALLACE Provider: Unit #: [id number] Location: : 1970 DATE: 03/11/2013 CHIEF COMPLAINT: Abdominal pain. HISTORY OF PRESENT ILLNESS: Edy is a 42-year-old female who started her period yesterday , said her cramps were bothering her this morning, she was crying so her friend told her to come to the ER for further evaluation. She states that this is typical for her period, may be a little bit worse than usual but otherwise nothing else has changed. She of h aving crampy pain that comes and goes. She has had some vaginal bleeding. She has had no fe emmy, cough, chills, sweats, diarrhea, dysuria, hematuria, urgency, frequency, or other asso ciated symptoms. PAST MEDICAL HISTORY: Negative except she said she has had occasional ovarian cysts. SOCIAL HISTORY: She does smoke. REVIEW OF SYSTEMS All systems reviewed were negative except as noted in HPI. PHYSICAL EXAMINATION GENERAL: A 42-year-old female in no apparent distress. INITIAL VITAL SIGNS: BP 116/71, pulse 53, respirations 16, temperature 96.3, saturation 97 % on room air. HEENT: Pupils equally round and reactive to light. Mucous membranes are moist. Nasal passa ges are clear. Trachea is midline. CHEST: Lungs are clear to auscultation bilaterally. No rales, no wheezes. CARDIOVASCULAR: Rate and rhythm is regular. ABDOMEN: Completely nontender, nondistended. EXTREMITIES: No edema. SKIN: No rash. ASSESSMENT: This is a 42-year-old female with menses pain. She was given some Toradol 30 m g IM x1 with some Zofran and told to come back if she gets worse. DIAGNOSIS ABDOMINAL PAIN. Also note she will have a urine test. If it is positive I will dictate an addend um, but she states she has had a tubal ligation in the past. DICTATED BY: Dain Weinberg M.D. Emergency Medicine JOB #: [id number] EXT JOB #:[id number] <<Signature on File>> Dain Weinberg MD1 2203 < documented in this encounter Plan of Treatment +--------+---------+ + + + | Date | Type | Specialty | Care Team | Description | +--------+---------+ + + + | 06/02/ | Office | Nephrology | Brad Singh MD | | | 2020 | Visit | | [address] [facility] | | | | | | [address] [place] | | | | | | [address] | | | | | | | | +--------+---------+ + + + documented as of this encounter Visit Diagnoses Not on filedocumented in this encounter"
--- OUTSIDE RECORDS SUMMARY | ~2019-12-26 | XMS | Encounter Summary ---
Demographics + + + | Address | [address] | | | [place] [address] | + + + | Home Phone | | + + + | Preferred Language | Unknown | + + + | Marital Status | Unknown | + + + | Episcopal Affiliation | 1013 | + + + | Race | Unknown | + + + | Ethnic Group | Unknown | + + + Author + + + | Author | [facility] | | | and [place] | + + + | Organization | [facility] | | | and [place] | [...] Team Providers + +------+ + | Care Air Traffic Control Operator Name | Role | Phone | [...] | MED CTR EXTERNAL | [address] | | | | | IMAGING [address] | [address] [place] | | | | | [address] | [place] [address] | | | | | [place] [id number] | | | | | | [phone] | | | +--------+ + + + [...] | | | | | | [address] [facility] [place] | | | | | | [address] | | | | | | | [...]
--- OUTSIDE RECORDS SUMMARY | ~2019-12-26 | XMS | Encounter Summary ---
Demographics + + + | Address | [address] | | | [place] [address] | + + + | Home Phone | | + + + | Preferred Language | Unknown | + + + | Marital Status | Unknown | + + + | Anglican Affiliation | 1013 | + + + | Race | Unknown | + + + | Ethnic Group | Unknown | + + + Author + + + | Author | [facility] | | | and [place] | + + + | Organization | [facility] | [...] Team Providers + +------+ + | Care Medical Staff Assistant Name | Role | Phone | + +------+ + | Umesh Mcmahon NP | PCP | | + +------+ + Encounter Details +--------+ + + + + | Date | Type | Department | Care Team | Description | +--------+ + + + + | 11/26/ | Orders Only | [facility] | Brad Singh MD | Chronic kidney | | 2020 | | [place] | [address] | disease, stage III | | | | [address] | [address] [place], [place] | (moderate) (HCC) | | | | [address] [place], [place] | [address] | (Primary Dx) | | | | [address] | | | | | | [phone] | | | +--------+ + + + [...] 2019 | Visit | | [address] [facility] | | | | | | [address] [place], [place] | | | | | | [address] | | | | | | | | +--------+---------+ + + + + +------+--------+ + + | Name | Type | Priori | Associated Diagnoses | Order Schedule | | | | ty | | | + +------+--------+ + + | CBC with | Lab | Routin | Chronic kidney | Expected: | | Differential | | e | disease, stage III | 05/20/2020, Expires: | | | | | (moderate) (HCC) | 11/26/2020 | + +------+--------+ + + | Parathyroid Hormone, | Lab | Routin | Chronic kidney | Expected: | | Intact | | e | disease, stage III | 05/20/2020, Expires: | | | | | (moderate) ([facility]) | 11/26/2020 | + +------+--------+ + + | Protein/Creatinine | Lab | Routin | Chronic kidney | Expected: | | Ratio, Urine | | e | disease, stage III | 05/20/2020, Expires: | | | | | (moderate) ([facility]) | 11/26/2020 | + +------+--------+ + + | Renal Function Panel | Lab | Routin | Chronic kidney | Expected: | | | | e | disease, stage III | 05/20/2020, Expires: | | | | | (moderate) ([facility]) | 11/26/2020 | + +------+--------+ + + documented as of this encounter Visit Diagnoses + + | Diagnosis | + + | Chronic kidney disease, stage III (moderate) (HCC) - Primary Chronic kidney disease, | | Stage III (moderate) | + + documented in this encounter"
--- OUTSIDE RECORDS SUMMARY | ~2019-12-26 | XMS | Encounter Summary ---
Demographics + + + | Address | [address] | | | [place] [address] | + + + | Home Phone | | + + + | Preferred Language | Unknown | + + + | Marital Status | Unknown | + + + | Episcopalian Affiliation | 1013 | + + + | Race | Unknown | + + + | Ethnic Group | Unknown | + + + Author + + + | Author | [facility] | | | and [place] | + + + | Organization | [facility] [...] Team Providers + +------+ + | Care Supervisor Ride Assembly Name | Role | Phone | + [...] [facility] | | | | | [place] | | [place] | | | | | CYSTO/URETER | | [address] | | | | | O | | Phone: | | | | | W/LITHOTRIPS | | [phone] | | | | | Y &LINDSEY | | Fax: | | | | | STENT INSRT | | [phone] | | | | | RIGHT | | | | | | | CYSTOSCOPY | | | | | | | URETEROSCOPY | | | | | | | W/ LASER | | | +--------+--------+ + + + + Encounter Details +--------+---------+ + + + | Date | Type | Department | Care Team | Description | +--------+---------+ + + + | 12/17/ | Surgery | [facility] | Anastacio Mendoza MD | CYSTOSCOPY, RIGHT | | 2019 | | MED CTR [facility] OP | [address] | URETEROSCOPY W/ | | | | [address] | [place] | LASER AND STENT | | | | [place] | [address] | PLACEMENT | | | | [address] | [phone] | | | | | | | [...] + + + | Blood Pressure | 137/85 | 12/18/2019 7:10 PM | | | | | PDT | | + + + + + | Pulse | 61 | 12/18/2019 7:10 PM | | | | | PDT | | + + + + + | Temperature | 37.2 C (99 F) | 12/18/2019 7:10 PM | | | | | PDT | | + + + + + | Respiratory Rate | 24 | 12/18/2019 7:10 PM | | | | | PDT | | + + + + + | Oxygen Saturation | 97% | 12/18/2019 7:10 PM | | | | | PDT | | + + + + + | Inhaled Oxygen | - | - | | | Concentration | | | | + + + + + | Weight | 103.5 kg (228 lb 2.8 | 12/18/2019 7:10 PM | | | | oz) | PDT | | + + + + + | Height | 167.6 cm (5' 6") | 12/18/2019 7:10 PM | | | | | PDT [...] do you have serious | No | 12/19/2019 | | difficulty hearing? | | | + + + + | Are you blind or do you have serious | No | 12/19/2019 | | difficulty seeing, even when wearing | | | | glasses? | | | + + + + | Do you have serious difficulty walking or | No | 12/19/2019 | | climbing stairs? (5 years old or older) | | | + + + + | Do you have difficulty dressing or bathing? | No | 12/19/2019 | | (5 years old or older) | | | + + + + | Because of a physical, mental, or emotional | Yes | 12/19/2019 | | condition, do you have difficulty [...] of a physical, mental, or emotional | Yes | 12/19/2019 | | condition, do you have serious difficulty | | | | concentrating, remembering, or making | | | | decisions? (5 years old or older) | | | + + + + documented as of this encounter Discharge Instructions Instructions Anastacio Mendoza MD - 12/18/2019A string is tied in her short loop just outside urethra. Touch lightly with toilet paper after voiding to avoid dislodging the stent. Exp ect blood in urine and some right kidney pain until stent is removed. Okay to shower. No b aths. Follow kidney stone prevention diet. documented in this encounter Medications at Time [...] + + + +---------+ + + | metoprolol | | | 0 | 07/29/19 | | | succinate | | | | 20 | | | (TOPROL-XL) 25 mg 24 | | | | | | | hr tablet | | | | | | + + + +---------+ + + | prazosin | Take 6 mg by mouth | | 0 | | | | (MINIPRESS) 2 MG | nightly. | | | | | | capsule | | | | | | + + + +---------+ + + documented as of this encounter Progress Notes Celia Villatoro RN - 12/19/2019 6:44 AM PDTrn read AVS and dc'd IV all questions answered mo m her to drive pt home Anastacio Jacob MD - 12/19/2019 6:39 AM PDTFormatting of this note might be different from dayanna arroyo. DATE/TIME: 12/19/2019 6:39 AM PDT ASSESSMENT AND PLAN: 1. Discharge. Double-J stent to be removed in about 10 days. SUBJECTIVE/ROS: Mireya Ramos underwent urgent right ureteroscopic laser lithotripsy last evening. She did not have a ride home. She is comfortable this morning without nausea or fever. CURRENT INFUSIONS lactated ringers Stopped (12/18/192237) lactated ringers 100 mL/hr at 12/18/19 2301 CURRENT MEDICATIONS I personally reviewed the above medications. OBJECTIVE: Temp: 36.6 C (97.9 F) BP: 113/61 Pulse: 56 Resp: 18 SpO2: 94 % on Min/Max Temp past 24 hours:Temp Av.7 C (98 F) Min: 35.8 C (96.4 F) Max: 37. 2 C (99 F) Intake/Output Summary (Last 24 hours) at 12/19/2019 0639 Last data filed at 12/19/2019 0636 Gross per 24 hour Intake 2203 ml Output 1390 ml Net 813 ml Wt. Admission: Weight: 103.5 kg (228 lb 2.8 oz) Wt. Current: Weight: 103.1 kg (227 lb 4 .7 oz) General: Uncomfortable Heart: Lungs: Abdomen: Chemistry: Hematology: Electronically Signed by: Anastacio Mendoza MD, 12/19/2019 6:39 AM PDT [facility]ronically signed by Anastacio Mendoza MD at 12/18 6:40 AM PDTJose Antonio Mario PharmD - 12/18/2019 7:11 PM PDTFormatting of this note mi ght be different from the original. SURGICAL ANTIBIOTIC PROPHYLAXIS MANAGEMENT PER PHARMACY Mireya Ramos is a 49 y.o. female admitted on 12/18/2019 7:03 PM. Patient is currently recei ving Cefazolin. Plan: Date Dose-current Dose-new 12/18/19 1000 mg x 1 2000 mg x 1 Assessment/Plan: 1. Cefazolin for surgical prophylaxis, increase dose as above. Per P&T Approved Surgical Site Infection Prophylaxis per Pharmacy Protocol Electronically signed by: Jose Antonio Mario PharmD 12/18/2019 7:11 PM PDT documented in this encounter H&P Notes Anastacio Mendoza MD - 12/18/2019 5:08 PM PDTChief Complaint right flank pain History of Present Illness This 49 year old developed right flank pain, initially with some nausea early November 2019. Di pstick only urine 11/26/19 with her primary physician indicated trace leukocyte esterase and she received an antibiotic without change in symptoms. KUB 11/26/19 is available today for review suggesting a sizable right proximal ureteral stone, possibly 2 stones over the right kidney and 1 or 2 stones over the left kidney. She is presently under evaluation with Dr. Coffman for suspected hyperparathyroidism with a bl ood calcium of 10.16 November 2019. I treated this patient in 2018. She was received in transfer November 11, 2018 with abdominal di scomfort and urinalysis suggesting infection. Noncontrast CT November 11, 2018 demonstrated a 15 mm right ureteropelvic junction calculus, 8 mm left lateral calyceal stone, two punctate rig ht calyceal and 1 punctate left calyceal stones. She underwent cystoscopy with stent decompr ession, then bilateral ESWL. She had passed her first kidney stone approximately 1989 and then underwent 3 subsequent ur eteroscopic procedures from both right and left kidneys, most recently 2008 prior to my danette tment. Kidney stone analysis September 2017 was calcium oxalate dihydrate 30% and calcium phosph ate 70%. She is following a calcium oxalate prevention diet drinking about a gallon of water daily. She voids 8-10 times while awake and 1-2 times at night. Stream requires straining througho ut. She has mild urgency and often double voiding 1 to 2 minutes after her initial stream. S he wears 1 sanitary napkin per 24 hours which becomes heavily wet with urine by the end of t he day. Review of Systems Bowels move daily. No shortness of breath, angina, paresthesias. Active Problems ?? Bacterial UTI (N39.0,A49.9) ?? Bipolar disorder (F31.9) ?? Calcium kidney stone (N20.0) ?? Chronic back pain (M54.9,G89.29) ?? Pre-op evaluation (Z01.818) ?? PTSD (post-traumatic stress disorder) (F43.10) Surgical History ?? History of Lithotripsy ?? History of Salpingo-oophorectomy Social History ?? Current every day smoker (F17.200) She stopped smoking November 2019. She drinks 1 cup of coffee daily. No alcohol since her 20s. Allergies ?? Ciprofloxacin HCl TABS ?? Adhesive Tape 1"x5yd TAPE Vitals Vitals Panel Recorded: [id number] 11:47AM 1. Height: 5 ft 6 in 2. Weight: 226 lb 3. BMI Calculated: 36.48 kg/m2 4. BSA Calculated: 2.11 m2 5. Blood Pressure: 118 / 90 6. Heart Rate: 72 7. Pulse Quality: Regular Results/Data Lab 11/26/19 included normal comprehensive chemistry except calcium 10.5 and glucose 194, n ormal CBC. Current Meds ?? clonazePAM 1 MG Oral Tablet; Therapy: (Recorded:29Nov2018) to Recorded ?? Metoprolol Succinate ER 25 MG Oral Tablet Extended Release 24 Hour; Therapy: 18Jul2019 to Recorded ?? Prazosin HCl - 2 MG Oral Capsule; Therapy: (Recorded:29Nov2018) to Recorded ?? Tamsulosin HCl - 0.4 MG Oral Capsule; Therapy: 26Nov2019 to Recorded Physical Exam Alert, slightly heavyset female in very mild distress. Symmetric facial expression. Clear s peech and normal gait. Lungs are clear to auscultation. Heart has regular rate without murmu r. Modest right flank tenderness. Extremities symmetric. Normal affect. Assessment ?? Calculus of proximal right ureter (N20.1) ?? Calcium kidney stone (N20.0) ?? Hyperparathyroidism (E21.3) Plan Recurrent nephrolithiasis with symptomatic right proximal ureteral calculus measuring about 10 mm. Proper midstream urine collected for lab. Right ureteroscopic laser lithotripsy prop osed. Risk of infection, bleeding, failure to clear all stones, ureteral stenosis and possib le need for prolonged stent is discussed. 40-minute [facility] visit[facility] Addendum 12/14/19 -urinalysis 6-9 red cells, no white cells or crystals Cc: Dr. Le Signatures Electronically signed by : Anastacio Mendoza M.D.; Dec 14 2019 7:11AM PST (Author)Electronica lly signed by Anastacio Mendoza MD at 12/18/2019 5:08 PM PDTdocumented in this encounter Miscellaneous Notes Plan of Care - Jolly Londono RN - 12/19/2019 6:38 AM PDTPt slept well through noc. Us ing call light appropriately. Reports flank pain, received [place] x 1. Urine output light pin k, reports some bladder discomfort. Urine strained, no stones only sediment noted. Pt remind ed to be careful with stent strings. Ambulates SBA. IVF infusing to left hand. p Note - Anastacio Mendoza MD - 12/2019 9:23 PM [facility] Pt. Name/Age/: Mireya Ramos 49 y.o. 1970 Med. Record Number: [id number] Date of Operation/Procedure: 12/18/2019 Preoperative Diagnosis: Right proximal ureterolithiasis, right nephrolithiasis [N20.1, N20. 0] Postoperative Diagnosis: Same Surgeon: Anastacio Mendoza MD Linux Vmware Administrator(s): None Anesthesia Provider(s): Anesthesiologist: Walker Painting MD Anesthesia Staff: Stepan Urias DO Anesthesia Type: General Procedure(s): Right ureteroscopic laser lithotripsy Placement of right ureteral stent Operative Indications: Mireya Ramos is a 49 y.o. year old female seen in the office 12/13 with a month long history of mild nausea and right flank pain. KUB suggested a sizable right proximal ureteral calculus these 2 other stones over the right kidney. A CT from November 2018 demonstrated a 15 mm right ureteropelvic junction stone, 8 mm left lateral calyceal st one, two punctate right calyceal stones. She underwent bilateral ESWL in November 2018. Right flank pain became intense today prompting emergency surgery. Operative Findings: At least 10 mm proximal ureteral stone behind which were 3 other 5 mm s tones. Right lower calyx had 3 stones at least 5 mm each. Operation: The patient was identified as Mireya Ramos and the procedure was confirmed as stated above. The patient was placed in the supine position. SCD devices were applied. Foll owing the induction of adequate general anesthesia, his were placed in lithotomy and the gen john prepped and draped in the usual sterile fashion. A 22 Ugandan cystoscope was introduced the bladder with obturator. Clear urine was collecte d for lab. The bladder wall did not appear inflamed. There were generous bilateral uretera l orifice ease and no other mucosal lesion. A 0.035 inch diameter guidewire was threaded retrograde up the right ureter and bypassed th e proximal ureteral collection of stones. Cystoscope was removed. A 14 Ugandan by 28 cm ure teral access sheath reached its full extent. Obturator was removed. Flexible ureteroscope was introduced. A couple centimeters cephalad to the access sheath, the stone was identifie d. Holmium laser fragmentation was progressively initiated. After debulking about a third of the stone, the stone tumbled back into the very dilated right renal pelvis. Three stones including the remaining sizable stones were pushed to a superior calyx. Another approximat e 5 mm stone was advanced to a superolateral calyx. A lower calyx had 3 stones measuring 5 to 8 mm. These were fragmentation of all stones was accomplished. Contrast was injected hi [facility] renal pelvis anatomy. Ureteroscope and access sheath were removed. Cystoscope was placed back over the safety wire. A 6 Ugandan by 26 cm double-J stent was th readed over the safety wire. Cephalad tip coiled within the right renal pelvis. Inferior t ip coiled within the bladder. Stent string remained attached and was tied into a short loop just outside the urethra. Estimated Blood Loss: none Transfused: no Drains: 6 Fr x 26 cm right ureteral stent Specimen (s): Catheterized urinalysis Complications: none Electronically Signed by: Anastacio Mendoza MD, 12/18/2019 9:23 PM PDT [facility] n[facility] H&P Note (unl inked) - Anastacio Mendoza MD - 12/18/2019 5:09 PM PDTThe patient called the day with intense right flank pain but no fever or dysuria. Asymptomatic COVID screening was collected yeste rday. She desires urgent right ureteroscopic laser lithotripsy. documented in this encounter Plan of Treatment +--------+---------+ + + + | Date | Type | Specialty | Care Team | Description | +--------+---------+ + + + | 06/02/ | Office | Nephrology | Brad Singh MD | | 2019 | Visit | | [address] [facility] | | | | | | [address] [place], [place] | | | | | | [id number] | | | | | | | [...] + + documented in this encounter Results [place] Pyelogram Retrograde (12/18/2019 9:22 PM [...] - 1.030 | [facility] | | | [place], | | | [facility] | | [...] | | Comment | Indicated | | [facility] | | | [...] [address] | [place] | [phone] | | [facility] | | [address] | | | - LABORATORY | | [...] | | | Qualitative | | | [facility] | | | , Urine | | [...] ST. | [address] | [place] | [phone] | | [facility] | | [address] | | | - LABORATORY | | | | + + + + + POCT Test, Urine, QUAL [...] | | | [facility] | | | [place], | | | [facility] | | | [facility] | | | [facility] | | | | | | MEDICAL | | | | | | CENTER | | | | | | LABORATORY | | | | | | CERNER | | + + + + + + | Lot Number | [id number] | | [facility] | | | | [...] + + + + + | [facility] | [address] | [place] [address] | | | [facility] | | | | | [facility] [place] | | | | + + + + + Coronavirus (COVID-19) NAAT (12/18/2019 7:08 PM PDT) + + + + + + | Component | Value | Ref Range | Performed | Pathologist | | | | | At | Signature | + + + + + + | SARS-CoV-2, | NegativeComment: | Negative | [facility] | | | [facility] | SARS-CoV-2, RNA | | [facility] | | | (COVID-19) | (COVID-19) EUA Negative | | MEDICAL | | | | results, using the | | CENTER - | | | | [employer] Platform, | | LABORATORY | [...] ST. | [address] | [place], [place] | [phone] | | [facility] | | [address] | | | - LABORATORY | | | | + + + + + documented in this encounter Visit Diagnoses + + | Diagnosis | + + | Calculus of ureter | + + documented in this encounter Administered Medications + +--------+ + +------+------+ | Medication Order | MAR | Action | Dose | Rate | Site | | | Action | Date | | | | + +--------+ + +------+------+ | acetaminophen (TYLENOL) tablet | Given | 12/18/19 | 1,000 mg | | | | 1,000 mg 1,000 mg, Oral, SEE | | 20 7:21 | | | | | ADMIN INSTRUCTIONS, Starting Tue | | PM PDT | | | | | 12/18/19 at 1904, For 1 dose, | | | | | | | Nursing to give 60 minutes before | | | | | | | time of surgery, Pre-op | | | | | | + +--------+ + +------+------+ +---+---+ | | | +---+---+ + +-------+ +--------+---+---+ | celecoxib (CELEBREX) capsule | Given | 12/18/19 | 400 mg | | | | 400 mg 400 mg, Oral, SEE ADMIN | | 20 7:21 | | | | | INSTRUCTIONS, Starting Tue12/18/19 | | PM PDT | | | | | at 1904, For 1 dose, Nursing to | | | | | | | give 60 minutes before time of | | | | | | | surgery, Pre-op | | | | | | + +-------+ +--------+---+---+ +---+---+ | | | +---+---+ + +-------+ + +---+---+ | HYDROcodone-acetaminophen | Given | 12/19/19 | 1 tablet | | | | (NORCO) 5-325 mg per tablet 1-2 | | 20 5:24 | | | | | tablet 1-2 tablet, Oral, EVERY 4 | | AM PDT | | | | | HOURS PRN, Pain, Starting Tue | | | | | | | 12/18/19 at 2246, Post-op/Phase II | | | | | | + +-------+ + +---+---+ +---+---+ | | | +---+---+ + +---------+ +---+---+---+ | lactated ringers (LR) infusion | New Bag | 12/18/19 | | | | | at 10-100 mL/hr, Intravenous, | | 20 9:00 | | | | | CONTINUOUS, Starting 12/18/19 | | PM PDT | | | [...] +--------+-------+---+ +---+---+ | | | +---+---+ + +---------+ +---+-------+---+ | lactated ringers (LR) infusion | New Bag | 12/18/19 | | 100 | | | at 100 mL/hr, Intravenous, | | 20 11:01 | | mL/hr | | | CONTINUOUS, Starting 12/18/19 | | PM PDT | | | | | at 2315, Post-op/Phase II | | | | | | + +---------+ +---+-------+---+ +---+---+ | | | +---+---+ documented in this encounter
--- OUTSIDE RECORDS SUMMARY | ~2019-12-26 | XMS | Encounter Summary ---
Demographics + + + | Address | [address] | | | [place] [address] | + + + | Home Phone | | + + + | Preferred Language | Unknown | + + + | Marital Status | Unknown | + + + | Sikhism Affiliation | 1013 | + + + | Race | Unknown | + + + | Ethnic Group | Unknown | + + + Author + + + | Author | [facility] | | | and [place] | + + + | Organization | [facility] | | | and [...] Team Providers + +------+ + | Care Book Sewing Machine Operator Name | Role | Phone | [...] + | 03/01/ | Emergency | [facility] | Roderick Landaverde, | Right flank pain | | 2015 | | [facility] | MD [address] | (Primary Dx) | | | | CENTER [address] | [place], [place] | | | | | [place] | [address] | | | | | [address] | | | | | | [phone] | | | +--------+ + + + [...] + documented in this encounter Discharge Instructions Christine Romo RN - 03/01/2015Return if worsening or new concerning sy mptoms. AttachmentsThe following attachments cannot be sent through Care Everywhere.FLANK PAIN, UN[facility] ERTAIN CAUSE (AZERI)documented in this encounter Medications at Time of [...] documented as of this encounter ED Notes Roderick Landaverde MD - 03/01/2015 10:17 PM PDTFormatting of this note might be different fro m the original. eMERGENCY dEPARTMENT eNCOUnter CHIEF COMPLAINT Chief Complaint Patient presents with Abdominal Pain HPI Mireya Drake is a 44 y.o. female who presents with a 4-5 day history of right groin p ain radiating to her right flank. Pain is episodic and lasts for 15-20 minutes at a time. Corazon hale has about 5 or 6 episodes a day. She denies any fevers or chills. She denies any nausea, v omiting, diarrhea, or constipation. She has had increased urinary urgency and frequency. PAST MEDICAL HISTORY Past Medical History Diagnosis Date Kidney stones Asthma SURGICAL HISTORY Past Surgical History Procedure Laterality Date Tubal ligation CURRENT MEDICATIONS Discharge Medication List as of 03/01/2015 23:23 CONTINUE these medications which have NOT CHANGED Details albuterol (PROAIR HFA) 90 mcg/puff inhaler Inhale 2 puffs into the lungs every 4 hours as n eeded.Historical Med oxybutynin (OXYTROL) 3.9 mg/[address] 1 patch onto the skin. EVERY 4 DAYSHistorical Med PROPRANOLOL HCL PO Take by mouth Daily.Historical Med tamsulosin (FLOMAX) 0.4 mg CAPS Take 0.4 mg by mouth daily (after breakfast).Historical Med ALLERGIES No Known Allergies FAMILY HISTORY No family history on file. SOCIAL HISTORY History Social History Marital Status: Spouse Name: N/A Number of Children: N/A Years of Education: N/A Social History Main Topics Smoking status: Current Some Day Smoker -- 0.33 packs/day Smokeless tobacco: Never Used Alcohol Use: No Drug Use: Yes Special: Marijuana Sexual Activity: None Other Topics Concern None Social History Narrative REVIEW OF SYSTEMS A 12 system review of systems is otherwise negative except as noted in the HPI above. PHYSICAL EXAM VITAL SIGNS: (first vital signs):Temp: 37.2 C (99 F) Pulse: 86 Resp: 18 SpO2: 97 % BP: 127/67 mmHg Constitutional: Well developed, Well nourished, No acute distress, Non-toxic appearance. HENT: Normocephalic, Atraumatic, Bilateral external ears normal, Oral mucosa moist, forensic manager ior pharynx no exudates, Nose normal. Neck-supple, nontender, no meningismus, No stridor. Eyes: PERRL, EOMI, Conjunctiva normal, No discharge. Respiratory: Breath sounds equal bilaterally, no adventitious sounds, No chest wall tender ness. Cardiovascular: Normal rate, normal S1, S2, no murmurs, rubs, or gallops GI: Abdomen soft, non-tender, non-distended, normal bowel sounds, no CVA tenderness : Musculoskeletal: Intact distal pulses, No edema, No tenderness, No cyanosis. Good range of motion in all major joints. No tenderness to palpation or major deformities noted. Back- No tenderness. Skin: Warm, Dry, No erythema, No rash or lesions. Lymphatic: Neurologic: Alert & oriented x 3, Cranial nerves II-XII intact, Normal sensation, motor, a nd strength in all four extremities, No focal deficits noted. Psychiatric: Affect normal, Judgment normal, Mood normal. Labs Reviewed URINALYSIS WITH MICROSCOPIC WITH CULTURE IF INDICATED - Abnormal; Notable for the following : CLARITY Cloudy (*) SQUAMOUS EPITHELIAL UA 2-5 (*) BACTERIA UA 1+ (*) AMORPHOUS CRYSTALS Moderate (*) All other components within normal limits POCT URINE SCREEN RADIOLOGY CT Results: Ct Renal Stone Wo Contrast 03/01/2015 DISCLAIMER: This is a preliminary report provided by [facility] JONATHAN Joyner. A final report is available at [facility]. CT ABDOMEN AND PELVIS WITHOUT CONTRAST (CPT) CT KUB CLINICAL INFORMATION: Right abdominal pain. COMPARISON: 01/09/2014. PROCEDURE: Axial images through the abdomen and pelvis. Multiplanar reconstructions. FINDINGS: Preliminary findings below. IMPRESSION: 1. No acute findings in the abdomen or pelvis. Normal appendix. 2. Tiny bilateral non-obstructing renal calculi . No ureteral calculi or evidence of obstructive uropathy. 3. Diffuse colonic diverticulosi s without evidence of diverticulitis. 4. Stable left ovarian enlargement, similar in appeara nce to the 01/09/2014 CT exam. Report sent: 03/01/2015 11:11:00 PM ED COURSE & MEDICAL DECISION MAKING Pertinent Labs & Imaging studies reviewed. (See chart for details) Patient presents with intermittent right flank pain that radiates to her right groin over t he last 5 days. She does not have any associated symptoms. Urinalysis was unremarkable. CT i maging was performed and did not show any acute intra-abdominal or pelvic findings. Patient has a history of low back problems. I suspect that this is either muscle spasm or a pinched nerve. She does not have any other concerning findings such as saddle anesthesia, bowel or b ladder incontinence or radiculopathy into her leg. She was given hydrocodone for pain will b e discharged home and can follow up with her primary care provider. She should return if wor sening or new concerning symptoms. Last Set of Vital Signs: Temp: 36.9 C (98.4 F) Pulse: 71 Resp: 18 SpO2: 95 % BP: 119/79 mmHg FINAL IMPRESSION 1. Right flank pain PLAN Follow-up Information Follow up with Roderick Frias In 1 week. Contact information: [address] [facility] [id number] Discharge Medication List as of 03/01/2015 23:23 START taking these medications Details HYDROcodone-acetaminophen (NORCO) 5-325 mg per tablet Take 1 tablet by mouth every 6 hours as needed for Pain.Disp-15 tablet, R-0, Print Roderick Landaverde MD 03/02/15 0009 document ed in this encounter Miscellaneous Notes ED Triage Notes - Christine Stringer RN - 03/01/2015 10:01 PM PDTPatient reports right lower quadrant abdominal pain x 5-6 days. Patient states pain is intermittent and radiates into right groin and right flank. History of kidney stones, but states this feels different . Pt reports orange urine lately, denies any dysuria. Still has appendix and gall bladder. Denies nausea, vomiting, diarrhea. documented in this encounter Plan of Treatment +--------+---------+ + + + | Date | Type | Specialty | Care Team | Description | +--------+---------+ + + + | 06/02/ | Office | Nephrology | Akoum, Brad H, MD | | | 2020 | Visit | | [address] [facility] | | | | | | [address] [place], [place] | | | | | | [address] | | | | | | | [...] report | | | was sent by [email or web address] on 03/01/2015 at 11:11 PM with no [...] | | preliminary report was sent by imeem on 03/01/2015 at 11:11 PM withno | [...] | |A preliminary report was sent by imeem on 03/01/2015 at 11:11 PM with | [...] | 1.010, 1.015, | | | | [place], | | 1.020, 1.025 | | | [...] + + + + | Clarity, | Cloudy (A) | Clear | [facility] [...] - 1.030 | [facility] | | | [place], | | | [facility] | | [...] + + + | Red Blood | 0-2 | 0 - 2 /HPF | [facility] | | | Cells, | | | [facility] | | | Urine | | | MEDICAL | | | | | | CENTER - | | | | | | LABORATORY | | + + + + + + | Squamous | 2-5 (A) | 0 - 2 /LPF | [facility] | | | Epithelial | | | [facility] | | | Cells, | | | MEDICAL | | | Urine | | | CENTER - | | | | | | LABORATORY | | + + + + + + | Bacteria, | 1+ (A) | Negative /HPF | [facility] | | | Urine | | | [facility] | | | | | | MEDICAL | | | | | | CENTER - | | | | | | LABORATORY | | + + + + + + | Amorphous | Moderate (A) | None Seen /HPF | [facility] | | | Crystals, | | | [facility] | | [...] ST. | [address] | [place], [place] | [phone] | | [facility] | | [address] | | | - LABORATORY | | [...]
--- OUTSIDE RECORDS SUMMARY | ~2019-12-26 | XMS | Encounter Summary ---
Demographics + + + | Address | [address] | | | [place] [address] | + + + | Home Phone [...] + + + | Author | [facility] | | | and [place] | + + + | Organization | [facility] | | | and [place] [...] Providers + +------+ + | Care Sales Project Administrator Name | Role | Phone | + [...] + + | 11/11/ | Surgery | [facility] | Anastacio Mendoza MD | CYSTOSCOPY PLACEMENT | | 2019 | | MED CTR OR INTRA OP | [address] | RIGHT URETERAL | | | | [address] | [place], [place] | STENT | | | | [place], [place] | [address] | | | | | [address] | [phone] | | | | | [phone] | | | +--------+---------+ + + + [...] + + + | Blood Pressure | 132/71 | 11/11/2018 11:10 PM | | | | | PDT | | + + + + + | Pulse | 75 | 11/11/2018 11:10 PM | | | | | PDT | | + + + + + | Temperature | 37.1 C (98.8 F) | 11/11/2018 11:08 PM | | | | | PDT | | + + + + + | Respiratory Rate | 21 | 11/11/2018 11:10 PM | | | | | PDT | | + + + + + | Oxygen Saturation | 100% | 11/11/2018 11:10 PM | | | | | PDT | | + + + + + | Inhaled Oxygen | - | - | | | Concentration | | | | + + + + + | Weight | 94.3 kg (207 lb 14.3 | 11/11/2018 9:15 PM | | | | oz) | PDT | | + + + + + | Height | - | - | | + [...] Complications: Patient was received in transfer from [facility] emergency room about 9:30 PM. She underwent the above indicated procedure. She remained afebrile. Her abdominal pain at presentation resolved. The morning after surgery she rece ived another IV dose of ceftriaxone and began oral levofloxacin. She was prescribed 6 more days of levofloxacin empirically awaiting results of final urine culture from [facility]. She is instructed that she has a [...] study results on DC: Urine culture from [facility] on 11/11/18 Follow-Up Plans: Follow-up with: Dr. Mendoza or Dr. Chino Diet: Calcium oxalate prevention diet Activity: No restrictions, shower only Electronically signed by: Anastacio Mendoza, 11/12/2018 8:50 [facility] documented in this enc ounter Discharge Instructions Instructions Anastacio Mendoza MD - 11/12/2018Printed list of medications from this [facility] is not correct. Resume your normal medications. You have a new prescription for levofloxac in antibiotic for the next 6 days. You will receive a dose of levofloxacin at the hospital today so will begin your prescription tomorrow, Tuesday. Contact [facility] emergency r oom Tuesday and possibly Tuesday until results of your urine culture are final and verify you are on the correct antibiotic through an emergency room nurse. Follow kidney stone prevention diet. You have a temporary stent to your right kidney. Nex t phase of telescopic stone surgery should be performed in the next 1 to 3 weeks either by donna Chino or Dr. Mendoza documented in this [...] Mendoza MD - 11/11/2018 9:52 PM PDT [facility] ADMIT HISTORY AND PHYSICAL Primary Care Physician: No primary care provider on file. PATIENT NAME: Mireya Ramos : 1970 TODAY'S DATE: 11/11/2018 IMPRESSION: 1. Febrile UTI with obstructing right ureteropelvic junction calculus 2. 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 She received 2 g ceftriaxone at [facility]. Urgent cystoscopy with placement of ri t double-J stent is proposed. After her UTI [...] recently June [address] Chino in [place]. She is aware of calcium oxalate kid [...] than 50 WBC with culture pending at [place] [facility] Electronically Signed by: Anastacio Mendoza MD, 11/11/2018 21:59 [facility] documented in this enc ounter Miscellaneous Notes Plan of Abe - Anastacio Amin RN - 11/12/2018 9:42 AM PDTMireya called a friend and arrange d for transport back home this morning. Plan reviewed for Mireya to resume her home medicatio ns and take her antibiotic. Mireya was instructed to follow up with [facility] to review h er urine culture results this week per Dr. Mendoza's instruction in AV[facility]. Electronically katie d by Anastacio Amin RN at 11/12/2018 9:43 AM PDTPlan of Abe - Sonja Lara RN - 019 5:43 [...] Anastacio Mendoza MD - 11/11/2018 10:54 PM PDTPROVIMAR[facility] Pt. Name/Age/: Mireya Ramos 48 y.o. 1970 Med. Record Number: [id number] Date of Operation/Procedure: 11/11/2018 Preoperative Diagnosis: Obstructing right ureteropelvic junction calculus with UTI and syst emic inflammatory response syndrome [N20.1, N39.0, R65.10] Postoperative Diagnosis: Same Surgeon: Anastacio Mendoza MD Studio Owner(s): None Anesthesia Provider(s): Anesthesiologist: Hood Horowitz MD [...] in the usual sterile fashion. A 23 Mauritian cystoscope was introduced with the obturator. Bladder has minimal erythema. T rigone was symmetric in both ureteral orifices are generous. Bladder is without other mucos al lesion. 0.035 inch diameter guidewire is threaded into the right ureter and advanced wit h fluoroscopic guidance. The wire bypasses the proximal ureteral stone. A 5 Mauritian open-en ded ureteral catheter is advanced over the guidewire accomplishing retrograde manipulation o f the calculus. Fairly clear urine was drained from the right renal pelvis. Contrast is in jected through the ureteral catheter highlighting renal pelvis anatomy. Guidewire is placed back to the superior pole of the right kidney. Ureteral catheter is removed. A 6 Mauritian b y 26 cm double-J stent was [...] by: Anastacio Mendoza MD, 11/11/2018 22:54 [facility] documented in this enc ounter Plan of Treatment +--------+---------+ + + + | Date | Type | Specialty | Care Team | Description | +--------+---------+ + + + | 06/02/ | Office | Nephrology | Brad Singh MD | | | 2019 | Visit | | [address] [facility] | | | | | | [address] [place], [place] | | | | | | [address] | | | | | | | | +--------+---------+ + + + documented as of this encounter Procedures + +--------+ + + + | Procedure Name | Priori | Date/Time | Associated Diagnosis | Comments | | | ty | | | | + +--------+ + + + | EXTRA CELSO JOSÉ | Routin | 11/12/2018 | | [...] + | [facility] | [address] | [place] | [phone] | | [facility] | | [address] | | | - LABORATORY | | [...] 1.05 (H) | 0.55 - 1.02 | [facility] | | | | | mg/dL | [...] mL/min/1.73m2 | [facility] | | | [facility] | RATE,ESTIMATED | | MEDICAL | | | | mL/min/1.33q9Ldxy than | | CENTER - | | [...] | ine Ratio | | | [facility] | | [...] ST. | [address] | [place], [place] | [phone] | | [facility] | | [address] | | | - LABORATORY | | | | + + + + + [place] Pyelogram Mao (11/11/2018 10:54 PM PDT) + + | [...]
--- OUTSIDE RECORDS SUMMARY | ~2019-12-26 | XMS | Encounter Summary ---
Demographics + + + | Address | [address] | | | [place] [address] | + + + | Home Phone | | + + + | Preferred Language | Unknown | + + + | Marital Status | Unknown | + + + | Holiness Affiliation | 1013 | + + + | Race | Unknown | + + + | Ethnic Group | Unknown | + + + Author + + + | Author | [facility] | | | and [place] | + + + | Organization | [facility] | | | and [...] Team Providers + +------+ + | Care Plant Nursery Worker Name | Role | Phone | + [...] | | | | CENTER [address] | [address] [place] | Dx) | | | | [place], [place] | [place] [address] | | | | | [address] | [phone] | | | | | [phone] | | | +--------+ + + + [...] Discharge Instructions Instructions Wang Kenny MD - 01/09/2014Drink plenty of fluids. Norphlet for pain, Zofran for nausea. AttachmentsThe following attachments cannot be sent through Care Everywhere.KIDNEY STONE W/ COLIC (FRENCH)PREVENTING KIDNEY STONES (FRENCH)documented in this encounter Medications at Time of [...] documented as of this encounter ED Notes Marty Bustamante RN - 01/09/2014 7:31 PM PDTPatient up to restroom tolerating well ang Kenny MD - 01/09/2014 2:53 PM PDT [facility] Mireya Drake Emergency Department Encounter Note [address] [place] [id number] PCP:Roxanne Gillis [phone] CHIEF COMPLAINT: Chief Complaint Patient presents with Flank Pain ED Room: ED11/ED11 HPI Mireya Drake is a 43 y.o. female who presents to the Emergency Department with onset about an hour and half ago of right-sided flank pain radiating to the right groin. No fever s or chills, she's felt warm and flushed and slightly nauseous but has not had vomiting. No dysuria or visible hematuria. No diarrhea. She has not had shortness of breath, but is so mewhat thacypenic due to pain and anxiety. She has had one prior kidney stone which passed spontaneously, she is uncertain which side that was on, it was a number of years ago. This does feel similar to that. PAST MEDICAL & SURGICAL HISTORY Past Medical History Diagnosis Date Kidney stones No past surgical history on file. CURRENT MEDICATIONS Previous Medications No medications on file ALLERGIES No Known Allergies FAMILY AND SOCIAL HISTORY No family history on file. History Social History Marital Status: Spouse Name: N/A Number of Children: N/A Years of Education: N/A Social History Main Topics Smoking status: None Smokeless tobacco: None Alcohol Use: Drug Use: Sexually Active: Other Topics Concern None Social History Narrative None REVIEW OF SYSTEMS As in history of present illness. A 10 system review was otherwise negative. PHYSICAL EXAM VITAL SIGNS: (first vital signs):Temp: 36.4 C (97.5 F) Pulse: 63 Resp: 18 SpO2: 99 % BP: 151/108 mmHg Constitutional: female patient, Moderate distress HEENT: Atraumatic, PERRL, Oropharynx benign. Neck: Supple with full range of motion. No JVD, lymphadenopathy, or meningismus. Respiratory: Good air movement bilaterally. No wheezes, Bibasilar, rales. Cardiovascular: Normal S1 S2 Abdomen: Soft, some mild right lower Miranda tenderness, otherwise she is diffusely nonte nder. No rebound, guarding, or masses. Bowel tones normal. No pulsatile masses Back: Right-sided CVA tenderness, none on the left. No midline thoracic or lumbar spinal te nderness. Extremities: Nontender. No edema, no calf asymmetry. Present distal pulses. Skin: Warm, Dry, No rashes Neurologic: Alert & oriented. Cranial nerves II-XII intact. Gait and speech are normal. No focal deficits. Psychiatric: Normal mood, affect and judgement. LABS Results for orders placed during the hospital encounter of 01/09/14 URINALYSIS WITH MICROSCOPIC WITH CULTURE IF INDICATED Component Value Range COLOR Yellow Light Yellow, Yellow CLARITY Hazy (*) Clear PH UA 6.0 5.0-8.0 Specific [place] >=1.030 1.001-1.030 PROTEIN UA Negative Negative, Trace, 30 mg/dL BLOOD UA Large (*) Negative GLUCOSE UA Negative Negative KETONES UA 15 mg/dL (*) Negative BILIRUBIN UA Negative Negative NITRITE UA Negative Negative LEUKOCYTES ESTERASE UA Negative Negative UROBILINOGEN UA 0.2 E.U./dL 0.2 E.U./dL WBC UA 2-5 (*) 0-2 /HPF RBC UA 50-100 (*) 0-2 /HPF SQUAMOUS EPITHELIAL UA 0-2 0-2 /LPF BACTERIA UA Trace (*) Negative /HPF CBC WITH DIFFERENTIAL Component Value Range WBC 13.4 (*) 4.0-11.0 K/uL RBC 5.30 (*) 3.70-5.20 M/uL Hgb 16.7 (*) 11.5-16.0 g/dL Hct 48.3 (*) 34.0-47.0 % MCV 91.2 83.0-101.0 fL MCH 31.5 28.0-35.0 pg MCHC 34.6 32.0-36.0 g/dL RDW 13.4 <15.0 % Platelet Count 311 140-440 K/uL MPV 7.3 % Neutrophils 61.9 45.0-82.0 % % Lymphocytes 26.1 20.0-45.0 % % Monocytes 8.9 4.0-12.0 % % Eosinophils 2.2 0.0-5.0 % % Basophils 0.9 0.0-1.0 % Absolute Neutrophils 8.30 1.80-8.50 K/uL Absolute Lymphocytes 3.50 (*) 0.60-3.20 K/uL Absolute Monocytes 1.20 (*) 0.00-1.00 K/uL Absolute Eosinophils 0.30 0.00-0.40 K/uL Absolute Basophils 0.10 0.00-0.10 K/uL BASIC METABOLIC PANEL Component Value Range NA 137 136-149 mmol/L K 3.8 3.5-5.1 mmol/L CL 111 (*) 98-109 mmol/L CO2 19 (*) 24-31 mmol/L ANION GAP 7 3-16 mmol/L GLUCOSE 88 70-109 mg/dL BUN 16 7-18 mg/dL Creatinine, Serum 1.11 0.60-1.30 mg/dL eGFR if not 53 (*) >=60 mL/min/1.73m2 CALCIUM 10.9 (*) 8.3-10.5 mg/dL BUN/CREA 14.4 IMAGING STUIDES (X-Rays interpreted by ED Physician) Ct Renal Stone Wo Contrast 01/09/[address] ABDOMEN AND PELVIS 01/09/2014 3:52 PM CLINICAL HISTORY: Right fla nk pain COMPARISON: None TECHNIQUE: Axial unenhanced images are performed through the a bdomen and pelvis. Coronal and sagittal reformations are also performed. FINDINGS: Right kidney is slightly larger than left, and appears mildly edematous. Mild hydronephrosis on t he right with prominence of the right ureter and periureteric edema. This can be followed to the pelvis where a 5 mm stone is seen approximately 1 cm from the ureterovesical junction. No other right-sided stones. Left kidney shows normal contour and appearance. 2 mm nonobstru cting stone in the lower pole of the left kidney. Urinary bladder is near empty. No abnorma lities in the lung bases. No effusion. Portions of liver and spleen included are within norm al limits. Gallbladder pancreas and adrenal glands are normal. Aorta and inferior vena cava are normal. Small bowel is nondilated. Ileocecal junction is normal. Normal appendix. Castro us diverticula on the distal descending colon and sigmoid with no adjacent inflammatory solis ges. Uterus is midline and normal in size. Right ovary is unremarkable. Left ovary is enlar ged at 4.7 x 3.2 cm. It is of low density suggesting cyst. Numerous phlebolithic-type calcif ications are seen in the pelvis, external to the course of the ureters. No pelvic free fluid . Degenerative changes at L5-S1 with no acute bony abnormality. IMPRESSION - 1. 5 mm ston e in the distal right ureter, 1 cm from the ureterovesical junction. Mild obstructive change s of the right renal collecting system. 2 mm nonobstructing stone in the lower pole of the l eft kidney. 2. Enlargement of the left ovary, appearing to be secondary to cyst. If clinica lly warranted this could be further evaluated with pelvic ultrasound. 3. Distal colonic div erticulosis. Dictated and Signed by: Alon Painting MD Electronically signed: 01/09/2014 4:44 PM ED COURSE & MEDICAL DECISION MAKING Pertinent Labs & Imaging studies were reviewed along with EMS notes and group home record s if applicable. (See chart for details) Medications and Allergy list reviewed. Nurses note and old records were reviewed Patient received IV fluids, antiemetics, and pain medication. She remained quite anxious a nd so received a dose of lorazepam as well. CT stone study does show evidence of a 5 mm dis yoli right ureteral stone. The patient's pain was well controlled, she had only minor lab ab normalities, and so eventually was able to be discharged home. She did have some prolonged nausea and received some additional antiemetics and IV fluids prior to discharge. I expect she should pass the stone spontaneously in the very near future. She was provided detailed printed instructions regarding kidney stones as well as other causes and how to avoid them i n the future. Last Set of Vital Signs: Temp: 36.4 C (97.5 F) Pulse: 59 Resp: 18 SpO2: 95 % BP: 127/ 76 mmHg FINAL IMPRESSION 1. Kidney stone on right side Follow-up Information Follow up with Aman Butterfield MD. (If symptoms worsen) Contact information: [address] [place] [phone] New Prescriptions HYDROCODONE-ACETAMINOPHEN (NORCO) 5-325 MG PER TABLET Take 1-2 tablets by mouth EVERY 4 TO 6 HOURS NEEDED for Pain. ONDANSETRON (ZOFRAN ODT) 4 MG DISINTEGRATING TABLET Take 1 tablet by mouth every 6 hour s as needed for Nausea for up to 7 days. Wang Kenny MD 01/09/14 2200 do cumented in this encounter Miscellaneous Notes Plan of Care - CHUN SCAN WAMD - 01/11/2014 12:00 AM PDT D Triage Notes - Marty Bustamante RN - 01/09/2014 2:42 PM PD TC/o right flank pain approx one hour ago. History of kidney stones documented in this encounter Plan of Treatment +--------+---------+ + + + | Date | Type | Specialty | Care Team | Description | +--------+---------+ + + + | 06/02/ | Office | Nephrology | Brad Singh MD | | | 2019 | Visit | | [address] [facility] | | | | | | [address] [place] | | | | | | [address] | | | | | | | [...] + | MISCELLANEOUS LAB | | | [phone] | + +---------+ + + | MISCELANIOUS LAB | | | [phone] | + +---------+ + + Culture, Urine [...] + | [facility] | [address] | [place], [place] | [phone] | | [facility] | | [address] | | | - LABORATORY | | | | + + + + + | [facility] | [address] | [place], [place] | | | [facility] | | [address] | | | - LABORATORY | | [...] + + + + | Clarity, | Hazy (A) | Clear | [facility] [...] - 1.030 | [facility] | | | [place], | | | [facility] | | | Urine | | | MEDICAL | | | | | | CENTER - | | | | | | LABORATORY | | + + + + + + | Protein, | Negative | Negative, | [facility] | | | Urine | | Trace, 30 mg/dL | [facility] | | | [...] + + + | White Blood | 2-5 (A) | 0 - 2 /HPF | [facility] | | | Cells, | | | [facility] | | | Urine | | | MEDICAL | | | | | | CENTER - | | | | | | LABORATORY | | + + + + + + | Red Blood | 50-100 (A) | 0 - 2 /HPF | [facility] | | | Cells, | | | [facility] | | | Urine | | | MEDICAL | | | | | | CENTER - | | | | | | LABORATORY | | + + + + + + | Squamous | 0-2 | 0 - 2 /LPF | [facility] | | | Epithelial | | | [facility] | | | Cells, | | | MEDICAL | | | Urine | | | CENTER - | | | | | | LABORATORY | | + + + + + + | Bacteria, | Trace (A) | Negative /HPF | [...] + | [facility] | [address] | [place] | [phone] | | [facility] | | [address] | | | - LABORATORY | | | | + + + + + | [facility] | [address] | [place], [place] | | | [facility] | | [address], [facility] | | | - LABORATORY | | [...] 16 | 7 - 18 mg/dL | [facility] | | | | | | [facility] | | | | | | MEDICAL | | | | | | CENTER - | | | | | | LABORATORY | | + + + + + + | Creatinine | 1.11 | 0.60 - 1.30 | [facility] | | | | | mg/dL | [facility] | | | | | | MEDICAL | | | | | | CENTER - | | | | | | LABORATORY | | + + + + + + | eGFR if not | 53 (L)Comment: | >=60 | [facility] | | | | GLOMERULAR FILTRATION | mL/min/1.73m2 | [facility] | | | [facility] | RATE,ESTIMATED | | MEDICAL | | | | mL/min/1.14i1Szgs than | | CENTER - | | [...] [address] | [place] | [phone] | | [facility] | | [address] | | | - LABORATORY | | | | + + + + + | [facility] | [address] | [place] | | | [facility] | | [address] | | | - LABORATORY | | | | + + + + + CBC with Differential (01/09/2014 3:11 PM PDT) + + + + + + | Component | Value | Ref Range | Performed | Pathologist | | | | | At | Signature | + + + + + + | White Blood | 13.4 (H) | 4.0 - 11.0 K/uL | [facility] | | | Cells | | | [facility] | | | | | | MEDICAL | | | | | | CENTER - | | | | | | LABORATORY | | + + + + + + | Red Blood | 5.30 (H) | 3.70 - 5.20 | [facility] | | | Cells | | M/uL | [facility] | | | | | | MEDICAL | | | | | | CENTER - | | | | | | LABORATORY | | + + + + + + | Hemoglobin | 16.7 (H) | 11.5 - 16.0 | [facility] | | | | | g/dL | [facility] | | | | [...] | Neutrophils | | K/uL | [facility] | | | | | | MEDICAL | | | | | | CENTER - | | | | | | LABORATORY | | + + + + + + | Absolute | 3.50 (H) | 0.60 - 3.20 | [facility] | | | Lymphocytes | | K/uL | [facility] | | | | | | MEDICAL | | | | | | CENTER - | | | | | | LABORATORY | | + + + + + + | Absolute | 1.20 (H) | 0.00 - 1.00 | [facility] | | | Monocytes | | K/uL | [facility] | | | | | | MEDICAL | | | | | | CENTER - | | | | | | LABORATORY | | + + + + + + | Absolute | 0.30 | 0.00 - 0.40 | [facility] | | | Eosinophils | | K/uL | [facility] | | | | | | MEDICAL | | | | | | CENTER - | | | | | | LABORATORY | | + + + + + + | Absolute | 0.10 | 0.00 - 0.10 | [facility] | | | Basophils | | K/uL | [facility] | | | | [...] + | [facility] | [address] | [place], [place] | [phone] | | [facility] | | [address] | | | - LABORATORY | | | | + + + + + | [facility] | [address] | [place], [place] | | | [facility] | | [address] | | | - LABORATORY | | [...] | 01/10/20 | 1 mg | | | | [...] 14 3:26 | | | | | Tue01/09/14 at 1515, For 1 dose | | PM PDT | | | | + +-------+ +-------+---+---+ +---+---+ | | | +---+---+ + +-------+ +------+---+--------+ | LORazepam (ATIVAN) injection 1 | Given | 01/10/20 | 1 mg | | Right | | mg 1 mg, Intravenous, ONCE, Wed | | 14 4:12 | | | [...]
--- OUTSIDE RECORDS SUMMARY | ~2019-12-26 | XMS | Encounter Summary ---
Demographics + + + | Address | [address] | | | [place] [address] | + + + | Home Phone | | + + + | Preferred Language | Unknown | + + + | Marital Status | Unknown | + + + | Samaritan Affiliation | 1013 | + + + | Race | Unknown | + + + | Ethnic Group | Unknown | + + + Author + + + | Author | [facility] | | | and [place] | + + + | Organization | [facility] | | | and [...] Team Providers + +------+ + | Care Design Draftsman Name | Role | Phone | + +------+ + | Umesh Mcmahon NP | PCP | | + +------+ + Reason for Visit + + + | Reason | Comments | + + + | Screening For | preop | | Communicable Disease | | + + + Encounter Details +--------+ + + + + | Date | Type | Department | Care Team | Description | +--------+ + + + + | 12/16/ | Clinical | [facility] | [place] | Nephrolithiasis | | 2020 | Support | [facility] [address] | [place] [address] | | | | | [place] | [address] [place] | | | | | [address] | [place] [address] | | | | | [phone] | [phone] | | | | | | | [...] + + + | Blood Pressure | - | - | | + + + + + | Pulse | 68 | 12/17/2019 8:02 AM | | | | | PDT | | + + + + + | Temperature | 36.7 C (98 F) | 12/17/2019 8:02 AM | | | | | PDT | | + + + + + | Respiratory Rate | - | - | | + + + + + | Oxygen Saturation | 99% | 12/17/2019 8:02 AM | | | | | PDT | | + + + + + | Inhaled Oxygen | - | - | | | Concentration | | | | + + + + + | Weight | - | - | | + + + + + | Height | - | - | | + + + + + | Body Mass Index | - | - | | + [...] documented as of this encounter Progress Notes Ruby, Sonam Heredia, Pharmacology Associate - 12/17/2019 8:00 AM PDTPRE-PROCEDURE COVID TEST Affix Patient Label [] Photo ID Verified Patient Name:Mireya Ramos Provider:SAUL STEINBERG URGENT NURSE :1970 Date:12/17/19 MyChart: Activated Symptom Screen: Are you experiencing any of the following symptoms? [] Cough: duration of cough? ___ days ? If symptoms or cough >10 days, send to for provider evaluation [] Shortness of breath ? Confer with provider or send in to if obviously having labored breathing [] Fever >100.4 [] Chills and/or repeated shaking with chills [] Sore Throat [] Body Aches or Muscle Pain [] Headache [] Chest Pain, warm hand transfer to RN inside (Room 1 for triage) [] Abdominal Pain [] Nausea [] Vomiting [] Diarrhea [] Change in Sense of Smell and/or Taste Testing Protocol: MA/RN Proceed to testing if ANY of the following conditions are present: DRIVE THRU SWAB SCREENING [x] Asymptomatic, regardless of age, pre-procedure screening only [] Asymptomatic - testing requested by authorized [facility] personnel, [facility] Infection Prevention Nurse or Caregiver Health [] Asymptomatic, regardless of age, pre-travel screening only [] Age 15-70 with any symptoms indicated in MA screening [] Age >70 with Temp <100.4 F, O2 sat >95%, Pulse <100 bpm, without cough, Hx of fever, ch ills, chest pain, SOB, abdominal pain, vomiting or diarrhea. If only symptom is sore throat, body aches, headache and change in taste or smell ok for drive thru testing. PROVIDER EVALUATION REQUIRED [] Patient Requested [] Temp >102 F [] O2 Sat ? 95% [] Pulse > 100 [] Symptomatic with any listed comorbidities [] Dominant sore throat with little or no cough (strep rule out) [] Age <15 years old with symptoms Discharge: [x] Social Distancing/Quarantine Guidelines documented in this encounter Plan of Treatment +--------+---------+ + + + | Date | Type | Specialty | Care Team | Description | +--------+---------+ + + + | 06/02/ | Office | Nephrology | Brad Singh MD | | | 2019 | Visit | | [address] [facility] | | | | | | [address] [place], [place] | | | | | | [address] | | | | | | | [...] + + documented in this encounter Results Coronavirus (COVID-19) NAAT (12/17/2019 8:02 AM PDT) + + + + + + | Component | Value | Ref Range | Performed | Pathologist | | | | | At | Signature | + + + + + + | SARS-CoV-2, | Not DetectedComment: | Not Detected | REFERENCE | | | NAAT | This test was developed | | LAB [facility] | | | (COVID-19) | and its performance | | - [facility] | | | | characteristics | | | | | | determinedby [facility] | | | | | | Laboratories. This test | | | | | | has not been FDA cleared | | | | | | orapproved. This test | | | | | | has been authorized by | | | | | | FDA under an Emergency | | | | | | UseAuthorization (EUA). | | | | | | This test is only | | | | | | authorized for the | | | | | | duration oftime the | | | | | | declaration that | | | | | | circumstances exist | | | | | | justifying | | | | | | theauthorization of the | | | | | | emergency use of in | | | | | | vitro diagnostic tests | | | | | | fordetection of | | | | | | SARS-CoV-2 virus and/or | | | | | | diagnosis of COVID-19 | | | | | | infectionunder section | | | | | | 564(b)(1) of the Act, 21 | | | | | | U.S.C. 360bbb-3(b)(1), | | | | | | unlessthe authorization | | | | | | is terminated or revoked | | | | | | sooner.When diagnostic | | | | | | testing is negative, the | | | | | | possibility of a | | | | | | falsenegative result | | | | | | should be considered in | | | | | | the context of a | | | | | | patient'srecent | | | | | | exposures and the | | | | | | presence of clinical | | | | | | signs and | | | | | | symptomsconsistent with | | | | | | COVID-19. An individual | | | | | | without symptoms of | | | | | | COVID-19and who is not | | | | | | shedding SARS-CoV-2 | | | | | | virus would expect to | | | | | | have anegative (not | | | | | | detected) result in this | | | | | | assay. | | | | + + + + + + + + | Specimen | + + | Tissue - Specimen | | from throat | | (specimen) | + + + + + | Narrative | Performed At | + + + | Performed at: 01 - [facility] [place] [address], [place], [place] | REFERENCE LAB | | [id number] Shell Sieve Operator: Parker Portillo MD, Phone: [phone] | [place] [facility] [place] | + + + + + + + + | Performing | Address | City/State/Zipcode | Phone Number | | Organization | | | | + + + + + | REFERENCE LAB | [address] | [place], [place] | [phone] | | [facility] [address] | [address] | | + + + + + documented in this encounter Visit Diagnoses + + | Diagnosis | + + | Nephrolithiasis Calculus of kidney | + + documented in this encounter"
--- OUTSIDE RECORDS SUMMARY | ~2019-12-26 | XMS | Encounter Summary ---
Demographics + + + | Address | [address] | | | [place] [address] | + + + | Home Phone | | + + + | Preferred Language | Unknown | + + + | Marital Status | Unknown | + + + | Yazdanism Affiliation | 1013 | + + + | Race | Unknown | + + + | Ethnic Group | Unknown | + + + Author + + + | Author | Located [facility] [place] | | | and [place] | + + + | Organization | Located [facility] [place] | | | and [...] Team Providers + +------+ + | Care Scientific Linguist Name | Role | Phone | + +------+ + | Umesh Mcmahon NP | PCP | | + +------+ + Encounter Details +--------+ + + + + | Date | Type | Department | Care Team | Description | +--------+ + + + + | 11/25/ | Virtual | [facility] | Brad Singh MD | Chronic kidney | | 2020 | Office | NEPHROLOGY [place] | [address] [facility] [place] | disease, stage III | | | Visit | [address] | [address] [place], [place] | (moderate) (HCC) | | | | [address] | [address] | (Primary Dx); | | | | [place], [place] | | Calculus of kidney; | | | | [address] | | Hydronephrosis of | | | | [phone] | | right kidney; | | | [...] Instructions Patient Instructions Brad Singh MD - 11/26/2019 11:40 AM PDTDiscussions/Recommendations : I discussed today with Ms. Ramos the meaning of her CKD and the interaction of that wi th her hypertension. I stressed the importance of keeping her BP controlled and avoiding getting dehydrated i f we are to have a chance at helping preserve her renal function. She showed good understan yani. I gave her instructions on how to chart her blood pressure in the appropriate manner at home. She is to call us if they fall outside of the optimal provided range. She will bring her sphygmomanometer for validation once a year. She will strictly abide by a low salt diet. She will avoid all kinds of NSAIDs for analgesia. Also: I will not change any of her vasoactive meds today. I again sent her for a Urostone Max24 (3rd such request). She will drink ample water. She is [...] lose weight methodically; She voiced good understanding. I strongly advised her to stop smoking; I explained the benefits of doing that. She voic ed good understanding. She will F/U with your office regularly. She will F/U with Endocrinology regularly. She will have a RFP, CBC, intact PTH, Urine total mpzjbdi-nd-elfmgayiuq ratio before she comes back in 6 months. documented in this encounter Progress Notes Brad Singh MD - 11/26/2019 11:40 AM PDT Patient Active Problem List Diagnosis Date Noted POA UTI (urinary tract infection) with pyuria 11/11/2018 Unknown Priority: High Hydronephrosis of right kidney 11/11/2018 Unknown Priority: High Smoker - Daily Unknown Priority: Medium Anxiety Unknown Priority: Medium Essential hypertension Unknown Priority: Medium Substance abuse Unknown Priority: Low Hypercalcemia 05/28/2019 Unknown Electrolyte imbalance risk 05/28/2019 Unknown Class 2 obesity due to excess calories without serious comorbidity with body mass index (BMI) of 35.0 to 35.9 in adult 05/28/2019 Unknown Chronic kidney disease, [...] Umesh: I saw your patient Ms. Ramos today. As you are familiar with her case, I will not state her past history in detail. Briefly, she is a 49 y.o. female patient with past history as d elineated above. She is here to F/U on her CKD & its associated complications. The [...] mouth nightly., Disp: , Rfl: Physical Exam: There were no vitals taken for this visit. General appearance: Pleasant, not in acute distress. Neck: Supple without tracheal deviation or jugular venous distension. Head and ENT: Head is atraumatic. Hearing is appropriate. Eyes: Anicteric. The extraocular muscle movements are normal. Lungs: Good chest expansion. Breathing comfortably. Musculoskeletal: No swelling of hand joints bilaterally. No deformities noted. Extremities: Warm to touch with insignificant leg edema, as performed by patient after coa emerson on how to do it by myself. There is no digital cyanosis. Skin: There are no rashes, petechiae, or ecchymosis in the visible parts of the skin. Neurological: Awake, alert, and oriented to time, place, and person. Normal gross motor po wer. There is no asterixis. Psychiatric: The patient s behavior is normal. Judgment and thought content are normal. I also reviewed with her her labs from 11/26/19.* Lab Results Component Value Date HGB 14.3 [...] right hydronephrosis". Assessment: Ms. Ramos is a 49 y.o. female patient with stage III CKD [...] kinds of NSAIDs for analgesia. Also: I will not change any of her vasoactive meds today. I asked her to stay off of the Naproxen. I again asked for the report of her NM Parathyroid scan (the patient reports a parathyroid nodule on the right). She has an appointment lined up for that with Endocrinology in 03/2020 . I will send her for a renal & bladder U/S in 6 to 12 months (no urgency to do it now). I again sent her for a Urostone Max24 (3rd such request). I had sent 2 requests for 96-folkmno-imogbzn D level, DAKOTAH RAO; these were not performed. I will leave it up to your office & to the Endocrinology team to F/U on the need for these or or not (hypercalcemia). She will drink ample water. She is [...] lose weight methodically; She voiced good understanding. I strongly advised her to stop smoking; I explained the benefits of doing that. She voic ed good understanding. She will F/U with your office regularly. She will F/U with Endocrinology regularly. She will have a RFP, CBC, intact PTH, Urine total ysunzqz-vz-nhvhzyjlpc ratio before she comes back in 6 months. Thank you Umesh for the opportunity to see this patient in F/U today. Please do not hesitate to call me at any time with questions or concerns. Truly yours, Brad Singh MD [facility] This exam was initially conducted via a secure 256-bit AES encrypted bidirectional video se ssion. You have chosen to receive care through the use of telemedicine. Telemedicine enables [facility] care providers at different locations to provide safe, effective and convenient care throu gh the use of technology. As with any health care service, there are risks associated with t he use of telemedicine, including equipment failure, poor image resolution and information s ecurity issues. Do you understand the risks and benefits of telemedicine as I have explained them to you? " Yes" Have your questions regarding telemedicine been answered? "Yes" Patient is currently at home Do you consent to the use of telemedicine in your medical care today? Yes. Last question, I need to confirm where are you physically located right now? Answer: Patient confirms they are located in a state where Brad Monge MD am licensed. documented in this enco unter Plan of Treatment +--------+---------+ + + + | Date | Type | Specialty | Care Team | Description | +--------+---------+ + + + | 06/02/ | Office | Nephrology | Brad Singh MD | | | 2020 | Visit | | [address] [facility] | | | | | | [address] [facility] [place] | | | | | | [address] | | | | | | | [...] Unspecified essential hypertension | + + | Class 2 obesity due to excess calories without serious comorbidity with body mass | | index (BMI) of 35.0 to 35.9 in adult | + + | Hypercalcemia | + + | Electrolyte imbalance risk Other specified conditions influencing health status | + + | Hyperparathyroidism (HCC) Hyperparathyroidism, unspecified | + + documented in this encounter
--- OUTSIDE RECORDS SUMMARY | ~2019-12-26 | XMS | Encounter Summary ---
Demographics + + + | Address | [address] | | | [place] [address] | + + + | Home Phone [...] | Author | [facility] [place] | | | and [place] | + + + | Organization | [facility] [place] | | | [...] Team Providers + +------+ + | Care Farm Specialist Name | Role | Phone | [...] | 2013 | on | [address] | [address] | | | | | [place] | [place] | | | | | [address] | [address] | | | | | [phone] | | | +--------+ + + + [...] OUT OF THE AREA. SHE MOVED TO [place]. SHE WILL ESTABLISH CARE WITH A UROLOGIST THERE documented in this encoun ter Plan of Treatment +--------+---------+ + + + | Date | Type | Specialty | Care Team | Description | +--------+---------+ + + + | 06/02/ | Office | Nephrology | Brad Singh MD | | | 2020 | Visit | | [address] [facility] | | | | | | [address] [place] | | | | | | [address] | | | | | | | | +--------+---------+ + + + documented as of this encounter Visit Diagnoses Not on filedocumented in this encounter"
--- OUTSIDE RECORDS SUMMARY | ~2019-12-26 | XMS | Encounter Summary ---
Demographics + + + | Address | [address] | | | [place] [address] | + + + | Home Phone [...] | Author | [facility] [place] | | | and [place] | + + + | Organization | [facility] [place] | | | [...] Team Providers + +------+ + | Care Contour Stitcher Name | Role | Phone | + +------+ + | Roxanne Gillis MD | PCP | | + +------+ + Encounter Details +--------+ + + + + | Date | Type | Department | Care Team | Description | +--------+ + + + + | 05/30/ | Abstract | [facility] | Aman Butterfield, | Preventative health | | 2013 | | [address] | [address] | care (Primary Dx) | | | | [place] | [place] | | | | | [address] | [address] | | | | | [phone] | | | +--------+ + + + [...] 2019 | Visit | | [address] [facility] | | | | | | [address] [place], [place] | | | | | | [address] | | | | | | | | +--------+---------+ + + + documented as of this encounter Visit Diagnoses + + | Diagnosis | + + | Preventative health care - Primary Routine general medical examination at a health | | care facility | + + documented in this encounter"
--- OUTSIDE RECORDS SUMMARY | ~2019-12-26 | XMS | Encounter Summary ---
Demographics + + + | Address | [address] | | | [place] [address] | + + + | Home Phone [...] + + + | Author | [facility] [place] | | | and [place] | + + + | Organization | [facility] [place] | | | and [place] [...] Team Providers + +------+ + | Care Bessemer Bottom Maker Name | Role | Phone | + +------+ + | Umesh Mcmahon NP | PCP | | + +------+ + Encounter Details +--------+ + + + + | Date | Type | Department | Care Team | Description | +--------+ + + + + | 08/27/ | Orders Only | [facility] | Brad Singh MD | Essential | | 2020 | | NEPHROLOGY [place] | [address] | hypertension | | | | [address] | [address] [place], [place] | (Primary Dx); | | | | [address] | [address] | Hydronephrosis of | | | | [place], [place] | | right kidney; Kidney | | | | [address] | | stone on right | | | | [phone] | | side; Chronic kidney | | [...] 2019 | Visit | | [address] [facility] [place] | | | | | | [address] [place], [place] | | | | | | [address] | | | | | | | | +--------+---------+ + + + + +---------+--------+ + + | Name | Type | Priori | Associated Diagnoses | Order Schedule | | | | ty | | | + +---------+--------+ + + | US Renal Complete | Imaging | Routin | Essential | Expected: | | | | e | hypertension | 08/28/2019, Expires: | | | | | Hydronephrosis of | 08/27/2020 | | | | | right kidney Kidney | | | | | | stone on right side | | | | | | Chronic kidney | | | | | | disease, stage III | | | | | | (moderate) (HCC) | | + +---------+--------+ + + documented as of this encounter Results Protein/Creatinine Ratio, Urine (11/26/2019) + +--------+ + [...] + + + | REFERENCE LAB | [address] [place] [address] | [place] | [phone] | | [facility] | Bl[address] | [address] | | | LABORATORY | | | | + + + + + | REFERENCE LAB | [address] [place] [address] | [place] | | | [facility] | Bl[address] | [address] | | | LABORATORY | | | [...] - 1.030 | REFERENCE | | | [place], | | | LAB | | | [...] + | REFERENCE LAB | [address] | [place] | [phone] | | [facility] | Bl[address] | [address] | | | LABORATORY | | | | + + + + + | REFERENCE LAB | [address] [facility] | [place] | | | [facility] | Bl[address] | [address] | | | LABORATORY | | | [...] + + + | REFERENCE LAB | [address] [place] [address] | [place], [place] | [phone] | | [facility] | Bl[address] | [address] | | | LABORATORY | | | | + + + + + | REFERENCE LAB | [address] [place] [address] | [place], [place] | | | [facility] | Bl[address] | [address] | | | LABORATORY | | | [...] + + + | REFERENCE LAB | [address] [place] [address] | [place] | [phone] | | [facility] | Blvd. | [address] | | | LABORATORY | | | | + + + + + | REFERENCE LAB | [address] [place] [address] | [place] | | | [facility] | Blvd[address] | [address] | | | LABORATORY | | | [...] + + + | REFERENCE LAB | [address] [place] [address] | [place], [place] | [phone] | | [facility] | Blvd[address] | [address] | | | LABORATORY | | | | + + + + + | REFERENCE LAB | [address] [place] [address] | [place], [place] | | | [facility] | Bl[address] | [address] | | | LABORATORY | | | [...]
--- OUTSIDE RECORDS SUMMARY | ~2019-12-26 | XMS | Encounter Summary ---
Demographics + + + | Address | [address] | | | [place] [address] | + + + | Home Phone [...] | [facility] [place] | | | and [place] | + + + | Organization | [facility] [place] | [...] Team Providers + +------+ + | Care Tube Winder Hand Name | Role | Phone | + +------+ + | Roxanne Gillsi MD | PCP | | + +------+ + Encounter Details +--------+ + + + + | Date | Type | Department | Care Team | Description | +--------+ + + + + | 12/06/ | [facility] | [facility] | Roxanne Gillis, | Abnormal mammogram, | | 2013 | Encounter | MED CTR ULTRASOUND | [address] | unspecified | | | | [address] | [place], [place] | | | | | [place] | [address] | | | | | [address] | | | | | | [phone] | Chiquita Jolley | | | | [...] 2019 | Visit | | [address] [facility] | | | | | | [address] [place] | | | | | | [address] | | | | | | | [...] was | | | performed by a commander police reserves. I also personally evaluated this area | [...] Dictated and Signed by: Goyo Leigh | | MD David Electronically signed: 12/06/2013 2:57 PM | | [...] breast | | was performed by a commander police reserves. I also personally evaluated this area using [...] + | MISCELLANEOUS LAB | | | [phone] | + +---------+ + + | MISCELANIOUS LAB | | | [phone] | + +---------+ + + documented in this encounter Visit Diagnoses + + | Diagnosis | + + | Abnormal mammogram, unspecified | + + documented in this encounter"
--- OUTSIDE RECORDS SUMMARY | ~2019-12-26 | XMS | Encounter Summary ---
Demographics + + + | Address | [address] | | | [place] [address] | + + + | Home Phone | | + + + | Preferred Language | Unknown | + + + | Marital Status | Unknown | + + + | Catholic Affiliation | 1013 | + + + | Race | Unknown | + + + | Ethnic Group | Unknown | + + + Author + + + | Author | [facility] [place] | | | and [place] | + + + | Organization | [facility] [place] | | | and [...] Team Providers + +------+ + | Care Nail Technician Name | Role | Phone | + +------+ + | Roxanne Gillis MD | PCP | | + +------+ + Encounter Details +--------+ + + + + | Date | Type | Department | Care Team | Description | +--------+ + + + + | 06/05/ | Orders Only | [facility] [place] [facility] | Aman Butterfield, | Calculus of right | | 2013 | | [address] | [address] | ureter (Primary Dx); | | | | [place], [place] | [place], [place] | Calculus of left | | | | [address] | [address] | kidney | | | | [phone] | | | +--------+ + + + [...] | [address] [facility] [place] | | | | | | [address] [place] | | | | | | [address] | | | | | | | [...]
--- OUTSIDE RECORDS SUMMARY | ~2019-12-26 | XMS | Encounter Summary ---
Demographics + + + | Address | [address] | | | [place] [address] | + + + | Home Phone | | + + + | Preferred Language | Unknown | + + + | Marital Status | Unknown | + + + | Christianity Affiliation | 1013 | + + + | Race | Unknown | + + + | Ethnic Group | Unknown | + + + Author + + + | Author | [facility] [place] | | | and [place] | + + + | Organization | [facility] [place] | | | [...] Team Providers + +------+ + | Care Marine Electrician Apprentice Name | Role | Phone | + +------+ + | Umesh Mcmahon RISK MANAGER | PCP | | + +------+ + Reason for Visit Evaluate & Treat (Routine) +--------+--------+ + + + + | Status | Reason | Specialty | Diagnoses / | Referred By | Referred To | | | | | Procedures | Contact | Contact | +--------+--------+ + + + + | Closed | | | Diagnoses | Lisandro, | Brad Singh | | | | | Chronic | Umesh Piña, | MD Angelica [address] | | | | | kidney | RISK MANAGER [address] | [address] [facility] [place] | | | | | disease, | [facility] | [address] | | | | | stage [address], | [place], [place] | | | | | (moderate) | [address] | [address] | | | | | (HCC) | [place], | Phone: | | | | | | [place] [address] | [phone] | | | | | | Phone: | Fax: | | | | | | [phone] | [phone] | | | | | | Fax: | | | | | | | [phone] | | +--------+--------+ + + + + Encounter Details +--------+---------+ + + + | Date | Type | Department | Care Team | Description | +--------+---------+ + + + | 05/28/ | Office | [facility] | Brad Singh MD | Chronic kidney | | 2019 | Visit | NEPHROLOGY [place] | [address] [facility] | disease, stage III | | | | [address] | [address] [place], [place] | (moderate) (HCC) | | | | [address] | [address] | (Primary Dx); | | | | [place] | | Calculus of kidney; | | | | [address] | | Hydronephrosis of | | | | [phone] | | right kidney; | | | [...] will have a RFP, CBC, intact PTH, 86-kimvvld-tcdwslg D, SPIE, SFLC, reflex urinalysi s, Urine total rmtsset-qs-flgydlucpx ratio before she comes back in 3 [...] file Gets together: Not on file Attends mormonism service: Not on file Active member of [...] will have a RFP, CBC, intact PTH, 99-iwecime-ifitlgf D, SPIE, SFLC, reflex urinalysi s, Urine total ueqnzcu-oj-vhwzmblcop ratio before she comes back in 3 months. More than 30 minutes of this 60-minute visit was spent in education and counseling. Thank you Umesh for the opportunity to see this patient in consult today. Please do not hesi cespedes to call me at any time with questions or concerns. Truly yours, Brad Singh MD [facility] documented in this enco unter Plan of Treatment +--------+---------+ + + + | Date | Type | Specialty | Care Team | Description | +--------+---------+ + + + | 06/02/ | Office | Nephrology | Brad Singh MD | | | 2019 | Visit | | [address] [facility] | | | | | | [address] [place], [place] | | | | | | [address] | | | | | | | [...]
--- OUTSIDE RECORDS SUMMARY | ~2019-12-26 | XMS | Encounter Summary ---
Demographics + + + | Address | [address] | | | [place] [address] | + + + | Home Phone | | + + + | Preferred Language | Unknown | + + + | Marital Status | Unknown | + + + | Gnosticism Affiliation | 1013 | + + + | Race | Unknown | + + + | Ethnic Group | Unknown | + + + Author + + + | Author | [facility] [place] | | | and [place] | + + + | Organization | [facility] [place] | | | and [...] Team Providers + +------+ + | Care Calciner Operator Name | Role | Phone | + +------+ + | Umesh Mcmahon NP | PCP | | + +------+ + Encounter Details +--------+ + + + + | Date | Type | Department | Care Team | Description | +--------+ + + + + | 12/14/ | Orders Only | [facility] | Anastacio Mendoza MD | Nephrolithiasis | | 2020 | | MED CTR PROVIDER | [address] | (Primary Dx) | | | | SURGICAL [address] | [place] | | | | | [place], | [address] | | | | | [place] [address] | [phone] | | | | | [phone] | | | +--------+ + + + [...] 2020 | Visit | | [address] [facility] | | | | | | [address] [place], [place] | | | | | | [address] | | | | | | | | +--------+---------+ + + + documented as of this encounter Results Coronavirus (COVID-19) NAAT (12/17/2019 [...] + + | Performed at: 01 - [facility] [address] [place], [place] | REFERENCE LAB | | [phone] All Around Gear Machine Operator: Parker Portillo MD, Phone: [phone] | [facility] | + + + + + + + + | Performing | Address | City/State/Zipcode | Phone Number | | Organization | | | | + + + + + | REFERENCE LAB | [address] | [place], [place] | [phone] | | [facility] | [facility] | [address] | | + + + + + documented in this encounter Visit Diagnoses + + | Diagnosis | + + | Nephrolithiasis - Primary Calculus of kidney | + + documented in this encounter"
--- OUTSIDE RECORDS SUMMARY | ~2019-12-26 | XMS | Encounter Summary ---
Demographics + + + | Address | [address] | | | [place] [address] | + + + | Home Phone [...] | [facility] [place] | | | and [place] | + + + | Organization | [facility] [place] | | | and [place] [...] Team Providers + +------+ + | Care Analog Design Engineer Name | Role | Phone | [...] [facility] | | | | | [place] | | [place] | | | | | CYSTO/URETER | | [address] | | | | | O | | Phone: | | | | | W/LITHOTRIPS | | [phone] | | | | | Y &LINDSEY | | Fax: | | | | | STENT INSRT | | [phone] | | | | | RIGHT | [...] + + | 12/17/ | Hospital | [facility] | Anastacio Mendoza MD | | | 2019 - | Encounter | MED CTR SURGICAL | [address] [facility] | | | | | [address] | [place] | | | 12/18/ | | [place] [address] | [address] | | | 2019 | | [phone] | [phone] | | | | | | | [...] mo m her to drive pt home nastacio Brown MD - 12/19/2019 6:39 AM PDTFormatting of this note might be different from dayanna hale original. DATE/TIME: 12/19/2019 6:39 AM PDT ASSESSMENT AND [...] November 2019. I treated this patient in 2019. She was received in transfer November 11, [...] with urine by the end of t day. Review of Systems Bowels move daily. [...] Tape 1"x5yd TAPE Vitals Vitals Panel Recorded: [id number] 11:47AM 1. Height: 5 ft 6 in [...] Oral Tablet Extended Release 24 Hour; Therapy: [id number] to Recorded ?? Prazosin HCl - 2 MG Oral Capsule; Therapy: (Recorded:29Nov2018) to Recorded ?? Tamsulosin HCl - 0.4 MG Oral Capsule; Therapy: [id number] to Recorded Physical Exam Alert, slightly heavyset [...] is discussed. 40-minute office visit, predominantly in critical access hospitalin g. Addendum 12/14/19 -urinalysis 6-9 red cells, [...] call light appropriately. Reports flank pain, received Argyle x 1. Urine output light pin k, reports some bladder discomfort. Urine strained, no stones only sediment noted. Pt remind ed to be careful with stent strings. Ambulates SBA. IVF infusing to left hand. p Note - Anastacio Mendoza MD - 12/2019 9:23 PM [facility] Pt. Name/Age/: Mireya Ramos 49 y.o. 1970 Med. Record Number: [id number] Date of Operation/Procedure: 12/18/2019 Preoperative Diagnosis: Right proximal ureterolithiasis, right nephrolithiasis [N20.1, N20. 0] Postoperative Diagnosis: Same Surgeon: Anastacio Mendoza MD Supply Chain Engineer(s): None Anesthesia Provider(s): Anesthesiologist: Walker Painting MD [...] in the usual sterile fashion. A 22 Kittitian cystoscope was introduced the bladder with obturator. Clear urine was collecte d for lab. The bladder wall did not appear inflamed. There were generous bilateral uretera l orifice ease and no other mucosal lesion. A 0.035 inch diameter guidewire was threaded retrograde up the right ureter and bypassed th e proximal ureteral collection of stones. Cystoscope was removed. A 14 Kittitian by 28 cm ure teral access sheath [...] stones was accomplished. Contrast was injected hi ghlighting renal pelvis anatomy. Ureteroscope and access sheath were removed. Cystoscope was placed back over the safety wire. A 6 Kittitian by 26 cm double-J stent was th [...] dysuria. Asymptomatic COVID screening was collected yeste rd. She desires urgent right ureteroscopic laser lithotripsy. documented in this encounter Plan of Treatment +--------+---------+ + + + | Date | Type | Specialty | Care Team | Description | +--------+---------+ + + + | 06/02/ | Office | Nephrology | Brad Singh MD | | 2019 | Visit | | [address] [facility] | | | | | | [address] [place], [place] | | | | | | [address] | | | | | | | [...] - 1.030 | [facility] | | | [place], | | | [facility] | | [...] ST. | [address] | [place], [place] | [phone] | | [facility] | | [address] | | | - LABORATORY | | [...] + | [facility] | [address] | [place] | [phone] | | [facility] | | [address] | | | - LABORATORY | | [...] | | | [facility] | | | [place], | | | [facility] | | | POC | | | HEART | | | | | | MEDICAL | | | | | | CENTER | | | | | | LABORATORY | | | | | | CERNER | | + + + + + + | Lot Number | [id number] | | [facility] | | | | [...] + + | [facility] | [address] | [place] [address] | | | [facility] | | | | | LABORATORY [facility] | | | | + + + [...] | CENTER - | | | | [employer], | | LABORATORY | [...] ST. | [address] | [place], [place] | [phone] | | [facility] | | [address] | | | - LABORATORY | | [...] 400 mg, Oral, SEE ADMIN | | 7:21 | | | | | INSTRUCTIONS, [...]
--- OUTSIDE RECORDS SUMMARY | ~2019-12-26 | XMS | Encounter Summary ---
Demographics + + + | Address | [address] | | | [place] [address] | + + + | Home Phone | | + + + | Preferred Language | Unknown | + + + | Marital Status | Unknown | + + + | Presybeterian Affiliation | 1013 | + + + | Race | Unknown | + + + | Ethnic Group | Unknown | + + + Author + + + | Author | [facility] [place] | | | and [place] | + + + | Organization | [facility] [place] | | | and [...] Team Providers + +------+ + | Care Tub Washer Name | Role | Phone | + +------+ + | Umesh Mcmahon NP | PCP | | + +------+ + Encounter Details +--------+ + + + + | Date | Type | Department | Care Team | Description | +--------+ + + + + | 04/03/ | Orders Only | [facility] | Brad Singh MD | Chronic kidney | | 2019 | | NEPHROLOGY [place] | [address] [place] | disease, stage III | | | | [address] [place] | [address] [place], [place] | (moderate) (HCC) | | | | [address] [place], [place] | [address] | (Primary Dx) | | | | [address] | | | | | | [phone] | | | +--------+ + + + [...] 2019 | Visit | | [address] [facility] | | | | | | [address] [place], [place] | | | | | | [address] | | | | | | | [...] Expires: | | | | | (moderate) ([facility]) | 04/03/2020 | + +------+--------+ + + | Protein/Creatinine | Lab | Routin | Chronic kidney | Expected: | | Ratio, Urine | | e | disease, stage III | 06/11/2019, Expires: | | | | | (moderate) ([facility]) | 04/03/2020 | + +------+--------+ + + | Uric Acid | Lab | Routin | Chronic kidney | Expected: | | | | e | disease, stage III | 06/11/2019, Expires: | | | | | (moderate) ([facility]) | 04/03/2020 | + +------+--------+ + + | Urinalysis With | Lab | Routin | Chronic kidney | Expected: | | Microscopic | | e | disease, stage III | 06/11/2019, Expires: | | | | | (moderate) ([facility]) | 04/03/2020 | + +------+--------+ + + | CBC with | Lab | Routin | Chronic kidney | Expected: | | Differential | | e | disease, stage III | 06/11/2019, Expires: | | | | | (moderate) ([facility]) | 04/03/2020 | + +------+--------+ + + documented as of this encounter Visit Diagnoses + + | Diagnosis | + + | Chronic kidney disease, stage III (moderate) (HCC) - Primary Chronic kidney disease, | | Stage III (moderate) | + + documented in this encounter"
--- OUTSIDE RECORDS SUMMARY | ~2019-12-26 | XMS | Encounter Summary ---
Demographics + + + | Address | [address] | | | [place] [address] | + + + | Home Phone | | + + + | Preferred Language | Unknown | + + + | Marital Status | Unknown | + + + | Jainism Affiliation | 1013 | + + + | Race | Unknown | + + + | Ethnic Group | Unknown | + + + Author + + + | Author | [facility] [place] | | | and [place] | + + + | Organization | [facility] [place] | | | and [...] Team Providers + +------+ + | Care Self Contained Behavior Unit Teacher Name | Role | Phone | + +------+ + | Umesh Mcmahon NP | PCP | | + +------+ + Reason for Visit +---------+ + | Reason | Comments | +---------+ + | Results | 05/25/19 | +---------+ + Encounter Details +--------+ + + + + | Date | Type | Department | Care Team | Description | +--------+ + + + + | 05/28/ | Documentati | [facility] | Ordaz, | Results (05/25/19) | | 2019 | on | NEPHROLOGY [place] | [facility] | | | | | [address] | Service Employee | | | | | [address] [place], [place] | | | | | | [address] | | | | | | [phone] | | | +--------+ + + + [...] | | | | | | [address] [place], [place] | | | | | | [address] | | | | | | | [...] + + documented in this encounter Results Urinalysis (05/25/2019) + + + + + + | Component | Value | Ref Range | Performed | Pathologist | | | | | At | Signature | + + + + + + | Color | yellow | | | | + + + + + + | Clarity, | Clear | | | | | Urine | | | | | + + + + + + | Specific | 1.015 | 1.001 - 1.030 | | | | [place], | | | | | | Urine [...] + + | Urine | + + CBC with Manual Differential (05/25/2019) + +-------+ + + + | Component | Value | Ref Range | Performed | Pathologist | | | | | At | Signature | + +-------+ + + + | WBC | 7.5 | 4.5 - 11.0 | | | + +-------+ + + + | Red Blood | 4.55 | 3.80 - 5.10 | [...]
--- OUTSIDE RECORDS SUMMARY | ~2019-12-26 | XMS | Encounter Summary ---
Demographics + + + | Address | [address] | | | [place] [address] | + + + | Home Phone | | + + + | Preferred Language | Unknown | + + + | Marital Status | Unknown | + + + | Adventist Affiliation | 1013 | + + + | Race | Unknown | + + + | Ethnic Group | Unknown | + + + Author + + + | Author | [facility] [place] | | | and [place] | + + + | Organization | [facility] [place] | | | and [place] [...] Team Providers + +------+ + | Care Manager Personnel Selection Name | Role | Phone | + +------+ + | Umesh Mcmahon NP | PCP | | + +------+ + Reason for Visit +--------+--------+ + | Reason | Onset | Comments | | | Date | | +--------+--------+ + | Other | 07/10/ | Patient call | | | 2020 | | +--------+--------+ + Encounter Details +--------+ + + + + | Date | Type | Department | Care Team | Description | +--------+ + + + + | 07/10/ | Telephone | [facility] | Brad Singh MD | Other (Patient call | | 2019 | | NEPHROLOGY [place] | [address] [place] | ) | | | | [address] [place] | [address] [place], [place] | | | | | [address] [place], [place] | [address] | | | | | [address] | | | | | | [phone] | | | +--------+ + + + [...] + + documented as of this encounter Miscellaneous Notes Telephone Encounter - Sis Ordaz, Vending Manager - 07/10/2019 9:43 AM Era hammer called to report that she has been having high blood pressure her PCP prescribed 25mg met oprolol. She states that her B/P is still high yesterday she says it was 126/93. Patient sta leslie that she ramirez not been taking her B/P consistently but will fax a B/P log to our office if she finds it. documented in this encounter Plan of Treatment +--------+---------+ + + + | Date | Type | Specialty | Care Team | Description | +--------+---------+ + + + | 06/02/ | Office | Nephrology | Brad Singh MD | | 2019 | Visit | | [address] [facility] | | | | | | [address] [place] | | | | | | [address] | | | | | | | | +--------+---------+ + + + documented as of this encounter Visit Diagnoses Not on filedocumented in this encounter"
--- OUTSIDE RECORDS SUMMARY | ~2019-12-26 | XMS | Encounter Summary ---
Demographics + + + | Address | [address] | | | [place] [address] | + + + | Home Phone [...] | Author | [facility] [place] | | | and [place] | + + + | Organization | [facility] [place] | | | and [place] | [...] Team Providers + +------+ + | Care Sleeping Car Porter Name | Role | Phone | + [...] + + | 11/11/ | Anesthesia | [facility] | Hood Horowitz | | | 2018 | Event | MED CTR OR INTRA OP | MD Franck [address] | | | | | [address] | [address] [place] | | | | | [place] | [address] | | | | | [address] | [phone] | | | | | [phone] | | | +--------+ + + + [...] +----+---+ + + | | 2 | [place] | | | | 2 | 43-degrees [...] encounter [place] Notes Anesthesia Postprocedure Evaluation - Hood Horowitz MD - 11/12/2018 2:37 AM PDTForm atting of this note might be different from the original. ANESTHESIA POSTANESTHESIA EVALUATION Mireya Ramos 48 y.o. female 1970 [id number] Procedure(s) CYSTOSCOPY PLACEMENT RIGHT URETERAL STENT (Right Ureter) Cooperates? Yes Mental Status Performs simple tasks. Respiratory Satisfactory - Airway patent (self maintained). Cardiovascular Satisfactory - Blood pressure and heart rate acceptable Temperature Satisfactory Pain Satisfactory N/V Control Satisfactory Hydration Satisfactory - No signs of dehydration Complications None apparent Vitals Value Taken Time Temp 36.8 C (98.2 F) 11/12/2018 2:20 Pulse 44 11/12/2018 2:20 Resp 15 11/12/2018 2:20 BP 108/66 11/12/2018 2:20 Arterial Line BP Arterial Line BP 2 SpO2 97 % 11/12/2018 2:20 Electronically signed by Hood Hoorwitz MD 11/12/2018 2:37 [facility] nesthesia Preprocedure Evaluation - Hood Horowitz MD - 2018 10:36 PM PDT ANESTHESIA PREANESTHESIA EVALUATION Mireya Ramos 48 y.o. female 1970 [id number] Procedure(s): CYSTOSCOPY PLACEMENT URETERAL STENT (Right Ureter) Review of Systems / Med History Cardiovascular , Exercise tolerance >4 METS (+) hypertension, . Pulmonary (+) tobacco use. (+) current smoker. Psychology (+) substance abuse and opiates and other. Physical Exam Airway MP II, TM >3 FB, Mouth opening >2 FB. Neck: full ROM, Jaw protrusion normal. CV Rhythm regular. Anesthesia Plan ASA 3E Type: General. Induction: Intravenous. Potential problems: None anticipated, none anticipated. Monitors: Standard ASA monitors. Consent statement:Anesthetic plan, alternatives, risks and benefits discussed with patient. Risks discussed included (but were not limited to): sore throat, pain, disability, perioper ative CV events, infection, muscle aches, voice injury, drug reaction, heart problems, nause a, respiratory events,. Consenting person understands and agrees to proceed . Patient Active Problem List: Ureteral calculus, right H/O Kidney stones PTSD (post-traumatic stress disorder) Bipolar 1 disorder Chronic back pain UTI (urinary tract infection) Diverticulosis of colon Adnexal mass Smoker - Daily Hydronephrosis of right kidney Anxiety Hypertension . Electronically Signed by: Hood Horowitz MD ESig date/time: 11/11/2018 22:36 nesthesia Proced ure Notes - Hodo Horowitz MD - 11/11/2018 10:31 PM PDTAssociated Order(s): AirwayAnes thesia Airway Placement 11/11/2018 22:26 Preprocedure check: patient identified, oxygen, airway assessed, patient reassessment prior to induction, airway equipment checked and suction Rapid Sequence Induction: no Mask ventilation: easy Attempts: 1 Airway type: laryngeal mask Size: 3 Cuffed: cuffed Route, reference point: center of mouth Tube secured with: adhesive tape Trauma: none Tube placement verification: carbon dioxide detection, equal bilateral breath sounds and bi lateral chest rise Performing provider: Hood Horowitz MD Comments: Smooth IV induction. LMA placed and well seated. Secured in place. Breathing Circuit attached to LMA. BSEB/ETCO2 (auscultation and capnography) and placement confirmed. Please see intraoperative grid for any additional medication documentation. documented in thi s encounter Plan of Treatment +--------+---------+ + + + | Date | Type | Specialty | Care Team | Description | +--------+---------+ + + + | 06/02/ | Office | Nephrology | Brad Singh MD | | | 2019 | Visit | | [address] [facility] | | | | | | [address] [place], [place] | | | | | | [address] | | | | | | | [...]
--- OUTSIDE RECORDS SUMMARY | ~2019-12-26 | XMS | Encounter Summary ---
Demographics + + + | Address | [address] | | | [place] [address] | + + + | Home Phone [...] Author | [facility] [place] | | | and [place] | + + + | Organization | [facility] [place] | | | and [...] Team Providers + +------+ + | Care Cilnical Scientist Name | Role | Phone | + +------+ + | Umesh Mcmahon NP | PCP | | + +------+ + Reason for Visit +--------+--------+ + | Reason | Onset | Comments | | | Date | | +--------+--------+ + | Other | 06/25/ | Patient question | | | 2020 | | +--------+--------+ + Encounter Details +--------+ + + + + | Date | Type | Department | Care Team | Description | +--------+ + + + + | 06/25/ | Telephone | [facility] | Brad Singh MD | Other (Patient | | 2020 | | NEPHROLOGY [place] | [address] [place] | question) | | | | [address] [place] | [address] [place], [place] | | | | | [address] [place], [place] | [address] | | | | | [address] | | | | | | [phone] | | | +--------+ + + + [...] Miscellaneous Notes Telephone Encounter - Sis Ordaz, Funder - 06/25/2019 9:43 AM PSTCalle d and informed patient that she can stop by on Jun 27 to leaf size picker urine collection jug. She v erbalized understanding and had no further questions at this time. elephone Encounter - Sis Chang Funder - 06/25/2019 9:42 AM PST----- Message from Kymberly Domínguez sent at 06/18/2019 10:16 AM PST ----- Regarding: [place]-Lab Order Pt called and states she was to go and have a Urostone Max 24. At her last appt in our office we did not have to container to give to her, she would like to know what she is to do, is she to come to our office and collect the container or does sh e need to go to the lab to get the container so she can completed her lab. She can be reached at [phone] do cumented in this encounter Plan of Treatment +--------+---------+ + + + | Date | Type | Specialty | Care Team | Description | +--------+---------+ + + + | 06/02/ | Office | Nephrology | Brad Singh MD | | 2019 | Visit | | [address] [facility] | | | | | | [address] [place], [place] | | | | | | [address] | | | | | | | | +--------+---------+ + + + documented as of this encounter Visit Diagnoses Not on filedocumented in this encounter"
--- OUTSIDE RECORDS SUMMARY | ~2019-12-26 | XMS | Encounter Summary ---
Demographics + + + | Address | [address] | | | [place] [address] | + + + | Home Phone [...] + | Author | [facility] [place] | | | and [place] | + + + | Organization | [facility] [place] | | | and [place] [...] Team Providers + +------+ + | Care Family Service Center Director Name | Role | Phone | + +------+ + | Roxanne Gillis MD | PCP | | + +------+ + Encounter Details +--------+ + + + + | Date | Type | Department | Care Team | Description | +--------+ + + + + | 11/29/ | Hospital | [facility] | Roxanne Gillis, | Other screening | | 2013 | Encounter | MED CTR MAMMOGRAPHY | [address] | mammogram | | | | [address] | [address] [place] | | | | | [place] | [address] | | | | | [address] | | | | | | [phone] | | | +--------+ + + + [...] 2019 | Visit | | [facility] [address] [facility] | | | | | | [address] [place], [place] | | | | | | [address] | | | | | | | [...] + | MISCELLANEOUS LAB | | | [phone] | + +---------+ + + | MISCELANIOUS LAB | | | [phone] | + +---------+ + + documented in this encounter Visit Diagnoses + + | Diagnosis | + + | Other screening mammogram | + + documented in this encounter"
--- OUTSIDE RECORDS SUMMARY | ~2019-12-26 | XMS | Encounter Summary ---
Demographics + + + | Address | [address] | | | [place] [address] | + + + | Home Phone [...] | Author | [facility] [place] | | | and [place] | + + + | Organization | [facility] [place] | | | and [...] Team Providers + +------+ + | Care Dump Attendant Name | Role | Phone | + +------+ + | Umesh Mcmahon NP | PCP | | + +------+ + Encounter Details +--------+ + + + + | Date | Type | Department | Care Team | Description | +--------+ + + + + | 12/17/ | Hospital | [facility] | Anastacio Mendoza MD | | | 2020 | Encounter | MED CTR XRAY [address] | [address] [facility] | | | | | [place] | [place] | | | | | [place] [address] | [address] | | | | | [phone] | [phone] | | | | | | | [...] + + documented as of this encounter Medications at Time of Discharge [...] 2020 | Visit | | [address] [facility] | | | | | | [address] [place] | | | | | | [address] | | | | | | | [...]
[~2019-12-26 17:59] MED LIST changes: +LAMOTRIGINE150 MG PO; +MINIPRESS2 MG PO
--- OUTSIDE RECORDS SUMMARY | 2019-12-26 18:02 | XMS ---
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 Care History Medical/Surgical 06/25/2019 [facility] Patient has scheduled visit with Umesh Brewster on 07/04/2019. 11/22/2018 [facility] - Patient is currently established with [facility]. If patient is seen in the ED during business hours. Please contact [facility] at [facility]. Care Recommendation: If this patient has had [...] care. E.D. VISIT COUNT (12 MO.) [address] [facility] TOTAL 3 NOTE: Visits indicate total known visits. 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 [place] TYPE: Emergency COMPLAINT: - PAIN IN MID BACK, VOMITING DIAGNOSES: - Allergy status to other antibiotic agents status - Other halfway (current) drug therapy - Other nonmedicinal substance allergy status - Essential (primary) hypertension - Major depressive disorder, single episode, unspecified - Hydronephrosis with renal and ureteral calculous obstruction - Personal history of nicotine dependence - Unspecified abdominal pain INPATIENT VISIT TRACKING (12 MO.) No inpatient visits to display in this time frame [email or web address]
[2019-12-26] MEDS ORDERED: KEFLEX500 MG PO (21:44)
--- NOTE | 2019-12-27 18:28 | EKG ---
[facility] [address] [facility] [place], [place] [address] Signed Sinus tachycardia Low voltage QRS Borderline ECG When compared with ECG of 22-JUN-2019 10:33, No significant change was found Confirmed by WILTON LEON DO ([id number]) on 12/27/2019 6:28:41 PM Electronically Signed By: WILTON LEON DO 12/27/19 1828 PATIENT NAME: EDY GILLIAM HAZEL Electrocardiogram DATE OF : 68 PHYSICIAN: WILTON LEON DO REPORT #: [id number] REPORT IS CONFIDENTIAL AND NOT TO BE RELEASED WITHOUT AUTHORIZATION
== END 2019-12-26 22:00 | disposition home or self-care (01) ==
LOC: ED 17:59
DX: A41.9 Sepsis, unspecified organism (principal); N39.0 Urinary tract infection, site not specified; I10 Essential (primary) hypertension; F41.9 Anxiety disorder, unspecified; F31.9 Bipolar disorder, unspecified; F17.200 Nicotine dependence, unspecified, uncomplicated; Z91.048 Other nonmedicinal substance allergy status; Z88.1 Allergy status to other antibiotic agents; Z79.899 Other long term (current) drug therapy
CPT/HCPCS: 71045; 74018; 80053; 81001; 83605; 85025; 93005; 93010; 96361; 96365; 96375; 99284-25; J0696; J2405; J7030

== ENCOUNTER 2023-03-14 12:21 | Emergency (ER) | payer OTHER ==
[~2023-03-14] VITALS: Ht 167.6 cm; Wt 95.1 kg
[~2023-03-14 12:21] MED LIST changes: +KEFLEX500 MG PO
[2023-03-14] MEDS ORDERED: VITAMIN D21250 MCG PO (12:39)
[2023-03-14] MEDS ORDERED: LEVOTHYROXINE75 MCG PO (12:39)
[2023-03-14] MEDS ORDERED: CHLORPROMAZINE10 MG PO (12:39)
[2023-03-14] MEDS ORDERED: NICOTINE PATCH1 EACH TD (12:40)
[2023-03-14] MEDS ORDERED: ESTRADIOL1 EAC5 TD (12:40)
[2023-03-14 13:03] LABS: BASOPHILS 1.4 % (0-2); HEMATOCRIT 47.1 % (35.0-50.0); LYMPHOCYTES 32.4 % (24-44); MCH 31.1 (27-36); MCHC 34.1 g/dl (30-36); MCV 91.4 fl (81-99); MONOCYTES 6.7 % (0-12); NEUTROPHILS 56.5 % (39-80); PLATELET COUNT 318 K/uL (140-440); RBC 5.15 M/ul (4.3-5.7); RDW 13.6 (10.5-15.0)
[2023-03-14 13:15] LABS: ALBUMIN 4.1 g/dL (3.4-5.0); ALBUMIN/GLOBULIN RATIO 1.11 (1.1-2.4); ANION GAP 15.2 (7-21); BILIRUBIN, TOTAL 0.4 ng/dL (0.2-1.0); BUN/CREATININE RATIO 15.09 (6.0-28.6); CALCIUM 9.1 mg/dL (8.5-10.1); CREATININE, SERUM 1.06 mg/dL (0.55-1.02); POTASSIUM 4.2 mmol/L (3.5-5.1); PROTEIN, TOTAL 7.8 g/dL (6.4-8.2)
[2023-03-14 14:11] LABS: ABO O; ANTIBODY SCREEN NEGATIVE; RH POSITIVE
[2023-03-14 15:59] VITALS: BP 122/88
== END 2023-03-14 15:59 | disposition home or self-care (01) ==
LOC: ED 12:21
PROVIDERS: Emergency Medicine
DX: K57.31 Diverticulosis of large intestine without perforation or abscess with bleeding (principal); I10 Essential (primary) hypertension; F17.200 Nicotine dependence, unspecified, uncomplicated; Z88.1 Allergy status to other antibiotic agents; Z91.09 Other allergy status, other than to drugs and biological substances
CPT/HCPCS: 36415; 74177; 80053; 85025; 86850; 86900; 86901; 99285-25; Q9967

== ENCOUNTER 2023-03-27 12:35 | Emergency (ER) | payer OTHER ==
[~2023-03-27] VITALS: Ht 167.6 cm; Wt 96.3 kg
[~2023-03-27 12:35] MED LIST changes: +CHLORPROMAZINE10 MG PO; +ESTRADIOL1 EAC5 TD; +LEVOTHYROXINE75 MCG PO; +NICOTINE PATCH1 EACH TD; +VITAMIN D21250 MCG PO
--- OUTSIDE RECORDS SUMMARY | 2023-03-27 12:39 | XMS ---
PreManage Notification: EDY GILLIAM Security Electronic Publishing Specialist Events No recent Security Events currently on file CRITERIA MET - [facility] - [facility] - 2 Visits in 30 Days CARE PROVIDERS UMESH BREWSTER Nurse Practitioner: 11/22/2018-Current PHONE: Unknown -, [place]- Dentist: Information Management Officer [facility] PHONE: [phone] April Echeverria Nurse Practitioner: Current PHONE: [phone] Care Guidelines exist for the following facilities: [facility] ( 07/28/2020 ) Care History Medical/Surgical 06/25/2019 [facility] Patient has scheduled visit with Umesh Brewster on 07/04/2019. 11/22/2018 [facility] - Patient is currently established with [facility]. If patient is seen in the ED during business hours. Please contact CHWs at [facility]. Care Recommendation: If this patient has had [...] providing care. E.D. [facility] (12 MO.) [facility] TOTAL 3 NOTE: Visits indicate total known visits. ED/UCC VISIT TRACKING (12 MO.) 03/27/2023 12:36 [facility] [place] TYPE: Emergency COMPLAINT: - NECK PAIN 03/22/2023 12:[address] [facility] Bev [place] ([place]) TYPE: Emergency DIAGNOSES: - Low back pain, unspecified - incontinence 03/14/2023 12:22 [facility] [place] TYPE: Emergency COMPLAINT: - RECTAL BLEEDING, ABD PAIN DIAGNOSES: - Allergy status to other antibiotic agents - Diverticulosis of large intestine without perforation or abscess with bleeding - Essential (primary) hypertension - Hemorrhage of anus and rectum - Nicotine dependence, unspecified, uncomplicated - Other allergy status, other than to drugs and biological substances INPATIENT VISIT TRACKING (12 MO.) No inpatient visits to display in this time frame [email or web address]
[2023-03-27] MEDS ORDERED: GABAPENTIN100 MG PO (12:47)
[2023-03-27] MEDS ORDERED: HYDROCODON-ACE1 EA10 PO (12:47)
[2023-03-27 13:20] LABS: BASOPHILS 3.1 % (0-2); EOSINOPHILS 3.1 % (0-6); HEMATOCRIT 47.5 % (35.0-50.0); LYMPHOCYTES 21.9 % (24-44); MCH 31.3 (27-36); MCHC 33.6 g/dl (30-36); MONOCYTES 4.4 % (0-12); NEUTROPHILS 67.5 % (39-80); PLATELET COUNT 352 K/uL (140-440); RDW 13.8 (10.5-15.0)
[2023-03-27 13:32] LABS: ALBUMIN 4.3 g/dL (3.4-5.0); ALBUMIN/GLOBULIN RATIO 1.16 (1.1-2.4); ALKALINE PHOSPHATASE 92 U/L (46-116); ALT (SGPT) 33 U/L (14-59); ANION GAP 18.8 (7-21); AST (SGOT) 22 U/L (15-37); BILIRUBIN, TOTAL 0.5 ng/dL (0.2-1.0); CALCIUM 9.5 mg/dL (8.5-10.1); CARBON DIOXIDE 23 mmol/L (21-32); CHLORIDE 103 mmol/L (98-107); CREATININE, SERUM 1.25 mg/dL (0.55-1.02); GLOMERULAR FILTRATION RATE,EST 52 mL/min (>60); POTASSIUM 3.8 mmol/L (3.5-5.1); UREA NITROGEN 12 mg/dL (7-18)
[2023-03-27 15:51] LABS: BILIRUBIN, URINE NEGATIVE (negative); BLOOD/HGB, URINE NEGATIVE (Negative); KETONE, URINE NEGATIVE (Negative); LEUK ESTERASE, URINE SMALL (negative); NITRITE, URINE POSITIVE (negative)
[2023-03-27 16:01] LABS: BACTERIA, URINE 4+ /hpf (negative); CASTS, URINE NONE SEEN \\lpf; CRYSTALS, URINE NONE SEEN (0-1+); EPITHELIAL CELLS, URINE SQUAMOUS 3+ /lpf (0-1+); RED BLOOD CELLS, URINE 0-1 /hpf (0-5)
[2023-03-27 16:02] LABS: COLLECTION TYPE, URINE CLEAN CATCH; REFLEX CULTURE, URINE No (No)
[2023-03-27 16:06] LABS: AMPHETAMINES, URINE NEGATIVE (NEGATIVE); BARBITURATES, URINE NEGATIVE (NEGATIVE); BENZODIAZEPINE, URINE NEGATIVE (NEGATIVE); BUPRENORPHINE, URINE NEGATIVE (NEGATIVE); CANNABINOID, URINE POSITIVE (NEGATIVE); COCAINE, URINE NEGATIVE (NEGATIVE); ECSTASY, URINE NEGATIVE (NEGATIVE); FENTANYL, URINE NEGATIVE (NEGATIVE); METHADONE, URINE NEGATIVE (NEGATIVE); OPIATES, URINE POSITIVE (NEGATIVE); OXYCODONE, URINE NEGATIVE (NEGATIVE); PHENCYCLIDINE, URINE NEGATIVE (NEGATIVE)
[2023-03-27] MEDS ORDERED: CEFDINIR300 MG PO (19:07)
[2023-03-27 19:31] VITALS: BP 145/106
--- NOTE | 2023-03-27 21:47 | EKG ---
[facility] [address] [place] [address] Signed Poor data quality, interpretation may be adversely affected Sinus tachycardia Left axis deviation Low voltage QRS Inferior infarct , age undetermined Cannot rule out Anterior infarct , age undetermined Abnormal ECG When compared with ECG of 26-DEC-2019 18:40, Inferior infarct is now present Confirmed by Mike Samayoa MD () on 03/27/2023 9:47:01 PM Electronically Signed By: MIKE SAMAYOA MD 03/27/23 2147 PATIENT NAME: EDY GILLIAM Electrocardiogram DATE OF : 68 PHYSICIAN: MIKE SAMAYOA MD REPORT #: [id number] REPORT IS CONFIDENTIAL AND NOT TO BE RELEASED WITHOUT AUTHORIZATION
[2023-04-04] MEDS ORDERED: TIZANIDINE HCL2 MG PO (10:42)
[2023-04-04] MEDS ORDERED: CHLORPROMAZINE10 MG PO (10:42)
[2023-04-04] MEDS ORDERED: LORAZEPAM0.5 MG PO (10:43)
== END 2023-03-27 19:31 | disposition home or self-care (01) ==
LOC: ED 12:35
PROVIDERS: Emergency Medicine
DX: M54.2 Cervicalgia (principal); N39.0 Urinary tract infection, site not specified; I10 Essential (primary) hypertension; F17.200 Nicotine dependence, unspecified, uncomplicated; Z91.09 Other allergy status, other than to drugs and biological substances; Z88.1 Allergy status to other antibiotic agents; Z79.890 Hormone replacement therapy; Z79.899 Other long term (current) drug therapy
CPT/HCPCS: 36415; 71045; 72040; 80053; 80307; 81001; 84484; 85025; 93005; 93010; 96374; 96375; 99284-25; J1100; J1885; J2060; J7030

== ENCOUNTER 2023-04-18 09:07 | Emergency (ER) | payer OTHER ==
[~2023-04-18] VITALS: Ht 167.6 cm; Wt 92.7 kg
[~2023-04-18 09:07] MED LIST changes: +CEFDINIR300 MG PO; +GABAPENTIN100 MG PO; +HYDROCODON-ACE1 EA10 PO; +LORAZEPAM0.5 MG PO; +TIZANIDINE HCL2 MG PO
--- OUTSIDE RECORDS SUMMARY | 2023-04-18 09:13 | XMS ---
PreManage Notification: EDY GILLIAM Security [employer] Events No recent Security Events currently on file CRITERIA MET - PDM - [facility] - 2 Visits in 30 Days CARE PROVIDERS UMESH BREWSTER Nurse Practitioner: Family 11/22/2018-Current PHONE: Unknown -, [place]- Dentist: Chairperson Anesthesiology [facility] PHONE: [phone] Care Guidelines exist for the following facilities: [facility] ( 07/28/2020 ) Care History Medical/Surgical 06/25/2019 [facility] Patient has scheduled visit with Umesh Brewster on 07/04/2019. 11/22/2018 [facility] - Patient is currently established with [facility]. If patient is seen in the ED during business hours. Please contact [facility] at [facility]. Care Recommendation: If this patient has had [...] care. E.D. VISIT COUNT (12 MO.) [facility] [address] [place] [address] Bev Samuel (Alhaji Mane) TOTAL 5 NOTE: Visits indicate total known visits. ED/UCC VISIT TRACKING (12 MO.) 04/18/2023 09:[address] [facility] [place] TYPE: Emergency COMPLAINT: - NAUSEA, DIARRHEA, COLD NIGHT SWEATS, WEAK 04/04/2023 10:24 [facility] [place] TYPE: Emergency COMPLAINT: - POSS STROKE DIAGNOSES: - Allergy status to narcotic agent - Allergy status to other drugs, medicaments and biological substances - Contact with and (suspected) exposure to COVID-19 - Encounter for screening for COVID-19 - Essential (primary) hypertension - Hormone replacement therapy - Nicotine dependence, unspecified, uncomplicated - Other allergy status, other than to drugs and biological substances - Other usp (current) drug therapy - Paresthesia of skin - Slurred speech 03/27/2023 12:36 [facility] [place] TYPE: Emergency COMPLAINT: - NECK PAIN DIAGNOSES: - Allergy status to other antibiotic agents - Cervicalgia - Essential (primary) hypertension - Hormone replacement therapy - Nicotine dependence, unspecified, uncomplicated - Other allergy status, other than to drugs and biological substances - Other usp (current) drug therapy - Urinary tract infection, site not specified [facility] DIAGNOSES: - Low back pain, unspecified - incontinence 03/14/2023 12:22 [facility] TYPE: Emergency COMPLAINT: - RECTAL BLEEDING, ABD [...] visits to display in this time frame [email or web address]
[2023-04-18 09:36] LABS: BILIRUBIN, URINE POSITIVE (negative); BLOOD/HGB, URINE NEGATIVE (Negative); KETONE, URINE TRACE (Negative); LEUK ESTERASE, URINE TRACE (negative); NITRITE, URINE POSITIVE (negative); PH, URINE 5.5 (5-7)
[2023-04-18 09:45] LABS: BACTERIA, URINE 2+ /hpf (negative); CASTS, URINE NONE SEEN \\lpf; COLLECTION TYPE, URINE CLEAN CATCH; CRYSTALS, URINE NONE SEEN (0-1+); EPITHELIAL CELLS, URINE SQUAMOUS 3+ /lpf (0-1+); REFLEX CULTURE, URINE No (No)
[2023-04-18] MEDS ORDERED: PRAZOSIN HCL1 MG PO (09:47)
[2023-04-18] MEDS ORDERED: OMEPRAZOLE20 MG PO (09:47)
[2023-04-18 10:01] LABS: BASOPHILS 1.2 % (0-2); EOSINOPHILS 0.2 % (0-6); HEMATOCRIT 44.7 % (35.0-50.0); HEMOGLOBIN 15.2 g/dL (12.0-18.0); LYMPHOCYTES 40.1 % (24-44); MCH 31.4 (27-36); MCHC 34.1 g/dl (30-36); MONOCYTES 13.6 % (0-12); NEUTROPHILS 44.9 % (39-80); PLATELET COUNT 205 K/uL (140-440); RBC 4.85 M/ul (4.3-5.7); RDW 13.9 (10.5-15.0)
[2023-04-18 10:25] LABS: ALBUMIN/GLOBULIN RATIO 1.38 (1.1-2.4); ANION GAP 15.7 (7-21); BILIRUBIN, TOTAL 0.3 ng/dL (0.2-1.0); BUN/CREATININE RATIO 9.16 (6.0-28.6); CALCIUM 8.8 mg/dL (8.5-10.1); CREATININE, SERUM 1.2 mg/dL (0.55-1.02); POTASSIUM 3.7 mmol/L (3.5-5.1); PROTEIN, TOTAL 6.9 g/dL (6.4-8.2)
[2023-04-18] MEDS ORDERED: MACROBID 100 M100 MG PO (15:39)
[2023-04-18 15:55] VITALS: BP 114/84
== END 2023-04-18 15:56 | disposition home or self-care (01) ==
LOC: ED 09:07
PROVIDERS: Emergency Medicine
DX: R19.7 Diarrhea, unspecified (principal); R10.84 Generalized abdominal pain; N39.0 Urinary tract infection, site not specified; F17.200 Nicotine dependence, unspecified, uncomplicated; Z79.890 Hormone replacement therapy; Z79.899 Other long term (current) drug therapy; Z88.1 Allergy status to other antibiotic agents; Z88.6 Allergy status to analgesic agent; Z91.048 Other nonmedicinal substance allergy status
CPT/HCPCS: 36415; 74177; 80053; 81001; 85025; J2060; J2405; Q9967